=== PATIENT | male | born 1950 | race Caucasian/White ===

== ENCOUNTER 2024-09-16 00:27 | Day surgery (SDC) | payer MEDICARE, SELFPAY ==
[2024-09-06 13:23] VITALS: BMI 31.4
--- NOTE | 2024-09-06 13:52 | PC.NURSE ---
Spoke with _PATIENT_ regarding medication _PLAVIX_. Pt. verbalizes understanding that the last dose of PLAVIX is to be taken on _09/08/2024_ and the Endoscopist will instruct them when to restart after the procedure.
[2024-09-16 09:21] VITALS: BP 124/78; PULSE 55; RESP 18; TEMP 36.9; O2SAT 97
[2024-09-16] MEDS: LACTATED RINGERS 1,000 ML 150 ML IV CONT (09:40)
--- NOTE | 2024-09-16 10:01 | PM.IMHP ---
H&P: HPI History of Present Illness Date/Time: 09/16/24 10:01 Chief Complaint: Screening colonoscopy Narrative: This is the patient's second colonoscopy after 12 years.. There are no GI symptoms and there is no family history of colorectal cancer. Review of Systems Review of Systems: All systems reviewed & are unremarkable except as noted in HPI and below PMFSH Social History Social History Smoking status: Former smoker Alcohol intake: current Substance use: never Substance use type: does not use Living arrangements: with family Spiritual care concerns: No Meds Home Medications and Allergies Home Medications Medication Instructions Recorded Confirmed Type Adult Probiotic 1 cap PO BOLUS 09/06/24 09/16/24 History Calcium Plus D3 1,200 mg PO DAILY 09/06/24 09/16/24 History aspirin 81 mg tablet,delayed 81 mg PO DAILY 09/06/24 09/16/24 History release cetirizine 10 mg tablet (Zyrtec) 10 mg PO DAILY 09/06/24 09/16/24 History clopidogrel 75 mg tablet 75 mg PO DAILY 09/06/24 09/16/24 History coQ10 (ubiquinol) 200 mg capsule 400 mg PO DAILY 09/06/24 09/16/24 History ezetimibe 10 mg tablet 10 mg PO DAILY 09/06/24 09/16/24 History fluticasone propionate 50 2 spray intranasal DAILY 09/06/24 09/16/24 History mcg/actuation nasal spray,suspension isosorbide mononitrate 30 mg 30 mg PO DAILY 09/06/24 09/16/24 History tablet,extended release 24 hr magnesium oxide 400 mg PO DAILY 09/06/24 09/16/24 History melatonin 5 mg tablet 5 mg PO HS 09/06/24 09/16/24 History metoprolol succinate 50 mg 25 mg PO DAILY 09/06/24 09/16/24 History tablet,extended release 24 hr montelukast 10 mg tablet 10 mg PO DAILY 09/06/24 09/16/24 History multivitamin with minerals-folic 1 tablet PO DAILY 09/06/24 09/16/24 History acid 0.4 mg tablet ranolazine 1,000 mg 1,000 mg PO BID 09/06/24 09/16/24 History tablet,extended release,12 hr rosuvastatin 40 mg tablet 40 mg PO DAILY 09/06/24 09/16/24 History vitamin E (dl, acetate) 180 mg 180 mg PO DAILY 09/06/24 09/16/24 History (400 unit) capsule Allergies Allergy/AdvReac Type Severity Reaction Status Date / Time No Known Allergies Allergy Verified 09/16/24 09:20 Vital Signs Vital Signs - 24 hr 09/16/24 09:21 Temperature 98.4 F Pulse Rate 55 L Respiratory Rate 18 Blood Pressure 124/78 Pulse Oximetry 97 Oxygen Delivery Room Air Exam Const: General: cooperative and healthy appearing Resp: Effort & Inspection: normal respiratory effort and able to speak in complete sentences Auscultation: clear to auscultation bilaterally Cardio: Rate: regular rate Rhythm: regular rhythm GI: Inspection: normal to inspection GI Palp: No No hepatosplenomegaly present Auscultation: normal bowel sounds Rectal Exam: deferred Skin: General skin exam: normal color Psych: Appearance: grossly normal Mental Status: mental status grossly normal Assessment and Plan Assessment and plan (1) Screening for malignant neoplasm of colon: Code(s): Z12.11 - Encounter for screening for malignant neoplasm of colon Status: Acute Assessment and Plan: The patient is deemed a good candidate for the procedure. Consent signed. Will proceed.
--- NOTE | 2024-09-16 10:05 | WPDANESEPPF ---
Anes - Initial Pre Proc Eval Procedure: Operation Date: 09/16/24 11:00 Proposed Procedures p Screening Colonoscopy - Daniel Mcintyre MD Date/Time: 09/16/24 10:05 Surgeon: Daniel Mcintyre MD Pre Op Diagnosis: screening colon Patient Data Age: 73 Gender: M Height: 1.68 m Weight: 86 kg Last Vital Signs Temp 36.9 C 09/16/24 09:21 Pulse 55 L 09/16/24 09:21 Resp 18 09/16/24 09:21 BP 124/78 09/16/24 09:21 Pulse Ox 97 09/16/24 09:21 O2 Del Method Room Air 09/16/24 09:21 Allergies Allergy/AdvReac Type Severity Reaction Status Date / Time No Known Allergies Allergy Verified 09/16/24 09:20 Home Medications Medication Instructions Recorded Confirmed Type Adult Probiotic 1 cap PO BOLUS 09/06/24 09/16/24 History Calcium Plus D3 1,200 mg PO DAILY 09/06/24 09/16/24 History aspirin 81 mg tablet,delayed 81 mg PO DAILY 09/06/24 09/16/24 History release cetirizine 10 mg tablet (Zyrtec) 10 mg PO DAILY 09/06/24 09/16/24 History clopidogrel 75 mg tablet 75 mg PO DAILY 09/06/24 09/16/24 History coQ10 (ubiquinol) 200 mg capsule 400 mg PO DAILY 09/06/24 09/16/24 History ezetimibe 10 mg tablet 10 mg PO DAILY 09/06/24 09/16/24 History fluticasone propionate 50 2 spray intranasal DAILY 09/06/24 09/16/24 History mcg/actuation nasal spray,suspension isosorbide mononitrate 30 mg 30 mg PO DAILY 09/06/24 09/16/24 History tablet,extended release 24 hr magnesium oxide 400 mg PO DAILY 09/06/24 09/16/24 History melatonin 5 mg tablet 5 mg PO HS 09/06/24 09/16/24 History metoprolol succinate 50 mg 25 mg PO DAILY 09/06/24 09/16/24 History tablet,extended release 24 hr montelukast 10 mg tablet 10 mg PO DAILY 09/06/24 09/16/24 History multivitamin with minerals-folic 1 tablet PO DAILY 09/06/24 09/16/24 History acid 0.4 mg tablet ranolazine 1,000 mg 1,000 mg PO BID 09/06/24 09/16/24 History tablet,extended release,12 hr rosuvastatin 40 mg tablet 40 mg PO DAILY 09/06/24 09/16/24 History vitamin E (dl, acetate) 180 mg 180 mg PO DAILY 09/06/24 09/16/24 History (400 unit) capsule Patient hx anesthesia problems: none Family hx anesthesia problems: none Results Review: All pre-operative results and documents have been reviewed as part of the pre-operative evaluation. [facility] Past Medical History Medical History (Updated 09/16/24 @ 10:06 by Yared Rivas MD) CAD (coronary artery disease) HTN (hypertension) Obesity Surgical History Surgical History History of coronary artery stent placement Social History Social History Smoking status: Former smoker Alcohol intake: current Substance use: never Substance use type: does not use Living arrangements: with family Spiritual care concerns: No Anes - Eval Final PreProcedure Day of Procedure 09/16/24 10:05 Patient weight: obese Heart: regular rate and rhythm Lungs: clear to auscultation Airway: Mallampati scale class II Neurological: alert and oriented Last oral intake: >/= 8 hours ASA classification: III Emergent: no Anesthetic plan: proceed Anesthesia type and monitoring: general GIVS and standard monitoring Results Review: All pre-operative results and documents have been reviewed as part of the pre-operative evaluation. Informed Consent: The patient's anesthetic plan and its attendant risks and benefits were discussed with the patient/family/POA. Questions were solicited and answers provided to the satisfaction of the patient/family/POA.
--- NOTE | 2024-09-16 10:08 | P.PNAN_ITS ---
Anes - Initial Pre Proc Eval Procedure: Operation Date: 09/16/24 11:00 Proposed Procedures p Screening Colonoscopy - Daniel Mcintyre MD Date/Time: 09/16/24 10:08 Surgeon: Daniel Mcintyre MD Pre Op Diagnosis: screening colon Patient Data Age: 73 Gender: M Height: 1.68 m Weight: 86 kg Last Vital Signs Temp 36.9 C 09/16/24 09:21 Pulse 55 L 09/16/24 09:21 Resp 18 09/16/24 09:21 BP 124/78 09/16/24 09:21 Pulse Ox 97 09/16/24 09:21 O2 Del Method Room Air 09/16/24 09:21 Allergies Allergy/AdvReac Type Severity Reaction Status Date / Time No Known Allergies Allergy Verified 09/16/24 09:20 Home Medications Medication Instructions Recorded Confirmed Type Adult Probiotic 1 cap PO BOLUS 09/06/24 09/16/24 History Calcium Plus D3 1,200 mg PO DAILY 09/06/24 09/16/24 History aspirin 81 mg tablet,delayed 81 mg PO DAILY 09/06/24 09/16/24 History release cetirizine 10 mg tablet (Zyrtec) 10 mg PO DAILY 09/06/24 09/16/24 History clopidogrel 75 mg tablet 75 mg PO DAILY 09/06/24 09/16/24 History coQ10 (ubiquinol) 200 mg capsule 400 mg PO DAILY 09/06/24 09/16/24 History ezetimibe 10 mg tablet 10 mg PO DAILY 09/06/24 09/16/24 History fluticasone propionate 50 2 spray intranasal DAILY 09/06/24 09/16/24 History mcg/actuation nasal spray,suspension isosorbide mononitrate 30 mg 30 mg PO DAILY 09/06/24 09/16/24 History tablet,extended release 24 hr magnesium oxide 400 mg PO DAILY 09/06/24 09/16/24 History melatonin 5 mg tablet 5 mg PO HS 09/06/24 09/16/24 History metoprolol succinate 50 mg 25 mg PO DAILY 09/06/24 09/16/24 History tablet,extended release 24 hr montelukast 10 mg tablet 10 mg PO DAILY 09/06/24 09/16/24 History multivitamin with minerals-folic 1 tablet PO DAILY 09/06/24 09/16/24 History acid 0.4 mg tablet ranolazine 1,000 mg 1,000 mg PO BID 09/06/24 09/16/24 History tablet,extended release,12 hr rosuvastatin 40 mg tablet 40 mg PO DAILY 09/06/24 09/16/24 History vitamin E (dl, acetate) 180 mg 180 mg PO DAILY 09/06/24 09/16/24 History (400 unit) capsule Patient hx anesthesia problems: none Family hx anesthesia problems: none Results Review: All pre-operative results and documents have been reviewed as part of the pre- operative evaluation. [facility] Past Medical History Medical History CAD (coronary artery disease) HTN (hypertension) Obesity Surgical History Surgical History History of coronary artery stent placement Social History Social History Smoking status: Former smoker Alcohol intake: current Substance use: never Substance use type: does not use Living arrangements: with family Spiritual care concerns: No Anes - Eval Final PreProcedure Day of Procedure 09/16/24 10:08 Patient weight: obese Heart: regular rate and rhythm Lungs: clear to auscultation Airway: Mallampati scale class II Neurological: alert and oriented Last oral intake: >/= 8 hours ASA classification: III Emergent: no Anesthetic plan: proceed Anesthesia type and monitoring: general GIVS and standard monitoring Results Review: All pre-operative results and documents have been reviewed as part of the pre- operative evaluation. Informed Consent: The patient's anesthetic plan and its attendant risks and benefits were discussed with the patient/family/POA. Questions were solicited and answers provided to the satisfaction of the patient/family/POA.
[2024-09-16 11:33] VITALS: BP 109/64; PULSE 59; RESP 18; O2SAT 97
[2024-09-16 11:43] VITALS: BP 109/64; PULSE 59; RESP 18; O2SAT 97
[2024-09-16 11:58] VITALS: BP 109/64; PULSE 52; RESP 21; O2SAT 99
--- NOTE | 2024-09-16 12:42 | SUR.PHASEII ---
Pt called and instructed that per dr gomez he can resume his plavix today. spoke with his , voiced understanding.
== END 2024-09-16 11:59 | disposition home or self-care (01) ==
PROVIDERS: PCP Internal Medicine; Visit Provider Internal Medicine Gastroenterology
PROC: 0DJD8ZZ Inspection of Lower Intestinal Tract, Via Natural or Artificial Opening Endoscopic (ICD-10-PCS; CPT 45378; principal; 2024-09-16 11:00)
DX: Z12.11 Encounter for screening for malignant neoplasm of colon (principal); K64.0 First degree hemorrhoids; K57.30 Diverticulosis of large intestine without perforation or abscess without bleeding; I10 Essential (primary) hypertension; I25.10 Atherosclerotic heart disease of native coronary artery without angina pectoris; E66.9 Obesity, unspecified; Z68.30 Body mass index [BMI] 30.0-30.9, adult; Z79.82 Long term (current) use of aspirin; Z79.02 Long term (current) use of antithrombotics/antiplatelets; Z98.890 Other specified postprocedural states; Z95.5 Presence of coronary angioplasty implant and graft; Z87.891 Personal history of nicotine dependence
CPT/HCPCS: G0121; J2704; J7120

== ENCOUNTER 2025-01-22 11:05 | Emergency (ER) | payer MEDICARE, SELFPAY ==
--- NOTE | ~2025-01-22 | XR_ITS ---
EXAMINATION: XR chest 2V 01/22/2025 13:14 INDICATION: Cough and shortness of breath PROCEDURE: 2 view chest COMPARISON: No prior studies for comparison. FINDINGS: The lungs are clear. The cardiomediastinal silhouette is within normal limits. There are no pleural effusions. There is no pneumothorax suspected. IMPRESSION: 1: NO ACUTE CARDIOPULMONARY DISEASE. Reviewed, dictated and finalized at location A.
[2025-01-22 11:08] VITALS: BP 136/73; PULSE 61; RESP 20; TEMP 36.6; O2SAT 99
--- NOTE | 2025-01-22 12:38 | ED.GENADULT ---
HPI - General Adult General Chief complaint: Upper Respiratory Infection Stated complaint: Shortness of breath, wheezing, coughing Time Seen by Provider: 01/22/25 11:41 History of Present Illness HPI narrative: Pablo Cruz is a 74-year-old male with reports of having a inked increased productive cough that started 2 days ago. He explains that 3 days ago he had some type of laryngeal spasm went to an outside hospital was admitted he had CT scans, labs, x-rays and they could not really explain why he had the laryngeal spasm for wheezing and discharge him home on steroids and albuterol inhalers. He states that he was discharged 2 days ago and he started to have continuous coughing it and noticed he was still having wheezing and continued to have to use his albuterol inhaler. He states that today the cough has become more productive and he used his inhaler throughout the night. Denies chest pain denies shortness of breath at this time. He is concerned that he may be having developing pneumonia as they also thought this could be beginning pneumonia when he left but did not start him on any antibiotics. Related Data Home Medications ?Medication ?Instructions ?Recorded ?Confirmed ?Last Taken ?Type Adult Probiotic 1 cap PO BOLUS 09/06/24 09/16/24 09/15/24 History Calcium Plus D3 1,200 mg PO DAILY 09/06/24 09/16/24 09/15/24 History aspirin 81 mg tablet,delayed 81 mg PO DAILY 09/06/24 09/16/24 09/15/24 History release cetirizine 10 mg tablet (Zyrtec) 10 mg PO DAILY 09/06/24 09/16/24 09/15/24 History clopidogrel 75 mg tablet 75 mg PO DAILY 09/06/24 09/16/24 09/08/24 History coQ10 (ubiquinol) 200 mg capsule 400 mg PO DAILY 09/06/24 09/16/24 09/15/24 History ezetimibe 10 mg tablet 10 mg PO DAILY 09/06/24 09/16/24 09/15/24 History fluticasone propionate 50 2 spray intranasal DAILY 09/06/24 09/16/24 09/15/24 History mcg/actuation nasal spray,suspension isosorbide mononitrate 30 mg 30 mg PO DAILY 09/06/24 09/16/24 09/15/24 History tablet,extended release 24 hr magnesium oxide 400 mg PO DAILY 09/06/24 09/16/24 09/15/24 History melatonin 5 mg tablet 5 mg PO HS 09/06/24 09/16/24 09/15/24 History metoprolol succinate 50 mg 25 mg PO DAILY 09/06/24 09/16/24 09/15/24 History tablet,extended release 24 hr montelukast 10 mg tablet 10 mg PO DAILY 09/06/24 09/16/24 09/15/24 History multivitamin with minerals-folic 1 tablet PO DAILY 09/06/24 09/16/24 09/15/24 History acid 0.4 mg tablet ranolazine 1,000 mg 1,000 mg PO BID 09/06/24 09/16/24 09/15/24 History tablet,extended release,12 hr rosuvastatin 40 mg tablet 40 mg PO DAILY 09/06/24 09/16/24 09/15/24 History vitamin E (dl, acetate) 180 mg 180 mg PO DAILY 09/06/24 09/16/24 09/15/24 History (400 unit) capsule Allergies Allergy/AdvReac Type Severity Reaction Status Date / Time No Known Allergies Allergy Verified 01/22/25 11:06 Review of Systems Review of Systems: All systems reviewed & are unremarkable except as noted in HPI and below PMFSH Past Medical History Medical History HTN (hypertension) CAD (coronary artery disease) Obesity Surgical History Surgical History History of coronary artery stent placement Social History Social History Smoking status: Former smoker Alcohol intake: current Substance use: never Substance use type: does not use Living arrangements: with family Spiritual care concerns: No Exam Narrative: GENERAL: Well-appearing, well-nourished, and in no acute distress. HEAD: Normocephalic, atraumatic. EYES: PERRLA and EOMI. ENT: Nares clear, no rhinorrhea or epistaxis. Mucous membranes moist. Oropharynx without tonsillar hypertrophy exudate or other lesions. NECK: Supple. No adenopathy or masses. No carotid bruits or JVD CHEST: Clear to auscultation. Crackles/adventitious lung sounds in the bases bilaterally posteriorly noted HEART: Regular rate and rhythm. No murmur heard. Normal peripheral pulses. ABDOMEN: Soft, nontender, nondistended, normal active bowel sounds. EXTREMITIES: Normal range of motion. No edema. SKIN: Warm, dry, no rash. NEURO: No focal deficits. Alert and oriented x3. PSYCH: Normal mood and affect. Course Vital Signs Vital signs: Vital Signs Temperature 36.6 C 01/22/25 11:08 Pulse Rate 61 01/22/25 11:08 Respiratory Rate 20 01/22/25 11:08 Blood Pressure 136/73 01/22/25 11:08 Pulse Oximetry 99 01/22/25 11:08 Oxygen Delivery Room Air 01/22/25 11:08 Temperature 36.6 C 01/22/25 11:08 Pulse Rate 61 01/22/25 11:08 Respiratory Rate 20 01/22/25 11:08 Blood Pressure 136/73 01/22/25 11:08 Pulse Oximetry 99 01/22/25 11:08 Oxygen Delivery Room Air 01/22/25 11:08 Medical Decision Making [facility] Narrative Medical decision making narrative: This 74 year old patient presents with symptoms most suggestive of respiratory tract infection. Lungs are clear with bilateral crackles verses adventitious sounds in the bases bilaterally without any respiratory distress or accessory muscle use. I reviewed the labs and testing he had done at the outside hospital all which were stable Based on history and exam concern for pneumonia will repeat some lab work here including a chest x-ray will likely start patient on p.o. antibiotics with close PCP follow-up CBC-leukocytosis 12.6, hemodynamically stable CMP-BUN 25, glucose 124 BNP-511 which is considered nondiagnostic considering he is 74 Viral swab-negative Chest XR-NO ACUTE CARDIOPULMONARY DISEASE. Curb-65 score 2 - inpatient vs outpatient with close PCP follow up Patient is treated symptomatically with Doxycycline BID for 5 days discharged home in stable condition with expectant management. Return precautions were provided. Procedures: Pulse oximetry interpretation - not hypoxic. Review of medical records. DISPOSITION: Discharged home in stable condition. IMPRESSION: Acute upper respiratory tract infection, likely viral. Vital Signs Vital Signs: Vital Signs Temperature 36.6 C 01/22/25 11:08 Pulse Rate 61 01/22/25 11:08 Respiratory Rate 20 01/22/25 11:08 Blood Pressure 136/73 01/22/25 11:08 Pulse Oximetry 99 01/22/25 11:08 Oxygen Delivery Room Air 01/22/25 11:08 Temperature 36.6 C 01/22/25 11:08 Pulse Rate 61 01/22/25 11:08 Respiratory Rate 20 01/22/25 11:08 Blood Pressure 136/73 01/22/25 11:08 Pulse Oximetry 99 01/22/25 11:08 Oxygen Delivery Room Air 01/22/25 11:08 Vitals reviewed Lab Data Lab results reviewed: Yes I reviewed the patient's lab results. 01/22/25 12:48 01/22/25 12:48 Labs: Lab Results 01/22/25 Range/Units 12:48 WBC 12.6 H (4.5-10.0) K/mm3 RBC 4.01 L (4.6-6.20) M/mm3 Hgb 12.7 L (14.0-18.0) g/dL Hct 39.0 L (42.0-52.0) % MCV 97.3 (80-100) fl MCH 31.7 (26-34) pg MCHC 32.6 (32-36) g/dl RDW 13.2 (11.5-14.5) % Plt Count 220 (150-375) k/mm3 MPV 9.9 (7.4-10.4) fl Immature Gran % (Auto) 2.7 H (0-0.5) % Neut % (Auto) 82.7 H (45.5-73.1) % Lymph % (Auto) 7.0 L (18.3-44.2) % Perkins % (Auto) 7.0 (2.6-8.5) % Eos % (Auto) 0.0 (0-4.4) % Baso % (Auto) 0.6 (0.2-1.2) % Lymph # (Auto) 0.89 L (0.9-3.2) K/mm3 Perkins # (Auto) 0.9 H (0.1-0.6) K/mm3 Eos # (Auto) 0.0 (0-0.3) K/mm3 Baso # (Auto) 0.1 (0.0-0.1) K/mm3 Abs Immat Gran (auto) 0.34 H (0.00-0.031) K/mm3 Absolute Neuts (auto) 10.5 H (1.3-6.7) K/mm3 Absolute Nucleated RBC 0.000 (0.0-0.012) K/mm3 Nucleated RBC % 0.0 (0.0-0.2) % Sodium 140 (137-145) mmol/L Potassium 4.5 (3.4-5.0) mmol/L Chloride 104 (98-107) mmol/L Carbon Dioxide 26 (22-30) mmol/L Anion Gap 10 (4-12) mmol/L BUN 25 H (9-20) mg/dL Creatinine 1.01 (0.7-1.3) mg/dL Estim Creat Clear Calc 59 ml/min Estimated GFR > 60 (59 - ) Glucose 124 H (65-110) mg/dL Calcium 9.0 (8.4-10.2) mg/dL Total Bilirubin 0.5 (0.2-1.3) mg/dL AST 28 (17-59) U/L ALT 34 (6-50) U/L Alkaline Phosphatase 52 (38-126) U/L NT-Pro-B Natriuret Pep 511 H (19.9-100) pg/mL Total Protein 7.0 (6.3-8.2) g/dL Albumin 4.4 (3.5-5.1) g/dL Influenza A (RT-PCR) Negative (Negative) Influenza B (RT-PCR) Negative (Negative) SARS-CoV-2 RNA (RT-PCR) Negative (Negative) Discharge Plan Discharge Clinical Impression: Pneumonia Qualifiers: Pneumonia type: due to unspecified organism Laterality: unspecified laterality Lung location: unspecified part of lung Qualified Code(s): J18.9 - Pneumonia, unspecified organism Patient Disposition: Home, Self-Care Condition: Stable Instructions: Antibiotic Form Additional Instructions: Continue to take the doxycycline twice a day for 5 days continue to push hydration to ensure your his stay hydrated continue the medications here previously started on her previous admission follow-up with her primary care doctor next week as scheduled. If he develop any worsening symptoms such as shortness of breath, chest pain difficulty breathing then return to the ER. Patient Language: Mohawk Prescriptions: New doxycycline hyclate 100 mg capsule 100 mg PO DAILY Qty: 10 0RF No Action Adult Probiotic 1 cap PO BOLUS cetirizine [Zyrtec] 10 mg Tablet 10 mg PO DAILY metoprolol succinate 50 mg tablet extended release 24 hr 25 mg PO DAILY isosorbide mononitrate 30 mg tablet extended release 24 hr 30 mg PO DAILY clopidogrel 75 mg tablet 75 mg PO DAILY aspirin 81 mg Tablet,Delayed Release (Dr/Ec) 81 mg PO DAILY montelukast 10 mg tablet 10 mg PO DAILY fluticasone propionate 50 mcg/actuation spray,suspension 2 spray INTRANASAL DAILY ezetimibe 10 mg tablet 10 mg PO DAILY rosuvastatin 40 mg tablet 40 mg PO DAILY multivit with min-folic acid [Adult One Daily Multivitamin] 0.4 mg Tablet 1 tablet PO DAILY ranolazine 1,000 mg tablet extended release 12 hr 1,000 mg PO BID melatonin 5 mg Tablet 5 mg PO HS vitamin E (dl, acetate) 180 mg (400 unit) Capsule 180 mg PO DAILY coQ10 (ubiquinol) 200 mg Capsule 400 mg PO DAILY magnesium oxide 400 mg magnesium Capsule 400 mg PO DAILY Calcium Plus D3 1,200 mg PO DAILY Follow-up/Referrals: Frank,MD Siddhartha [Primary Care Provider] -
--- OUTSIDE RECORDS SUMMARY | 2025-01-22 12:45 | XMS_ITS | Patient Health Record ---
Author Organization 1 OF Yannick barragan D[facility] Address [address] [id number] Reason For Referral No Information Plan Of Treatment No Information
--- OUTSIDE RECORDS SUMMARY | 2025-01-22 12:45 | XMS_ITS | Data Portability ---
Author Organization [facility] Address [address] [place] [address] Care Team Providers Care Customer Support Executive Name Role Phone BRANDT MARIE Primary Care Provider [phone] DENISE SEAMAN Russian Language Instructor Assessment Encounter Date Assessment Date Assessment LastModified by Organization Details LastModified Time 03/12/2024 03/12/2024 Check uric acid and BMP given Medrol Dosepak empirically possibly for gout refill his Flonase keep his follow-up and he will let me know how he is doing over the next few days. [email or web address] Not available 04/06/2024 17:57:38 06/18/2024 06/18/2024 he can add some triamcinolone cream to the small area of inflammation in his back blood work ordered diagnosis and assessment and plan discussed see me in 4 months [email or web address] Not available 06/18/2024 23:38:41 07/30/2024 07/30/2024 checklist and screenings have been discussed healthy lifestyle care instructions as well immunizations and screenings ordered were patient agreeable and screenings and immunizations appropriate keep regular follow up Not available 08/11/2024 15:16:45 09/25/2024 09/25/2024 ibuprofen 400-600 mg t.i.d. with food for 7-10 days Keflex 500 t.i.d. for 7 days warm pack 10 minutes several times a day just make sure he does not bring himself keep his regular appointment he will call back sooner if not improved Not available 09/28/2024 13:37:42 11/05/2024 11/05/2024 Blood pressure is controlled. We will continue current therapy blood work has been ordered all questions answered clinically stable follow up in 4 months [email or web address] Not available 11/18/2024 17:23:00 Plan of Treatment Reminders Order Date Submit Date Provider Last Modified By Organization Details Last Modified Time Details Appointments ANY 15 2024 09:45A Ximena Marie MD Not available Not available Not available ANY 15 2024 10:15A Ximena Marie MD Not available Not available Not available Lab PSA, total, serum or plasma 2024 025 [facility], [address], [place], [address], 11/06/2024 08:26:52 lipid panel, serum 2024 025 [facility], [address], [place], [address], 11/06/2024 08:26:48 CMP, serum or plasma 2024 025 [facility], [address], [place], [address], 11/06/2024 08:26:49 CBC w/ auto diff 2024 025 [facility], [address], [place], [address], 11/06/2024 08:26:51 CBC w/ auto diff 2023 024 [facility], [address], [place], [address], 06/19/2024 13:12:48 T4, free, serum 2023 024 [facility], [address], [place], [address], 06/19/2024 13:12:49 T3, free, serum or plasma 2023 024 [facility], [address], [place], [address], 06/19/2024 13:12:49 TSH, ultra-sen sitive, serum 2023 024 [facility], [address], [place], [address], 06/19/2024 13:12:47 lipid panel, serum 2023 024 [facility], [address], [place], [address], 06/19/2024 13:12:46 CMP, serum or plasma 2023 024 [facility], [address], [place], [address], 06/19/2024 13:12:47 uric acid, serum or plasma 2023 024 [facility], [address], [place], [address], 03/13/2024 08:25:35 BMP, serum or plasma 2023 024 [facility], [address], [place], [address], 03/13/2024 08:25:34 Referral None recorded. Procedures None recorded. Surgeries None recorded. Imaging XR, foot, 3 or more view 2023 024 [facility] ([facility]), [address] [facility], [place], [address], 03/12/2024 15:02:20 Medication Orders cephalexi n 500 mg tablet 2023 025 [id number], [address], [place], [place], [phone], 11/05/2024 11:21:42 Medrol (Kee) 4 mg tablets in a dose pack 2023 024 [id number], [address], [place], [place], [id number], 07/30/2024 10:07:30 Flonase Allergy Relief 50 mcg/actua tion nasal spray,mahamed pension 2023 024 [email or web address] [facility], [address] [place] [address], [address], [phone], 03/12/2024 14:56:43 Patient TargetsNo targets recorded. Patient Instructions Encounter Date Encounter Id Patient Instructions Last Modified By Organization Details Last Modified Time 07/30/2024 [id number] A healthy lifestyle: care instructions Not available 07/30/2024 11:18:44 preventing falls : care instructions [email or web address] Not available 07/30/2024 11:18:44 Medicare Wellnes s Preventive Checklist Not available 07/30/2024 11:18:44 09/25/2024 [id number] A healthy lifestyle: care instructions [email or web address] Not available 09/25/2024 12:16:08 11/05/2024 [id number] A healthy lifestyle: care instructions [email or web address] Not available 11/05/2024 12:46:08 Reason for Referral None Reported. Results Created Date Observation Date Name Description Value Unit Range Abnormal Flag Note LastModifiedBy Organization Detail LastModifiedTime 03/12/2003/13/2024 BASIC METAB OLIC PANEL (8) glucose - mg/dL Test not perfo rmed. Serum was in conta ct with cells when recei emi which will make the resul t inacc urate . Not Available [facility] ([facility]) [address] [place], [address], 03/13/2024 08:25:34 03/12/20 24 03/13/2024 BASIC METAB OLIC PANEL (8) BUN 15 mg/dL 8 Not Available [facility] ([facility]) [address] [place], [address], 03/13/2024 08:25:34 03/12/20 24 03/13/2024 BASIC METAB OLIC PANEL (8) creatinine 1.21 mg/dL 0.76-1 .27 Not Available [facility] ([facility]) [address] [place], [address], 03/13/2024 08:25:34 03/12/20 24 03/13/2024 BASIC METAB OLIC PANEL (8) eGFR 63 mL/mi n/1.7 3 >59 Not Available [facility] ([facility]) [address] [place], [address], 03/13/2024 08:25:34 03/12/20 24 03/13/2024 BASIC METAB OLIC PANEL (8) BUN/creatini ne ratio 12 10-24 Not Available [facility] ([facility]) [address] [place], [address], 03/13/2024 08:25:34 03/12/20 24 03/13/2024 BASIC METAB OLIC PANEL (8) sodium 141 mmol/ L 134-14 4 Not Available [facility] ([facility]) [address] [place], [address], 03/13/2024 08:25:34 03/12/20 24 03/13/2024 BASIC METAB OLIC PANEL (8) potassium - mmol/ L Test not perfo rmed. Serum was in conta ct with cells when recei emi which will make the resul t inacc urate . Not Available [facility] ([facility]) [address] [place], [address], 03/13/2024 08:25:34 03/12/20 24 03/13/2024 BASIC METAB OLIC PANEL (8) chloride 104 mmol/ L 96-106 Not Available [facility] ([facility]) [address] [place], [address], 03/13/2024 08:25:34 03/12/20 24 03/13/2024 BASIC METAB OLIC PANEL (8) carbon dioxide, total 20 mmol/ L 20-29 Not Available [facility] ([facility]) [address] [place], [address], 03/13/2024 08:25:34 03/12/20 24 03/13/2024 BASIC METAB OLIC PANEL (8) calcium 9.8 mg/dL 8.6-10 .2 Not Available [facility] ([facility]) [address] [place], [address], 03/13/2024 08:25:34 03/12/20 24 03/13/2024 URIC ACID uric acid 4.9 mg/dL 3.8-8. 4 Thera fadi garcia t for gout patie nts: <6.0 Not Available [facility] ([facility]) [address] [place], [address], 03/13/2024 08:25:35 06/18/20 24 06/19/2024 LIPID PANEL cholesterol, total 176 mg/dL 100-19 9 Not Available [facility] ([facility]) [address] [place], [address], 06/19/2024 13:12:46 06/18/20 24 06/19/2024 LIPID PANEL triglyceride s 157 mg/dL 0-149 above high normal Not Available [facility] ([facility]) [address] [place], [address], 06/19/2024 13:12:46 06/18/20 24 06/19/2024 LIPID PANEL HDL cholesterol 54 mg/dL >39 Not Available [facility] ([facility]) [address] [place], [address], 06/19/2024 13:12:46 06/18/20 24 06/19/2024 LIPID PANEL VLDL cholesterol nando 27 mg/dL 5-40 Not Available [facility] ([facility]) [address] [place], [address], 06/19/2024 13:12:46 06/18/20 24 06/19/2024 LIPID PANEL LDL chol calc ([facility]) 95 mg/dL 0-99 Not Available [facility] ([facility]) [address] [place], [address], 06/19/2024 13:12:46 06/18/20 24 06/19/2024 COMP. METAB OLIC PANEL (14) glucose 96 mg/dL 70-99 Not Available [facility] ([facility]) [address] [place], [address], 06/19/2024 13:12:46 06/18/20 24 06/19/2024 COMP. METAB OLIC PANEL (14) BUN 17 mg/dL 8-27 Not Available [facility] ([facility]) [address] [place], [address], 06/19/2024 13:12:46 06/18/20 24 06/19/2024 COMP. METAB OLIC PANEL (14) creatinine 1.08 mg/dL 0.76-1 .27 Not Available [facility] ([facility]) [address] [place], [address], 06/19/2024 13:12:46 06/18/20 24 06/19/2024 COMP. METAB OLIC PANEL (14) eGFR 72 mL/mi n/1.7 3 >59 Not Available [facility] ([facility]) [address] [place], [address], 06/19/2024 13:12:46 06/18/20 24 06/19/2024 COMP. METAB OLIC PANEL (14) BUN/creatini ne ratio 16 10-24 Not Available [facility] ([facility]) [address] [place], [address], 06/19/2024 13:12:46 06/18/20 24 06/19/2024 COMP. METAB OLIC PANEL (14) sodium 138 mmol/ L 134-14 4 Not Available [facility] ([facility]) [address] [facility], [place], [address], 06/19/2024 13:12:46 06/18/20 24 06/19/2024 COMP. METAB OLIC PANEL (14) potassium 5.2 mmol/ L 3.5-5. 2 Not Available [facility] ([facility]) [address] [facility], [place], [address], 06/19/2024 13:12:46 06/18/20 24 06/19/2024 COMP. METAB OLIC PANEL (14) chloride 99 mmol/ L 96-106 Not Available [facility] ([facility]) [address] [facility], [place], [address], 06/19/2024 13:12:46 06/18/20 24 06/19/2024 COMP. METAB OLIC PANEL (14) carbon dioxide, total 25 mmol/ L 20-29 Not Available [facility] ([facility]) [address] [facility], [place], [address], 06/19/2024 13:12:46 06/18/20 24 06/19/2024 COMP. METAB OLIC PANEL (14) calcium 9.9 mg/dL 8.6-10 .2 Not Available [facility] ([facility]) [address] [place], [address], 06/19/2024 13:12:46 06/18/20 24 06/19/2024 COMP. METAB OLIC PANEL (14) protein, total 7.1 g/dL 6.0-8. 5 Not Available [facility] ([facility]) [address] [place], [address], 06/19/2024 13:12:46 06/18/20 24 06/19/2024 COMP. METAB OLIC PANEL (14) albumin 5.1 g/dL 3.8-4. 8 above high normal Not Available [facility] ([facility]) [address] [place], [address], 06/19/2024 13:12:46 06/18/20 24 06/19/2024 COMP. METAB OLIC PANEL (14) globulin, total 2.0 g/dL 1.5-4. 5 Not Available [facility] ([facility]) [address] [place], [address], 06/19/2024 13:12:46 06/18/20 24 06/19/2024 COMP. METAB OLIC PANEL (14) bilirubin, total 0.4 mg/dL 0.0-1. 2 Not Available [facility] ([facility]) [address] [place], [address], 06/19/2024 13:12:46 06/18/20 24 06/19/2024 COMP. METAB OLIC PANEL (14) alkaline phosphatase 57 IU/L 44-121 Not Available [facility] ([facility]) [address] [place], [address], 06/19/2024 13:12:46 06/18/20 24 06/19/2024 COMP. METAB OLIC PANEL (14) AST (SGOT) 24 IU/L 0-40 Not Available [facility] ([facility]) [address] [place], [address], 06/19/2024 13:12:46 06/18/20 24 06/19/2024 COMP. METAB OLIC PANEL (14) ALT (SGPT) 22 IU/L 0-44 Not Available [facility] ([facility]) [address] [place], [address], 06/19/2024 13:12:46 06/18/20 24 06/19/2024 TSH TSH 1.190 uIU/m L 0.450- 4.500 Not Available [facility] ([facility]) [address] [facility], [place], [address], 06/19/2024 13:12:47 06/18/20 24 06/19/2024 CBC WITH DIFFE RENTI AL/PL ATELE T WBC 18.6 x10e3 /uL 3.4-10 .8 above high normal Not Available [facility] ([facility]) [address] [facility], [place], [address], 06/19/2024 13:12:48 06/18/20 24 06/19/2024 CBC WITH DIFFE RENTI AL/PL ATELE T RBC 4.33 x10e6 /uL 4.14-5 .80 Not Available [facility] ([facility]) [address] [facility], [place], [address], 06/19/2024 13:12:48 06/18/20 24 06/19/2024 CBC WITH DIFFE RENTI AL/PL ATELE T hemoglobin 14.0 g/dL 13.0-1 7.7 Not Available [facility] ([facility]) [address] [place], [address], 06/19/2024 13:12:48 06/18/20 24 06/19/2024 CBC WITH DIFFE RENTI AL/PL ATELE T hematocrit 43.0 % 37.5-5 1.0 Not Available [facility] ([facility]) [address] [place], [address], 06/19/2024 13:12:48 06/18/20 24 06/19/2024 CBC WITH DIFFE RENTI AL/PL ATELE T MCV 99 fL 79-97 above high normal Not Available [facility] ([facility]) [address] [place], [address], 06/19/2024 13:12:48 06/18/20 24 06/19/2024 CBC WITH DIFFE RENTI AL/PL ATELE T MCH 32.3 pg 26.6-3 3.0 Not Available [facility] ([facility]) [address] [facility], [place], [address], 06/19/2024 13:12:48 06/18/20 24 06/19/2024 CBC WITH DIFFE RENTI AL/PL ATELE T MCHC 32.6 g/dL 31.5-3 5.7 Not Available [facility] ([facility]) [address] [facility], [place], [address], 06/19/2024 13:12:48 06/18/20 24 06/19/2024 CBC WITH DIFFE RENTI AL/PL ATELE T RDW 12.6 % 11.6-1 5.4 Not Available [facility] ([facility]) [address] [facility], [place], [address], 06/19/2024 13:12:48 06/18/20 24 06/19/2024 CBC WITH DIFFE RENTI AL/PL ATELE T platelets 252 x10e3 /uL 150-45 0 Not Available [facility] ([facility]) [address] [facility], [place], [address], 06/19/2024 13:12:48 06/18/20 24 06/19/2024 CBC WITH DIFFE RENTI AL/PL ATELE T neutrophils 88 % notest ab. Not Available [facility] ([facility]) [address] [facility], [place], [address], 06/19/2024 13:12:48 06/18/20 24 06/19/2024 CBC WITH DIFFE RENTI AL/PL ATELE T lymphs 4 % notest ab. Not Available [facility] ([facility]) [address] [facility], [place], [address], 06/19/2024 13:12:48 06/18/20 24 06/19/2024 CBC WITH DIFFE RENTI AL/PL ATELE T monocytes 7 % notest ab. Not Available [facility] ([facility]) [address] [facility], [place], [address], 06/19/2024 13:12:48 06/18/20 24 06/19/2024 CBC WITH DIFFE RENTI AL/PL ATELE T eos 0 % notest ab. Not Available [facility] ([facility]) [address] [facility], [place], [address], 06/19/2024 13:12:48 06/18/20 24 06/19/2024 CBC WITH DIFFE RENTI AL/PL ATELE T basos 0 % notest ab. Not Available [facility] ([facility]) [address] [facility], [place], [address], 06/19/2024 13:12:48 06/18/20 24 06/19/2024 CBC WITH DIFFE RENTI AL/PL ATELE T neutrophils (absolute) 16.2 x10e3 /uL 1.4-7. 0 above high normal Not Available [facility] ([facility]) [address] [facility], [place], [address], 06/19/2024 13:12:48 06/18/20 24 06/19/2024 CBC WITH DIFFE RENTI AL/PL ATELE T lymphs (absolute) 0.8 x10e3 /uL 0.7-3. 1 Not Available [facility] ([facility]) [address] [facility], [place], [address], 06/19/2024 13:12:48 06/18/20 24 06/19/2024 CBC WITH DIFFE RENTI AL/PL ATELE T monocytes(ab solute) 1.4 x10e3 /uL 0.1-0. 9 above high normal Not Available [facility] ([facility]) [address] [place], [address], 06/19/2024 13:12:48 06/18/20 24 06/19/2024 CBC WITH DIFFE RENTI AL/PL ATELE T eos (absolute) 0.0 x10e3 /uL 0.0-0. 4 Not Available [facility] ([facility]) [address] [facility], [place], [address], 06/19/2024 13:12:48 06/18/20 24 06/19/2024 CBC WITH DIFFE RENTI AL/PL ATELE T baso (absolute) 0.0 x10e3 /uL 0.0-0. 2 Not Available [facility] ([facility]) [address] [facility], [place], [address], 06/19/2024 13:12:48 06/18/20 24 06/19/2024 CBC WITH DIFFE RENTI AL/PL ATELE T immature granulocytes 1 % notest ab. Not Available [facility] ([facility]) [address] [facility], [place], [address], 06/19/2024 13:12:48 06/18/20 24 06/19/2024 CBC WITH DIFFE RENTI AL/PL ATELE T immature grans (abs) 0.2 x10e3 /uL 0.0-0. 1 above high normal (An eleva edelmira perce ntage of Immat ure Granu locyt es has not been found to be clini ghazal signi fican t as a sole clini nando predi ctor of disea se. Does NOT inclu de bands or blast cells . Pregn geneva assoc iated physi ologi nando leuko cytos is may also show incre ased immat ure granu locyt es witho ut clini nando signi fican ce.) Not Available [facility] ([facility]) [address] [facility], [place], [address], 06/19/2024 13:12:48 06/18/20 24 06/19/2024 TRIIO DOTHY SHANAE E (T3), FREE triiodothyro nine (T3), free 2.2 pg/mL 2.0-4. 4 Not Available [facility] ([facility]) [address] [facility], [place], [address], 06/19/2024 13:12:49 06/18/20 24 06/19/2024 T4,FR EE(DI RECT) T4,free(dire ct) 1.21 NG/dL 0.82-1 .77 Not Available [facility] ([facility]) [address] [place], [address], 06/19/2024 13:12:49 11/05/19 25 11/06/2024 LIPID PANEL cholesterol, total 163 mg/dL 100-19 9 Not Available [facility] ([facility]) [address] [place], [address], 11/06/2024 08:26:48 11/05/19 25 11/06/2024 LIPID PANEL triglyceride s 299 mg/dL 0-149 above high normal Not Available [facility] ([facility]) [address] [place], [address], 11/06/2024 08:26:48 11/05/19 25 11/06/2024 LIPID PANEL HDL cholesterol 50 mg/dL >39 Not Available [facility] ([facility]) [address] [place], [address], 11/06/2024 08:26:48 11/05/19 25 11/06/2024 LIPID PANEL VLDL cholesterol nando 47 mg/dL 5-40 above high normal Not Available [facility] ([facility]) [address] [place], [address], 11/06/2024 08:26:48 11/05/19 25 11/06/2024 LIPID PANEL LDL chol calc ([facility]) 66 mg/dL 0-99 Not Available [facility] ([facility]) [address] [place], [address], 11/06/2024 08:26:48 11/05/19 25 11/06/2024 COMP. METAB OLIC PANEL (14) glucose 98 mg/dL 70-99 Not Available [facility] ([facility]) [address] [place], [address], 11/06/2024 08:26:49 11/05/19 25 11/06/2024 COMP. METAB OLIC PANEL (14) BUN 13 mg/dL 8-27 Not Available [facility] ([facility]) [address] [place], [address], 11/06/2024 08:26:49 11/05/19 25 11/06/2024 COMP. METAB OLIC PANEL (14) creatinine 1.00 mg/dL 0.76-1 .27 Not Available [facility] ([facility]) [address] [place], [address], 11/06/2024 08:26:49 11/05/19 25 11/06/2024 COMP. METAB OLIC PANEL (14) eGFR 79 mL/mi n/1.7 3 >59 Not Available [facility] ([facility]) [address] [place], [address], 11/06/2024 08:26:49 11/05/19 25 11/06/2024 COMP. METAB OLIC PANEL (14) BUN/creatini ne ratio 13 10-24 Not Available [facility] ([facility]) [address] [facility] [place], [address], 11/06/2024 08:26:49 11/05/19 25 11/06/2024 COMP. METAB OLIC PANEL (14) sodium 140 mmol/ L 134-14 4 Not Available [facility] ([facility]) [address] [facility] [place] [facility] [place], [address], 11/06/2024 08:26:49 11/05/19 25 11/06/2024 COMP. METAB OLIC PANEL (14) potassium 4.9 mmol/ L 3.5-5. 2 Not Available [facility] ([facility]) [address] [facility] [place] [facility] [place], [address], 11/06/2024 08:26:49 11/05/19 25 11/06/2024 COMP. METAB OLIC PANEL (14) chloride 101 mmol/ L 96-106 Not Available [facility] ([facility]) [address] [facility] [place], [address], 11/06/2024 08:26:49 11/05/19 25 11/06/2024 COMP. METAB OLIC PANEL (14) carbon dioxide, total 26 mmol/ L 20-29 Not Available [facility] ([facility]) [address] [facility] [place], [address], 11/06/2024 08:26:49 11/05/19 25 11/06/2024 COMP. METAB OLIC PANEL (14) calcium 9.7 mg/dL 8.6-10 .2 Not Available [facility] ([facility]) [address] [facility] [place], [address], 11/06/2024 08:26:49 11/05/19 25 11/06/2024 COMP. METAB OLIC PANEL (14) protein, total 6.7 g/dL 6.0-8. 5 Not Available [facility] ([facility]) [address] [place], [address], 11/06/2024 08:26:49 11/05/19 25 11/06/2024 COMP. METAB OLIC PANEL (14) albumin 4.7 g/dL 3.8-4. 8 Not Available [facility] ([facility]) [address] [place], [address], 11/06/2024 08:26:49 11/05/19 25 11/06/2024 COMP. METAB OLIC PANEL (14) globulin, total 2.0 g/dL 1.5-4. 5 Not Available [facility] ([facility]) [address] [place], [address], 11/06/2024 08:26:49 11/05/19 25 11/06/2024 COMP. METAB OLIC PANEL (14) bilirubin, total 0.3 mg/dL 0.0-1. 2 Not Available [facility] ([facility]) [address] [facility], [place], [address], 11/06/2024 08:26:49 11/05/19 25 11/06/2024 COMP. METAB OLIC PANEL (14) alkaline phosphatase 54 IU/L 44-121 Not Available [facility] ([facility]) [address] [facility], [place], [address], 11/06/2024 08:26:49 11/05/19 25 11/06/2024 COMP. METAB OLIC PANEL (14) AST (SGOT) 32 IU/L 0-40 Not Available [facility] ([facility]) [address] [facility], [place], [address], 11/06/2024 08:26:49 11/05/19 25 11/06/2024 COMP. METAB OLIC PANEL (14) ALT (SGPT) 27 IU/L 0-44 Not Available [facility] ([facility]) [address] [facility] [place], [address], 11/06/2024 08:26:49 11/05/19 25 11/06/2024 CBC WITH DIFFE RENTI AL/PL ATELE T WBC 7.8 x10e3 /uL 3.4-10 .8 Not Available [facility] ([facility]) [address] [place], [address], 11/06/2024 08:26:51 11/05/19 25 11/06/2024 CBC WITH DIFFE RENTI AL/PL ATELE T RBC 4.32 x10e6 /uL 4.14-5 .80 Not Available [facility] ([facility]) [address] [facility] [place], [address], 11/06/2024 08:26:51 11/05/19 25 11/06/2024 CBC WITH DIFFE RENTI AL/PL ATELE T hemoglobin 13.8 g/dL 13.0-1 7.7 Not Available [facility] ([facility]) [address] [place], [address], 11/06/2024 08:26:51 11/05/19 25 11/06/2024 CBC WITH DIFFE RENTI AL/PL ATELE T hematocrit 40.8 % 37.5-5 1.0 Not Available [facility] ([facility]) [address] [facility], [place], [address], 11/06/2024 08:26:51 11/05/19 25 11/06/2024 CBC WITH DIFFE RENTI AL/PL ATELE T MCV 94 fL 79-97 Not Available [facility] ([facility]) [address] [facility], [place], [address], 11/06/2024 08:26:51 11/05/19 25 11/06/2024 CBC WITH DIFFE RENTI AL/PL ATELE T MCH 31.9 pg 26.6-3 3.0 Not Available [facility] ([facility]) [address] [facility], [place], [address], 11/06/2024 08:26:51 11/05/19 25 11/06/2024 CBC WITH DIFFE RENTI AL/PL ATELE T MCHC 33.8 g/dL 31.5-3 5.7 Not Available [facility] ([facility] [facility]) [address] [place], [address], 11/06/2024 08:26:51 11/05/19 25 11/06/2024 CBC WITH DIFFE RENTI AL/PL ATELE T RDW 12.7 % 11.6-1 5.4 Not Available [facility] ([facility]) [address] [place], [address], 11/06/2024 08:26:51 11/05/19 25 11/06/2024 CBC WITH DIFFE RENTI AL/PL ATELE T platelets 234 x10e3 /uL 150-45 0 Not Available [facility] ([facility]) [address] [facility], [place], [address], 11/06/2024 08:26:51 11/05/19 25 11/06/2024 CBC WITH DIFFE RENTI AL/PL ATELE T neutrophils 63 % notest ab. Not Available [facility] ([facility]) [address] [facility], [place], [address], 11/06/2024 08:26:51 11/05/19 25 11/06/2024 CBC WITH DIFFE RENTI AL/PL ATELE T lymphs 20 % notest ab. Not Available [facility] ([facility]) [address] [facility], [place], [address], 11/06/2024 08:26:51 11/05/19 25 11/06/2024 CBC WITH DIFFE RENTI AL/PL ATELE T monocytes 12 % notest ab. Not Available [facility] ([facility]) [address] [facility], [place], [address], 11/06/2024 08:26:51 11/05/19 25 11/06/2024 CBC WITH DIFFE RENTI AL/PL ATELE T eos 2 % notest ab. Not Available [facility] ([facility]) [address] [facility], [place], [address], 11/06/2024 08:26:51 11/05/19 25 11/06/2024 CBC WITH DIFFE RENTI AL/PL ATELE T basos 1 % notest ab. Not Available [facility] ([facility]) [address] [facility], [place], [address], 11/06/2024 08:26:51 11/05/19 25 11/06/2024 CBC WITH DIFFE RENTI AL/PL ATELE T neutrophils (absolute) 5.0 x10e3 /uL 1.4-7. 0 Not Available [facility] ([facility]) [address] [facility], [place], [address], 11/06/2024 08:26:51 11/05/19 25 11/06/2024 CBC WITH DIFFE RENTI AL/PL ATELE T lymphs (absolute) 1.6 x10e3 /uL 0.7-3. 1 Not Available [facility] ([facility]) [address] [facility], [place], [address], 11/06/2024 08:26:51 11/05/19 25 11/06/2024 CBC WITH DIFFE RENTI AL/PL ATELE T monocytes(ab solute) 0.9 x10e3 /uL 0.1-0. 9 Not Available [facility] ([facility]) [address] [facility], [place], [address], 11/06/2024 08:26:51 11/05/19 25 11/06/2024 CBC WITH DIFFE RENTI AL/PL ATELE T eos (absolute) 0.1 x10e3 /uL 0.0-0. 4 Not Available [facility] ([facility]) [address] [facility], [place], [address], 11/06/2024 08:26:51 11/05/19 25 11/06/2024 CBC WITH DIFFE RENTI AL/PL ATELE T baso (absolute) 0.0 x10e3 /uL 0.0-0. 2 Not Available [facility] ([facility]) [address] [facility], [place], [address], 11/06/2024 08:26:51 11/05/19 25 11/06/2024 CBC WITH DIFFE RENTI AL/PL ATELE T immature granulocytes 2 % notest ab. Not Available [facility] ([facility]) [address] [facility], [place], [address], 11/06/2024 08:26:51 11/05/19 25 11/06/2024 CBC WITH DIFFE RENTI AL/PL ATELE T immature grans (abs) 0.2 x10e3 /uL 0.0-0. 1 above high normal (An eleva edelmira perce ntage of Immat ure Granu locyt es has not been found to be clini ghazal signi fican t as a sole clini nando predi ctor of disea se. Does NOT inclu de bands or blast cells . Pregn geneva assoc iated physi ologi nando leuko cytos is may also show incre ased immat ure granu locyt es witho ut clini nando signi fican ce.) Not Available [facility] ([facility]) [address] [facility], [place], [address], 11/06/2024 08:26:51 11/05/19 25 11/06/2024 PROST ATE-S PECIF IC AG prostate specific Ag 0.3 NG/mL 0.0-4. 0 Joe ECLIA metho dolog y. Accor ding to the [employer]i can [employer] [facility] i[employer] n, Serum PSA shoul d decre ase and remai n at undet ectab le level s after radic al prost atect gena. The AUA defin es bioch emica l recur rence as an initi al PSA value 0.2 ng/mL or great er follo wed by a subse quent confi rmato ry PSA value 0.2 ng/mL or great er. Value s obtai yumiko with diffe rent assay metho ds or kits canno t be used inter king eay . Resul ts canno t be inter prete d as absol [place] evide nce of the prese nce or absen ce of jax perera disea se. Not Available [facility] ([facility]) [address] [facility], [place], [address], 11/06/2024 08:26:52 01/20/20 25 01/19/2025 Tropo robson I.car diac [Mass /volu me] in Serum or Plasm a by Detec tion limit <= 0.01 ng/mL troponin I.cardiac [mass/volume ] in serum or plasma by detection limit <= 0.01 NG/mL <0.012 low: 0NG/mL high: 0.034N G/mL normal Not Available Not Available 01/20/2025 14:43:46 01/20/20 25 01/19/2025 Tropo robson I.car diac [Mass /volu me] in Serum or Plasm a by Detec tion limit <= 0.01 ng/mL troponin I.cardiac [mass/volume ] in serum or plasma by detection limit <= 0.01 NG/mL <0.012 low: 0NG/mL high: 0.034N G/mL normal Not Available Not Available 01/20/2025 14:43:46 01/20/20 25 01/19/2025 Influ jonny virus A and B and SARS- CoV-2 (COVI D-19) and Respi rator y syncy tial virus RNA panel - Respi rator y syste m speci men by MADAI with probe detec tion sars-cov-2 (covid-19) RNA [presence] in specimen by MADAI with probe detection Negati ve normal Not Available Not Available 14:43:45 01/20/20 25 01/19/2025 Influ jonny virus A and B and SARS- CoV-2 (COVI D-19) and Respi rator y syncy tial virus RNA panel - Respi rator y syste m speci men by MADAI with probe detec tion influenza virus A RNA [presence] in respiratory system specimen by MADAI with probe detection Negati ve normal Not Available Not Available 14:43:45 01/20/20 25 01/19/2025 Influ jonny virus A and B and SARS- CoV-2 (COVI D-19) and Respi rator y syncy tial virus RNA panel - Respi rator y syste m speci men by MADAI with probe detec tion influenza virus B RNA [presence] in respiratory system specimen by MADAI with probe detection Negati ve normal Not Available Not Available 14:43:45 01/20/20 25 01/19/2025 Influ jonny virus A and B and SARS- CoV-2 (COVI D-19) and Respi rator y syncy tial virus RNA panel - Respi rator y syste m speci men by MADAI with probe detec tion respiratory syncytial virus RNA [presence] in nasopharynx by MADAI with probe detection Negati ve normal Not Available Not Available 14:43:45 01/20/20 25 01/19/2025 Tropo robson I.car diac [Mass /volu me] in Serum or Plasm a by Detec tion limit <= 0.01 ng/mL troponin I.cardiac [mass/volume ] in serum or plasma by detection limit <= 0.01 NG/mL <0.012 low: 0NG/mL high: 0.034N G/mL normal Not Available Not Available 01/20/2025 14:43:45 01/20/20 25 01/19/2025 Natri ureti c pepti de.B proho rmone N-Ter luis fernando [Mass /volu me] in Serum or Plasm a natriuretic peptide.B prohormone N-terminal [mass/volume ] in serum or plasma 90.2 pg/mL low: 0pg/mL high: 299pg/ mL normal Not Available Not Available 01/20/2025 14:43:45 01/20/20 25 01/19/2025 Lacta te [Mole s/vol ume] in Serum or Plasm a lactate [moles/volum e] in serum or plasma 1.3 mmol/ L low: 0.7mmo l/Lhig h: 1.9mmo l/L normal Not Available Not Available 01/20/2025 14:43:45 01/20/20 25 01/19/2025 Magne sium [Mass /volu me] in Serum or Plasm a magnesium [mass/volume ] in serum or plasma 2.2 mg/dL low: 1.6mg/ dLhigh : 2.3mg/ dL normal Not Available Not Available 01/20/2025 14:43:45 01/20/20 25 01/19/2025 Compr ehens vivian metab olic 1999 panel - Serum or Plasm a sodium [moles/volum e] in blood 137 mmol/ L low: 137mmo l/Lhig h: 145mmo l/L normal Not Available Not Available 01/20/2025 14:43:44 01/20/20 25 01/19/2025 Compr ehens vivian metab olic 1999 panel - Serum or Plasm a potassium [moles/volum e] in serum or plasma 4.2 mmol/ L low: 3.5mmo l/Lhig h: 5.1mmo l/L normal Not Available Not Available 01/20/2025 14:43:44 01/20/20 25 01/19/2025 Compr [employer] vivian metab olic 1999 panel - Serum or Plasm a chloride [moles/volum e] in serum or plasma 107 mmol/ L low: 98mmol /Lhigh : 107mmo l/L normal Not Available Not Available 01/20/2025 14:43:44 01/20/20 25 01/19/2025 Compr ehens vivian metab olic 1999 panel - Serum or Plasm a carbon dioxide, total [moles/volum e] in serum or plasma 25 mmol/ L low: 22mmol /Lhigh : 30mmol /L normal Not Available Not Available 01/20/2025 14:43:44 01/20/20 25 01/19/2025 Compr [employer] vivian metab olic 1999 panel - Serum or Plasm a anion gap in serum or plasma 9.2 mmol/ L low: 14mmol /Lhigh : 22mmol /L low Not Available Not Available 01/20/2025 14:43:44 01/20/20 25 01/19/2025 Compr [facility] [employer] vivian [employer] o[employer] 1999 panel - Serum or Plasm a glucose [mass/volume ] in serum or plasma 119 mg/dL low: 70mg/d Lhigh: 99mg/d L high Not Available Not Available 01/20/2025 14:43:44 01/20/20 25 01/19/2025 Compr [employer] vivian metab olic 1999 panel - Serum or Plasm a urea nitrogen [mass or moles/volume ] in serum or plasma 13 mg/dL low: 8mg/dL high: 19mg/d L normal Not Available Not Available 01/20/2025 14:43:44 01/20/20 25 01/19/2025 Compr Nicholas [employer] vivian [employer] 1999 panel - Serum or Plasm a creatinine [mass/volume ] in serum or plasma 1.1 mg/dL low: 0.66mg /dLhig h: 1.25mg /dL normal Not Available Not Available 01/20/2025 14:43:44 01/20/20 25 01/19/2025 Compr [facility] [employer] vivian metab olic 2000 panel - Serum or Plasm a glomerular filtration rate/1.73 sq M.predicted [volume rate/area] in serum, plasma or blood >60 normal Not Available Not Available 12/29 14:43:44 01/20/20 25 01/19/2025 [facility] 1999 panel - Serum or Plasm a alkaline phosphatase [enzymatic activity/vol ume] in serum or plasma 47 U/L low: 38U/Lh igh: 126U/L normal Not Available Not Available 01/20/2025 14:43:44 01/20/20 25 01/19/2025 [facility] panel - Serum or Plasm a alanine aminotransfe rase [enzymatic activity/vol ume] in serum or plasma 26 U/L low: 0U/Lhi gh: 50U/L normal Not Available Not Available 01/20/2025 14:43:44 01/20/20 25 01/19/2025 [facility] 1999 panel - Serum or Plasm a aspartate aminotransfe rase [enzymatic activity/vol ume] in serum or plasma 37 U/L low: 15U/Lh igh: 46U/L normal Not Available Not Available 01/20/2025 14:43:44 01/20/20 25 01/19/2025 [facility] [place] [address] panel - Serum or Plasm a bilirubin.to kip [mass/volume ] in serum or plasma 0.7 mg/dL low: 0.2mg/ dLhigh : 1.3mg/ dL normal Not Available Not Available 01/20/2025 14:43:44 01/20/20 25 01/19/2025 [facility] [place] [address] panel - Serum or Plasm a calcium [mass/volume ] in serum or plasma 9.1 mg/dL low: 8.4mg/ dLhigh : 10.2mg /dL normal Not Available Not Available 01/20/2025 14:43:44 01/20/20 25 01/19/2025 [facility] [place] [address] panel - Serum or Plasm a protein [mass/volume ] in serum or plasma 6.4 g/dL low: 6.3g/d Lhigh: 8.2g/d L normal Not Available Not Available 01/20/2025 14:43:44 01/20/20 25 01/19/2025 Compr ehens vivian metab olic 1999 panel - Serum or Plasm a albumin [mass/volume ] in serum or plasma 4.4 g/dL low: 3g/dLh igh: 4.4g/d L normal Not Available Not Available 01/20/2025 14:43:44 01/20/20 25 01/19/2025 Compr ehens vivian metab olic 1999 panel - Serum or Plasm a globulin [mass/volume ] in serum 2 g/dL low: 2.6g/d Lhigh: 4.2g/d L low Not Available Not Available 01/20/2025 14:43:44 01/20/20 25 01/19/2025 Compr ehens vivian metab olic 1999 panel - Serum or Plasm a albumin/glob ulin [mass ratio] in serum or plasma 2.2 ratio low: 1ratio high: 2ratio high Not Available Not Available 01/20/2025 14:43:44 01/20/20 25 01/19/2025 aPTT in Plate let poor plasm a by Coagu latio n assay APTT in platelet poor plasma by coagulation assay 25.5 secon ds low: 22.7se condsh igh: 30.2se conds normal Not Available Not Available 01/20/2025 14:43:45 01/20/20 25 01/19/2025 Proth rombi n time (PT) prothrombin time (PT) 11.2 secon ds low: 9.7sec ondshi gh: 12.2se conds normal Not Available Not Available 01/20/2025 14:43:45 01/20/20 25 01/19/2025 Proth rombi n time (PT) INR in platelet poor plasma by coagulation assay 1 1 normal Not Available Not Available 12/29 14:43:45 01/20/20 25 01/19/2025 Fibri n D-dim er FEU [Mass /volu me] in Plate let poor plasm a fibrin D-dimer feu [mass/volume ] in platelet poor plasma 0.22 mg/L_ feu low: 0mg/L feuhig h: 0.49mg /L feu normal Not Available Not Available 01/20/2025 14:43:44 01/20/20 25 01/19/2025 CBC W Auto Diffe renti al panel - Blood leukocytes [#/volume] in blood by automated count 7.4 x10'3 /uL low: 4.2x10 '3/uLh igh: 10.8x1 0'3/uL normal Not Available Not Available 01/20/2025 14:43:44 01/20/20 25 01/19/2025 CBC W Auto Diffe renti al panel - Blood erythrocytes [#/volume] in blood by automated count 3.89 x10'6 /uL low: 4.1x10 '6/uLh igh: 5.8x10 '6/uL low Not Available Not Available 01/20/2025 14:43:44 01/20/20 25 01/19/2025 CBC W Auto Diffe renti al panel - Blood hemoglobin [mass/volume ] in blood 12.8 g/dL low: 13.2g/ dLhigh : 17g/dL low Not Available Not Available 01/20/2025 14:43:44 01/20/20 25 01/19/2025 CBC W Auto Diffe renti al panel - Blood hematocrit [volume fraction] of blood by automated count 37.4 % low: 39.3%h igh: 50% low Not Available Not Available 01/20/2025 14:43:44 01/20/20 25 01/19/2025 CBC W Auto Diffe renti al panel - Blood MCV [entitic volume] by automated count 96.1 fL low: 80fLhi gh: 97fL normal Not Available Not Available 01/20/2025 14:43:44 01/20/20 25 01/19/2025 CBC W Auto Diffe renti al panel - Blood MCH [entitic mass] by automated count 32.9 pg low: 27pghi gh: 33pg normal Not Available Not Available 01/20/2025 14:43:44 01/20/20 25 01/19/2025 CBC W Auto Diffe renti al panel - Blood MCHC [mass/volume ] by automated count 34.2 g/dL low: 31g/dL high: 36g/dL normal Not Available Not Available 01/20/2025 14:43:44 01/20/20 25 01/19/2025 CBC W Auto Diffe renti al panel - Blood erythrocyte distribution width [ratio] 13.5 % low: 11.8%h igh: 15.5% normal Not Available Not Available 01/20/2025 14:43:44 01/20/20 25 01/19/2025 CBC W Auto Diffe renti al panel - Blood platelets [#/volume] in blood by automated count 182 x10'3 /uL low: 150x10 '3/uLh igh: 400x10 '3/uL normal Not Available Not Available 01/20/2025 14:43:44 01/20/20 25 01/19/2025 CBC W Auto Diffe renti al panel - Blood platelet mean volume [entitic volume] in blood by automated count 10.1 fL low: 9fLhig h: 12.4fL normal Not Available Not Available 01/20/2025 14:43:44 01/20/20 25 01/19/2025 CBC W Auto Diffe renti al panel - Blood neutrophils/ 100 leukocytes in blood 65.2 % low: 39%hig h: 72% normal Not Available Not Available 01/20/2025 14:43:44 01/20/20 25 01/19/2025 CBC W Auto Diffe renti al panel - Blood lymphocytes/ 100 leukocytes in blood 14.5 % low: 16%hig h: 47% low Not Available Not Available 01/20/2025 14:43:44 01/20/20 25 01/19/2025 CBC W Auto Diffe renti al panel - Blood monocytes/10 0 leukocytes in blood 14.6 % low: 5%high : 12% high Not Available Not Available 01/20/2025 14:43:44 01/20/20 25 01/19/2025 CBC W Auto Diffe renti al panel - Blood eosinophils [#/volume] in blood 3.9 % low: 1%high : 7% normal Not Available Not Available 01/20/2025 14:43:44 01/20/20 25 01/19/2025 CBC W Auto Diffe renti al panel - Blood basophils/10 0 leukocytes in blood 0.7 % low: 0%high : 2% normal Not Available Not Available 01/20/2025 14:43:44 01/20/20 25 01/19/2025 CBC W Auto Diffe renti al panel - Blood immature granulocytes /100 leukocytes in blood 1.1 % low: 0%high : 0.5% high Not Available Not Available 01/20/2025 14:43:44 01/20/20 25 01/19/2025 CBC W Auto Diffe renti al panel - Blood neutrophils [#/volume] in blood 4.83 x10'3 /uL low: 1.5x10 '3/uLh igh: 8x10'3 /uL normal Not Available Not Available 01/20/2025 14:43:44 01/20/20 25 01/19/2025 CBC W Auto Diffe renti al panel - Blood lymphocytes [#/volume] in blood 1.07 x10'3 /uL low: 1.07x1 0'3/uL high: 3.43x1 0'3/uL normal Not Available Not Available 01/20/2025 14:43:44 01/20/20 25 01/19/2025 CBC W Auto Diffe renti al panel - Blood monocytes [#/volume] in blood 1.08 x10'3 /uL low: 0.29x1 0'3/uL high: 0.99x1 0'3/uL high Not Available Not Available 01/20/2025 14:43:44 01/20/20 25 01/19/2025 CBC W Auto Diffe renti al panel - Blood eosinophils [#/volume] in blood 0.29 x10'3 /uL low: 0.02x1 0'3/uL high: 0.53x1 0'3/uL normal Not Available Not Available 01/20/2025 14:43:44 01/20/20 25 01/19/2025 CBC W Auto Diffe renti al panel - Blood basophils [#/volume] in blood 0.05 x10'3 /uL low: 0.01x1 0'3/uL high: 0.08x1 0'3/uL normal Not Available Not Available 01/20/2025 14:43:44 01/20/20 25 01/19/2025 CBC W Auto Diffe renti al panel - Blood immature granulocytes [#/volume] in blood 0.08 x10'3 /uL low: 0x10'3 /uLhig h: 0.05x1 0'3/uL high Not Available Not Available 01/20/2025 14:43:44 01/20/20 25 01/19/2025 CBC W Auto Diffe renti al panel - Blood nucleated erythrocytes /100 leukocytes [ratio] in blood 0 % high: 0% normal Not Available Not Available 01/20/2025 14:43:44 01/20/20 25 01/19/2025 CBC W Auto Diffe renti al panel - Blood nucleated erythrocytes [#/volume] in blood by automated count 0 x10'3 /uL normal Not Available Not Available 01/21/20 14:43:44 01/21/20 25 01/20/2025 CBC W Auto Diffe renti al panel - Blood leukocytes [#/volume] in blood by automated count 13 x10'3 /uL low: 4.2x10 '3/uLh igh: 10.8x1 0'3/uL high Not Available Not Available 01/20/2025 14:43:46 01/21/20 25 01/20/2025 CBC W Auto Diffe renti al panel - Blood erythrocytes [#/volume] in blood by automated count 4.01 x10'6 /uL low: 4.1x10 '6/uLh igh: 5.8x10 '6/uL low Not Available Not Available 01/20/2025 14:43:46 01/21/20 25 01/20/2025 CBC W Auto Diffe renti al panel - Blood hemoglobin [mass/volume ] in blood 13.1 g/dL low: 13.2g/ dLhigh : 17g/dL low Not Available Not Available 01/20/2025 14:43:46 01/21/20 25 01/20/2025 CBC W Auto Diffe renti al panel - Blood hematocrit [volume fraction] of blood by automated count 38.4 % low: 39.3%h igh: 50% low Not Available Not Available 01/20/2025 14:43:46 01/21/20 25 01/20/2025 CBC W Auto Diffe renti al panel - Blood MCV [entitic volume] by automated count 95.8 fL low: 80fLhi gh: 97fL normal Not Available Not Available 01/20/2025 14:43:46 01/21/20 25 01/20/2025 CBC W Auto Diffe renti al panel - Blood MCH [entitic mass] by automated count 32.7 pg low: 27pghi gh: 33pg normal Not Available Not Available 01/20/2025 14:43:46 01/21/20 25 01/20/2025 CBC W Auto Diffe renti al panel - Blood MCHC [mass/volume ] by automated count 34.1 g/dL low: 31g/dL high: 36g/dL normal Not Available Not Available 01/20/2025 14:43:46 01/21/20 25 01/20/2025 CBC W Auto Diffe renti al panel - Blood erythrocyte distribution width [ratio] 13.2 % low: 11.8%h igh: 15.5% normal Not Available Not Available 01/20/2025 14:43:46 01/21/20 25 01/20/2025 CBC W Auto Diffe renti al panel - Blood platelets [#/volume] in blood by automated count 210 x10'3 /uL low: 150x10 '3/uLh igh: 400x10 '3/uL normal Not Available Not Available 01/20/2025 14:43:46 01/21/20 25 01/20/2025 CBC W Auto Diffe renti al panel - Blood platelet mean volume [entitic volume] in blood by automated count 10.4 fL low: 9fLhig h: 12.4fL normal Not Available Not Available 01/20/2025 14:43:46 01/21/20 25 01/20/2025 CBC W Auto Diffe renti al panel - Blood neutrophils/ 100 leukocytes in blood 91 % low: 39%hig h: 72% high Not Available Not Available 01/20/2025 14:43:46 01/21/20 25 01/20/2025 CBC W Auto Diffe renti al panel - Blood band form neutrophils/ 100 leukocytes in blood 2 % low: 0%high : 3% normal Not Available Not Available 01/20/2025 14:43:46 01/21/20 25 01/20/2025 CBC W Auto Diffe renti al panel - Blood lymphocytes/ 100 leukocytes in blood 5 % low: 16%hig h: 47% low Not Available Not Available 01/20/2025 14:43:46 01/21/20 25 01/20/2025 CBC W Auto Diffe renti al panel - Blood monocytes/10 0 leukocytes in blood 2 % low: 5%high : 12% low Not Available Not Available 01/20/2025 14:43:46 01/21/20 25 01/20/2025 CBC W Auto Diffe renti al panel - Blood neutrophils [#/volume] in blood 11.91 x10'3 /uL low: 1.5x10 '3/uLh igh: 8x10'3 /uL high Not Available Not Available 01/20/2025 14:43:46 01/21/20 25 01/20/2025 CBC W Auto Diffe renti al panel - Blood lymphocytes [#/volume] in blood 0.55 x10'3 /uL low: 1.07x1 0'3/uL high: 3.43x1 0'3/uL low Not Available Not Available 01/20/2025 14:43:46 01/21/20 25 01/20/2025 CBC W Auto Diffe renti al panel - Blood monocytes [#/volume] in blood 0.37 x10'3 /uL low: 0.29x1 0'3/uL high: 0.99x1 0'3/uL normal Not Available Not Available 01/20/2025 14:43:46 01/21/20 25 01/20/2025 CBC W Auto Diffe renti al panel - Blood eosinophils [#/volume] in blood 0 x10'3 /uL low: 0.02x1 0'3/uL high: 0.53x1 0'3/uL low Not Available Not Available 01/20/2025 14:43:46 01/21/20 25 01/20/2025 CBC W Auto Diffe renti al panel - Blood basophils [#/volume] in blood 0.02 x10'3 /uL low: 0.01x1 0'3/uL high: 0.08x1 0'3/uL normal Not Available Not Available 01/20/2025 14:43:46 01/21/20 25 01/20/2025 CBC W Auto Diffe renti al panel - Blood immature granulocytes [#/volume] in blood 0.12 x10'3 /uL low: 0x10'3 /uLhig h: 0.05x1 0'3/uL high Not Available Not Available 01/20/2025 14:43:46 01/21/20 25 01/20/2025 CBC W Auto Diffe renti al panel - Blood nucleated erythrocytes /100 leukocytes [ratio] in blood 0 % high: 0% normal Not Available Not Available 01/20/2025 14:43:46 01/21/20 25 01/20/2025 CBC W Auto Diffe renti al panel - Blood nucleated erythrocytes [#/volume] in blood by automated count 0 x10'3 /uL normal Not Available Not Available 01/21/20 14:43:46 01/21/20 25 01/20/2025 CBC W Auto Diffe renti al panel - Blood anisocytosis [presence] in blood by light microscopy Labora tory data interp retati on normal Not Available Not Available 14:43:46 01/21/20 25 01/20/2025 CBC W Auto Diffe renti al panel - Blood poikilocytos is [presence] in blood by light microscopy Labora tory data interp retati on normal Not Available Not Available 14:43:46 01/21/20 25 01/20/2025 CBC W Auto Diffe renti al panel - Blood dacrocytes [presence] in blood by light microscopy Labora tory data interp retati on normal Not Available Not Available 14:43:46 01/21/20 25 01/20/2025 Basic metab olic 1999 panel - Serum or Plasm a sodium [moles/volum e] in blood 136 mmol/ L low: 137mmo l/Lhig h: 145mmo l/L low Not Available Not Available 01/20/2025 14:43:45 01/21/20 25 01/20/2025 Basic metab olic 1999 panel - Serum or Plasm a potassium [moles/volum e] in serum or plasma 4.3 mmol/ L low: 3.5mmo l/Lhig h: 5.1mmo l/L normal Not Available Not Available 01/20/2025 14:43:45 01/21/20 25 01/20/2025 Basic metab olic 1999 panel - Serum or Plasm a chloride [moles/volum e] in serum or plasma 108 mmol/ L low: 98mmol /Lhigh : 107mmo l/L high Not Available Not Available 01/20/2025 14:43:45 01/21/20 25 01/20/2025 [facility] 1999 panel - Serum or Plasm a carbon dioxide, total [moles/volum e] in serum or plasma 22 mmol/ L low: 22mmol /Lhigh : 30mmol /L normal Not Available Not Available 01/20/2025 14:43:45 01/21/20 25 01/20/2025 [facility] 1999 panel - Serum or Plasm a anion gap in serum or plasma 10.3 mmol/ L low: 14mmol /Lhigh : 22mmol /L low Not Available Not Available 01/20/2025 14:43:45 01/21/20 25 01/20/2025 [facility] 1999 panel - Serum or Plasm a glucose [mass/volume ] in serum or plasma 168 mg/dL low: 70mg/d Lhigh: 99mg/d L high Not Available Not Available 01/20/2025 14:43:45 01/21/20 25 01/20/2025 [facility] 1999 panel - Serum or Plasm a urea nitrogen [mass or moles/volume ] in serum or plasma 17 mg/dL low: 8mg/dL high: 19mg/d L normal Not Available Not Available 01/20/2025 14:43:45 01/21/20 25 01/20/2025 [facility] 1999 panel - Serum or Plasm a creatinine [mass/volume ] in serum or plasma 0.93 mg/dL low: 0.66mg /dLhig h: 1.25mg /dL normal Not Available Not Available 01/20/2025 14:43:45 01/21/20 25 01/20/2025 [facility] 1999 panel - Serum or Plasm a glomerular filtration rate/1.73 sq M.predicted [volume rate/area] in serum, plasma or blood >60 normal Not Available Not Available 12/29 14:43:45 01/21/20 25 01/20/2025 [facility] 1999 panel - Serum or Plasm a calcium [mass/volume ] in serum or plasma 9.3 mg/dL low: 8.4mg/ dLhigh : 10.2mg /dL normal Not Available Not Available 01/20/2025 14:43:45 03/12/20 24 03/12/2024 XR, foot, 3 or more view No observ ation record ed. [facility] [address] [place], [address], 03/18/2024 11:50:36 11/13/1904/18/2024 diabe tic foot exam* No observ ation record ed. [facility] Not Available 2024 12:41:46 01/20/20 25 01/19/2025 XR, chest No observ ation record ed. [facility] [address] [place], [address], 01/21/2025 12:53:24 01/20/20 25 01/19/2025 CT, angio gram, chest , w/o contr ast No observ ation record ed. [facility] [address] [place], [address], 01/21/2025 12:53:04 Result Notes None recorded. Problems Name Problem SNOMED Code Status Onset Date Resolution Date Notes Provider Name and Address Organization Details Recorded Time Pain in right foot 3071268296492 07 Active 2023 Bowen Au [place] null, [place] [facility] 4 11:33:09 Hyperlipide payal 87484215 Active 2023 Bowen Au [place], [place] [facility] 4 16:18:48 Hypothyroid ism 30740101 Active 2023 Bowen Au [place], [place] [facility] 4 16:18:50 Essential hypertensio n 10385825 Active 2023 Bowen Au [place] [facility] 4 16:19:05 Coronary atheroscler osis 606681210 Active 2023 Brandt Marie MD Attn: Omid ybarra,[address] [place], [address], [place] [facility] 4 23:39:02 Problem Notes None recorded. Procedures Surgical History Date Name Laterality Status Provider Name and Address Organization Details Recorded Time Angioplasty With Stent completed Aldo Nelson [place] [facility] 01/10/2024 10:23:53 Imaging Results Imaging Date Name Status LastModified by Organiz ation Details LastModified Time 03/12/2024 XR, foot, 3 or more view completed [facility] [address] [place], [address], 03/18/2024 11:50:36 04/18/2024 diabetic foot exam* completed [facility] Information not available 11/13/2024 12:41:46 01/19/2025 XR, chest completed [facility] [address] [place], [address], 01/21/2025 12:53:24 01/19/2025 CT, angiogram, chest, w/o contrast completed [facility] [address] [place], [address], 01/21/2025 12:53:04 Procedure Notes None recorded. Medical Equipment None Reported. Allergies No known drug allergies Medications Name Sig Start Date Stop Date Status Note LastModified by Organization Details LastModified Time cephalexin 250 mg capsule 07/30 completed Not Available Not Available Not Available isosorbide mononitrate ER 30 mg tablet,exte nded release 24 hr Take 1 tablet every day by oral route. active Not Available Not Available No t Available clopidogrel 75 mg tablet Take 1 tablet every day by oral route. active Not Available Not Available No t Available levothyroxi ne 75 mcg tablet TAKE 1 TABLET BY MOUTH DAILY 2024 active Not Available Not Available Not Avai lable cephalexin 500 mg capsule 11/05 completed Not Available Not Available Not Available losartan 25 mg tablet Take 1 tablet every day by oral route. active Not Available Not Available No t Available montelukast 10 mg tablet Take 1 tablet every day by oral route. active Not Available Not Available No t Available methylpredn isolone 4 mg tablets in a dose pack Take 1 dose pk by oral route as directed. 07/30 completed Not Available Not Available Not Available ketoconazol e 2 % topical cream APPLY TOPICALLY TO THE AFFECTED AREA DAILY active Not Available Not Available No t Available fluticasone propionate 50 mcg/actuati on nasal spray,suspe nsion USE 1 SPRAY NASALLY DAILY 2024 active Not Available Not Available Not Avai lable ezetimibe 10 mg tablet TAKE 1 TABLET BY MOUTH DAILY active Not Available Not Available No t Available rosuvastati n 40 mg tablet Take 1 tablet by mouth daily active Not Available Not Available No t Available ranolazine ER 1,000 mg tablet,exte nded release,12 hr Take 1 tablet twice a day by oral route. active Not Available Not Available No t Available metoprolol succinate ER 50 mg capsule sprinkle, ext. release 24 hr Take 1 capsule every day by oral route. active Not Available Not Available No t Available Paxlovid 300 mg (150 mg x 2)-100 mg tablets in a dose pack 01/09 completed Not Available Not Available Not Available Vitals Date Recorded Body height Body mass index (BMI) Body weight Oxygen saturation Oxygen saturation in Arterial blood by Pulse oximetry Heart rate Systolic blood pressure Diastolic blood pressure Provider Name and Address Organization Details Last Updated DateTime 4 167.64 cm 31.8 kg/m2 26394.9 8 g 95 % 95 % 55 /min 130 mm[Hg] 80 mm[Hg] Aldo Nelson MA [facility] 4 10:36:44 Date Recorded Body height Body mass index (BMI) Body weight Heart rate Oxygen saturation Oxygen saturation in Arterial blood by Pulse oximetry Systolic blood pressure Diastolic blood pressure Provider Name and Address Organization Details Last Updated DateTime 4 167.64 cm 30.5 kg/m2 79011.8 8 g 60 /min 98 % 98 % 132 mm[Hg] 66 mm[Hg] Cristel Fatima MA [facility] 4 15:00:39 Date Recorded Body height Body mass index (BMI) Body weight Heart rate Oxygen saturation Oxygen saturation in Arterial blood by Pulse oximetry Systolic blood pressure Diastolic blood pressure Provider Name and Address Organization Details Last Updated DateTime 4 167.64 cm 31.1 kg/m2 07321.5 3 g 64 /min 96 % 96 % 120 mm[Hg] 62 mm[Hg] Cristel Fatima MA [facility] 4 09:42:30 Date Recorded Pain severity - 0-10 verbal numeric rating [Score] - Reported Provider Name and Address Organization Details Last Updated DateTime 07/30/2024 0 Laney Mcdonald [facility] 07/30/2024 10:05:46 Date Recorded Body height Body mass index (BMI) Body weight Heart rate Oxygen saturation Oxygen saturation in Arterial blood by Pulse oximetry Systolic blood pressure Diastolic blood pressure Provider Name and Address Organization Details Last Updated DateTime 4 167.64 cm 31.2 kg/m2 80517.0 5 g 58 /min 97 % 97 % 128 mm[Hg] 64 mm[Hg] Cristel Fatima MA [facility] 4 10:11:54 Date Recorded Body height Body mass index (BMI) Body weight Heart rate Oxygen saturation Oxygen saturation in Arterial blood by Pulse oximetry Systolic blood pressure Diastolic blood pressure Provider Name and Address Organization Details Last Updated DateTime 5 167.64 cm 32.1 kg/m2 32332.8 g 62 /min 95 % 95 % 120 mm[Hg] 72 mm[Hg] Melvina Poe MA [facility] 5 11:21:05 Social History Question Answer Notes LastModified by Organizat ion Details LastModified Time Tobacco Smoking Status Never Smoker Aldo Nelson MA [facility] 01/10/2024 10:23:17 Do You Have An Advance Directive? No Information not available 01/10/2024 What Is Your Level Of Alcohol Consumption? Occasional Information not available 01/10/2024 Are You Blind Or Do You Have Difficulty Seeing? No Information not available 01/10/2024 What Is Your Level Of Caffeine Consumption? Occasional Tea & Soda Information not available 07/30/2024 In The 14 Days Before Symptom Onset, Have You Had Close Contact With A Laboratory-confir med COVID-19 While That Case Was Ill? No Information not available 09/25/2024 In The 14 Days Before Symptom Onset, Have You Had Close Contact With A Person Who Is Under Investigation For COVID-19 While That Person Was Ill? No Information not available 09/25/2024 Have You Been To An Area Known To Be High Risk For COVID-19? No Information not available 09/25/2024 Are You Currently Employed? No Information not available 07/30/2024 Are You Deaf Or Do You Have Serious Difficulty Hearing? No Information not available 01/10/2024 What Type Of Diet Are You Following? REGULAR Information not available 01/10/2024 Are There Any Guns Present In Your Home? No Information not available 01/10/2024 In The Past 7 Days, How Many Days Did You Exercise? 0 Information not available 07/30/2024 In The Past 7 Days, How Much Pain Have You Compton? Some Information not available 07/30/2024 In General, Would You Say You Health Is: Good Information not available 07/30/2024 How Would You Describe The Condition Of Your Mouth And Teeth- Including False Teeth Or Dentures? Good Information not available 07/30/2024 Each Night, How Many Hours Of Sleep Do You Get? 7 Information no t available 07/30/2024 Has Anyone Ever Told You That You Snore? Yes Information not available 07/30/2024 In The Past 7 Days, How Often Have You Compton Sleepy In The Daytime? Sometimes Information not available 07/30/2024 # Alcohol Drinks Per Week 0 Information not available 07/30/2024 What Was The Date Of Your Most Recent Tobacco Screening? 11/05/2024 Information not available 11/05/2024 What Is Your Relationship Status? Information not available 01/10/2024 Do You Use Your Seat Belt Or Car Seat Routinely? Yes Information not available 01/10/2024 Do You Have Smoke And Carbon Monoxide Detectors In Your Home? Yes Information not available 01/10/2024 Do You Feel Stressed (tense, Restless, Nervous, Or Anxious, Or Unable To Sleep At Night)? [id number] Information not available 01/10/2024 Do You Use Any Illicit Or Recreational Drugs? No Information not available 01/10/2024 Do You Use Sunscreen Routinely? Yes Information not available 07/30/2024 Has Tobacco Cessation Counseling Been Provided? Yes Information not available 11/05/2024 On What Date Was Tobacco Cessation Counseling Provided? 11/05/2024 Information not available 11/05/2024 Do You Or Have You Ever Used Any Other Forms Of Tobacco Or Nicotine? No Information not available 01/10/2024 Sex: Male Functional Status Question Answer Note LastModified by Organizat ion Details LastModified Time Are you able to care for yourself? Yes Information not available 01/10/2024 What is your exercise level? Occasional Information not available 07/30/2024 Mental Status None recorded. Family History Relationship Description Onset Age of this Age Resolved Age Notes LastModified by Organization Details LastModified Time Brother Heart disease bandersonma Not available 12/28 10:22:27 Brother Hypercholest erolemia bandersonma Not available 12/28 10:22:39 Brother Myocardial infarction bandersonma Not available 10:22:53 Father Heart disease bandersonma Not available 12/28 10:22:27 Father Hypercholest erolemia bandersonma Not available 12/28 10:22:39 Father Myocardial infarction bandersonma Not available 10:22:53 Medical History Condition Response Coronary Artery Disease Y Other N High Blood Pressure N Atrial Fibrillation N Kidney or Bladder Problems N Thyroid Problems Y GI Problems N Depression N COPD N Blood Clots N Have you had a mammogram in the last yea r? N Skin Problems Y Anemia N Heart Attack ([place]) Y Anxiety Disorder N Diabetes N Muscle, Joint, or Bone Problems N Seizures/Epilepsy N Have you had a colonoscopy in the last 1 0 years? Y Acid Reflux (GERD) N Cancer N Stroke N Asthma N Allergies N High Cholesterol Y Hepatitis N Liver Disease N Headaches N Heart Failure N Osteoporosis N Immunizations Vaccine Type Date Status Note Provider Nam e and Address Organization Details Recorded Time Influenza, high-dose, quadrivalent, PF 2 completed Laney Mcdonald [place], [place] [facility] 07/29/2024 14:22:49 Influenza, high-dose, quadrivalent, PF 2 [place]ones[place] [facility] 07/29/2024 14:22:50 Influenza, adjuvanted, quadrivalent, PF 3 [place] [facility] 07/29/2024 14:22:50 Influenza, adjuvanted, quadrivalent, PF 1 [place] [facility] 07/29/2024 14:22:50 COVID-19, mRNA, LNP-S, PF, 100 mcg/0.5mL dose or 50 mcg/0.25mL dose 1 [place] [facility] 07/29/2024 14:22:50 COVID-19, mRNA, LNP-S, PF, 100 mcg/0.5mL dose or 50 mcg/0.25mL dose 1 [place] [facility] 07/29/2024 14:22:50 COVID-19, mRNA, LNP-S, PF, 100 mcg/0.5mL dose or 50 mcg/0.25mL dose 2 completed [place] [facility] 07/29/2024 14:22:50 COVID-19, mRNA, LNP-S, PF, 100 mcg/0.5mL dose or 50 mcg/0.25mL dose 1 [place] [facility] 07/29/2024 14:22:50 COVID-19, mRNA, LNP-S, bivalent, PF, 50 mcg/0.5 mL or 25mcg/0.25 mL dose 2 completed [place] [facility] 07/29/2024 14:22:50 COVID-19, mRNA, LNP-S, bivalent, PF, 30 mcg/0.3 mL dose 3 [place] [facility] 07/29/2024 14:22:50 RSV, bivalent, protein subunit RSVpreF, diluent reconstituted, 0.5 mL, PF 3 completed [place] [facility] 07/29/2024 14:22:50 COVID-19, mRNA, LNP-S, PF, bony-sucrose, 30 mcg/0.3 mL 3 completed [place] [facility] 07/29/2024 14:22:50 pneumococcal polysaccharide PPV23 2 completed Laney Corraleshl null, [place] - [facility] 07/29/2024 14:22:50 Tdap 9 completed Laney Corral[place] [facility] 07/29/2024 14:22:50 Pneumococcal conjugate PCV 13 0 completed Laney Corral[place], [place] [facility] 07/29/2024 14:22:50 Influenza, high-dose, trivalent, PF 7 completed Laney Florence null, [place] [facility] 07/29/2024 14:22:50 Influenza, high-dose, trivalent, PF 5 completed Laney Corral[place]hl [place] [facility] 07/29/2024 14:22:50 Hep A, adult 4 completed Laney Mcdonald [place], [place] [facility] 07/29/2024 14:22:50 Past Encounters Encounter ID Performer Location Encounter Start Date Encounter Closed Date Diagnosis/Indication Diagnosis SNOMED-CT Code Diagnosis ICD10 Code Diagnosis Note [id number] Brandt Marie MD [facility] (Adult Med) [address] [place] [id number] 01/10/2024 09:46:47 01/10/2024 10:59:10 Hypothyroidism 54292178 E03.9 Essential hypertension 15539572 I10 Hyperlipidemia 90625399 E78.5 Coronary atherosclerosis 880658627 I25.10 Diverticul osis of colon 917238486 K57.30 Chronic rhinitis 8584992 6 J31.0 [id number] MD [facility] (Adult Med) [address] [place] [phone] 0 03/12/2024 10:20:20 03/12/2024 11:31:25 Pain in right foot 1401747653 82384 M79.671 Renewal of prescription 253167745 Z76.0 [id number] MD [facility] (Adult Med) [address] [place] [address] 0 06/18/2024 14:43:58 06/18/2024 16:20:43 Hyperlipidemia 25741619 E78.5 Hypothyroidism 55221834 E03.9 Essential hypertension 58318996 I10 Coronary atherosclerosis 310143566 I25.10 Acute dermatitis 3538452 6 L30.9 [id number] MD [facility] (Adult Med) [address] [place] [address]3699[address]606 0 07/30/2024 09:35:14 07/30/2024 10:34:45 Adult health examination 463393442 Z00.00 Health Risk Assessment collected and reviewed Obesity 510032283 E66.9 [id number] Brandt Marie MD [facility] (Adult Med) [address] [place] [phone] 0 09/25/2024 10:02:27 09/25/2024 11:18:15 Obesity 576387833 E66.9 Superficia l thrombophlebitis 5591912 I80.9 [id number] MD [facility] (Adult Med) [address] [place] [address] 08735-884 0 11/05/2024 11:02:33 11/05/2024 12:02:14 Body mass index 30+ - obesity 191074546 Z68.32 Obesity 702255118 E66.9 Coronary atherosclerosis 516859753 I25.10 Essential hypertension 28171744 I10 Hyperlipidemia 55086869 E78.5 Hypothyroidism 27288049 E03.9 Screening for malignant neoplasm of prostate 299996467 Z12.5 Health Concerns Section Related Observation LastModified by Organization Detai ls LastModified Time None Recorded Concern Status LastModified by Organization Details LastModified Time None Recorded Advance Directives Directive N: Payers Encounter Date Sequence Insurance Name Policy Number Policy Recinos Covered Member ID Recinos Member ID Guarantor Name 03/12/2024 1 [facility] (MEDICARE REPLACEMENT/A DVANTAGE - HMO) [id number] Pablo Cruz [id number] Pablo Cruz 06/18/2024 1 [facility] (MEDICARE REPLACEMENT/A DVANTAGE - HMO) [id number] Pablo Cruz [id number] Pablo Cruz 07/30/2024 1 [facility] (MEDICARE REPLACEMENT/A DVANTAGE - HMO) [id number] Pablo Cruz [id number] Pablo Nancy 09/25/2024 1 [facility] (MEDICARE REPLACEMENT/A DVANTAGE - HMO) [id number] Pablo Cruz [id number] Pablo Dalalowell 11/05/2024 1 [facility] (MEDICARE REPLACEMENT/A DVANTAGE - HMO) [id number] Pablo Bueno Nancy [id number] Pablo Dallaowell Notes Date Note Type Note Provider Name and Address Organization Details Recorded Time 03/12/2024 text/html Pain fourth toe right foot no trauma red swollen needs Brandt Marie MD Attn: Accounting,[address] [facility], [place], [address], [facility] 04/06/2024 17:57:53 06/18/2024 text/html Hypothyroid no h eat or cold intolerance. Hypertension no headache or dizziness. CAD no chest pain or shortness of breath. Hyperlipidemia tries to follow low-fat diet. Diverticular disease of colon tries to follow high-fiber diet. Rhinitis uses montelukast and nasal spray. insect bites ER methyl prednisolone maybe little bit better also using some Zyrtec Brandt Marie MD Attn: Accounting,[address] [facility], [place], [address], [facility] 06/18/2024 23:39:36 07/30/2024 text/html MAW 2Reported bypatient.Diet and Nutrition:healthy diet; discussed diet improvement Fracture Risk:no history of fractures; no sudden unexplained fractures Concentration and Memory:no decreased concentrating ability; no memory lapses or loss; does not forget words Speech/Motor difficulties:no speech difficulties; no difficulty expressing formulated concepts; no difficulty with fine manipulative tasks; no difficulty writing/copying; no slowed reaction time; does not knock things over when trying to pick them up Hearing:no loss of hearing Vision:worse near(glasses) Activities of Daily Living:able to bathe with limited or no assistance; able to contol urination and bowels; able to dress with limited or no assistance; able to feed self with limited or no assistance; able to get out of chair or bed with limited or no assistance; able to groom with limited or no assistance; able to toilet with limited or no assistance Instrumental Activities of Daily Living:able to do house work with limited or no assistance; able to grocery shop with limited or no assistance; able to manage medications with limited or no assistance; able to manage money with limited or no assistance; able to prepare meals with limited or no assistance; able to use the phone with limited or no assistance Falls Risk Assessment:no frequent falls while walking; no fall since last visit; fall(s) in the past year 1;dizziness/vertigo Home Safety:no unsafe buddy hazzards; no unsafe stairs; working smoke/CO detectors; practicing 'safer sex'; no fire arms; has hand bars in the bathroom/shower; good lighting in the home Brandt Marie MD Attn: [address]ing[address] [place], [address], [facility] 08/11/2024 15:17:05 09/25/2024 text/html colonoscopy last week had an IV put in his right arm now the area is a little bit sore no fever chills no swelling of the affected limb Brandt Marie MD Attn: Accounting[address] [place], [address], [facility] 09/28/2024 13:37:59 11/05/2024 text/html hypertension no headache or dizziness blood pressure well controlled. CAD no chest pain or shortness of breath. Hyperlipidemia he is taking his statin without any problems and trying to follow a low-fat diet. Hypothyroid no heat cold intolerance he has not had any constipation or any signs or symptoms of overactive thyroid either. Brandt Marie MD Attn: Accounting[address] [place], [address], [facility] 11/18/2024 17:23:23
--- OUTSIDE RECORDS SUMMARY | 2025-01-22 12:45 | XMS_ITS | CONTINUITY OF CARE DOCUMENT ---
Author Name david, david Address Unknown Organization [facility] Address [address] [place] [address] Phone [phone] Care Team Providers Care Senior [employer] [address] Sql Developer Name Role Phone Allan CASAS, Laya Unavailable BRANDT KIRAN MD Unavailable [phone] BRANDT KIRAN MD Unavailable PROBLEMS Condition Status Date Provider Notes TOBACCO USE QUIT active Elda Belcher CAD--09/11 PTCA-STENT RESOLU TE X 2 LCIRC,LAD-2OM IVUS TO LAD active Laya Seaman MD HYPERCHOLESTEROLEMIA-LABS PE R DR. SEAMAN completed - Laya Seaman MD HTN-07/10 STRESS NEG active ? Juan Jacobs RN SYNCOPE NORMAL STRESS, ECHO 08/2018, HOLTER 12/10 active Laya Seaman MD CP-09/11 PTCA-STENT RESOLUTE X 2 LCIRC,LAD-2OM IVUS TO LAD completed - Laya Seaman MD Hyperlipidemia active Laya Seaman MD Cardiology examination active Laya Seaman MD ENCOUNTERS Date Type Provider Location Encounter Diag nosis - In-person encounter Office Visit Laya Seaman MD [facility] Cardiology examination - In-person encounter Office Visit Laya Seaman MD [facility] CAD--09/11 PTCA-STENT RESOLUTE X 2 LCIRC,LAD-2OM IVUS TO LADCP-09/11 PTCA-STENT RESOLUTE X 2 LCIRC,LAD-2OM IVUS TO LAD - In-person encounter Office Visit Laya Seaman MD [facility] - In-person encounter Office Visit Laya Seaman MD [facility] Office SYNCOPE NORMAL STRES S, ECHO 08/2018, HOLTER 12/10 - In-person encounter Office Visit Laya Seaman MD [facility] - In-person encounter Office Visit Laya Seaman MD [facility] - In-person encounter Office Visit Laya Seaman MD [facility] - In-person encounter Office Visit Laya Seaman MD [facility] Hyperlipidemia - In-person encounter Office Visit Laya Seaman MD [facility] HYPERCHOLESTEROLEMIA-L ABS PER DR. SEAMAN - In-person encounter Office Visit Laya Seaman MD [facility] - In-person encounter Office Visit Laya Seaman MD [facility] - In-person encounter Office Visit Laya Seaman MD [facility] - In-person encounter Office Visit Laya Seaman MD [facility] - In-person encounter Office Visit Laya Seaman MD [facility] - In-person encounter Office Visit Laya Seaman MD [facility] - In-person encounter Office Visit Laya Seaman MD [facility] HTN-07/10 STRESS NEGSYNCOPE NORMAL STRESS, ECHO 08/2018, HOLTER 12/10 - In-person encounter Office Visit Laya Seaman MD [facility] - In-person encounter Office Visit Laya Seaman MD [facility] - In-person encounter Office Visit Laya Seaman MD [facility] - In-person encounter Office Visit Laya Seaman MD [facility] CAD--09/11 PTCA-STENT RESOLUTE X 2 LCIRC,LAD-2OM IVUS TO LAD - In-person encounter Office Visit Laya Seaman MD [facility] HTN-07/10 STRESS NEG VITAL SIGNS Date Observation Value Provider Body Mass Index (Ratio) 31.95 kg/m2 Zach Seaman MD blood pressure, diastolic 74 mm[Hg[facility], [facility] mm[Hg] [facility], [facility]xim[facility] 97 % [facility] pulse rate 64 /min [facility] respiratory rate E&M 12 /min [facility] weight E&M 198 [lb_av] [facility] height E&M 66 [in_i] [facility] blood pressure, cuff size regular [place] Body Mass Index (Ratio) 31.15 kg/m2 Zach Seaman MD blood pressure, diastolic 79 mm[Hg] Li nkLogic blood pressure, systolic 138 mm[Hg] Maral kLog respiratory rate E&M 16 /min Emilie Bueno iller blood pressure, cuff size regular Eduin [facility] blood pressure, diastolic 79 mm[Hg] [facility] blood pressure, systolic 138 mm[Hg] [facility], [facility] 95 % Emilie [place] pulse rate 66 /min Emilie [place] weight E&M 193 [lb_av] Emilie [place] height E&M 66 [in_i] Emilie [place] Body Mass Index (Ratio) 30.99 kg/m2 Zach Seaman MD blood pressure, diastolic 73 mm[Hg] Ri az Mery blood pressure, systolic 131 mm[Hg] Yeny monty Rupertamrikzai oxygen saturation, oximetry 97 % Fitz Mery pulse rate 63 /min Fitzmonty Paulzai weight E&M 192 [lb_av] Fitz amrikzai Body Mass Index (Ratio) 29.05 kg/m2 Zach Seaman MD blood pressure, diastolic 60 mm[Hg] Li nkLogic blood pressure, systolic 110 mm[Hg] Maral kLogic blood pressure, cuff size large Ke rri Gruenenfelder blood pressure, diastolic 60 mm[Hg] Ke rri Gruenenfelder blood pressure, systolic 110 mm[Hg] Addison ri Riccouenenfelder oxygen saturation, oximetry 98 % Edie Gruenenfelder respiratory rate E&M 16 /min Edie G ruenenfelder pulse rate 49 /min Edie Gruenenfe lder weight E&M 180 [lb_av] Edie Gruenenfe lder height E&M 66 [in_i] Edie Gruenenfe lder Body Mass Index (Ratio) 32.12 kg/m2 Zach Seaman MD respiratory rate E&M 16 /min Tonsha Bass pulse rate 62 /min Tonsha Bass oxygen saturation, oximetry 98 % Tonsha Bass blood pressure, diastolic 71 mm[Hg] To nsha Bass blood pressure, systolic 130 mm[Hg] Ton sha Bass weight E&M 199 [lb_av] Tonsha Bass height E&M 66 [in_i] Tonsha Bass Body Mass Index (Ratio) 32.76 kg/m2 Zach Seaman MD blood pressure, cuff size regular Cy rosanna Latham blood pressure, diastolic 68 mm[Hg] Cy rosanna Latham blood pressure, systolic 118 mm[Hg] Saira sheyla Latham oxygen saturation, oximetry 97 % Sandra Latham respiratory rate E&M 16 /min Sandrasheyla Latham pulse rate 73 /min Sandra martinez weight E&M 203 [lb_av] Sandra Sherwood l height E&M 66 [in_i] Sandra Sherwood l Body Mass Index (Ratio) 31.79 kg/m2 Zach Seaman MD blood pressure, cuff size regular Ke rri Gruenewing blood pressure, diastolic 80 mm[Hg] Ke rri Riccouenewing blood pressure, systolic 130 mm[Hg] Addison ri iNca oxygen saturation, oximetry 96 % Edie Nica respiratory rate E&M 18 /min Edie G josselinenewing pulse rate 67 /min Edie Mara lder weight E&M 197 [lb_av] Edie Mara lder height E&M 66 [in_i] Edie Mara lder Body Mass Index (Ratio) 32.28 kg/m2 Zach Seaman MD blood pressure, cuff size large Ke rri Gruenenfshakira blood pressure, diastolic 80 mm[Hg] Ke rri Gruenenfeldkelley blood pressure, systolic 120 mm[Hg] Addison ri Riccouenewing oxygen saturation, oximetry 98 % Edie Nica respiratory rate E&M 20 /min Edie G ruenenfelder pulse rate 57 /min Edie Mara lder weight E&M 200 [lb_av] Edie Terry lder height E&M 66 [in_i] Edie Terry lder Body Mass Index (Ratio) 32.83 kg/m2 Zach Seaman MD blood pressure, resting Yes Jess Ahumada blood pressure, diastolic 77 mm[Hg] Harjit Marlow Ahumada blood pressure, systolic 122 mm[Hg] Radha Lovelace Ahumada oxygen saturation, oximetry 92 % Linda Ahumada respiratory rate E&M 18 /min Mike Ahumada pulse rate 87 /min Linda Dee nson weight E&M 203.4 [lb_av] Linda pisanoon height E&M 66 [in_i] Linda Dee on Body Mass Index (Ratio) 30.99 kg/m2 Eda sanchez Wise blood pressure, diastolic 69 mm[Hg] Ma kennedi Wise blood pressure, systolic 106 mm[Hg] Anu moe Wise weight E&M 192 [lb_av] Nora Wise respiratory rate E&M 14 /min Nora Wise pulse rate 54 /min Nora Wise oxygen saturation, oximetry 97 % Nora Wise pulse rate #2 62 [place] Tebid blood pressure, quev[place] tolic, second observation 77 mm[Hg] Poppy Tebid blood pressure, syst olic, second observation 124 mm[Hg] [place] Tebid oxygen saturation, oximetry 98 % [facility] /min [place] Tebid blood pressure, diastolic 72 mm[Hg] Vi ctoria Tebid blood pressure, systolic 135 mm[Hg] Mulugeta audrey Ted pulse rate #2 56 [place] Tebid blood pressure, [place] tolic, second observation 63 mm[Hg] Poppy Tebid blood pressure, syst olic, second observation 96 mm[Hg] Poppy Tebid oxygen saturation, oximetry 98 % Poppy bid pulse rate 64 /min [place] bid blood pressure, diastolic 54 mm[Hg] Vi ctoria Tebid blood pressure, systolic 108 mm[Hg] Mulugeta audrey Tebid pulse rate #2 56 [place] bid blood pressure, [place] tolic, second observation 73 mm[Hg] Poppy Tebid blood pressure, syst olic, second observation 112 mm[Hg] Poppy Tebid oxygen saturation, oximetry 98 % Poppy bid pulse rate 62 /min [facility], [facility] 57 mm[Hg] Vi ctoria Tebid blood pressure, systolic 115 mm[Hg] Mulugeta audrey Tebid pulse rate #2 65 [place] bid blood pressure, [place] tolic, second observation 65 mm[Hg] Poppy Tebid blood pressure, syst olic, second observation 100 mm[Hg] Poppy Tebid oxygen saturation, oximetry 98 % [place] bid pulse rate 65 /min [place] Tebid blood pressure, diastolic 69 mm[Hg] Vi ctoria Tebid blood pressure, systolic 121 mm[Hg] Mulugeta audrey Tebid pulse rate #2 62 [place] Tebid blood pressure, [place] tolic, second observation 62 mm[Hg] Poppy Tebid blood pressure, syst olic, second observation 113 mm[Hg] Poppy Tebid oxygen saturation, oximetry 98 % Poppy bid pulse rate 67 /min [place] Tebid blood pressure, diastolic 68 mm[Hg] Vi ctoria Tebid blood pressure, systolic 121 mm[Hg] Mulugeta audrey Tebid pulse rate #2 56 [place] Tebid blood pressure, [place] tolic, second observation 71 mm[Hg] Poppy Tebid blood pressure, syst olic, second observation 111 mm[Hg] Poppy Tebid oxygen saturation, oximetry 98 % Poppy Tebid pulse rate 58 /min Poppy Tebid blood pressure, diastolic 73 mm[Hg] Vi ctoria Tebid blood pressure, systolic 122 mm[Hg] Mulugeta audrey Tebid pulse rate #2 65 [place] Tebid blood pressure, [place] tolic, second observation 77 mm[Hg] Poppy Tebid blood pressure, syst olic, second observation 113 mm[Hg] Poppy Tebid oxygen saturation, oximetry 98 % Poppy bid pulse rate 66 /min [place] Tebid blood pressure, diastolic 85 mm[Hg] Vi ctoria Tebid blood pressure, systolic 132 mm[Hg] Mulugeta audrey Tebid pulse rate #2 59 [place] Tebid blood pressure, quev[place] tolic, second observation 71 mm[Hg] Poppy Tebid blood pressure, syst olic, second observation 117 mm[Hg] Poppy Tebid oxygen saturation, oximetry 98 % Poppy Tebid pulse rate 58 /min [facility] Tebid blood pressure, diastolic 69 mm[Hg] Vi ctoria Tebid blood pressure, systolic 98 mm[Hg] Mulugeta audrey Tebid pulse rate #2 63 [place] Tebid blood pressure, quev[place] tolic, second observation 73 mm[Hg] Poppy Tebid blood pressure, syst olic, second observation 115 mm[Hg] Poppy Tebid oxygen saturation, oximetry 98 % Poppy Tebid pulse rate 63 /min [facility] Tebid blood pressure, diastolic 69 mm[Hg] Vi ctoria Tebid blood pressure, systolic 107 mm[Hg] Mulugeta audrey d Body Mass Index (Ratio) 31.39 kg/m2 Joanne randolph blood pressure, diastolic 74 mm[Hg] Brandyn young blood pressure, systolic 114 mm[Hg] Valentin alvarez pulse rate 65 /min Faviola oxygen saturation, oximetry 99 % [facility]avi[facility] respiratory rate E&M 18 /min Faviolaantonio julieneber weight E&M 193.8 [lb_av] Faviola pulse rate #2 66 [facility] blood pressure, quev[place] tolic, second observation 69 mm[Hg] [facility] blood pressure, syst olic, second observation 117 mm[Hg] [facility] oxygen saturation, oximetry 98 % [facility] pulse rate 60 /min [facility] blood pressure, diastolic 71 mm[Hg] Vi ctoria blood pressure, systolic 114 mm[Hg] Mulugeta audrey pulse rate #2 60 Poppy blood pressure, quev[place] tolic, second observation 66 mm[Hg] [facility] blood pressure, syst olic, second observation 109 mm[Hg] [facility] oxygen saturation, oximetry 98 % Poppy pulse rate 62 /min [facility] blood pressure, diastolic 65 mm[Hg] Vi ctoria blood pressure, systolic 112 mm[Hg] Mulugeta audrey pulse rate #2 61 [place] blood pressure, quev[place] tolic, second observation 72 mm[Hg] [facility] blood pressure, syst olic, second observation 126 mm[Hg] [facility] oxygen saturation, oximetry 98 % [facility] pulse rate 66 /min [facility], diastolic 66 mm[Hg] Vi ctoria Tebid blood pressure, systolic 103 mm[Hg] Mulugeta audrey Tebid pulse rate #2 58 [place] d blood pressure, quev[place] tolic, second observation 71 mm[Hg] Poppy d blood pressure, syst olic, second observation 117 mm[Hg] Poppy d oxygen saturation, oximetry 98 % Poppy d pulse rate 61 /min [place] d blood pressure, diastolic 72 mm[Hg] Vi ctoria Tebid blood pressure, systolic 116 mm[Hg] Mulugeta audrey Tebid pulse rate #2 55 [place] blood pressure, quev[place] tolic, second observation 70 mm[Hg] [facility], syst olic, second observation 123 mm[Hg] [facility], oximetry 98 % [facility] pulse rate 58 /min [facility] blood pressure, diastolic 66 mm[Hg] [facility] Tebid blood pressure, systolic 114 mm[Hg] Mulugeta audrey Ted pulse rate #2 57 [facility] blood pressure, quev[place] tolic, second observation 74 mm[Hg] [facility], syst olic, second observation 111 mm[Hg] Poppy Ted oxygen saturation, oximetry 98 % [facility] pulse [facility] 61 /min [facility] blood [facility], diastolic 76 mm[Hg] Vi ctoria Tebid blood pressure, systolic 124 mm[Hg] Mulugeta audrey Tebid pulse rate #2 60 [facility] blood pressure, [place] tolic, second observation 63 mm[Hg] [facility], syst olic, second observation 96 mm[Hg] [facility], oximetry 98 % Poppy Tebid pulse rate 63 /min Poppy Tebid blood pressure, diastolic 71 mm[Hg] Vi ctoria Tebid blood pressure, systolic 111 mm[Hg] Mulugeta audrey Tebid pulse rate #2 61 [place] Tebid blood pressure, quev[place] tolic, second observation 66 mm[Hg] Poppy Tebid blood pressure, syst olic, second observation 100 mm[Hg] Poppy Tebid oxygen saturation, oximetry 98 % Poppy Tebid pulse rate 61 /min [place] Tebid blood pressure, diastolic 75 mm[Hg] Vi ctoria Tebid blood pressure, systolic 122 mm[Hg] Mulugeta audrey Tebid pulse rate #2 61 [place] Tebid blood pressure, quev[place] tolic, second observation 71 mm[Hg] Poppy Tebid blood pressure, syst olic, second observation 117 mm[Hg] Poppy Tebid oxygen saturation, oximetry 98 % [place] Tebid pulse rate 69 /min [place] Tebid blood pressure, diastolic 60 mm[Hg] Vi ctoria Tebid blood pressure, systolic 97 mm[Hg] Mulugeta audrey Tebid pulse rate #2 61 [place] Tebid blood pressure, quev[place] tolic, second observation 65 mm[Hg] Poppy Tebid blood pressure, syst olic, second observation 105 mm[Hg] Poppy Tebid oxygen saturation, oximetry 98 % Poppy Tebid pulse rate 61 /min [place] Tebid blood pressure, diastolic 66 mm[Hg] Vi ctoria Tebid blood pressure, systolic 90 mm[Hg] Mulugeta audrey Tebid pulse rate #2 62 [place] Tebid blood pressure, quev[place] tolic, second observation 70 mm[Hg] Poppy Tebid blood pressure, syst olic, second observation 116 mm[Hg] Poppy bid oxygen saturation, oximetry 98 % Poppy d pulse rate 67 /min Poppy d blood pressure, diastolic 61 mm[Hg] Vi ctoria Tebid blood pressure, systolic 101 mm[Hg] Mulugeta audrey Tebid pulse rate #2 61 [place] d blood pressure, [place] tolic, second observation 64 mm[Hg] Poppy d blood pressure, syst olic, second observation 109 mm[Hg] [facility], oximetry 98 % Poppy pulse rate 64 /min [facility] blood pressure, diastolic 65 mm[Hg] Vi ctoria Tebid blood pressure, systolic 111 mm[Hg] Mulugeta audrey Tebid pulse rate #2 56 [place] d blood pressure, quev[place] tolic, second observation 73 mm[Hg] Poppy d blood pressure, syst olic, second observation 123 mm[Hg] Poppy d oxygen saturation, oximetry 98 % Poppy d pulse rate 60 /min Poppy d blood pressure, diastolic 65 mm[Hg] Vi ctoria Tebid blood pressure, systolic 113 mm[Hg] Mulugeta audrey Tebid pulse rate #2 58 [place] d blood pressure, quev[place] tolic, second observation 69 mm[Hg] Poppy d blood pressure, syst olic, second observation 101 mm[Hg] Poppy bid oxygen saturation, oximetry 98 % Poppy d pulse rate 60 /min [place] bid blood pressure, diastolic 67 mm[Hg] Vi ctoria Tebid blood pressure, systolic 98 mm[Hg] Mulugeta audrey Tebid pulse rate #2 57 [facility], [place] tolic, second observation 69 mm[Hg] Poppy Tebid blood pressure, syst olic, second observation 109 mm[Hg] Poppy Tebid oxygen saturation, oximetry 98 % Poppy Tebid pulse rate 61 /min [place] Tebid blood pressure, diastolic 71 mm[Hg] Vi ctoria Tebid blood pressure, systolic 114 mm[Hg] Mulugeta audrey Tebid pulse rate #2 58 [place] Tebid blood pressure, quev[place] tolic, second observation 72 mm[Hg] Poppy Tebid blood pressure, syst olic, second observation 112 mm[Hg] Poppy Tebid oxygen saturation, oximetry 98 % [facility] 60 /min [facility], diastolic 70 mm[Hg] Vi ctoria Tebid blood pressure, systolic 104 mm[Hg] Mulugeta audrey Tebid pulse rate #2 64 [place] Tebid blood pressure, quev[place] tolic, second observation 69 mm[Hg] Poppy Tebid blood pressure, syst olic, second observation 111 mm[Hg] Poppy Tebid oxygen saturation, oximetry 98 % Poppy Tebid pulse rate 58 /min [place] Tebid blood pressure, diastolic 68 mm[Hg] Vi ctoria Tebid blood pressure, systolic 113 mm[Hg] Mulugeta audrey Tebid pulse rate #2 54 [facility], [place] tolic, second observation 69 mm[Hg] [place] Tebid blood pressure, syst olic, second observation 108 mm[Hg] [place] Tebid oxygen saturation, oximetry 98 % [facility] pulse [facility] 58 /min [facility], diastolic 63 mm[Hg] Vi ctoria Tebid blood pressure, systolic 110 mm[Hg] Mulugeta audrey Tebid pulse rate #2 56 [place] Tebid blood pressure, quev[place] tolic, second observation 73 mm[Hg] Poppy Tebid blood pressure, syst olic, second observation 123 mm[Hg] Poppy Tebid oxygen saturation, oximetry 98 % [facility] pulse [facility] 60 /min [facility] Tebid blood pressure, diastolic 71 mm[Hg] Vi ctoria Tebid blood pressure, systolic 110 mm[Hg] Mulugeta audrey Tebid pulse rate #2 58 [place] Tebid blood pressure, quev[place] tolic, second observation 66 mm[Hg] [facility] Tebid blood pressure, syst olic, second observation 102 mm[Hg] [facility], oximetry 98 % [facility] pulse [facility] 61 /min [facility], diastolic 71 mm[Hg] Vi ctoria Tebid blood pressure, systolic 105 mm[Hg] [facility]2 [facility] [place] d blood pressure, quev[place] tolic, second observation 67 mm[Hg] [facility], syst olic, second observation 120 mm[Hg] [facility], oximetry 98 % [facility] pulse rate 66 /min [facility] Tebid blood pressure, diastolic 68 mm[Hg] Vi ctoria Tebid blood pressure, systolic 108 mm[Hg] Mulugeta audrey Tebid pulse rate #2 55 [facility] Tebid blood pressure, quev[place] tolic, second observation 66 mm[Hg] [facility] Tebid blood pressure, syst olic, second observation 100 mm[Hg] [facility], oximetry 98 % [facility] pulse [facility] 58 /min [facility], diastolic 61 mm[Hg] Vi ctoria Tebid blood pressure, systolic 100 mm[Hg] Mulugeta audrey Tebid pulse rate #2 58 [facility] blood pressure, [place] tolic, second observation 61 mm[Hg] [facility] Tebid blood pressure, syst olic, second observation 96 mm[Hg] [facility], oximetry 98 % [facility] pulse [facility] 63 /min [facility], diastolic 68 mm[Hg] Vi ctoria Tebid blood pressure, systolic 98 mm[Hg] Mulugeta audrey Tebid pulse rate #2 55 [facility] blood pressure, [place] tolic, second observation 67 mm[Hg] [facility] blood [facility], syst olic, second observation 95 mm[Hg] [facility] oxygen saturation, oximetry 98 % [facility] pulse rate 63 /min [facility] blood pressure, diastolic 64 mm[Hg] Vi ctoria Tebid blood pressure, systolic 92 mm[Hg] Mulugeta audrey Tebid pulse rate #2 58 [facility] blood pressure, [place] tolic, second observation 60 mm[Hg] [facility] blood [facility], syst olic, second observation 101 mm[Hg] [facility] oxygen saturation, oximetry 98 % [facility] pulse rate 58 /min [facility] Tebid blood pressure, diastolic 61 mm[Hg] Vi ctoria Tebid blood pressure, systolic 96 mm[Hg] Mulugeta audrey Tebid pulse rate #2 52 [facility] blood pressure, [place] tolic, second observation 66 mm[Hg] [facility] blood [facility], syst olic, second observation 99 mm[Hg] [facility] oxygen [facility], oximetry 98 % [facility] pulse rate 52 /min [facility], [facility] 63 mm[Hg] Danna gant Tebid blood pressure, systolic 91 mm[Hg] Mulugeta ventura [facility] Body Mass Index (Ratio) 29.97 kg/m2 Dustin choi Loera blood pressure, diastolic, left arm 66 mm [Hg] [facility] blood pressure, systolic, left arm 103 mm [Hg] [facility] blood pressure, diastolic, right arm 62 m m[Hg] [facility] blood pressure, systolic, right arm 96 mm [Hg] [facility], [facility] 66 mm[Hg] Maco charlieairamyung Loera blood pressure, systolic 103 mm[Hg] Ridge elton Loera pulse rate 58 /min [facility] oxygen saturation, oximetry 98 % [facility] respiratory rate E&M 16 /min [facility] weight E&M 185 [lb_av] Hipolito Loera blood pressure, diastolic 94 mm[Hg] Tommy Jacobs RN blood pressure, systolic 152 mm[Hg] Juan Jacobs RN pulse rate 65 /min Juan Jacobs RN oxygen saturation, oximetry 98 % Juan Jacobs RN respiratory rate E&M 16 /min Juan good RN Body Mass Index (Ratio) 31.59 kg/m2 Juan Jacobs RN weight E&M 195 [lb_av] Juan Jacobs RN height E&M 66 [in_i] Juan Jacobs RN blood pressure, diastolic 82 mm[Hg] Kevin Medina blood pressure, systolic 132 mm[Hg] Eduarda Medina pulse rate 14 /min Shannon Medina oxygen saturation, oximetry 97 % Shannon Medina respiratory rate E&M 14 /min Shannon oliver weight E&M 201 [lb_av] Shannon Adam blood pressure, diastolic 77 mm[Hg] He ather Blunt blood pressure, systolic 123 mm[Hg] Hea ther Blunt pulse rate 58 /min Jeanna Blunt oxygen saturation, oximetry 98 % Jeanna Blunt respiratory rate E&M 16 /min Jeanna Blunt weight E&M 198 [lb_av] Jeanna Blunt blood pressure, diastolic 75 mm[Hg] He ather Blunt blood pressure, systolic 125 mm[Hg] Hea ther Blunt pulse rate 53 /min Jeanna Blunt oxygen saturation, oximetry 98 % Jeanna Blunt respiratory rate E&M 16 /min Jeanna Blunt weight E&M 189 [lb_av] Jeanna Blunt blood pressure, diastolic 74 mm[Hg] Harjit espinozaha O'Damian blood pressure, systolic 109 mm[Hg] Radha cooper O'Damian pulse rate 57 /min Azeb O'Damian oxygen saturation, oximetry 90 % Azeb O'Damian respiratory rate E&M 16 /min Azeb O'Damian weight E&M 184 [lb_av] Azeb O'Damian blood pressure, diastolic 62 mm[Hg] Tommy Jacobs RN blood pressure, systolic 106 mm[Hg] Juan Jacobs RN pulse rate 57 /min Juan Jacobs RN oxygen saturation, oximetry 98 % Juan Jacobs RN respiratory rate E&M 16 /min Juan good RN weight E&M 192 [lb_av] Juan Jacobs RN blood pressure, diastolic, left arm 61 mm [Hg] Jorge Gibson blood pressure, systolic, left arm 97 mm[ Hg] Jorge Manbrielle blood pressure, diastolic 61 mm[Hg] Carri seph [place] blood pressure, systolic 97 mm[Hg] José Manuel hansa [place] pulse rate 57 /min Jorge [place] oxygen saturation, oximetry 99 % Jorge [place] respiratory rate E&M 16 /min Jorge [place] weight E&M 196 [lb_av] Jorge Danielacop blood pressure, diastolic, left arm 66 mm [Hg] Juan Jacobs RN blood pressure, systolic, left arm 118 mm [Hg] Juan Jacobs RN blood pressure, diastolic, right arm 70 m m[Hg] Juan Jacobs RN blood pressure, systolic, right arm 110 m m[Hg] Juan Jacobs RN blood pressure, diastolic 66 mm[Hg] Tommy Jacobs RN blood pressure, systolic 118 mm[Hg] Juan Jacobs RN pulse rate 66 /min Juan Jacobs RN oxygen saturation, oximetry 97 % Juan Jacobs RN respiratory rate E&M 16 /min Juan good RN weight E&M 198 [lb_av] Juan Jacobs RN blood pressure, diastolic 74 mm[Hg] Tommy Jacobs RN blood pressure, systolic 111 mm[Hg] Juan Jacobs RN pulse rate 55 /min Juan Jacobs RN oxygen saturation, oximetry 99 % Juan Jacobs RN respiratory rate E&M 18 /min Juan good RN weight E&M 199 [lb_av] Juan Jacobs RN ALLERGIES No Known Drug Allergies RESULTS Date Observation Value Provider Reference Range Interpretation Location nitrate usage 1 tablet when needed Poppy Gaytan blood glucose, fasting 99 mg/dL [facility] St[facility] urea nitrogen, blood 13 mg/dL [facility] St[facility] platelet count 201 10*3/mm3 [facility] Stover hematocrit, blood 35.2 % [facility] St[facility] triglyceride, serum, fasting 159 mg/dL [facility] Stover HDL cholesterol, serum 47 mg/dL [facility] lipoprotein, beta, serum, point, quantitative, calculated 111 mg/dL [facility] cholesterol, serum 190 mg/dL [facility] thyroid stimulating hormone, serum 6.200 u[IU]/mL [facility] alanine aminotransferase (SGPT), serum 33 1/L [facility] aspartate aminotransferase (SGOT), serum 29 1/L [facility] creatinine, serum 1.18 mg/dL [facility] potassium, serum 4.8 mmol/L [facility] sodium, serum 145 mmol/L [facility] platelet count 185 10*3/mm3 [facility] hematocrit, blood 39.0 % [facility] lipoprotein, beta, serum, point, quantitative, calculated 85 mg/dL [facility] cholesterol, serum 167 mg/dL [facility] alanine aminotransferase (SGPT), serum 37 1/L [facility] aspartate aminotransferase (SGOT), serum 28 1/L [facility] creatinine, serum 1.09 mg/dL [facility] potassium, serum 4.5 mmol/L [facility] sodium, serum 141 mmol/L [facility] triglyceride, serum, fasting 206 mg/dL [facility] HDL cholesterol, serum 43 mg/dL [facility] LDL cholesterol, serum 206 mg/dL [facility] cholesterol, serum 230 mg/dL [facility] anion gap, serum 7.3 globulins, serum, total 2.3 g/dL [facility] estimated glomerular filtration rate 59 mL/min [facility] albumin/globulin ratio, serum 1.9 [facility] protein, total, serum 6.6 g/dL [facility] albumin, serum 4.3 g/dL [facility] bilirubin, serum, total 0.27 mg/dL [facility] alkaline phosphatase, serum 59 1/L [facility] alanine aminotransferase (SGPT), serum 40 1/L [facility] aspartate aminotransferase (SGOT), serum 17 1/L [facility] calcium, serum 8.8 mg/dL [facility] blood glucose, fasting 104 mg/dL [facility] creatinine, serum 1.32 mg/dL [facility] urea nitrogen, blood 14.5 mg/dL [facility] carbon dioxide, serum, total 32 mmol/L [facility] chloride, serum 101 mmol/L [facility] potassium, serum 4.3 mmol/L [facility] sodium, serum 136 mmol/L [facility] platelet count 203 10*3/uL [facility] red blood cell distribution width 13.1 % [facility] mean corpuscular hemoglobin concentration, RBC 33.7 g/dL [facility] mean corpuscular hemoglobin, RBC 32.4 pg [facility] mean corpuscular volume, RBC 96.2 fL [facility] hematocrit, blood 40.1 % [facility] hemoglobin, blood 13.5 g/dL [facility] erythrocyte (RBC) count 4.17 10*6/mm3 [facility] leukocyte count, blood 6.1 10*3/mm3 [facility] albumin/globulin ratio, serum 1.3 [facility] protein, total, serum 6.7 g/dL [facility] albumin, serum 3.8 g/dL [facility] bilirubin, serum, total 0.51 mg/dL [facility] alkaline phosphatase, serum 52 1/L [facility] alanine aminotransferase (SGPT), serum 35 1/L [facility] aspartate aminotransferase (SGOT), serum 25 1/L [facility] calcium, serum 8.5 mg/dL [facility] blood glucose, fasting 94 mg/dL [facility] creatinine, serum 1.32 mg/dL [facility] urea nitrogen, blood 13.1 mg/dL [facility] carbon dioxide, serum, total 30 mmol/L [facility] chloride, serum 101 mmol/L [facility] potassium, serum 4.2 mmol/L [facility] sodium, serum 135 mmol/L [facility] platelet count 154 10*3/uL [facility] red blood cell distribution width 13.4 % [facility] mean corpuscular hemoglobin concentration, RBC 34.6 g/dL [facility] mean corpuscular hemoglobin, RBC 32.4 pg [facility] mean corpuscular volume, RBC 93.6 fL [facility] hematocrit, blood 39.3 % [facility] hemoglobin, blood 13.6 g/dL [facility] erythrocyte (RBC) count 4.20 10*6/mm3 [facility] monocytes as percent of blood leukocytes 17.7 % [facility] lymphocytes as percent of blood leukocytes 10.1 % [facility] leukocyte count, blood 7.0 10*3/mm3 [facility] triglyceride, serum, fasting 219 mg/dL [facility] HDL cholesterol, serum 46 mg/dL [facility] LDL cholesterol, serum 117 mg/dL [facility] cholesterol, serum 207 mg/dL [facility] prostate specific antigen 0.31 ng/mL [facility] anion gap, serum 14.7 [facility] globulins, serum, total 2.5 g/dL [facility] blood glucose, random >60 [facility] albumin/globulin ratio, serum 1.7 [facility] protein, total, serum 6.7 g/dL [facility] albumin, serum 4.2 g/dL [facility] bilirubin, serum, total 0.52 mg/dL [facility] alkaline phosphatase, serum 75 1/L [facility] alanine aminotransferase (SGPT), serum 34 1/L [facility] aspartate aminotransferase (SGOT), serum 18 1/L [facility] calcium, serum 8.9 mg/dL [facility] blood glucose, fasting 97 mg/dL [facility] creatinine, serum 1.21 mg/dL [facility] urea nitrogen, blood 13.0 mg/dL [facility] carbon dioxide, serum, total 26 mmol/L [facility] chloride, serum 102 mmol/L [facility] potassium, serum 4.7 mmol/L [facility] sodium, serum 138 mmol/L [facility] platelet count 199 10*3/uL [facility] red blood cell distribution width 13.3 % [facility] mean corpuscular hemoglobin concentration, RBC 34.1 g/dL [facility] mean corpuscular hemoglobin, RBC 32.6 pg [facility] mean corpuscular volume, RBC 95.6 fL [facility] hematocrit, blood 41.4 % [facility] hemoglobin, blood 14.1 g/dL [facility] erythrocyte (RBC) count 4.33 10*6/mm3 [facility] monocytes as percent of blood leukocytes 9.9 % [facility] lymphocytes as percent of blood leukocytes 22.3 % [facility] leukocyte count, blood 6.3 10*3/mm3 [facility] St[facility] HISTORY OF MEDICATION USE Medication Status Instructions Dates Provider Indications Com ments Vascepa 1 gram capsule active Take 2 capsule by mouth twice a day Laya Seaman MD isosorbide mononitrate 30 mg tablet extended release 24 hr active TAKE 1 TABLET BY MOUTH ONCE DAILY Mirna Montes clopidogrel 75 mg tablet active TAKE 1 TABLET BY MOUTH ONCE DAILY Li Harmon losartan 25 mg tablet active TAKE 1 TABLET BY MOUTH ONCE DAILY Laya Seaman MD ranolazine 1,000 mg tablet extended release 12 hr active TAKE 1 TABLET BY MOUTH TWICE DAILY Laya Seaman MD metoprolol succinate 50 mg tablet extended release 24 hr active TAKE 1 TABLET BY MOUTH ONCE DAILY [email or web address] rosuvastatin 40 mg tablet active TAKE 1 TABLET BY MOUTH ONCE DAILY [facility] metoprolol succinate 50 mg tablet extended release 24 hr completed Take 1 tablet by mouth once a day TAKE 1 TABLET EVERY DAY - [facility] ranolazine 1,000 mg tablet extended release 12 hr completed Take 1 tablet by mouth twice a day - [facility] ranolazine 1,000 mg tablet extended release 12 hr completed TAKE 1 TABLET BY MOUTH TWICE DAILY - Edie Yousif montelukast 10 mg tablet active TAKE 1 TABLET BY MOUTH ONCE DAILY [facility] metoprolol succinate 50 mg tablet extended release 24 hr completed TAKE 1 TABLET EVERY DAY - Shanice Anaya RN metoprolol succinate 50 mg tablet extended release 24 hr completed Take 1 tablet by mouth once a day TAKE 1 TABLET BY MOUTH DAILY - Fitz Ordonez Nitrostat 0.4 mg tablet, sublingual active tablet under tongue as needed Laya Seaman MD Synthroid 50 mcg tablet active 1 tablet once a day [facility] montelukast 10 mg tablet completed Take 1 tablet once a day - Altagracia Alvarez ALPRAZOLAM 0.25 MG ORAL TABLET completed 1 TAB EVERY 6HRS DAILY as needed - Nora Wise ALAVERT 10 MG ORAL TABLET completed 1 TAB DAILY - Linda Ahumada clopidogrel 75 mg tablet completed Take 1 tablet by mouth once a day - Dominic Hawkins LEVOTHYROXINE SODIUM 50 MCG ORAL TABLET completed 1 tab daily - Linda Ahumada losartan 25 mg tablet completed Take 1 tablet by mouth once a day - Dominic Crestor 40 mg tablet completed Take 1 tablet by mouth once a day - Dominic CRESTOR 20 MG ORAL TABLET completed ONE TAB. DAILY - Jess Draper RN ALTACE 2.5 MG ORAL CAPSULE completed one tab daily - Laya Seaman MD ZITHROMAX PACKET completed take as directed - Jeanna Gong SINGULAIR 10 MG ORAL TABLET completed one tab. daily - Jorge Gibson MULTIVITAMINS CAPS active 1 tablet once a day Juan Jacobs RN Ranexa 1,000 mg tablet extended release 12 hr completed Take 1 tablet by mouth twice a day - Fitz Ahmedzaskye ADVICOR 500-20 MG ORAL TABLET EXTENDED RELEASE 24 HOUR completed ONE TAB. AT BEDTIME - Juan Jacbos RN ASPIRIN 81 MG ORAL TABLET active 1 tablet once a day Fitz Ordonez CALCIUM CARBONATE TABLET completed one tab. daily - Jorge Gibson FISH OIL 1000 MG ORAL CAPSULE completed - Linda Ahumada isosorbide mononitrate 30 mg tablet extended release 24 hr completed Take 1 tablet by mouth once a day - Dominic Hawkins ALTACE 2.5 MG ORAL CAPSULE completed TAKE ONE CAPSULE BY MOUTH DAILY - Laya Seaman MD metoprolol succinate 50 mg tablet extended release 24 hr completed TAKE 1 TABLET BY MOUTH EVERY DAY - Fitz Ordonez SOCIAL HISTORY Date Observation Value Provider drug use none Fitz Ordonez alcohol use no Fitz Ordonez passive cigarette sm christiana exposure no Fitz Ordonez smoking status Former smoker Fitz Clark i social history reviewed E&M revi ewed - no changes required Laya Seaman MD physical exercise, f requency, days per week yes Edie Chackoelmer caffeine use, averag e drinks per day yes Edie Hassanshakira passive cigarette sm christiana exposure no Edie Hassanissakelley smoking status Former smoker Edie gambinoshakira social history E&M Marital Statu s: L leonel with family/friends E thnicity: Smoking History: Joi menjivar is a former smoker. Fitz Paulcarrie social history reviewed E&M revi ewed - no changes required Fitz Paulcarrie social history E&M Marital Statu s: L leonel with family/friends E thnicity: Smoking History: Joi menjivar is a former smoker. Gabriel Russo social history reviewed E&M revi ewed - no changes required Gabriel Russo physical exercise, f requency, days per week yes Nohemy Bass caffeine use, averag e drinks per day yes [facility] passive cigarette sm christiana exposure no [facility] smoking status Former smoker [facility] social history reviewed E&M revi ewed - no changes required Laya Seaman MD social history E&M Marital Statu s: L leonel with family/friends E thnicity: Smoking History: Joi menjivar is a former smoker. Laya Seaman MD physical exercise, f requency, days per week yes Sandra Latham alcohol use, average drinks per day none Sandra Latham alcohol use no Sandra martinez caffeine use, averag e drinks per day yes Sandra Latham drug use none Sandra martinez passive cigarette sm christiana exposure no Sandra Latham smoking status Former smoker Sandra Gabriel allison number of grandchildren Laya Seaman MD T leo Seaman MD social history E&M Marital Statu s: L leonel with family/friends E thnicity: Smoking History: Joi menjivar is a former smoker. Laya Seaman MD social history reviewed E&M revi ewed - no changes required Laya Seaman MD physical exercise, f requency, days per week yes Edie Yousif alcohol use, average drinks per day none Edie Yousif alcohol use no Edie cline caffeine use, averag e drinks per day yes Edie Nica drug use none Edie Mara chapmaner passive cigarette sm christiana exposure no Edie Yousif smoking status Former smoker Edie Chackojose manuel dimas physical exercise, f requency, days per week yes Edie Nica alcohol use, average drinks per day none Edie Nica alcohol use no Edie Mara chapmaner caffeine use, averag e drinks per day yes Edie Nica drug use none Edie Mara chapmaner passive cigarette sm christiana exposure no Edie Nica smoking status Former smoker Edie Grjose manuel dimas social history reviewed E&M revi ewed - no changes required Brian Perez social history reviewed E&M revi ewed - no changes required Laya Seaman MD physical exercise, f requency, days per week yes Linda Ahumada alcohol use, average drinks per day none Linda Ahumada alcohol use no Linda dominique caffeine use, averag e drinks per day yes Linda Ahumada drug use none Linda dominique passive cigarette sm christiana exposure no Linda Ahumada smoking status Former smoker Linda Mattson physical exercise, f requency, days per week yes Nora Wise alcohol use, average drinks per day none Nora Wise caffeine use, averag e drinks per day yes Nora Albertann drug use none Nora Wise passive cigarette sm christiana exposure no Nora Wise smoking status Former smoker Nora Francisco jose social history reviewed E&M reviewed Laya Seaman MD social history reviewed E&M reviewed Laya Seaman MD drug use none Laya Seaman MD social history reviewed E&M reviewed Laya Seaman MD drug use none Laya Seaman MD passive cigarette sm christiana exposure no Juan Jacobs RN smoking history, tot al pack/year 5 Juan Jacobs RN smoking, year quit 1975 Juan garrett RN smoking status former smoker Juan Charles social history reviewed E&M reviewed Juan Jacobs RN social history reviewed E&M reviewed Jeanna Gong social history reviewed E&M reviewed Laya Seaman MD social history reviewed E&M reviewed Juan Jacobs RN social history reviewed E&M reviewed Juan Jacobs RN social history reviewed E&M reviewed Laya Seaman MD drug use none Laya Seaman MD social history reviewed E&M reviewed Juan Jacobs RN social history E&M Marital Statu s: L leonel with family/friends E thnicity: Juan Jacobs RN social history reviewed E&M reviewed Juan Jacobs RN physical exercise, f requency, days per week yes [facility], averag e drinks per day yes [facility]Log alcohol use, average drinks per day none [employer]Log[employer] number of years as a smoker less than 10 years LinkLog smoking status Quit [employer]Log FUNCTIONAL STATUS Date Observation Value Provider HRA, CV Assess/Plan, Angina (inactive) Management Plan continue current therapy Fitz Paulzaskye HRA, CV Assess/Plan, Angina (inactive) Management Plan continue current therapy Fitz Ahmedzai HRA, CV Assess/Plan, Angina (inactive) Management Plan continue current therapy Fitz Emerymedzaskye HRA, CV Assess/Plan, Angina (inactive) Management Plan continue current therapy Gabriel Russo HRA, CV Assess/Plan, Angina (inactive) Management Plan continue current therapy Laya Seaman MD HRA, CV Assess/Plan, Angina (inactive) Management Plan continue current therapy Laya Seaman MD HRA, CV Assess/Plan, Angina (inactive) Management Plan continue current therapy Laya Seaamn MD MENTAL STATUS Date Observation Value Provider energy level yes Poppy Tebid energy level yes Poppy Tebid energy level yes Poppy Tebid energy level yes Poppy Tebid energy level yes Poppy Tebid energy level yes Poppy Tebid energy level yes Poppy Tebid energy level yes Poppy Tebid energy level yes Poppy Tebid assessment of judgme nt and insight E&M Alert and oriented to time, place and person. Mood and affect are normal. Laya Seaman MD energy level yes Poppy Tebinikita energy level yes Poppy Tebid energy level yes Poppy Tebid energy level yes Poppy Tebid energy level yes Poppy Tebid energy level yes Poppy Tebid energy level yes Poppy Tebid energy level yes Poppy Tebid energy level yes Poppy Tebid energy level yes Poppy Tebid energy level yes Poppy Tebid energy level yes Poppy Tebid energy level yes Poppy Tebid energy level yes Poppy Tebid energy level yes Poppy Tebid energy level yes Poppy Tebid energy level yes Poppy Tebid energy level yes Poppy Tebid energy level yes Poppy Tebid energy level yes Poppy Tebid energy level yes Poppy Tebid energy level yes Poppy Tebid energy level yes Poppy Tebid energy level no Poppy Tebid assessment of judgme nt and insight E&M Alert and oriented to time, place and person. Mood and affect are normal. Laya Seaman MD energy level yes Poppy Tebid energy level no Poppy Tebid assessment of judgme nt and insight E&M Alert and oriented to time, place and person. Mood and affect are normal. Laya Seaman MD assessment of judgme nt and insight E&M Alert and oriented to time, place and person. Mood and affect are normal. Juan Jacobs RN assessment of judgme nt and insight E&M Alert and oriented to time, place and person. Mood and affect are normal. Jeanna Gong assessment of judgme nt and insight E&M Alert and oriented to time, place and person. Mood and affect are normal. Laya Seaman MD assessment of judgme nt and insight E&M Alert and oriented to time, place and person. Mood and affect are normal. Juan Jacobs RN assessment of judgme nt and insight E&M Alert and oriented to time, place and person. Mood and affect are normal. Juan Jacobs RN assessment of judgme nt and insight E&M Alert and oriented to time, place and person. Mood and affect are normal. Laya Seaman MD assessment of judgme nt and insight E&M Alert and oriented to time, place and person. Mood and affect are normal. Juan Jacobs RN assessment of judgme nt and insight E&M Alert and oriented to time, place and person. Mood and affect are normal. Juan Jacobs RN FAMILY HISTORY Family Member Condition Full Brother Family History of Co ronary Artery Disease: Father Family History of Co ronary Artery Disease: INSURANCE PROVIDERS Payer name Policy type / Coverage type [place] [employer] party ID [employer] MEDICARE ADVANTAGE HMO-POS HMO [id number] ADVANCE DIRECTIVES Name Date DISCUSSED - NO DECISION MADE TREATMENT PLAN Date Name Performer [id number],S, Fitz Ahmedza i [id number],S, Fitz Ahmedza i [id number],B, Fitz Ahmedza i [id number],S, Fitz Ahmedza i [id number],S, Fitz Ahmedza i [id number],S, Fitz Ahmedza i [id number],S, Fitz Ahmedza i [id number],S, Fitz Ahmedza i [id number],S, Fitz Ahmedza i [id number],S, Fitz Ahmedza i [id number],S, Fitz Ahmedza i Cardiology: H is updated medication list for this problem includes: Rosuvastatin 40 Mg Tablet (Rosuvastatin) ..... Take 1 tablet by mouth once daily Laya Seaman MD Cardiology Laya Seaman MD Cardiology: H is updated medication list for this problem includes: Losartan 25 Mg Tablet (Losartan) ..... Take 1 tablet by mouth once daily Metoprolol Succinate 50 Mg Tablet Extended Release 24 Hr (Metoprolol succinate) ..... Take 1 tablet by mouth once daily Laya Seaman MD Cardiology: H is updated medication list for this problem includes: Clopidogrel 75 Mg Tablet (Clopidogrel) ..... Take 1 tablet by mouth once daily Isosorbide Mononitrate 30 Mg Tablet Extended Release 24 Hr (Isosorbide mononitrate) ..... Take 1 tablet by mouth once daily Ranolazine 1,000 Mg Tablet Extended Release 12 Hr (Ranolazine) ..... Take 1 tablet by mouth twice daily Metoprolol Succinate 50 Mg Tablet Extended Release 24 Hr (Metoprolol succinate) ..... Take 1 tablet by mouth once daily Nitrostat 0.4 Mg Tablet, Sublingual (Nitroglycerin) ..... Tablet under tongue as needed T his visit has been a part of the consistent, comprehensive, and ongoing management of the chronic medical condition(s) listed above for the patient. Laya Seaman MD Cardiology: H is updated medication list for this problem includes: Rosuvastatin 40 Mg Tablet (Rosuvastatin) ..... Take 1 tablet by mouth once daily Fitz Ordonez Cardiology Fitz Ordonez Cardiology: B P today: 138/79 P rior BP: 131/73 (10/11/2022) Labs Reviewed: C reat: 1.18 (07/08/2013) C hol: 190 (07/08/2013) HDL: 47 (07/08/2013) LDL: 111 (07/08/2013) T (07/08/2013) His updated medication list for this problem includes: Losartan 25 Mg Tablet (Losartan) ..... Take 1 tablet by mouth once daily Metoprolol Succinate 50 Mg Tablet Extended Release 24 Hr (Metoprolol succinate) ..... Take 1 tablet by mouth once daily [facility]:no recurrence [facility] - cpoe, billing, nereyda er Laya Seaman MD Cardiology - cpoe, billing, nereyda er Laya Seaman MD Cardiology - cpoe, billing, nereyda er Laya Seaman MD Cardiology follow up Laya shaw MD Cardiology follow up Laya shaw MD Cardiology follow up Laya shaw MD Cardiology follow up Laya shaw MD Cardiology Follow up Laya shaw MD Cardiology Follow up Laya shaw MD Cardiology Follow up Laya shaw MD Cardiology Follow up Laya shaw MD Cardiology Follow up Laya shaw MD Cardiology Follow up Laya shaw MD Cardiology Follow up Laya shaw MD Cardiology Follow up :Will order stress nuclear and echo. Laya Seaman MD Cardiology Laya Seaman MD Cardiology Laya Seaman MD Cardiology Laya Seaman MD Cardiology Laya Seaman MD FOLLOW UP: H is updated medication list for this problem includes: Metoprolol Succinate 100 Mg [id number] (Metoprolol succinate) ..... One tab daily Aspirin 81 Mg Tabs (Aspirin) ..... One tab. daily Losartan Potassium 25 Mg Tabs (Losartan potassium) ..... One tab daily BP today: 106/69 P rior BP: 135/72 (12/09/2013) Labs Reviewed: C reat: 1.18 (07/08/2013) Chol: 190 (07/08/2013) HDL: 47 (07/08/2013) LDL: 111 (07/08/2013) T (07/08/2013) Laya Seaman MD Follow Up: H is updated medication list for this problem includes: Ranexa 1000 Mg Tb12 (Ranolazine) ..... One tab. twice daily Metoprolol Succinate 100 Mg [id number]-[id number] (Metoprolol succinate) ..... One tab daily Aspirin 81 Mg Tabs (Aspirin) ..... One tab. daily Imdur 30 Mg [id number]-[id number] (Isosorbide mononitrate) ..... One tab daily Crestor 40 Mg Tabs (Rosuvastatin calcium) ..... 1 tab po daily Enalapril Maleate 5 Mg Tabs (Enalapril maleate) ..... 1 tab daily Plavix 75 Mg Tabs (Clopidogrel bisulfate) ..... 1 tab daily Laya Seaman MD Follow Up: H is updated medication list for this problem includes: Metoprolol Succinate 100 Mg [id number] (Metoprolol succinate) ..... One tab daily Aspirin 81 Mg Tabs (Aspirin) ..... One tab. daily Enalapril Maleate 5 Mg Tabs (Enalapril maleate) ..... 1 tab daily BP today: 114/74 P rior BP: 114/71 (11/26/2013) Labs Reviewed: C reat: 1.18 (07/08/2013) C hol: 190 (07/08/2013) HDL: 47 (07/08/2013) LDL: 111 (07/08/2013) T (07/08/2013) Laya Seaman MD Follow Up: H is updated medication list for this problem includes: Ranexa 1000 Mg Tb12 (Ranolazine) ..... One tab. twice daily Metoprolol Succinate 100 Mg Ir17c-wbj (Metoprolol succinate) ..... One tab daily Aspirin 81 Mg Tabs (Aspirin) ..... One tab. daily Imdur 30 Mg Qw14f-moo (Isosorbide mononitrate) ..... One tab daily Enalapril Maleate 5 Mg Tabs (Enalapril maleate) ..... 1 tab daily Plavix 75 Mg Tabs (Clopidogrel bisulfate) ..... 1 tab daily Laya Seaman MD Follow Up: H is updated medication list for this problem includes: Ranexa 1000 Mg Tb12 (Ranolazine) ..... One tab. twice daily Metoprolol Succinate 100 Mg [id number]-[id number] (Metoprolol succinate) ..... One tab daily Aspirin 81 Mg Tabs (Aspirin) ..... One tab. daily Imdur 30 Mg Qh74p-wec (Isosorbide mononitrate) ..... One tab daily Enalapril Maleate 5 Mg Tabs (Enalapril maleate) ..... 1 tab daily Plavix 75 Mg Tabs (Clopidogrel bisulfate) ..... 1 tab daily Laya Seaman MD FOLLOW UP: H is updated medication list for this problem includes: Crestor 40 Mg Tabs (Rosuvastatin calcium) ..... 1 tab po daily BP today: 103/66 Prior BP: 152/94 (06/11/2013) C HOL: 190 (07/08/2013) LDL: 111 (07/08/2013) HDL: 47 (07/08/2013) T (07/08/2013) Laya Seaman MD FOLLOW UP: T he following medications were removed from the medication list: Altace 2.5 Mg Caps (Ramipril) ..... One tab daily His updated medication list for this problem includes: Metoprolol Succinate 100 Mg Yp99n-awj (Metoprolol succinate) ..... One tab daily Aspirin 81 Mg Tabs (Aspirin) ..... One tab. daily Enalapril Maleate 5 Mg Tabs (Enalapril maleate) ..... 1 tab daily BP today: 103/66 P rior BP: 152/94 (06/11/2013) Labs Reviewed: C reat: 1.18 (07/08/2013) C hol: 190 (07/08/2013) HDL: 47 (07/08/2013) LDL: 111 (07/08/2013) T (07/08/2013) Laya Seaman MD FOLLOW UP: T he following medications were removed from the medication list: Altace 2.5 Mg Caps (Ramipril) ..... One tab daily His updated medication list for this problem includes: Ranexa 1000 Mg Tb12 (Ranolazine) ..... One tab. twice daily Metoprolol Succinate 100 Mg Ph00i-rgv (Metoprolol succinate) ..... One tab daily Aspirin 81 Mg Tabs (Aspirin) ..... One tab. daily Imdur 30 Mg Zn02j-llo (Isosorbide mononitrate) ..... One tab daily Enalapril Maleate 5 Mg Tabs (Enalapril maleate) ..... 1 tab daily Plavix 75 Mg Tabs (Clopidogrel bisulfate) ..... 1 tab daily Laya Seaman MD FOLLOW UP: T he following medications were removed from the medication list: Altace 2.5 Mg Caps (Ramipril) ..... One tab daily His updated medication list for this problem includes: Ranexa 1000 Mg Tb12 (Ranolazine) ..... One tab. twice daily Metoprolol Succinate 100 Mg Sa44l-mdt (Metoprolol succinate) ..... One tab daily Aspirin 81 Mg Tabs (Aspirin) ..... One tab. daily Imdur 30 Mg Eg69a-gpt (Isosorbide mononitrate) ..... One tab daily Enalapril Maleate 5 Mg Tabs (Enalapril maleate) ..... 1 tab daily Plavix 75 Mg Tabs (Clopidogrel bisulfate) ..... 1 tab daily Laya Seaman MD routine : H is updated medication list for this problem includes: Ranexa 1000 Mg Tb12 (Ranolazine) ..... One tab. twice daily Metoprolol Succinate 100 Mg Bq09q-ouv (Metoprolol succinate) ..... One tab daily Aspirin 81 Mg Tabs (Aspirin) ..... One tab. daily Imdur 30 Mg Su77y-ssy (Isosorbide mononitrate) ..... One tab daily Altace 2.5 Mg Caps (Ramipril) ..... One tab daily Crestor 20 Mg Tabs (Rosuvastatin calcium) ..... One tab. daily BP today: 152/94 Prior BP: 132/82 (03/13/2012) N uclear Stress Findings: No scintigraphic evidence of stress induced ischemia or wall motion abnormality. Left ventricular ejection fraction is 70% which is within normal limits. [facility] (12/09/2010) C ardiac Cath: No instent restenosis previously stented LAD. Mild to moderate disease involving the circumflex. 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 N ormal LV wall motion and systolic function. (06/27/2006) C arotid Doppler/Duplex: Negative bilateral carotid vertebral system. [facility] (11/03/2010) C HOL: 167 (03/21/2012) LDL: 85 (03/21/2012) HDL: 43 (09/06/2011) T (09/06/2011) H gb: 13.5 (09/06/2011) HCT: 39.0 (03/21/2012) Platelets: 185 (03/21/2012) R BC: 4.17 (09/06/2011) WBC: 6.1 (09/06/2011) B UN: 14.5 (09/06/2011) Creat: 1.09 (03/21/2012) Glucose: 104 (09/06/2011) N a+: 141 (03/21/2012) K+: 4.5 (03/21/2012) Cl: 101 (09/06/2011) Laya Seaman MD routine : H is updated medication list for this problem includes: Ranexa 1000 Mg Tb12 (Ranolazine) ..... One tab. twice daily Metoprolol Succinate 100 Mg Wt05h-aoh (Metoprolol succinate) ..... One tab daily Aspirin 81 Mg Tabs (Aspirin) ..... One tab. daily Imdur 30 Mg Wa81h-qgw (Isosorbide mononitrate) ..... One tab daily Altace 2.5 Mg Caps (Ramipril) ..... One tab daily Crestor 20 Mg Tabs (Rosuvastatin calcium) ..... One tab. daily BP today: 152/94 Prior BP: 132/82 (03/13/2012) N uclear Stress Findings: No scintigraphic evidence of stress induced ischemia or wall motion abnormality. Left ventricular ejection fraction is 70% which is within normal limits. [facility] (12/09/2010) C ardiac Cath: No instent restenosis previously stented LAD. Mild to moderate disease involving the circumflex. 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 N ormal LV wall motion and systolic function. (06/27/2006) C arotid Doppler/Duplex: Negative bilateral carotid vertebral system. [facility] (11/03/2010) C HOL: 167 (03/21/2012) LDL: 85 (03/21/2012) HDL: 43 (09/06/2011) T (09/06/2011) H gb: 13.5 (09/06/2011) HCT: 39.0 (03/21/2012) Platelets: 185 (03/21/2012) R BC: 4.17 (09/06/2011) WBC: 6.1 (09/06/2011) B UN: 14.5 (09/06/2011) Creat: 1.09 (03/21/2012) Glucose: 104 (09/06/2011) N a+: 141 (03/21/2012) K+: 4.5 (03/21/2012) Cl: 101 (09/06/2011) Laya Seaman MD routine : H is updated medication list for this problem includes: Crestor 20 Mg Tabs (Rosuvastatin calcium) ..... One tab. daily BP today: 152/94 Prior BP: 132/82 (03/13/2012) C HOL: 167 (03/21/2012) LDL: 85 (03/21/2012) HDL: 43 (09/06/2011) T (09/06/2011) Laya Seaman MD routine Laya Seaman MD routine : H is updated medication list for this problem includes: Ranexa 1000 Mg Tb12 (Ranolazine) ..... One tab. twice daily Metoprolol Succinate 100 Mg Wr43o-fzu (Metoprolol succinate) ..... One tab daily Aspirin 81 Mg Tabs (Aspirin) ..... One tab. daily Imdur 30 Mg Mx27s-phs (Isosorbide mononitrate) ..... One tab daily Altace 2.5 Mg Caps (Ramipril) ..... One tab daily BP today: 152/94 Prior BP: 132/82 (03/13/2012) H gb: 13.5 (09/06/2011) HCT: 39.0 (03/21/2012) Platelets: 185 (03/21/2012) R BC: 4.17 (09/06/2011) WBC: 6.1 (09/06/2011) B UN: 14.5 (09/06/2011) Creat: 1.09 (03/21/2012) Glucose: 104 (09/06/2011) N a+: 141 (03/21/2012) K+: 4.5 (03/21/2012) Cl: 101 (09/06/2011) Anion Gap: 7.3 (09/06/2011) Calcium: 8.8 (09/06/2011) Holter Monitor: The quality of scan was fair due to baseline artifact. Holter study demonstrated Sinus Rhythm. No Ventricular ectopy noted. Rare Supraventricular Ectopic beats noted in single beat form. No symptomatic diary was submitted. [employer] (2010) N uclear Stress Findings: No scintigraphic evidence of stress induced ischemia or wall motion abnormality. Left ventricular ejection fraction is 70% which is within normal limits. [facility] (12/09/2010) C ardiac Cath: No instent restenosis previously stented LAD. M ild to moderate disease involving the circumflex. 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 N ormal LV wall motion and systolic function. (06/27/2006) Laya Seaman MD Routine 6 mo fu: H is updated medication list for this problem includes: Metoprolol Succinate 100 Mg Da87h-ofb (Metoprolol succinate) ..... One tab daily Aspirin 81 Mg Tabs (Aspirin) ..... One tab. daily Altace 2.5 Mg Caps (Ramipril) ..... One tab daily BP today: 123/77 P rior BP: 125/75 (02/28/2011) Labs Reviewed: C reat: 1.32 (12/04/2010) C hol: 207 (08/16/2010) HDL: 46 (08/16/2010) LDL: 117 (08/16/2010) T (08/16/2010) Laya Seaman MD Routine 6 mo fu: H is updated medication list for this problem includes: Advicor 500-20 Mg Tb24 (Niacin-lovastatin) ..... One tab. at bedtime BP today: 123/77 Prior BP: 125/75 (02/28/2011) C HOL: 207 (08/16/2010) LDL: 117 (08/16/2010) HDL: 46 (08/16/2010) T (08/16/2010) Laya Seaman MD Routine 6 mo fu Laya Seaman MD Routine 6 mo fu: H is updated medication list for this problem includes: Ranexa 1000 Mg Tb12 (Ranolazine) ..... One tab. twice daily Metoprolol Succinate 100 Mg Nd87h-zjy (Metoprolol succinate) ..... One tab daily Aspirin 81 Mg Tabs (Aspirin) ..... One tab. daily Imdur 30 Mg Qa04d-peb (Isosorbide mononitrate) ..... One tab daily Altace 2.5 Mg Caps (Ramipril) ..... One tab daily BP today: 123/77 Prior BP: 125/75 (02/28/2011) H gb: 13.6 (12/04/2010) HCT: 39.3 (12/04/2010) RBC: 4.20 (12/04/2010) WBC: 7.0 (12/04/2010) B UN: 13.1 (12/04/2010) Creat: 1.32 (12/04/2010) Glucose: 94 (12/04/2010) N a+: 135 (12/04/2010) K+: 4.2 (12/04/2010) Cl: 101 (12/04/2010) Anion Gap: 14.7 (08/16/2010) Calcium: 8.5 (12/04/2010) Holter Monitor: The quality of scan was fair due to baseline artifact. Holter study demonstrated Sinus Rhythm. No Ventricular ectopy noted. Rare Supraventricular Ectopic beats noted in single beat form. No symptomatic diary was submitted. [facility] [employer] (2010) N uclear Stress Findings: No scintigraphic evidence of stress induced ischemia or wall motion abnormality. Left ventricular ejection fraction is 70% which is within normal limits. [facility] (12/09/2010) C ardiac Cath: No instent restenosis previously stented LAD. M ild to moderate disease involving the circumflex. 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 N ormal LV wall motion and systolic function. (06/27/2006) Laya Seaman MD Routine FU: H is updated medication list for this problem includes: Ranexa 1000 Mg Tb12 (Ranolazine) ..... One tab. twice daily Metoprolol Succinate Tb24 (Metoprolol succinate tb24) ..... 100mg take one tablet by mouth daily Aspirin 81 Mg Tabs (Aspirin) ..... One tab. daily Advicor 500-20 Mg Tb24 (Niacin-lovastatin) ..... One tab. at bedtime Imdur 30 Mg Pk26p-ofa (Isosorbide mononitrate) ..... One tab daily Altace 2.5 Mg Caps (Ramipril) ..... One tab daily BP today: 125/75 Prior BP: 109/74 (12/06/2010) N uclear Stress Findings: No scintigraphic evidence of stress induced ischemia or wall motion abnormality. Left ventricular ejection fraction is 70% which is within normal limits. [facility] (12/09/2010) C ardiac Cath: No instent restenosis previously stented LAD. M ild to moderate disease involving the circumflex. 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 N ormal LV wall motion and systolic function. (06/27/2006) C arotid Doppler/Duplex: Negative bilateral carotid vertebral system. [facility] (11/03/2010) C HOL: 207 (08/16/2010) LDL: 117 (08/16/2010) HDL: 46 (08/16/2010) T (08/16/2010) H gb: 13.6 (12/04/2010) HCT: 39.3 (12/04/2010) RBC: 4.20 (12/04/2010) WBC: 7.0 (12/04/2010) B UN: 13.1 (12/04/2010) Creat: 1.32 (12/04/2010) Glucose: 94 (12/04/2010) N a+: 135 (12/04/2010) K+: 4.2 (12/04/2010) Cl: 101 (12/04/2010) Laya Seaman MD Routine FU: H is updated medication list for this problem includes: Advicor 500-20 Mg Tb24 (Niacin-lovastatin) ..... One tab. at bedtime BP today: 125/75 Prior BP: 109/74 (12/06/2010) C HOL: 207 (08/16/2010) LDL: 117 (08/16/2010) HDL: 46 (08/16/2010) T (08/16/2010) Laya Seaman MD Routine FU: H is updated medication list for this problem includes: Metoprolol Succinate Tb24 (Metoprolol succinate tb24) ..... 100mg take one tablet by mouth daily Aspirin 81 Mg Tabs (Aspirin) ..... One tab. daily Altace 2.5 Mg Caps (Ramipril) ..... One tab daily BP today: 125/75 P rior BP: 109/74 (12/06/2010) Labs Reviewed: C reat: 1.32 (12/04/2010) C hol: 207 (08/16/2010) HDL: 46 (08/16/2010) LDL: 117 (08/16/2010) T (08/16/2010) Laya Seaman MD Routine FU: H is updated medication list for this problem includes: Ranexa 1000 Mg Tb12 (Ranolazine) ..... One tab. twice daily Metoprolol Succinate Tb24 (Metoprolol succinate tb24) ..... 100mg take one tablet by mouth daily Aspirin 81 Mg Tabs (Aspirin) ..... One tab. daily Imdur 30 Mg Iq30p-abs (Isosorbide mononitrate) ..... One tab daily Altace 2.5 Mg Caps (Ramipril) ..... One tab daily BP today: 125/75 Prior BP: 109/74 (12/06/2010) H gb: 13.6 (12/04/2010) HCT: 39.3 (12/04/2010) RBC: 4.20 (12/04/2010) WBC: 7.0 (12/04/2010) B UN: 13.1 (12/04/2010) Creat: 1.32 (12/04/2010) Glucose: 94 (12/04/2010) N a+: 135 (12/04/2010) K+: 4.2 (12/04/2010) Cl: 101 (12/04/2010) Anion Gap: 14.7 (08/16/2010) Calcium: 8.5 (12/04/2010) Holter Monitor: The quality of scan was fair due to baseline artifact. Holter study demonstrated Sinus Rhythm. No Ventricular ectopy noted. Rare Supraventricular Ectopic beats noted in single beat form. No symptomatic diary was submitted. [employer] (2010) N uclear Stress Findings: No scintigraphic evidence of stress induced ischemia or wall motion abnormality. Left ventricular ejection fraction is 70% which is within normal limits. [facility] (12/09/2010) C ardiac Cath: No instent restenosis previously stented LAD. M ild to moderate disease involving the circumflex. 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 N ormal LV wall motion and systolic function. (06/27/2006) Laya Seaman MD passed out on Sat : B P today: 109/74 Prior BP: 106/62 (08/03/2010) N uclear Stress Findings: Maximum of 1.2mm upsloping ST segment depression in the inferior and lateral leads considered to be borderline for ischemia. (03/09/2005) C ardiac Cath: No instent restenosis previously stented LAD. M ild to moderate disease involving the circumflex. C hronically occluded RCA. Complete colalteralization of the right coronary. N ormal LV wall motion and systolic function. (06/27/2006) C arotid Doppler/Duplex: Negative bilateral carotid vertebral system. [facility] (11/03/2010) C HOL: 207 (08/16/2010) LDL: 117 (08/16/2010) HDL: 46 (08/16/2010) T (08/16/2010) H gb: 14.1 (08/16/2010) HCT: 41.4 (08/16/2010) RBC: 4.33 (08/16/2010) WBC: 6.3 (08/16/2010) B UN: 13.0 (08/16/2010) Creat: 1.21 (08/16/2010) Glucose: 97 (08/16/2010) N a+: 138 (08/16/2010) K+: 4.7 (08/16/2010) Cl: 102 (08/16/2010) T he following medications were removed from the medication list: Altace 2.5 Mg Caps (Ramipril) ..... Take one capsule by mouth daily His updated medication list for this problem includes: Ranexa 1000 Mg Tb12 (Ranolazine) ..... One tab. twice daily Metoprolol Succinate Tb24 (Metoprolol succinate tb24) ..... 100mg take one tablet by mouth daily Aspirin 81 Mg Tabs (Aspirin) ..... One tab. daily Advicor 500-20 Mg Tb24 (Niacin-lovastatin) ..... One tab. at bedtime Isosorbide Mononitrate Tabs (Isosorbide mononitrate tabs) ..... 30mg take one tablet by mouth every day Laya Seaman MD passed out on Sat : T he following medications were removed from the medication list: Altace 2.5 Mg Caps (Ramipril) ..... Take one capsule by mouth daily His updated medication list for this problem includes: Ranexa 1000 Mg Tb12 (Ranolazine) ..... One tab. twice daily Metoprolol Succinate Tb24 (Metoprolol succinate tb24) ..... 100mg take one tablet by mouth daily Aspirin 81 Mg Tabs (Aspirin) ..... One tab. daily Advicor 500-20 Mg Tb24 (Niacin-lovastatin) ..... One tab. at bedtime Isosorbide Mononitrate Tabs (Isosorbide mononitrate tabs) ..... 30mg take one tablet by mouth every day BP today: 109/74 Prior BP: 106/62 (08/03/2010) N uclear Stress Findings: Maximum of 1.2mm upsloping ST segment depression in the inferior and lateral leads considered to be borderline for ischemia. (03/09/2005) C ardiac Cath: No instent restenosis previously stented LAD. M ild to moderate disease involving the circumflex. 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 N ormal LV wall motion and systolic function. (06/27/2006) C arotid Doppler/Duplex: Negative bilateral carotid vertebral system. [facility] (11/03/2010) C HOL: 207 (08/16/2010) LDL: 117 (08/16/2010) HDL: 46 (08/16/2010) T (08/16/2010) H gb: 14.1 (08/16/2010) HCT: 41.4 (08/16/2010) RBC: 4.33 (08/16/2010) WBC: 6.3 (08/16/2010) B UN: 13.0 (08/16/2010) Creat: 1.21 (08/16/2010) Glucose: 97 (08/16/2010) N a+: 138 (08/16/2010) K+: 4.7 (08/16/2010) Cl: 102 (08/16/2010) Laya Seaman MD passed out on Sat : H is updated medication list for this problem includes: Advicor 500-20 Mg Tb24 (Niacin-lovastatin) ..... One tab. at bedtime BP today: 109/74 Prior BP: 106/62 (08/03/2010) C HOL: 207 (08/16/2010) LDL: 117 (08/16/2010) HDL: 46 (08/16/2010) T (08/16/2010) Laya Seaman MD passed out on Sat : B P today: 109/74 P rior BP: 106/62 (08/03/2010) Labs Reviewed: C reat: 1.21 (08/16/2010) C hol: 207 (08/16/2010) HDL: 46 (08/16/2010) LDL: 117 (08/16/2010) T (08/16/2010) The following medications were removed from the medication list: Altace 2.5 Mg Caps (Ramipril) ..... Take one capsule by mouth daily His updated medication list for this problem includes: Metoprolol Succinate Tb24 (Metoprolol succinate tb24) ..... 100mg take one tablet by mouth daily Aspirin 81 Mg Tabs (Aspirin) ..... One tab. daily Laya Seaman MD 6 month follow-up: H is updated medication list for this problem includes: Ranexa 1000 Mg Tb12 (Ranolazine) ..... One tab. twice daily Metoprolol Succinate Tb24 (Metoprolol succinate tb24) ..... 100mg take one tablet by mouth daily Aspirin 81 Mg Tabs (Aspirin) ..... One tab. daily Advicor 500-20 Mg Tb24 (Niacin-lovastatin) ..... One tab. at bedtime Isosorbide Mononitrate Tabs (Isosorbide mononitrate tabs) ..... 30mg take one tablet by mouth every day Altace 2.5 Mg Caps (Ramipril) ..... Take one capsule by mouth daily BP today: 97/61 Prior BP: 118/66 (07/21/2009) N uclear Stress Findings: Maximum of 1.2mm upsloping ST segment depression in the inferior and lateral leads considered to be borderline for ischemia. (03/09/2005) C ardiac Cath: No instent restenosis previously stented LAD. M ild to moderate disease involving the circumflex. 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 N ormal LV wall motion and systolic function. (06/27/2006) Laya Seaman MD 6 month follow-up: H is updated medication list for this problem includes: Advicor 500-20 Mg Tb24 (Niacin-lovastatin) ..... One tab. at bedtime BP today: 97/61 Prior BP: 118/66 (07/21/2009) Laya Seaman MD 6 month follow-up: H is updated medication list for this problem includes: Ranexa 1000 Mg Tb12 (Ranolazine) ..... One tab. twice daily Metoprolol Succinate Tb24 (Metoprolol succinate tb24) ..... 100mg take one tablet by mouth daily Aspirin 81 Mg Tabs (Aspirin) ..... One tab. daily Advicor 500-20 Mg Tb24 (Niacin-lovastatin) ..... One tab. at bedtime Isosorbide Mononitrate Tabs (Isosorbide mononitrate tabs) ..... 30mg take one tablet by mouth every day Altace 2.5 Mg Caps (Ramipril) ..... Take one capsule by mouth daily BP today: 97/61 Prior BP: 118/66 (07/21/2009) N uclear Stress Findings: Maximum of 1.2mm upsloping ST segment depression in the inferior and lateral leads considered to be borderline for ischemia. (03/09/2005) C ardiac Cath: No instent restenosis previously stented LAD. M ild to moderate disease involving the circumflex. 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 N ormal LV wall motion and systolic function. (06/27/2006) Laya Seaman MD Date Name Complete Echo COMPREHENSIVE METABO LIC PANEL, W/EGFR TSH, free T4, total T3 LIPID PANEL HEMOGLOBIN A1c Stress Exercise Card iolite STR - Echo Complete Echo STR - Nuclear Stress Test - Nuclea r Complete Echo TSH, 3RD GENERATION LIPID PANEL CBC (INCLUDES DIFF/P LT) COMPREHENSIVE METABO LIC PANEL W/EGFR COMPREHENSIVE METABO LIC PANEL W/EGFR Lipoprotein Profile by NMR HISTORY OF PROCEDURES Procedure Date Procedure Name Provider Procedure Notes S tatus Complex e/m visit add on Laya Seaman MD completed EKG Laya Seaman MD completed EKG Laya Seaman MD completed EKG Laya Seaman MD completed Schedule Followup Laya Seaman MD in 6 mo co mpleted EKG Laya Seaman MD completed SNOMED-CT: [id number] Physical Exam, Performed: Pulse Exam of Foot Laya Seaman MD completed EKG Laya Seaman MD completed SNOMED-CT: [id number] Current Medications Documented Laya Seaman MD completed EKG Laya Seaman MD completed EKG Laya Seaman MD completed
[2025-01-22 12:58] LABS: Basophils Absolute Auto 0.1 K/mm3 (0.0-0.1); Basophils Percent Auto 0.6 % (0.2-1.2); Hemoglobin 12.7 g/dL (14.0-18.0); Immature Granulocyte Absolute 0.34 K/mm3 (0.00-0.031); Immature Granulocyte Percent A 2.7 % (0-0.5); Lymphocytes Absolute Auto 0.89 K/mm3 (0.9-3.2); Mean Corpuscular HGB Conc 32.6 g/dl (32-36); Mean Corpuscular Hemoglobin 31.7 pg (26-34); Mean Corpuscular Volume 97.3 fl (80-100); Mean Platelet Volume 9.9 fl (7.4-10.4); Monocytes Absolute Auto 0.9 K/mm3 (0.1-0.6); Neutrophils Absolute Auto 10.5 K/mm3 (1.3-6.7); Neutrophils Percent Auto 82.7 % (45.5-73.1); Platelet Count Result 220 k/mm3 (150-375); Red Blood Count 4.01 M/mm3 (4.6-6.20); Red Cell Distribution Width 13.2 % (11.5-14.5); White Blood Count 12.6 K/mm3 (4.5-10.0)
[2025-01-22 13:11] LABS: Alanine Aminotransferase 34 U/L (6-50); Albumin Level 4.4 g/dL (3.5-5.1); Alkaline Phosphatase 52 U/L (38-126); Anion Gap 10 mmol/L (4-12); Aspartate Amino Transferase 28 U/L (17-59); Bilirubin,Total 0.5 mg/dL (0.2-1.3); Blood Urea Nitrogen 25 mg/dL (9-20); Carbon Dioxide 26 mmol/L (22-30); Chloride 104 mmol/L (98-107); Estimated CRCL calculation 59 ml/min; Estimated Glomerular Filt Rate > 60; Glucose 124 mg/dL (65-110); Potassium 4.5 mmol/L (3.4-5.0); Sodium 140 mmol/L (137-145)
--- OUTSIDE RECORDS SUMMARY | 2025-01-22 13:17 | XMS_ITS | CONTINUITY OF CARE DOCUMENT ---
Author Name david, david Address Unknown Organization [facility] Address [address] [place] [address] Phone [phone] Care Team Providers Care Executive Chairman Name Role Phone Allan CASAS, Laya Unavailable [phone] BRANDT KIRAN MD Unavailable BRANDT KIRAN MD Unavailable PROBLEMS Condition Status [...] In-person encounter Office Visit Laya Seaman MD [facility] Cardiology examination - In-person encounter Office Visit Laya Seaman MD [facility] CAD--09/11 PTCA-STENT RESOLUTE X 2 LCIRC,LAD-2OM IVUS TO LADCP-09/11 PTCA-STENT RESOLUTE X 2 LCIRC,LAD-2OM IVUS TO LAD - In-person encounter Office Visit Laya Seaman MD [facility] - In-person encounter Office Visit Laya Seaman MD [facility] SYNCOPE NORMAL STRES S, ECHO 08/2018, HOLTER 12/10 - In-person encounter Office Visit Laya Seaman MD [facility] - In-person encounter Office Visit Laya Seaman MD [facility] - In-person encounter Office Visit Laya Seaman MD [facility] - In-person encounter Office Visit Laya Seaman MD [facility] Hyperlipidemia - In-person encounter Office Visit Laya Seaman MD [facility] HYPERCHOLESTEROLEMIA-L ABS PER DR. SEAMAN - In-person encounter Office Visit Laya Seaman MD [facility] - In-person encounter Office Visit Laya Seaman MD [facility] - In-person encounter Office Visit Laya Seaman MD [facility] - In-person encounter Office Visit Laya Seaman MD [facility] - In-person encounter Office Visit Laya Seaman MD [facility] - In-person encounter Office Visit Laya Seaman MD [facility] - In-person encounter Office Visit Laya Seaman MD [facility] HTN-07/10 STRESS NEGSYNCOPE NORMAL STRESS, ECHO 08/2018, HOLTER 12/10 - In-person encounter Office Visit Laya Seaman MD [facility] - In-person encounter Office Visit Laya Seaman MD [facility] - In-person encounter Office Visit Laya Seaman MD [facility] - In-person encounter Office Visit Laya Seaman MD [facility] CAD--09/11 PTCA-STENT RESOLUTE X 2 LCIRC,LAD-2OM IVUS TO LAD - In-person encounter Office Visit Laya Seaman MD [facility] HTN-07/10 STRESS NEG VITAL SIGNS Date Observation Value Provider Body Mass Index (Ratio) 31.95 kg/m2 Zach Seaman MD blood pressure, diastolic 74 mm[Hg] [facility] 129 mm[Hg[facility], [facility] 97 % [facility] pulse rate 64 /min [facility] respiratory rate E&M 12 /min [facility] weight E&M 198 [lb_av] [facility] height E&M 66 [in_i] [facility] blood pressure, cuff size regular [facility] Body Mass Index (Ratio) 31.15 kg/m2 Zach Seaman MD blood pressure, diastolic 79 mm[Hg] Li nkLogic blood pressure, systolic 138 mm[Hg] Maral kLog respiratory rate E&M 16 /min Emilie Bueno iller blood pressure, cuff size regular Eduin [facility] blood pressure, diastolic 79 mm[Hg] [facility] blood pressure, systolic 138 mm[Hg] [facility], oximetry 95 % Emilie [place] pulse rate 66 /min Emilie [place] weight E&M 193 [lb_av] Emilie [place] height E&M 66 [in_i] Emilie [place] Body Mass Index (Ratio) 30.99 kg/m2 Zach [...] blood pressure, systolic 130 mm[Hg] Addison ri Nica oxygen saturation, oximetry 96 % Edie Nica [...] sanchez Wise blood pressure, diastolic 69 mm[Hg] Al kennedi Wise blood pressure, systolic 106 mm[Hg] Anu moe Wise weight E&M 192 [lb_av] Nora Wise respiratory rate E&M 14 /min Nora Wise pulse rate 54 /min Nora Wise oxygen saturation, oximetry 97 % Nora Wise pulse rate #2 62 [place] Tebid blood pressure, [place] tolic, second observation 77 mm[Hg] Poppy Tebid blood pressure, syst olic, second observation 124 mm[Hg] [place] [facility] oxygen saturation, oximetry 98 % [facility] [place] [facility] blood pressure, diastolic 72 mm[Hg] Vi ctoria Tebid blood pressure, systolic 135 mm[Hg] Mulugeta audrey Ted pulse rate #2 56 [place] T[facility] blood pressure, [place] tolic, second observation 63 mm[Hg] Poppy Tebid blood pressure, syst olic, second observation 96 mm[Hg] Poppy Tebid oxygen saturation, oximetry 98 % Poppy bid pulse rate 64 /min [place] bid blood pressure, diastolic 54 mm[Hg] Vi ctoria Tebid blood pressure, systolic 108 mm[Hg] Mulugeta audrey Tebid pulse rate #2 56 [place] bid blood pressure, [place] tolic, second observation 73 mm[Hg] Poppy Tebid blood pressure, syst olic, second observation 112 mm[Hg] Poppy Tebid oxygen saturation, oximetry 98 % Po[place] bid pulse rate 62 /[facility], [facility][Hg] Vi ctoria Tebid blood pressure, systolic 115 mm[Hg] Mulugeta audrey Tebid pulse rate #2 65 [place] bid blood pressure, [place] tolic, second observation 65 mm[Hg] Poppy Tebid blood pressure, syst olic, second observation 100 mm[Hg] Po[place] Tebid oxygen saturation, oximetry 98 % [place] bid pulse rate 65 /min [place] T[facility]id blood pressure, diastolic 69 mm[Hg] Vi ctoria Tebid blood pressure, systolic 121 mm[Hg] Mulugeta audrey Tebid pulse rate #2 62 [place] Tebid blood pressure, [place] tolic, second observation 62 mm[Hg] [place] Tebid blood pressure, syst olic, second observation 113 mm[Hg] [place] Tebid oxygen saturation, oximetry 98 % Poppy bid pulse rate 67 /min [place] Tebid blood pressure, diastolic 68 mm[Hg] Vi ctoria Tebid blood pressure, systolic 121 mm[Hg] Mulugeta audrey Tebid pulse rate #2 56 [place] Tebid blood pressure, [place] tolic, second observation 71 mm[Hg] [place] Tebid blood pressure, syst olic, second observation 111 mm[Hg] [place] Tebid oxygen saturation, oximetry 98 % [place] T[facility] pulse rate 58 /min [place] T[facility] blood pressure, diastolic 73 mm[Hg] Vi ctoria Tebid blood pressure, systolic 122 mm[Hg] Mulugeta audrey Tebid pulse rate #2 65 [place] Tebid blood pressure, [place] tolic, second observation 77 mm[Hg] Po[place] Tebid blood pressure, syst olic, second observation 113 mm[Hg] [place] Tebid oxygen saturation, oximetry 98 % Po[place] bid pulse rate 66 /min [place] T[facility]id blood pressure, diastolic 85 mm[Hg] Vi ctoria Tebid blood pressure, systolic 132 mm[Hg] Mulugeta audrey Tebid pulse rate #2 59 [place] Tebid blood pressure, [place] tolic, second observation 71 mm[Hg] Po[place] Tebid blood pressure, syst olic, second observation 117 mm[Hg] [place] Tebid oxygen saturation, oximetry 98 % [place] T[facility] pulse rate 58 /min [place] T[facility] blood pressure, diastolic 69 mm[Hg] Vi ctoria Tebid blood pressure, systolic 98 mm[Hg] Mulugeta audrey Tebid pulse rate #2 63 [place] Tebid blood pressure, [place] tolic, second observation 73 mm[Hg] Po[place] Tebid blood pressure, syst olic, second observation 115 mm[Hg] [place] Tebid oxygen saturation, oximetry 98 % [place] T[facility]id pulse rate 63 /min [place] T[facility] blood pressure, diastolic 69 mm[Hg] Vi [...] 193.8 [lb_av] Faviola pulse rate #2 66 [place] blood pressure, [place] tolic, second observation 69 mm[Hg] [place] blood pressure, syst olic, second observation 117 mm[Hg] [facility] oxygen saturation, oximetry 98 % [place] pulse rate 60 /min [place] blood pressure, diastolic 71 mm[Hg] Vi ctoria blood pressure, systolic 114 mm[Hg] Mulugeta audrey pulse rate #2 60 [place] blood pressure, [place] tolic, second observation 66 mm[Hg] [facility] blood pressure, syst olic, second observation 109 mm[Hg] [facility] oxygen saturation, oximetry 98 % Po[place] pulse rate 62 /min [place] blood pressure, diastolic 65 mm[Hg] Vi ctoria blood pressure, systolic 112 mm[Hg] Mulugeta audrey pulse rate #2 61 [place] blood pressure, [place] tolic, second observation 72 mm[Hg] [place] blood pressure, syst olic, second observation 126 mm[Hg] [facility] oxygen saturation, oximetry 98 % [place] pulse rate 66 /min [facility], diastolic 66 mm[Hg] Vi ctoria Tebid blood pressure, systolic 103 mm[Hg] Mulugeta audrey Tebid pulse rate #2 58 [place] d blood pressure, [place] tolic, second observation 71 mm[Hg] Po[place] d blood pressure, syst olic, second observation 117 mm[Hg] Po[place] d oxygen saturation, oximetry 98 % Po[place] d pulse rate 61 /min [place] d blood pressure, diastolic 72 mm[Hg] Vi ctoria Tebid blood pressure, systolic 116 mm[Hg] Mulugeta audrey Tebid pulse rate #2 55 [place] blood pressure, [place] tolic, second observation 70 mm[Hg] [facility], syst olic, second observation 123 mm[Hg] [facility], oximetry 98 % [place] pulse rate 58 /min [place] blood pressure, diastolic 66 mm[Hg] Vi [facility] Tebid blood pressure, systolic 114 mm[Hg] Mulugeta audrey Ted pulse rate #2 57 [facility] blood pressure, [place] tolic, second observation 74 mm[Hg] [facility], syst olic, second observation 111 mm[Hg] Poppy Ted oxygen saturation, oximetry 98 % [facility] pulse [facility] 61 /min [facility], diastolic 76 mm[Hg] Vi ctoria Tebid blood pressure, systolic 124 mm[Hg] Mulugeta audrey Tebid pulse rate #2 60 [facility] blood [facility], [place] tolic, second observation 63 mm[Hg] [facility], syst olic, second observation 96 mm[Hg] [facility], oximetry 98 % [place] Tebid pulse rate 63 /min [place] Tebid blood pressure, diastolic 71 mm[Hg] Vi ctoria Tebid blood pressure, systolic 111 mm[Hg] Mulugeta audrey Tebid pulse rate #2 61 [place] Tebid blood pressure, [place] tolic, second observation 66 mm[Hg] [place] Tebid blood pressure, syst olic, second observation 100 mm[Hg] [place] Tebid oxygen saturation, oximetry 98 % [place] Tebid pulse rate 61 /min [place] Tebid blood pressure, diastolic 75 mm[Hg] Vi ctoria Tebid blood pressure, systolic 122 mm[Hg] Mulugeta audrey Tebid pulse rate #2 61 [place] Tebid blood pressure, quev[place] tolic, second observation 71 mm[Hg] [place] Tebid blood pressure, syst olic, second observation 117 mm[Hg] [place] Tebid oxygen saturation, oximetry 98 % [place] Tebid pulse rate 69 /min [place] Tebid blood pressure, diastolic 60 mm[Hg] Vi ctoria Tebid blood pressure, systolic 97 mm[Hg] Mulugeta audrey Tebid pulse rate #2 61 [place] Tebid blood pressure, [place] tolic, second observation 65 mm[Hg] [place] Tebid blood pressure, syst olic, second observation 105 mm[Hg] [place] Tebid oxygen saturation, oximetry 98 % [place] Tebid pulse rate 61 /min [place] Tebid blood pressure, diastolic 66 mm[Hg] Vi ctoria Tebid blood pressure, systolic 90 mm[Hg] Mulugeta audrey Tebid pulse rate #2 62 [place] Tebid blood pressure, [place] tolic, second observation 70 mm[Hg] [place] Tebid blood pressure, syst olic, second observation 116 mm[Hg] Po[place] bid oxygen saturation, oximetry 98 % Po[place] d pulse rate 67 /min [place] d blood pressure, diastolic 61 mm[Hg] Vi ctoria Tebid blood pressure, systolic 101 mm[Hg] Mulugeta audrey Tebid pulse rate #2 61 [place] d blood pressure, [place] tolic, second observation 64 mm[Hg] [place] d blood pressure, syst olic, second observation 109 mm[Hg] [facility], [facility]ximetry 98 % Po[place] pulse rate 64 /min [place] blood pressure, diastolic 65 mm[Hg] Vi ctoria Tebid blood pressure, systolic 111 mm[Hg] Mulugeta audrey Tebid pulse rate #2 56 [place] d blood pressure, [place] tolic, second observation 73 mm[Hg] Po[place] d blood pressure, syst olic, second observation 123 mm[Hg] Po[place] d oxygen saturation, oximetry 98 % Po[place] d pulse rate 60 /min Po[place] d blood pressure, diastolic 65 mm[Hg] Vi ctoria Tebid blood pressure, systolic 113 mm[Hg] Mulugeta audrey Tebid pulse rate #2 58 [place] d blood pressure, [place] tolic, second observation 69 mm[Hg] Po[place] d blood pressure, syst olic, second observation 101 mm[Hg] Poppy bid oxygen saturation, oximetry 98 % Po[place] d pulse rate 60 /min [place] bid blood pressure, diastolic 67 mm[Hg] Vi ctoria Tebid blood pressure, systolic 98 mm[Hg] Mulugeta audrey Tebid pulse rate #2 57 [facility], [place] tolic, second observation 69 mm[Hg] Po[place] Tebid blood pressure, syst olic, second observation 109 mm[Hg] [place] Tebid oxygen saturation, oximetry 98 % [place] Tebid pulse rate 61 /min [place] Tebid blood pressure, diastolic 71 mm[Hg] Vi ctoria Tebid blood pressure, systolic 114 mm[Hg] Mulugeta audrey Tebid pulse rate #2 58 [place] Tebid blood pressure, [place] tolic, second observation 72 mm[Hg] Po[place] Tebid blood pressure, syst olic, second observation 112 mm[Hg] Po[place] Tebid oxygen saturation, oximetry 98 % [facility] 60 /min [facility], diastolic 70 mm[Hg] Vi ctoria Tebid blood pressure, systolic 104 mm[Hg] Mulugeta audrey Tebid pulse rate #2 64 [place] Tebid blood pressure, [place] tolic, second observation 69 mm[Hg] [place] Tebid blood pressure, syst olic, second observation 111 mm[Hg] [place] Tebid oxygen saturation, oximetry 98 % [place] Tebid pulse rate 58 /min [place] Tebid blood pressure, diastolic 68 mm[Hg] Vi ctoria Tebid blood pressure, systolic 113 mm[Hg] Mulugeta audrey Tebid pulse rate #2 54 [facility], [place] tolic, second observation 69 mm[Hg] [place] Tebid blood pressure, syst olic, second observation 108 mm[Hg] [place] Tebid oxygen saturation, oximetry 98 % [facility] pulse [facility] 58 /min [facility], diastolic 63 mm[Hg] Vi ctoria Tebid blood pressure, systolic 110 mm[Hg] Mulugeta audrey Tebid pulse rate #2 56 [place] Tebid blood pressure, [place] tolic, second observation 73 mm[Hg] [place] Tebid blood pressure, syst olic, second observation 123 mm[Hg] [place] Tebid oxygen saturation, oximetry 98 % [facility] pulse [facility] 60 /min [place] Tebid blood pressure, diastolic 71 mm[Hg] Vi ctoria Tebid blood pressure, systolic 110 mm[Hg] Mulugeta audrey Tebid pulse rate #2 58 [place] Tebid blood pressure, [place] tolic, second observation 66 mm[Hg] [place] Tebid blood pressure, syst olic, second observation 102 mm[Hg] [facility], oximetry 98 % [facility] pulse rate 61 /min [facility], diastolic 71 mm[Hg] Vi ctoria Tebid blood pressure, systolic 105 mm[Hg] [facility] #2 60 [place] d blood pressure, [place] tolic, second observation 67 mm[Hg] [facility], syst olic, second observation 120 mm[Hg] [facility], oximetry 98 % [facility] pulse rate 66 /min [place] Tebid blood pressure, diastolic 68 mm[Hg] Vi ctoria Tebid blood pressure, systolic 108 mm[Hg] Mulugeta audrey Tebid pulse rate #2 55 [place] Tebid blood pressure, [place] tolic, second observation 66 mm[Hg] [place] Tebid blood pressure, syst olic, second observation 100 mm[Hg] [facility], oximetry 98 % [facility] pulse rate 58 /min [facility], diastolic 61 mm[Hg] Vi ctoria Tebid blood pressure, systolic 100 mm[Hg] Mulugeta audrey Tebid pulse rate #2 58 [facility] blood pressure, [place] tolic, second observation 61 mm[Hg] [place] Tebid blood pressure, syst olic, second observation 96 mm[Hg] [facility], oximetry 98 % [facility] pulse rate 63 /min [facility], diastolic 68 mm[Hg] Vi ctoria Tebid blood pressure, systolic 98 mm[Hg] Mulugeta audrey Tebid pulse rate #2 55 [facility] blood pressure, [place] tolic, second observation 67 mm[Hg] [facility], syst olic, second observation 95 mm[Hg] [facility], oximetry 98 % [facility] pulse rate 63 /min [facility], diastolic 64 mm[Hg] Vi ctoria Tebid blood pressure, systolic 92 mm[Hg] Mulugeta audrey Tebid pulse rate #2 58 [facility] blood pressure, [place] tolic, second observation 60 mm[Hg] [facility] blood [facility], syst olic, second observation 101 mm[Hg] [facility], oximetry 98 % [facility] pulse rate 58 /min [place] Tebid blood pressure, diastolic 61 mm[Hg] Vi ctoria Tebid blood pressure, systolic 96 mm[Hg] Mulugeta audrey Tebid pulse rate #2 52 [facility] blood pressure, [place] tolic, second observation 66 mm[Hg] [facility] blood [facility], syst olic, second observation 99 mm[Hg] [facility], oximetry 98 % [facility] pulse rate 52 /min [facility], diastolic 63 mm[Hg] Danna gant Tebid blood pressure, systolic 91 mm[Hg] Mulugeta ventura [facility] Body Mass Index (Ratio) 29.97 kg/m2 Dustin choi Lo[place] blood pressure, diastolic, left arm 66 mm [Hg] [facility] blood pressure, systolic, left arm 103 mm [Hg] [facility] blood pressure, diastolic, right arm 62 m m[Hg] [facility] blood pressure, systolic, right arm 96 mm [Hg] [facility], [facility] mm[Hg] Maco charlieairamyung [place] blood pressure, systolic 103 mm[Hg] Ridge elton [place] pulse rate 58 /min [facility] oxygen saturation, oximetry 98 % [facility] respiratory rate E&M 16 /min [facility] [place] weight E&M 185 [lb_av] Hipolito Loera [...] Haleigh Stover HDL cholesterol, serum 47 mg/dL [facility] lipoprotein, beta, serum, point, quantitative, calculated 111 mg/dL [facility] cholesterol, serum 190 mg/dL [facility] thyroid stimulating hormone, serum 6.200 u[IU]/mL [facility] alanine aminotransferase (SGPT), serum 33 1/L [facility] aspartate aminotransferase (SGOT), serum 29 1/L [facility] creatinine, serum 1.18 mg/dL [facility] potassium, serum 4.8 mmol/L [facility] sodium, serum 145 mmol/L [facility] platelet count 185 10*3/mm3 [facility] hematocrit, blood 39.0 % [facility] lipoprotein, beta, serum, point, quantitative, calculated 85 mg/dL [facility] cholesterol, serum 167 mg/dL [facility] alanine aminotransferase (SGPT), serum 37 1/L [facility] aspartate aminotransferase (SGOT), serum 28 1/L [facility] creatinine, serum 1.09 mg/dL [facility] potassium, serum 4.5 mmol/L [facility] sodium, serum 141 mmol/L [facility] triglyceride, serum, fasting 206 mg/dL [facility] HDL cholesterol, serum 43 mg/dL [facility] LDL cholesterol, serum 206 mg/dL [facility] cholesterol, serum 230 mg/dL [facility] anion gap, serum 7.3 globulins, serum, total 2.3 g/dL [facility] estimated glomerular filtration rate 59 mL/min [facility] albumin/globulin ratio, serum 1.9 [facility] protein, total, serum 6.6 g/dL [facility] albumin, serum 4.3 g/dL [facility] bilirubin, serum, total 0.27 mg/dL [facility] alkaline phosphatase, serum 59 1/L [facility] alanine aminotransferase (SGPT), serum 40 1/L [facility] aspartate aminotransferase (SGOT), serum 17 1/L [facility] calcium, serum 8.8 mg/dL [facility] blood glucose, fasting 104 mg/dL [facility] creatinine, serum 1.32 mg/dL [facility] urea nitrogen, blood 14.5 mg/dL [facility] carbon dioxide, serum, total 32 mmol/L [facility] chloride, serum 101 mmol/L [facility] potassium, serum 4.3 mmol/L [facility] sodium, serum 136 mmol/L [facility] platelet count 203 10*3/uL [facility] red blood cell distribution width 13.1 % [facility] mean corpuscular hemoglobin concentration, RBC 33.7 g/dL [facility] mean corpuscular hemoglobin, RBC 32.4 pg [facility] mean corpuscular volume, RBC 96.2 fL [facility] hematocrit, blood 40.1 % [facility] hemoglobin, blood 13.5 g/dL [facility] erythrocyte (RBC) count 4.17 10*6/mm3 [facility] leukocyte count, blood 6.1 10*3/mm3 [facility] albumin/globulin ratio, serum 1.3 [facility] protein, total, serum 6.7 g/dL [facility] albumin, serum 3.8 g/dL [facility] bilirubin, serum, total 0.51 mg/dL [facility] alkaline phosphatase, serum 52 1/L [facility] alanine aminotransferase (SGPT), serum 35 1/L [facility] aspartate aminotransferase (SGOT), serum 25 1/L [facility] calcium, serum 8.5 mg/dL [facility] blood glucose, fasting 94 mg/dL [facility] creatinine, serum 1.32 mg/dL [facility] urea nitrogen, blood 13.1 mg/dL [facility] carbon dioxide, serum, total 30 mmol/L [facility] chloride, serum 101 mmol/L [facility] potassium, serum 4.2 mmol/L [facility] sodium, serum 135 mmol/L [facility] platelet count 154 10*3/uL [facility] red blood cell distribution width 13.4 % [facility] mean corpuscular hemoglobin concentration, RBC 34.6 g/dL [facility] mean corpuscular hemoglobin, RBC 32.4 pg [facility] mean corpuscular volume, RBC 93.6 fL [facility] hematocrit, blood 39.3 % [facility] hemoglobin, blood 13.6 g/dL [facility] erythrocyte (RBC) count 4.20 10*6/mm3 [facility] monocytes as percent of blood leukocytes 17.7 % [facility] lymphocytes as percent of blood leukocytes 10.1 % [facility] leukocyte count, blood 7.0 10*3/mm3 [facility] triglyceride, serum, fasting 219 mg/dL [facility] HDL cholesterol, serum 46 mg/dL [facility] LDL cholesterol, serum 117 mg/dL [facility] cholesterol, serum 207 mg/dL [facility] prostate specific antigen 0.31 ng/mL [facility] anion gap, serum 14.7 [facility] globulins, serum, total 2.5 g/dL [facility] blood glucose, random >60 [facility] albumin/globulin ratio, serum 1.7 [facility] protein, total, serum 6.7 g/dL [facility] albumin, serum 4.2 g/dL [facility] bilirubin, serum, total 0.52 mg/dL [facility] alkaline phosphatase, serum 75 1/L [facility] alanine aminotransferase (SGPT), serum 34 1/L [facility] aspartate aminotransferase (SGOT), serum 18 1/L [facility] calcium, serum 8.9 mg/dL [facility] blood glucose, fasting 97 mg/dL [facility] creatinine, serum 1.21 mg/dL [facility] urea nitrogen, blood 13.0 mg/dL [facility] carbon dioxide, serum, total 26 mmol/L [facility] chloride, serum 102 mmol/L [facility] potassium, serum 4.7 mmol/L [facility] sodium, serum 138 mmol/L [facility] platelet count 199 10*3/uL [facility] red blood cell distribution width 13.3 % [facility] mean corpuscular hemoglobin concentration, RBC 34.1 g/dL [facility] mean corpuscular hemoglobin, RBC 32.6 pg [facility] mean corpuscular volume, RBC 95.6 fL [facility] hematocrit, blood 41.4 % [facility] hemoglobin, blood 14.1 g/dL [facility] erythrocyte (RBC) count 4.33 10*6/mm3 [facility] monocytes as percent of blood leukocytes 9.9 % [facility] lymphocytes as percent of blood leukocytes 22.3 % [facility] leukocyte count, blood 6.3 10*3/mm3 [facility] [...] 1 TABLET BY MOUTH ONCE DAILY [facility] rosuvastatin 40 mg tablet active TAKE 1 TABLET BY MOUTH ONCE DAILY [facility] metoprolol succinate 50 mg tablet extended release 24 hr completed Take 1 tablet by mouth once a day TAKE 1 TABLET EVERY DAY - [facility] ranolazine 1,000 mg tablet extended release 12 hr completed Take 1 tablet by mouth twice a day - [facility] ranolazine 1,000 mg tablet extended release 12 hr completed TAKE 1 TABLET BY MOUTH TWICE DAILY - Edie Yousif montelukast 10 mg tablet active TAKE 1 TABLET BY MOUTH ONCE DAILY [facility] metoprolol succinate 50 mg tablet extended release [...] tablet active 1 tablet once a day [facility] montelukast 10 mg tablet completed Take 1 [...] completed ONE TAB. AT BEDTIME - Juan Jacobs RN ASPIRIN 81 MG ORAL TABLET active [...] E&M revi ewed - no changes required Gabrile Russo physical exercise, f requency, days per week yes Nohemy Bass caffeine use, averag e drinks per day yes [facility] passive cigarette sm christiana exposure no [facility] smoking status Former smoker [facility] social history reviewed E&M revi ewed - [...] f requency, days per week yes Nora Wies alcohol use, average drinks per day none [...] exercise, f requency, days per week yes [facility] caffeine use, averag e drinks per day [...] Plan continue current therapy Laya Seaman MD MENTAL STATUS Date Observation Value Provider [...] Payer name Policy type / Coverage type [place] [employer] party ID [employer] MEDICARE ADVANTAGE HMO-POS HMO [id number] ADVANCE DIRECTIVES Name Date DISCUSSED - NO DECISION MADE TREATMENT PLAN Date Name Performer [id number],S, Fitz Ahmedza i [id number],S, Fitz Ahmedza i [id number],B, Fitz Ahmedza i [id number],S, Fitz Ahmedza i [id number],S, Fitz Ahmedza i [id number],S, Fitz Ahmedza i [id number],S, Fitz Ahmedza i [id number],S, Fitz Ahmedza i [id number],S, Fitz Ahmedza i [id number],S, Fitz Ahmedza i [id number],S, Fitz Ahmedza i Cardiology: H is updated [...] this problem includes: Metoprolol Succinate 100 Mg [id number]-abx (Metoprolol succinate) ..... One tab daily Aspirin [...] tab. twice daily Metoprolol Succinate 100 Mg Eg98j-frc (Metoprolol succinate) ..... One tab daily Aspirin 81 Mg Tabs (Aspirin) ..... One tab. daily Imdur 30 Mg Iq23z-khv (Isosorbide mononitrate) ..... One tab daily Crestor 40 Mg Tabs (Rosuvastatin calcium) ..... 1 tab po daily Enalapril Maleate 5 Mg Tabs (Enalapril maleate) ..... 1 tab daily Plavix 75 Mg Tabs (Clopidogrel bisulfate) ..... 1 tab daily Laya Seaman MD Follow Up: H is updated medication list for this problem includes: Metoprolol Succinate 100 Mg [id number]-cqd (Metoprolol succinate) ..... One tab daily Aspirin [...] tab. twice daily Metoprolol Succinate 100 Mg Zu93o-uss (Metoprolol succinate) ..... One tab daily Aspirin 81 Mg Tabs (Aspirin) ..... One tab. daily Imdur 30 Mg Eu12j-urf (Isosorbide mononitrate) ..... One tab daily Enalapril Maleate 5 Mg Tabs (Enalapril maleate) ..... 1 tab daily Plavix 75 Mg Tabs (Clopidogrel bisulfate) ..... 1 tab daily Laya Seaman MD Follow Up: H is updated medication list for this problem includes: Ranexa 1000 Mg Tb12 (Ranolazine) ..... One tab. twice daily Metoprolol Succinate 100 Mg Ve39y-wmm (Metoprolol succinate) ..... One tab daily Aspirin 81 Mg Tabs (Aspirin) ..... One tab. daily Imdur 30 Mg Ei33p-opd (Isosorbide mononitrate) ..... One tab daily Enalapril [...] this problem includes: Metoprolol Succinate 100 Mg Va22b-vxa (Metoprolol succinate) ..... One tab daily Aspirin [...] tab. twice daily Metoprolol Succinate 100 Mg Kr31r-nht (Metoprolol succinate) ..... One tab daily Aspirin 81 Mg Tabs (Aspirin) ..... One tab. daily Imdur 30 Mg Xo68t-pul (Isosorbide mononitrate) ..... One tab daily Enalapril [...] tab. twice daily Metoprolol Succinate 100 Mg Jr83b-cwl (Metoprolol succinate) ..... One tab daily Aspirin 81 Mg Tabs (Aspirin) ..... One tab. daily Imdur 30 Mg Gs15s-qnf (Isosorbide mononitrate) ..... One tab daily Enalapril Maleate 5 Mg Tabs (Enalapril maleate) ..... 1 tab daily Plavix 75 Mg Tabs (Clopidogrel bisulfate) ..... 1 tab daily Laya Seaman MD routine : H is updated medication list for this problem includes: Ranexa 1000 Mg Tb12 (Ranolazine) ..... One tab. twice daily Metoprolol Succinate 100 Mg Dm26s-ema (Metoprolol succinate) ..... One tab daily Aspirin 81 Mg Tabs (Aspirin) ..... One tab. daily Imdur 30 Mg Bp66z-jyj (Isosorbide mononitrate) ..... One tab daily Altace 2.5 Mg Caps (Ramipril) ..... One tab daily Crestor 20 Mg Tabs (Rosuvastatin calcium) ..... One tab. daily BP today: 152/94 Prior BP: 132/82 (03/13/2012) N uclear Stress Findings: No scintigraphic evidence of stress induced ischemia or wall motion abnormality. Left ventricular ejection fraction is 70% which is within normal limits. [facility] (12/09/2010) C ardiac Cath: No instent restenosis previously stented LAD. Mild to moderate disease involving the circumflex. 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 N ormal LV wall motion and systolic function. (06/27/2006) C arotid Doppler/Duplex: Negative bilateral carotid vertebral system. [facility] (11/03/2010) C HOL: 167 (03/21/2012) LDL: 85 [...] tab. twice daily Metoprolol Succinate 100 Mg Zh93l-bia (Metoprolol succinate) ..... One tab daily Aspirin 81 Mg Tabs (Aspirin) ..... One tab. daily Imdur 30 Mg Tb08r-lkt (Isosorbide mononitrate) ..... One tab daily Altace 2.5 Mg Caps (Ramipril) ..... One tab daily Crestor 20 Mg Tabs (Rosuvastatin calcium) ..... One tab. daily BP today: 152/94 Prior BP: 132/82 (03/13/2012) N uclear Stress Findings: No scintigraphic evidence of stress induced ischemia or wall motion abnormality. Left ventricular ejection fraction is 70% which is within normal limits. [facility] (12/09/2010) C ardiac Cath: No instent restenosis previously stented LAD. Mild to moderate disease involving the circumflex. 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 N ormal LV wall motion and systolic function. (06/27/2006) C arotid Doppler/Duplex: Negative bilateral carotid vertebral system. [facility] (11/03/2010) C HOL: 167 (03/21/2012) LDL: 85 [...] tab. twice daily Metoprolol Succinate 100 Mg Hi66j-noj (Metoprolol succinate) ..... One tab daily Aspirin 81 Mg Tabs (Aspirin) ..... One tab. daily Imdur 30 Mg Xm63t-rlf (Isosorbide mononitrate) ..... One tab daily Altace [...] beat form. No symptomatic diary was submitted. [email or web address] (2010) N uclear Stress Findings: No scintigraphic evidence of stress induced ischemia or wall motion abnormality. Left ventricular ejection fraction is 70% which is within normal limits. [facility] (12/09/2010) C ardiac Cath: No instent restenosis previously stented LAD. M ild to moderate disease involving the circumflex. 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 N ormal LV wall motion and systolic function. (06/27/2006) Laya Seaman MD Routine 6 mo fu: H is updated medication list for this problem includes: Metoprolol Succinate 100 Mg Tk16d-tbo (Metoprolol succinate) ..... One tab daily Aspirin [...] tab. twice daily Metoprolol Succinate 100 Mg Vl64c-sgq (Metoprolol succinate) ..... One tab daily Aspirin 81 Mg Tabs (Aspirin) ..... One tab. daily Imdur 30 Mg Nd16a-maq (Isosorbide mononitrate) ..... One tab daily Altace [...] form. No symptomatic diary was submitted. [employer] (2010) N uclear Stress Findings: No scintigraphic evidence of stress induced ischemia or wall motion abnormality. Left ventricular ejection fraction is 70% which is within normal limits. [facility] (12/09/2010) C ardiac Cath: No instent restenosis [...] One tab. at bedtime Imdur 30 Mg By32e-lpw (Isosorbide mononitrate) ..... One tab daily Altace 2.5 Mg Caps (Ramipril) ..... One tab daily BP today: 125/75 Prior BP: 109/74 (12/06/2010) N uclear Stress Findings: No scintigraphic evidence of stress induced ischemia or wall motion abnormality. Left ventricular ejection fraction is 70% which is within normal limits. [facility] (12/09/2010) C ardiac Cath: No instent restenosis previously stented LAD. M ild to moderate disease involving the circumflex. 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 N ormal LV wall motion and systolic function. (06/27/2006) C arotid Doppler/Duplex: Negative bilateral carotid vertebral system. [facility] (11/03/2010) C HOL: 207 (08/16/2010) LDL: 117 [...] ..... One tab. daily Imdur 30 Mg Jm08u-ydq (Isosorbide mononitrate) ..... One tab daily Altace [...] beat form. No symptomatic diary was submitted. [employer] (2010) N uclear Stress Findings: No scintigraphic evidence of stress induced ischemia or wall motion abnormality. Left ventricular ejection fraction is 70% which is within normal limits. [facility] (12/09/2010) C ardiac Cath: No instent restenosis [...] arotid Doppler/Duplex: Negative bilateral carotid vertebral system. [facility] (11/03/2010) C HOL: 207 (08/16/2010) LDL: 117 [...] arotid Doppler/Duplex: Negative bilateral carotid vertebral system. [facility] (11/03/2010) C HOL: 207 (08/16/2010) LDL: 117 [...] mpleted EKG Laya Seaman MD completed SNOMED-CT: [id number] Physical Exam, Performed: Pulse Exam of Foot Laya Seaman MD completed EKG Laya Seaman MD completed SNOMED-CT: [id number] Current Medications Documented Laya Seaman MD completed EKG Laya Seaman MD completed EKG Laya Seaman MD completed
[2025-01-22 13:18] LABS: NT Pro B Type Natriuretic Pept 511 pg/mL (19.9-100)
[2025-01-22 13:28] VITALS: O2SAT 98
[2025-01-22 13:35] LABS: Influenza A QL RT-PCR Negative (Negative); Influenza B QL RT-PCR Negative (Negative); SARS-CoV-2 RNA PCR Negative (Negative)
[2025-01-22] MEDS: DOXYCYCLINE HYCLATE 100 MG TABLET PO (15:38)
== END 2025-01-22 15:48 | disposition home or self-care (01) ==
PROVIDERS: Emergency Provider Nurse Practitioner Family; PCP Internal Medicine
DX: J18.9 Pneumonia, unspecified organism (principal); Z20.822 Contact with and (suspected) exposure to COVID-19; I10 Essential (primary) hypertension; I25.10 Atherosclerotic heart disease of native coronary artery without angina pectoris; E66.9 Obesity, unspecified; Z68.31 Body mass index [BMI] 31.0-31.9, adult; Z95.5 Presence of coronary angioplasty implant and graft; Z87.891 Personal history of nicotine dependence; Z79.82 Long term (current) use of aspirin; Z79.02 Long term (current) use of antithrombotics/antiplatelets; Z79.899 Other long term (current) drug therapy
CPT/HCPCS: 36415; 71046; 80053; 83880; 85025; 87636; 99283; A9270

== ENCOUNTER 2025-02-19 12:08 | Inpatient (IN) | payer MEDICARE, SELFPAY ==
[2025-02-19] VITALS (31 sets, daily range): BP systolic 119–152; BP diastolic 64–85; PULSE 47–66; RESP 14–27; TEMP 36.4–36.6; O2SAT 90–100; BMI 30.4
--- NOTE | ~2025-02-19 | XR_ITS ---
EXAMINATION: XR chest 2V DATE: 02/19/2025 13:14 INDICATION: Shortness of breath and cough TECHNIQUE: PA and lateral views of the chest were obtained. COMPARISON: Chest radiograph dated 01/22/2025 FINDINGS: The lungs remain clear with no focal airspace opacities, pulmonary edema, pleural effusion or pneumot horax. The cardiomediastinal silhouette is normal. Coronary artery stenting. There are bridging osteo phytes at multiple levels consistent with diffuse idiopathic skeletal hyperostosis (DISH). IMPRESSION: 1. No acute cardiopulmonary disease. Reviewed, dictated and finalized at location A.
--- NOTE | ~2025-02-19 | XR_ITS ---
MODIFIED ESOPHAGRAM HISTORY: Worsening dysphagia TECHNIQUE: Modified barium esophagram was performed on 02/22/2025. I administered fluoroscopy and perf ormed the exam with speech pathologist. Patient was seated for lateral fluoroscopic imaging for rome stion of thin liquids, pudding, solids and quantified amounts, followed by thin liquids in uncontroll ed amounts. This was recorded on tape. No spot images were recorded. The DAP for this procedure was 4 .888 Gycm2. The amount of fluoroscopy time used during this procedure was 6.6 minutes. FINDINGS: Oral stage: Adequate function. Pharyngeal stage: Reduced laryngeal elevation, tongue base retraction and pharyngeal squeeze. There i s vallecular and pharyngeal wall residue. There is laryngeal penetration with aspiration. There are b ridging osteophytes at multiple levels consistent with diffuse idiopathic skeletal hyperostosis (DISH ) must prominent at C6-C7 where it mass effect upon the posterior wall of the upper most esophagus. Cervical/esophageal stage: Adequate function. IMPRESSION: Pharyngeal dysphagia with laryngeal penetration and aspiration. Please correlate with sp eech pathologist findings and specific feeding recommendations. Reviewed, dictated and finalized at location A. IMPRESSION: Pharyngeal dysphagia with laryngeal penetration and aspiration. Pl ease correlate with speech pathologist findings and specific feeding recommenda tions.
--- NOTE | ~2025-02-19 | CT_ITS ---
CT soft tissue neck chest w Ordering provider: Cait Gutierrez PA-C History: 74 years Male with . sob, wheezing . Comparison: None. Technique: CT soft tissues neck was performed with contrast. . Automated exposure control and iterat vivian reconstruction technique were employed. The dose-length product was 936.84 mGy-cm. 100 mL Omnipaq ue 350 was given IV. Findings: LOWER HEAD: The visualized brain parenchyma, optic globes/orbits and mastoids are normal. Right max illary, frontal and bilateral ethmoid sinus disease. Otherwise, well aerated. SALIVARY GLANDS: Normal. THYROID: Normal. SUPRAHYOID DEEP SPACES: Normal. CAROTID ARTERIES: Mild atherosclerotic changes. JUGULAR VEINS: Normal. TONSILS: Normal. ORAL CAVITY: Partially obscured by dental amalgam but normal as visualized. PHARYNX, LARYNX AND TRACHEA: Patent and normal. No prevertebral soft tissue swelling. SUPERFICIAL SOFT TISSUES: Normal. No lymphadenopathy or neck mass. THORACIC INLET/VISUALIZED UPPER CHEST: Normal. SKELETAL: Age appropriate degenerative changes. IMPRESSION: Medullary ethmoid and frontal sinus disease. Otherwise, normal. CT soft tissue neck chest w Ordering provider: Cait Gutierrez PA-C History: 74 years Male with . sob, wheezing . Comparison: None. Technique: CT chest with IV contrast. Radiation reduction technique utilized. The dose-length product was 936.84 mGy-cm. 100 mL Omnipaque 350 was given IV. Findings: VISUALIZED THORACIC INLET: Normal. MEDIASTINUM: Aorta/coronary arteries: Mild atheromatous disease. Heart/other: The heart is slightly enlarged. Lymph nodes: No mediastinal or hilar adenopathy. Small lymph nodes are noted. LUNGS: No pulmonary nodules or masses. No infiltrates or effusions. No pneumothorax. Dependent atelec tatic changes. VISUALIZED UPPER ABDOMEN: the visualized upper abdomen is normal. MUSCULOSKELETAL: Soft tissues: The superficial soft tissues are normal. Bones: Age appropriate degenerative changes of the spine. IMPRESSION: No acute cardiopulmonary pathology. Reviewed, dictated and finalized at location A. IMPRESSION: Medullary ethmoid and frontal sinus disease. Otherwise, normal. CT soft tissue neck chest w Ordering provider: Cait Gutierrez PA-C History: 74 years Male with . sob, wheezing . Comparison: None. Technique: CT chest with IV contrast. Radiation reduction technique utilized. T he dose-length product was 936.84 mGy-cm. 100 mL Omnipaque 350 was given IV. Findings: VISUALIZED THORACIC INLET: Normal. MEDIASTINUM: Aorta/coronary arteries: Mild atheromatous disease. Heart/other: The heart is slightly enlarged. Lymph nodes: No mediastinal or hilar adenopathy. Small lymph nodes are noted. LUNGS: No pulmonary nodules or masses. No infiltrates or effusions. No pneumoth orax. Dependent atelectatic changes. VISUALIZED UPPER ABDOMEN: the visualized upper abdomen is normal. MUSCULOSKELETAL: Soft tissues: The superficial soft tissues are normal. Bones: Age appropriate degenerative changes of the spine.
--- NOTE | 2025-02-19 12:41 | ECG_ITS ---
Test Date: 2025-02-19 12:47:51 Measurements Intervals [place] Rate: 50 P: 33 MS: 182 QRS: -23 QRSD: 84 T: 30 QT: 456 QTc: 420 Interpretive Statements SINUS BRADYCARDIA DELAYED PRECORDIAL R/S TRANSITION BASELINE ARTIFACT- I, III, AVL, AVF, V4-V6 BORDERLINE ECG No previous ECG available for comparison Electronically Signed On 02-19-2025 12:52:58 CDT by Alan Jones D.O.
[2025-02-19 12:55] LABS: Basophils Percent Auto 0.7 % (0.2-1.2); Eosinophils Absolute Auto 0.1 K/mm3 (0-0.3); Eosinophils Percent Auto 2.2 % (0-4.4); Hematocrit 37.1 % (42.0-52.0); Hemoglobin 12.2 g/dL (14.0-18.0); Immature Granulocyte Absolute 0.32 K/mm3 (0.00-0.031); Immature Granulocyte Percent A 5.5 % (0-0.5); Lymphocytes Absolute Auto 1.47 K/mm3 (0.9-3.2); Lymphocytes Percent Auto 25.3 % (18.3-44.2); Mean Corpuscular HGB Conc 32.9 g/dl (32-36); Mean Corpuscular Volume 97.4 fl (80-100); Mean Platelet Volume 9.6 fl (7.4-10.4); Monocytes Absolute Auto 0.7 K/mm3 (0.1-0.6); Monocytes Percent Auto 12.7 % (2.6-8.5); Neutrophils Absolute Auto 3.1 K/mm3 (1.3-6.7); Neutrophils Percent Auto 53.6 % (45.5-73.1); Platelet Count Result 227 k/mm3 (150-375); Red Blood Count 3.81 M/mm3 (4.6-6.20); Red Cell Distribution Width 13.2 % (11.5-14.5); White Blood Count 5.8 K/mm3 (4.5-10.0)
[2025-02-19 13:06] LABS: Alanine Aminotransferase 27 U/L (6-50); Albumin Level 4.5 g/dL (3.5-5.1); Alkaline Phosphatase 54 U/L (38-126); Anion Gap 8 mmol/L (4-12); Aspartate Amino Transferase 36 U/L (17-59); Bilirubin,Total 0.6 mg/dL (0.2-1.3); Blood Urea Nitrogen 17 mg/dL (9-20); Calcium 8.7 mg/dL (8.4-10.2); Carbon Dioxide 27 mmol/L (22-30); Chloride 100 mmol/L (98-107); Estimated CRCL calculation 53 ml/min; Estimated Glomerular Filt Rate > 60; Glucose 81 mg/dL (65-110); Potassium 4.6 mmol/L (3.4-5.0); Sodium 135 mmol/L (137-145)
[2025-02-19 13:18] LABS: Large Platelets Present; Platelet Estimate Adequate (Adequate); Schistocytes None Seen
--- OUTSIDE RECORDS SUMMARY | 2025-02-19 13:49 | XMS_ITS | Data Portability ---
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 with food for 7-10 days Keflex 500 t.i.d. for 7 days warm pack 10 minutes several times a day just make sure he does not bring himself keep his regular appointment he will call back sooner if not improved [email or web address] Not available 09/28/2024 13:37:42 11/05/2024 11/05/2024 Blood pressure i s controlled. We will continue current therapy blood work has been ordered all questions answered clinically stable follow up in 4 months [email or web address] Not available 11/18/2024 17:23:00 01/28/2025 01/28/2025 he is doing bett er finishing up his antibiotics and his steroids he will keep his regular follow up with me [email or web address] Not available 01/28/2025 21:24:06 02/13/2025 02/13/2025 Hold beta-blocke r for 48 hours because of wheezing. If tightness gets worse hospital refill Tessalon Perles as he does have a little bit of coffee we will continue with the albuterol we will get the cardiac issues settled with a heart catheterization and he will see me in his regularly scheduled appointment time [email or web address] Not available 02/16/2025 11:28:30 Plan of Treatment Reminders Order Date Submit Date Provider Last Modified By Organization Details Last Modified Time Details Appointments ANY 15 2024 11:00A Ximena Marie MD Not available Not available Not available Lab lipid panel, serum 2024 025 [facility], [address], [place], [address], 01/29/2025 06:21:56 PSA, total, serum or plasma 2024 025 [facility], [address], [place], [address], 11/06/2024 08:26:52 lipid panel, serum 2024 025 [facility], [address], [place], [address], 11/06/2024 08:26:48 CMP, serum or plasma 2024 025 [facility], [address], [place], [address], 11/06/2024 08:26:49 CBC w/ auto diff 2024 025 [facility], [address], [place], [address], 11/06/2024 08:26:51 Referral None recorded. Procedures None recorded. Surgeries None recorded. Imaging None recorded. Medication Orders cephalexi n 500 mg tablet 2023 025 [id number], [address], [place], [place], [id number], 11/05/2024 11:21:42 Patient TargetsNo targets recorded. Patient Instructions Encounter Date Encounter Id Patient Instructions Last Modified By Organization Details Last Modified Time 09/25/2024 [id number] A healthy lifestyle: care instructions [email or web address] Not available 09/25/2024 12:16:08 11/05/2024 [id number] A healthy lifestyle: care instructions Not available 11/05/2024 12:46:08 01/28/2025 [id number] A healthy lifestyle: care instructions Not available 01/28/2025 12:53:14 02/13/2025 [id number] A healthy lifestyle: care instructions [email or web address] Not available 02/13/2025 14:16:27 Reason for Referral None Reported. Results Created Date Observation Date Name Description Value Unit Range Abnormal Flag Note LastModifiedBy Organization Detail LastModifiedTime 11/05/19 25 11/06/2024 LIPID PANEL cholesterol, total 163 mg/dL 100-19 9 Not Available [facility] ([facility]) [address] [place], [address], 11/06/2024 08:26:48 11/05/19 25 11/06/2024 LIPID PANEL triglyceride s 299 mg/dL 0-149 above high normal Not Available [facility] ([facility]) [address] [place], [address], 11/06/2024 08:26:48 11/05/19 25 11/06/2024 LIPID PANEL HDL cholesterol 50 mg/dL >39 Not Available [facility] ([facility]) [address] [place], [address], 11/06/2024 08:26:48 11/05/19 25 11/06/2024 LIPID PANEL VLDL cholesterol nando 47 mg/dL 5-40 above high normal Not Available [facility] ([facility]) [address] [place], [address], 11/06/2024 08:26:48 11/05/19 25 11/06/2024 LIPID PANEL LDL chol calc ([facility]) 66 mg/dL 0-99 Not Available [facility]) [address] [place], [address], 11/06/2024 08:26:48 11/05/19 25 11/06/2024 COMP. METAB OLIC PANEL (14) glucose 98 mg/dL 70-99 Not Available [facility] ([facility]) [address] [facility] [place], [address], 11/06/2024 08:26:49 11/05/19 25 11/06/2024 COMP. METAB OLIC PANEL (14) BUN 13 mg/dL 8-27 Not Available [facility] ([facility]) [address] [facility] [place], [address], 11/06/2024 08:26:49 11/05/19 25 11/06/2024 COMP. METAB OLIC PANEL (14) creatinine 1.00 mg/dL 0.76-1 .27 Not Available [facility] ([facility]) [address] [facility] [place], [address], 11/06/2024 08:26:49 11/05/19 25 11/06/2024 COMP. METAB OLIC PANEL (14) eGFR 79 mL/mi n/1.7 3 >59 Not Available [facility] ([facility]) [address] [facility] [place], [address], 11/06/2024 08:26:49 11/05/19 25 11/06/2024 COMP. METAB OLIC PANEL (14) BUN/creatini ne ratio 13 10-24 Not Available [facility] ([facility]) [address] [facility] [place], [address], 11/06/2024 08:26:49 11/05/19 25 11/06/2024 COMP. METAB OLIC PANEL (14) sodium 140 mmol/ L 134-14 4 Not Available [facility] ([facility]) [address] [facility] [place], [address], 11/06/2024 08:26:49 11/05/19 25 11/06/2024 COMP. METAB OLIC PANEL (14) potassium 4.9 mmol/ L 3.5-5. 2 Not Available [facility] ([facility]) [address] [facility] [place], [address], 11/06/2024 08:26:49 11/05/19 25 11/06/2024 COMP. METAB OLIC PANEL (14) chloride 101 mmol/ L 96-106 Not Available [facility] ([facility]) [address] [facility] [place], [address], 11/06/2024 08:26:49 11/05/19 25 11/06/2024 COMP. METAB OLIC PANEL (14) carbon dioxide, total 26 mmol/ L 20-29 Not Available [facility] ([facility]) [address] [facility] [place], [address], 11/06/2024 08:26:49 11/05/19 25 11/06/2024 COMP. METAB OLIC PANEL (14) calcium 9.7 mg/dL 8.6-10 .2 Not Available [facility] ([facility]) [address] [facility] [place], [address], 11/06/2024 08:26:49 11/05/19 25 11/06/2024 COMP. METAB OLIC PANEL (14) protein, total 6.7 g/dL 6.0-8. 5 Not Available [facility] ([facility]) [address] [facility] [place], [address], 11/06/2024 08:26:49 11/05/19 25 11/06/2024 COMP. METAB OLIC PANEL (14) albumin 4.7 g/dL 3.8-4. 8 Not Available [facility] ([facility]) [address] [facility] [place], [address], 11/06/2024 08:26:49 11/05/19 25 11/06/2024 COMP. METAB OLIC PANEL (14) globulin, total 2.0 g/dL 1.5-4. 5 Not Available [facility] ([facility]) [address] [facility] [place], [address], 11/06/2024 08:26:49 11/05/19 25 11/06/2024 COMP. METAB OLIC PANEL (14) bilirubin, total 0.3 mg/dL 0.0-1. 2 Not Available [facility] ([facility]) [address] [facility], [place], [address], 11/06/2024 08:26:49 11/05/19 25 11/06/2024 COMP. METAB OLIC PANEL (14) alkaline phosphatase 54 IU/L 44-121 Not Available [facility] ([facility]) [address] [facility], [place], [address], 11/06/2024 08:26:49 11/05/19 25 11/06/2024 COMP. METAB OLIC PANEL (14) AST (SGOT) 32 IU/L 0-40 Not Available [facility] ([facility]) [address] [facility], [place], [address], 11/06/2024 08:26:49 11/05/19 25 11/06/2024 COMP. METAB OLIC PANEL (14) ALT (SGPT) 27 IU/L 0-44 Not Available [facility] ([facility]) [address] [facility], [place], [address], 11/06/2024 08:26:49 11/05/19 25 11/06/2024 CBC WITH DIFFE RENTI AL/PL ATELE T WBC 7.8 x10e3 /uL 3.4-10 .8 Not Available [facility] ([facility]) [address] [facility], [place], [address], 11/06/2024 08:26:51 11/05/19 25 11/06/2024 CBC WITH DIFFE RENTI AL/PL ATELE T RBC 4.32 x10e6 /uL 4.14-5 .80 Not Available [facility] ([facility]) [address] [facility], [place], [address], 11/06/2024 08:26:51 11/05/19 25 11/06/2024 CBC WITH DIFFE RENTI AL/PL ATELE T hemoglobin 13.8 g/dL 13.0-1 7.7 Not Available [facility] ([facility]) [address] [place], [address], 11/06/2024 08:26:51 11/05/19 25 11/06/2024 CBC WITH DIFFE RENTI AL/PL ATELE T hematocrit 40.8 % 37.5-5 1.0 Not Available [facility] ([facility]) [address] [place], [address], 11/06/2024 08:26:51 11/05/1911/06/2024 CBC WITH DIFFE RENTI AL/PL ATELE T MCV 94 fL 79-97 Not Available [facility] ([facility]) [address] [place], [address], 11/06/2024 08:26:51 11/05/19 25 11/06/2024 CBC WITH DIFFE RENTI AL/PL ATELE T MCH 31.9 pg 26.6-3 3.0 Not Available [facility] ([facility]) [address] [place], [address], 11/06/2024 08:26:51 11/05/1911/06/2024 CBC WITH DIFFE RENTI AL/PL ATELE T MCHC 33.8 g/dL 31.5-3 5.7 Not Available [facility] ([facility]) [address] [place], [address], 11/06/2024 08:26:51 11/05/1911/06/2024 CBC WITH DIFFE RENTI AL/PL ATELE T RDW 12.7 % 11.6-1 5.4 Not Available [facility] ([facility]) [address] [place], [address], 11/06/2024 08:26:51 11/05/19 25 11/06/2024 CBC WITH DIFFE RENTI AL/PL ATELE T platelets 234 x10e3 /uL 150-45 0 Not Available [facility] ([facility]) [address] [facility], [place], [address], 11/06/2024 08:26:51 11/05/19 25 11/06/2024 CBC WITH DIFFE RENTI AL/PL ATELE T neutrophils 63 % notest ab. Not Available [facility] ([facility]) [address] [facility], [place], [address], 11/06/2024 08:26:51 11/05/19 25 11/06/2024 CBC WITH DIFFE RENTI AL/PL ATELE T lymphs 20 % notest ab. Not Available [facility] ([facility]) [address] [facility], [place], [address], 11/06/2024 08:26:51 11/05/19 25 11/06/2024 CBC WITH DIFFE RENTI AL/PL ATELE T monocytes 12 % notest ab. Not Available [facility] ([facility]) [address] [place], [address], 11/06/2024 08:26:51 11/05/19 25 11/06/2024 CBC WITH DIFFE RENTI AL/PL ATELE T eos 2 % notest ab. Not Available [facility] ([facility]) [address] [facility], [place], [address], 11/06/2024 08:26:51 11/05/19 25 11/06/2024 CBC WITH DIFFE RENTI AL/PL ATELE T basos 1 % notest ab. Not Available [facility] ([facility]) [address] [facility], [place], [address], 11/06/2024 08:26:51 11/05/19 25 11/06/2024 CBC WITH DIFFE RENTI AL/PL ATELE T neutrophils (absolute) 5.0 x10e3 /uL 1.4-7. 0 Not Available [facility] ([facility]) [address] [facility], [place], [address], 11/06/2024 08:26:51 11/05/19 25 11/06/2024 CBC WITH DIFFE RENTI AL/PL ATELE T lymphs (absolute) 1.6 x10e3 /uL 0.7-3. 1 Not Available [facility] ([facility]) [address] [facility], [place], [address], 11/06/2024 08:26:51 11/05/19 25 11/06/2024 CBC WITH DIFFE RENTI AL/PL ATELE T monocytes(ab solute) 0.9 x10e3 /uL 0.1-0. 9 Not Available [facility] ([facility]) [address] [facility], [place], [address], 11/06/2024 08:26:51 11/05/19 25 11/06/2024 CBC WITH DIFFE RENTI AL/PL ATELE T eos (absolute) 0.1 x10e3 /uL 0.0-0. 4 Not Available [facility] ([facility]) [address] [facility], [place], [address], 11/06/2024 08:26:51 11/05/19 25 11/06/2024 CBC WITH DIFFE RENTI AL/PL ATELE T baso (absolute) 0.0 x10e3 /uL 0.0-0. 2 Not Available [facility] ([facility]) [address] [place], [address], 11/06/2024 08:26:51 11/05/1911/06/2024 CBC WITH DIFFE RENTI AL/PL ATELE T immature granulocytes 2 % notest ab. Not Available [facility] ([facility]) [address] [facility], [place], [address], 11/06/2024 08:26:51 11/05/19 25 11/06/2024 CBC WITH [...] nando signi fican ce.) Not Available [facility] ([facility]) [address] [facility], [place], [address], 11/06/2024 08:26:51 11/05/1911/06/2024 PROST ATE-S PECIF IC AG prostate specific [...] kits canno t be used inter king odalis . Resul ts canno t be inter prete d as absol tribal evide nce of the prese nce or absen ce of jax perera disea se. Not Available [facility] ([facility]) [address] [facility], [place], [address], 11/06/2024 08:26:52 01/20/20 25 01/19/2025 Tropo robson [...] 25 01/19/2025 Compr ehens vivian metab olic 2000 panel - Serum or Plasm a potassium [moles/volum e] in serum or plasma 4.2 mmol/ L low: 3.5mmo l/Lhig h: 5.1mmo l/L normal Not Available Not Available 01/20/2025 14:43:44 01/20/20 25 [facility]25 [facility] - Serum or Plasm a chloride [moles/volum e] in serum or plasma 107 mmol/ L low: 98mmol /Lhigh : 107mmo l/L normal Not Available Not Available 01/20/2025 14:43:44 01/20/20 25 01/19/2025 Compr ens vivian metab olic 1999 panel - Serum or Plasm a carbon dioxide, total [moles/volum e] in serum or plasma 25 mmol/ L low: 22mmol /Lhigh : 30mmol /L normal Not Available Not Available 01/20/2025 14:43:44 01/20/20 25 01/19/2025 [facility] 1999 panel - Serum or Plasm a anion gap in serum or plasma 9.2 mmol/ L low: 14mmol /Lhigh : 22mmol /L low Not Available Not Available 01/20/2025 14:43:44 01/20/20 25 01/19/2025 [facility] 1999 panel - Serum or Plasm a glucose [mass/volume ] in serum or plasma 119 mg/dL low: 70mg/d Lhigh: 99mg/d L high Not Available Not Available 01/20/2025 14:43:44 01/20/20 25 01/19/2025 [facility] [employer] [facility] 1999 panel - Serum or Plasm a urea nitrogen [mass or moles/volume ] in serum or plasma 13 mg/dL low: 8mg/dL high: 19mg/d L normal Not Available Not Available 01/20/2025 14:43:44 01/20/20 25 01/19/2025 [facility] [employer] olic 1999 panel - Serum or Plasm a creatinine [mass/volume ] in serum or plasma 1.1 mg/dL low: 0.66mg /dLhig h: 1.25mg /dL normal Not Available Not Available 01/20/2025 14:43:44 01/20/20 25 01/19/2025 [facility] [email or web address] vivian [employer] 1999 panel - Serum or Plasm a glomerular filtration rate/1.73 sq M.predicted [volume rate/area] in serum, plasma or blood >60 normal Not Available Not Available 12/29 14:43:44 01/20/20 25 01/19/2025 [facility] [email or web address] vivian [employer] 1999 panel - Serum or Plasm a alkaline phosphatase [enzymatic activity/vol ume] in serum or plasma 47 U/L low: 38U/Lh igh: 126U/L normal Not Available Not Available 01/20/2025 14:43:44 01/20/20 25 01/19/2025 [facility] [email or web address] olic 1999 panel - Serum or Plasm a alanine aminotransfe rase [enzymatic activity/vol ume] in serum or plasma 26 U/L low: 0U/Lhi gh: 50U/L normal Not Available Not Available 01/20/2025 14:43:44 01/20/20 25 01/19/2025 [facility] [email or web address] olic 2000 panel - Serum or Plasm a aspartate aminotransfe rase [enzymatic activity/vol ume] in serum or plasma 37 U/L low: 15U/Lh igh: 46U/L normal Not Available Not Available 01/20/2025 14:43:44 01/20/20 25 01/19/2025 [facility] [email or web address] 2000 panel - Serum or Plasm a bilirubin.to kip [mass/volume ] in serum or plasma 0.7 mg/dL low: 0.2mg/ dLhigh : 1.3mg/ dL normal Not Available Not Available 01/20/2025 14:43:44 01/20/20 25 01/19/2025 [employer] [email or web address] olic 2000 panel - Serum or Plasm a calcium [mass/volume ] in serum or plasma 9.1 mg/dL low: 8.4mg/ dLhigh : 10.2mg /dL normal Not Available Not Available 01/20/2025 14:43:44 01/20/20 25 01/19/2025 [facility] [email or web address] 2000 panel - Serum or Plasm a protein [...] 14:43:45 01/21/20 25 01/20/2025 Basic metab olic 2000 panel - Serum or Plasm a chloride [moles/volum e] in serum or plasma 108 mmol/ L low: 98mmol /Lhigh : 107mmo l/L high Not Available Not Available 01/20/2025 14:43:45 01/21/20 25 01/20/2025 [facility] 1999 panel - Serum or Plasm a carbon dioxide, total [moles/volum e] in serum or plasma 22 mmol/ L low: 22mmol /Lhigh : 30mmol /L normal Not Available Not Available 01/20/2025 14:43:45 01/21/20 25 01/20/2025 [facility] 1999 panel - Serum or Plasm a anion gap in serum or plasma 10.3 mmol/ L low: 14mmol /Lhigh : 22mmol /L low Not Available Not Available 01/20/2025 14:43:45 01/21/20 25 01/20/2025 [facility] 1999 panel - Serum or Plasm a glucose [mass/volume ] in serum or plasma 168 mg/dL low: 70mg/d Lhigh: 99mg/d L high Not Available Not Available 01/20/2025 14:43:45 01/21/20 25 01/20/2025 [facility] 1999 panel - Serum or Plasm a urea nitrogen [mass or moles/volume ] in serum or plasma 17 mg/dL low: 8mg/dL high: 19mg/d L normal Not Available Not Available 01/20/2025 14:43:45 01/21/20 25 01/20/2025 [facility] 1999 panel - Serum or Plasm a creatinine [mass/volume ] in serum or plasma 0.93 mg/dL low: 0.66mg /dLhig h: 1.25mg /dL normal Not Available Not Available 01/20/2025 14:43:45 01/21/20 25 01/20/2025 [facility] 1999 panel - Serum or Plasm a glomerular filtration rate/1.73 sq M.predicted [volume rate/area] in serum, plasma or blood >60 normal Not Available Not Available 12/29 14:43:45 01/21/20 25 01/20/2025 [facility] 1999 panel - Serum or Plasm a calcium [mass/volume ] in serum or plasma 9.3 mg/dL low: 8.4mg/ dLhigh : 10.2mg /dL normal Not Available Not Available 01/20/2025 14:43:45 01/29/20 25 01/29/2025 LIPID PANEL cholesterol, total 129 mg/dL 100-19 9 Not Available [facility] ([facility]) [address] [place], [address], 01/29/2025 06:21:56 01/29/20 25 01/29/2025 LIPID PANEL triglyceride s 142 mg/dL 0-149 Not Available [facility] ([facility]) [address] [place], [address], 01/29/2025 06:21:56 01/29/20 25 01/29/2025 LIPID PANEL HDL cholesterol 44 mg/dL >39 Not Available [facility] ([facility]) [address] [place], [address], 01/29/2025 06:21:56 01/29/20 25 01/29/2025 LIPID PANEL VLDL cholesterol nando 25 mg/dL 5-40 Not Available [facility] ([facility]) [address] [place], [address], 01/29/2025 06:21:56 01/29/2001/29/2025 LIPID PANEL LDL chol calc ([facility]) 60 mg/dL 0-99 Not Available [facility] ([facility]) [address] [place], [address], 01/29/2025 06:21:56 11/13/19 25 04/18/2024 diabe tic foot exam* No observ ation record ed. BARCODE Not Available 2024 12:41:46 01/20/20 25 01/19/2025 XR, chest No observ ation record ed. [facility] [address] [place], [address], 01/21/2025 12:53:24 01/20/20 25 01/19/2025 CT, angio gram, chest , w/o contr ast No observ ation record ed. [facility] [address], [place], [address], 01/21/2025 12:53:04 01/23/20 25 01/22/2025 XR, chest No observ ation record ed. [facility] [address], [place], [address], 01/23/2025 09:06:40 02/04/20 25 02/03/2025 NM, myoca rdial perfu becca scan No observ ation record ed. [email or web address] [facility] [address], [place], [address], 02/04/2025 09:44:07 02/20/2002/19/2025 imagi ng/di agnos tic resul t No observ ation record ed. [facility] [address], [place], [address], 02/19/2025 14:29:58 Result Notes None recorded. Problems Name Problem SNOMED Code Status Onset Date Resolution Date Notes Provider Name and Address Organization Details Recorded Time Pain in right foot 8319080162492 07 Active 2023 Bowen Au MA null, [place] [facility] 4 11:33:09 Hyperlipide payal 71223917 Active 2023 Bowen Au [place], [place] [facility] 4 16:18:48 Hypothyroid ism 97244517 Active 2023 Bowen Au [place], [place] [facility] 4 16:18:50 Essential hypertensio n 86445894 Active 2023 Bowen Au [place] null, [place] [facility] 4 16:19:05 Coronary atheroscler osis 764560961 Active 2023 Brandt Marie MD Attn: Omid ybarra,[address], [place], [address] , [place] - [facility] 4 23:39:02 Problem Notes None recorded. Procedures Surgical History Date Name Laterality Status Provider Name and Address Organization Details Recorded Time Angioplasty With Stent completed Aldo Nelson MA [place] - [facility] 01/10/2024 10:23:53 Imaging Results Imaging Date Name Status [facility] Details LastModified Time 04/18/2024 diabetic foot exam* completed BARCODE Information not available 11/13/2024 12:41:46 01/19/2025 XR, chest completed [facility] [address] [place], [address], 01/21/2025 12:53:24 01/19/2025 CT, angiogram, chest, w/o contrast completed [facility] [address] [place], [address], 01/21/2025 12:53:04 01/22/2025 XR, chest completed [address] [place] [address], [address], 01/23/2025 09:06:40 02/03/2025 NM, myocardial perfusion scan completed [address] [facility] [address], [place], [address], 02/04/2025 09:44:07 02/19/2025 imaging/diagnos tic result active [address] [place] [address], [address], 02/19/2025 14:29:58 Procedure Notes None recorded. Medical Equipment None Reported. Allergies No known drug allergies Medications Name Sig Start Date Stop Date Status Note LastModified by Organization Details LastModified Time doxycycline hyclate 100 mg capsule TAKE 1 CAPSULE BY MOUTH DAILY 02/19 completed Not Available Not Available Not Available benzonatate 200 mg capsule TAKE 1 CAPSULE BY MOUTH THREE TIMES A DAY NEEDED active Not Available Not Available No t Available cephalexin 250 mg capsule 07/30 completed Not Available Not Available Not Available prednisone 20 mg tablet TAKE 2 TABLETS BY MOUTH DAILY 01/28 completed Not Available Not Available Not Available isosorbide mononitrate ER 30 mg tablet,exte nded release 24 hr Take 1 tablet every day by oral route. 2024 active Not Available Not Available Not Avai lable clopidogrel 75 mg tablet Take 1 tablet [...] 1 tablet every day by oral route. 2024 active Not Available Not Available Not Avai lable methylpredn isolone 4 mg tablets in a dose pack Take 1 dose pk by oral route as directed. 07/30 completed Not Available Not Available Not Available albuterol sulfate HFA 90 mcg/actuati on aerosol inhaler INHALE 2 PUFFS BY MOUTH EVERY 4 HOURS NEEDED FOR SHORTNESS OF BREATH OR WHEEZING active Not Available Not Available No t Available ketoconazol e 2 % topical cream APPLY TOPICALLY TO THE AFFECTED AREA DAILY 02/19 completed Not Available Not Available Not Available fluticasone propionate 50 mcg/actuati on nasal spray,suspe nsion USE 1 SPRAY NASALLY DAILY 2024 active Not Available Not Available Not Avai lable ezetimibe 10 mg tablet TAKE 1 TABLET BY MOUTH DAILY 2024 active Not Available Not Available Not Avai lable rosuvastati n 40 mg tablet Take 1 [...] Updated DateTime 4 167.64 cm 31.2 kg/m2 54177.0 5 g 58 /min 97 % 97 % 128 mm[Hg] 64 mm[Hg] Cristel Fatima MA [facility] 4 10:11:54 Date Recorded Body height Body mass index (BMI) Body weight Heart rate Oxygen saturation Oxygen saturation in Arterial blood by Pulse oximetry Systolic blood pressure Diastolic blood pressure Provider Name and Address Organization Details Last Updated DateTime 5 167.64 cm 32.1 kg/m2 15051.8 g 62 /min 95 % 95 % 120 mm[Hg] 72 mm[Hg] Melvina Poe MA [facility] 5 11:21:05 Date Recorded Body height Body mass index (BMI) Body weight Heart rate Oxygen saturation Oxygen saturation in Arterial blood by Pulse oximetry Systolic blood pressure Diastolic blood pressure Provider Name and Address Organization Details Last Updated DateTime 5 167.64 cm 31.4 kg/m2 75408.7 2 g 56 /min 98 % 98 % 120 mm[Hg] 66 mm[Hg] Cristel Fatima MA [facility] 5 10:52:26 Date Recorded Body height Body mass index (BMI) Body weight Heart rate Oxygen saturation Oxygen saturation in Arterial blood by Pulse oximetry Systolic blood pressure Diastolic blood pressure Provider Name and Address Organization Details Last Updated DateTime 5 167.64 cm 31.6 kg/m2 89704.6 7 g 53 /min 98 % 98 % 118 mm[Hg] 64 mm[Hg] Cristel Fatima MA [facility] 5 11:45:39 Date Recorded Body height Body mass index (BMI) Body weight Heart rate Oxygen saturation Oxygen saturation in Arterial blood by Pulse oximetry Systolic blood pressure Diastolic blood pressure Provider Name and Address Organization Details Last Updated DateTime 5 167.64 cm 31.5 kg/m2 99694.5 1 g 71 /min 100 % 100 % 104 mm[Hg] 60 mm[Hg] Melvina Poe MA [facility] 5 11:53:47 Social History Question Answer Notes LastModified by Organizat ion Details LastModified Time Tobacco Smoking Status Never Smoker YESY Hicks, [facility] 01/10/2024 10:23:17 Do You Have An Advance [...] 7 Days, How Much Pain Have You [place]? Some Information not available 07/30/2024 In General, [...] Past 7 Days, How Often Have You [place] Sleepy In The Daytime? Sometimes Information not available 07/30/2024 # Alcohol Drinks Per Week 0 Information not available 07/30/2024 What Was The Date Of Your Most Recent Tobacco Screening? 02/19/2025 Information not available 02/19/2025 What Is Your Relationship Status? Information not available 01/10/2024 Do You Use Your Seat Belt Or Car Seat Routinely? Yes Information not available 01/10/2024 Do You Have Smoke And Carbon Monoxide Detectors In Your Home? Yes Information not available 01/10/2024 Do You Feel Stressed (tense, Restless, Nervous, Or Anxious, Or Unable To Sleep At Night)? [id number] Information not available 01/10/2024 Do You Use Any Illicit Or Recreational Drugs? No Information not available 01/10/2024 Do You Use Sunscreen Routinely? Yes Information not available 07/30/2024 Has Tobacco Cessation Counseling Been Provided? No Information not available 01/28/2025 On What Date Was Tobacco Cessation Counseling Provided? 02/19/2025 Information not available 02/19/2025 Do You Or Have You Ever Used [...] Response Coronary Artery Disease Y Other N Atrial Fibrillation N High Blood Pressure N Thyroid Problems Y Kidney or Bladder Problems N Depression N COPD N Blood Clots N GI Problems N Have you had a mammogram in the last yea r? N Skin Problems Y Anemia N Heart Attack ([place]) Y Diabetes N Anxiety Disorder N Muscle, Joint, or Bone Problems N Seizures/Epilepsy N Have you had a colonoscopy in the last 1 0 years? Y Acid Reflux (GERD) N Cancer N Stroke N Allergies N Asthma N High Cholesterol Y Hepatitis N Liver Disease N Headaches N Osteoporosis N Heart Failure N Immunizations Vaccine Type Date Status Note Provider Nam e and Address Organization Details Recorded Time Influenza, high-dose, quadrivalent, PF 2 completed Laney [place] null, [place] [facility] 07/29/2024 14:22:49 Influenza, high-dose, quadrivalent, PF 2 completed [place] [facility] 07/29/2024 14:22:50 Influenza, adjuvanted, quadrivalent, PF 3 completed Laney Corral[place]hl [place] [facility] 07/29/2024 14:22:50 Influenza, adjuvanted, quadrivalent, PF 1 completed [place]ral[place] [facility] 07/29/2024 14:22:50 COVID-19, mRNA, LNP-S, PF, 100 mcg/0.5mL dose or 50 mcg/0.25mL dose 1 completed Laney [place]cd[place] [facility] 07/29/2024 14:22:50 COVID-19, mRNA, LNP-S, PF, 100 mcg/0.5mL dose or 50 mcg/0.25mL dose 1 completed [place]y [place]cd[place] [facility] 07/29/2024 14:22:50 COVID-19, mRNA, LNP-S, PF, 100 mcg/0.5mL dose or 50 mcg/0.25mL dose 2 completed Laney Corral[place] [facility] 07/29/2024 14:22:50 COVID-19, mRNA, LNP-S, PF, 100 mcg/0.5mL dose or 50 mcg/0.25mL dose 1 completed [place]cd[place] [facility] 07/29/2024 14:22:50 COVID-19, mRNA, LNP-S, bivalent, PF, 50 mcg/0.5 mL or 25mcg/0.25 mL dose 2 completed [place] [facility] 07/29/2024 14:22:50 COVID-19, mRNA, LNP-S, bivalent, PF, 30 mcg/0.3 mL dose 3 completed [place] [facility] 07/29/2024 14:22:50 RSV, bivalent, protein subunit RSVpreF, diluent reconstituted, 0.5 mL, PF 3 completed [place] [facility] 07/29/2024 14:22:50 COVID-19, mRNA, LNP-S, PF, bony-sucrose, 30 mcg/0.3 mL 3 completed [place] [facility] 07/29/2024 14:22:50 pneumococcal polysaccharide PPV23 2 completed [place] [facility] 07/29/2024 14:22:50 Tdap 9 completed [place] [facility] 07/29/2024 14:22:50 Pneumococcal conjugate PCV 13 0 completed [place] [facility] 07/29/2024 14:22:50 Influenza, high-dose, trivalent, PF 7 completed [place] [facility] 07/29/2024 14:22:50 Influenza, high-dose, trivalent, PF 5 completed [place] [facility] 07/29/2024 14:22:50 Hep A, adult 4 completed Lane[place] [facility] 07/29/2024 14:22:50 Past Encounters Encounter ID Performer Location Encounter Start Date Encounter Closed Date Diagnosis/Indication Diagnosis SNOMED-CT Code Diagnosis ICD10 Code Diagnosis Note [id number] Brandt Marie MD [facility] (Adult Med) [address] [place] [id number] 0 01/10/2024 09:46:47 01/10/2024 10:59:10 Hypothyroidism 40510256 E03.9 Essential hypertension 05266525 I10 Hyperlipidemia 11251816 E78.5 Coronary atherosclerosis 562707578 I25.10 Diverticul osis of colon 396108548 K57.30 Chronic rhinitis 0241017 6 J31.0 [id number] Brandt Marie MD [facility] (Adult Med) [address] [place] [address] [id number] 0 03/12/2024 10:20:20 03/12/2024 11:31:25 Pain in right foot 0911885152 91724 M79.671 Renewal of prescription 636011636 Z76.0 [id number] Brandt Marie MD [facility] (Adult Med) [address] [place] [address] [id number] 0 06/18/2024 14:43:58 06/18/2024 16:20:43 Hyperlipidemia 34137165 E78.5 Hypothyroidism 27436012 E03.9 Essential hypertension 31757341 I10 Coronary atherosclerosis 954681261 I25.10 Acute dermatitis 3122064 6 L30.9 [id number] Brandt Marie MD [facility] (Adult Med) [address] [place] [address] 74851-784 0 07/30/2024 09:35:14 07/30/2024 10:34:45 Adult health examination 521585552 Z00.00 Health Risk Assessment collected and reviewed Obesity 720710046 E66.9 [id number] Brandt Marie MD [facility] (Adult Med) [address] [place] [address] [phone] 0 09/25/2024 10:02:27 09/25/2024 11:18:15 Obesity 831169520 E66.9 Superficia l thrombophlebitis 3435405 I80.9 [id number] MD [facility] (Adult Med) [address] [place] [address] [phone] 0 11/05/2024 11:02:33 11/05/2024 12:02:14 Body mass index 30+ - obesity 689613218 Z68.32 Obesity 439993337 E66.9 Coronary atherosclerosis 200426228 I25.10 Essential hypertension 64155042 I10 Hyperlipidemia 37102458 E78.5 Hypothyroidism 07305417 E03.9 Screening for malignant neoplasm of prostate 947672779 Z12.5 [id number] Brandt Marie MD [facility] (Adult Med) [address] [place] [address]26-522 0 01/28/2025 10:42:38 01/28/2025 11:18:33 Body mass index 30+ - obesity 255603467 Z68.31 Obesity 819336866 E66.9 Hyperlipidemia 84214133 E78.5 Bronchitis 14815187 J40 [id number] Brandt Marie MD [facility] [employer] [facility] [place] [address] [place] [address] 02/13/2025 11:31:38 02/13/2025 12:45:37 Obesity caused by energy imbalance 890888346 E66.811 E66.09 Z68.31 Obesity 460065939 E66.9 Dyspnea on exertion 6084 5006 R06.09 [id number] YESY Leonardo (Adult Med) [address] [place] [address] [id number] 0 02/19/2025 11:29:11 02/19/2025 13:04:52 Body mass index 30+ - obesity 090232666 Z68.31 Overweight 344071907 E66 .3 Health Concerns Section Related Observation LastModified by Organization Detai ls LastModified Time None Recorded Concern Status LastModified by Organization Details LastModified Time None Recorded Advance Directives Directive N: Payers Encounter Date Sequence Insurance Name Policy Number Policy Recinos Covered Member ID Recinos Member ID Guarantor Name 09/25/2024 1 [facility] (MEDICARE REPLACEMENT/A DVANTAGE - HMO) [id number] Pablo Cruz [id number] Pablo Cruz 11/05/2024 1 [facility] (MEDICARE REPLACEMENT/A DVANTAGE - HMO) [id number] Pablo Cruz [id number] Pablo Cruz 01/28/2025 1 [facility] (MEDICARE REPLACEMENT/A DVANTAGE - HMO) [id number] Pablo Cruz [id number] Pablo Cruz 02/13/2025 1 [employer] (MEDICARE REPLACEMENT PPO) [id number] Pablo Bueno Nancy [id number] Pablo Cruz Notes Date Note Type Note Provider Name and Address Organization Details Recorded Time 09/25/2024 text/html colonoscopy last week had an IV put in his right arm now the area is a little bit sore no fever chills no swelling of the affected limb Brandt Marie MD Attn: Accounting, 1 [facility], [place], [address], [place] [facility] 09/28/2024 13:37:59 11/05/2024 text/html hypertension no headache or dizziness blood pressure well controlled. CAD no chest pain or shortness of breath. Hyperlipidemia he is taking his statin without any problems and trying to follow a low-fat diet. Hypothyroid no heat cold intolerance he has not had any constipation or any signs or symptoms of overactive thyroid either. Brandt Marie MD Attn: Accounting, [address] [place], [address], [facility] - [facility] 11/18/2024 17:23:23 01/28/2025 text/html cough wheezing congestion ER visit workup negative steroids antibiotics slowly getting better also needs repeat of his lipid panel Brandt Marie MD Attn: Accounting, 1 [facility], [place], [address], [place] [facility] 01/28/2025 21:24:32 02/13/2025 text/html Residual cough tightness in chest small reversibility on his stress testing and he was getting out catheterization done with Cardiology Brandt Marie MD Attn: Accounting, [address] [place], [address], [place] [facility] 02/16/2025 11:28:46
--- OUTSIDE RECORDS SUMMARY | 2025-02-19 13:49 | XMS_ITS | Patient Health Record ---
Author Organization 1 OF Yannick barragan DPM [facility] Address [address] [address] Reason For Referral No Information Plan Of Treatment No Information
[2025-02-19 14:29] LABS: Influenza A QL RT-PCR Negative (Negative); Influenza B QL RT-PCR Negative (Negative); RSV RNA, RT-PCR Negative (Negative); SARS-CoV-2 RNA PCR Negative (Negative)
[2025-02-19] MEDS: predniSONE 20 MG TABLET 40 MG PO (14:52)
--- NOTE | 2025-02-19 14:59 | ED_ITS ---
HPI - SOB/Dyspnea General Chief Complaint: Shortness of Breath/Dyspnea Stated Complaint: sob, wheezing Time Seen by Provider: 02/19/25 13:26 Source: patient Mode of arrival: ambulatory Limitations: no limitations History of Present Illness HPI Narrative: This is a 74 year old male that presents to the ER for shortness of breath. Ongoing over the last month. Reports wheezing, dry cough. He has been evaluated at the ER several times for this. Unsure of certain cause. He does have history of CAD. Reports he had an abnormal stress test in the last couple of weeks and is scheduled for a cardiac cath. Reports his wheezing and shortness of breath is worse at night. Denies chest pain. Related Data Home Medications ?Medication ?Instructions ?Recorded ?Confirmed ?Last Taken ?Type Adult Probiotic 1 cap PO BOLUS 09/06/24 09/16/24 09/15/24 History Calcium Plus D3 1,200 mg PO DAILY 09/06/24 09/16/24 09/15/24 History aspirin 81 mg tablet,delayed 81 mg PO DAILY 09/06/24 09/16/24 09/15/24 History release cetirizine 10 mg tablet (Zyrtec) 10 mg PO DAILY 09/06/24 09/16/24 09/15/24 History clopidogrel 75 mg tablet 75 mg PO DAILY 09/06/24 09/16/24 09/08/24 History coQ10 (ubiquinol) 200 mg capsule 400 mg PO DAILY 09/06/24 09/16/24 09/15/24 History ezetimibe 10 mg tablet 10 mg PO DAILY 09/06/24 09/16/24 09/15/24 History fluticasone propionate 50 2 spray intranasal DAILY 09/06/24 09/16/24 09/15/24 History mcg/actuation nasal spray,suspension isosorbide mononitrate 30 mg 30 mg PO DAILY 09/06/24 09/16/24 09/15/24 History tablet,extended release 24 hr magnesium oxide 400 mg PO DAILY 09/06/24 09/16/24 09/15/24 History melatonin 5 mg tablet 5 mg PO HS 09/06/24 09/16/24 09/15/24 History metoprolol succinate 50 mg 25 mg PO DAILY 09/06/24 09/16/24 09/15/24 History tablet,extended release 24 hr montelukast 10 mg tablet 10 mg PO DAILY 09/06/24 09/16/24 09/15/24 History multivitamin with minerals-folic 1 tablet PO DAILY 09/06/24 09/16/24 09/15/24 History acid 0.4 mg tablet ranolazine 1,000 mg 1,000 mg PO BID 09/06/24 09/16/24 09/15/24 History tablet,extended release,12 hr rosuvastatin 40 mg tablet 40 mg PO DAILY 09/06/24 09/16/24 09/15/24 History vitamin E (dl, acetate) 180 mg 180 mg PO DAILY 09/06/24 09/16/24 09/15/24 History (400 unit) capsule Allergies Allergy/AdvReac Type Severity Reaction Status Date / Time No Known Allergies Allergy Verified 01/22/25 11:06 Review of Systems 2 Review of Systems: CONSTITUTIONAL: Denies fever, CARDIOVASCULAR: Denies chest pain or edema. RESPIRATORY: Reports cough and dyspnea. All systems reviewed & are unremarkable except as noted in HPI and below PMFSH Past Medical History Medical History HTN (hypertension) CAD (coronary artery disease) Obesity Surgical History Surgical History History of coronary artery stent placement Social History Social History Smoking status: Former smoker Alcohol intake: current Substance use: never Substance use type: does not use Living arrangements: with family Spiritual care concerns: No Exam 2 Narrative: GENERAL: Elderly, well-nourished, and in no acute distress. HEAD: Normocephalic, atraumatic. EYES: EOMI. ENT: Nares clear, no rhinorrhea or epistaxis. Mucous membranes moist. Oropharynx without tonsillar hypertrophy exudate or other lesions. Bilateral TMs pearly real non-bulging NECK: Supple. No adenopathy or masses. CHEST: No respiratory distress. Very mild expiratory wheezing. No rales or rhonchi HEART: Regular rate and rhythm. No murmur heard. Normal peripheral pulses. EXTREMITIES: Normal range of motion. No edema. SKIN: Warm, dry, no rash. NEURO: No focal deficits. Alert and oriented x3. PSYCH: Normal mood and affect Course Course Emergency Course: patient and family updated on his workup Consultations Consultation #1: Spoke with hospitalist about patient and workup who accepts admission. Will put a consult in for pulmonology Date: 02/19/25 Vital Signs Vital signs: Vital Signs Temperature 97.9 F 02/19/25 12:25 Pulse Rate 54 L 02/19/25 12:25 Respiratory Rate 18 02/19/25 12:25 Blood Pressure 132/71 02/19/25 12:25 Pulse Oximetry 100 02/19/25 12:25 Temperature 97.9 F 02/19/25 12:25 Pulse Rate 57 L 02/19/25 19:20 Respiratory Rate 20 02/19/25 19:20 Blood Pressure 140/71 02/19/25 19:17 Pulse Oximetry 95 02/19/25 19:17 MDM - SOB/Dyspnea MDM Narrative Medical decision making narrative: Patient presents to the emergency department for wheezing. Reports this has been an ongoing problem for him over the last month. He has been evaluated a couple of different ERs. Reports he recently had a stress test which was abnormal, he is scheduled for a cardiac catheterization beginning of February. He does not have any history of COPD, asthma, he is not a smoker. His oxygen saturation is normal, he is wheezing upon arrival. Cbc without leukocytosis. Metabolic panel without concerning findings. EKG without concerning changes and baseline troponin is negative. BNP is not elevated. Patient endorses having a CTA at an outside facility that was without evidence of PE. CT scan of the neck and chest obtained for further evaluation. This was without acute findings. Influenza, RSV and COVID screens are negative. Patient given nebulizer treatment, steroid, mag in the ER. Continues to be diffusely wheezy. Spoke with hospitalist about patient and workup who accepts admission. Will put a consult in for pulmonology Differential Diagnosis Differential diagnosis: Likely acute exacerbation of chronic obstructive airways disease, congestive heart failure, community acquired pneumonia, asthma with exacerbation and other (bronchitis) Lab Data Attestation: I reviewed the patient's lab results. 02/19/25 12:48 02/19/25 12:48 Labs: Lab Results 02/19/25 02/19/25 02/19/25 Range/Units 12:48 12:48 13:46 WBC 5.8 (4.5-10.0) K/mm3 RBC 3.81 L (4.6-6.20) M/mm3 Hgb 12.2 L (14.0-18.0) g/dL Hct 37.1 L (42.0-52.0) % MCV 97.4 (80-100) fl MCH 32.0 (26-34) pg MCHC 32.9 (32-36) g/dl RDW 13.2 (11.5-14.5) % Plt Count 227 (150-375) k/mm3 MPV 9.6 (7.4-10.4) fl Immature Gran % (Auto) 5.5 H (0-0.5) % Neut % (Auto) 53.6 (45.5-73.1) % Lymph % (Auto) 25.3 (18.3-44.2) % [place] % (Auto) 12.7 H (2.6-8.5) % Eos % (Auto) 2.2 (0-4.4) % Baso % (Auto) 0.7 (0.2-1.2) % Lymph # (Auto) 1.47 (0.9-3.2) K/mm3 [place] # (Auto) 0.7 H (0.1-0.6) K/mm3 Eos # (Auto) 0.1 (0-0.3) K/mm3 Baso # (Auto) 0.0 (0.0-0.1) K/mm3 Abs Immat Gran (auto) 0.32 H (0.00-0.031) K/mm3 Absolute Neuts (auto) 3.1 (1.3-6.7) K/mm3 Absolute Nucleated RBC 0.000 (0.0-0.012) K/mm3 Band Neutrophils % Not Reportable Nucleated RBC % 0.0 (0.0-0.2) % Platelet Estimate Adequate (Adequate) Large Platelets Present Schistocytes None seen Sodium 135 L (137-145) mmol/L Potassium 4.6 (3.4-5.0) mmol/L Chloride 100 (98-107) mmol/L Carbon Dioxide 27 (22-30) mmol/L Anion Gap 8 (4-12) mmol/L BUN 17 (9-20) mg/dL Creatinine 1.11 (0.7-1.3) mg/dL Estim Creat Clear Calc 53 ml/min Estimated GFR > 60 (59 - ) Glucose 81 (65-110) mg/dL Calcium 8.7 (8.4-10.2) mg/dL Total Bilirubin 0.6 (0.2-1.3) mg/dL AST 36 (17-59) U/L ALT 27 (6-50) U/L Alkaline Phosphatase 54 (38-126) U/L Troponin I < 0.012 (0.000-0.034) ng/mL NT-Pro-B Natriuret Pep 50 Cancelled (19.9-100) pg/mL Total Protein 7.0 (6.3-8.2) g/dL Albumin 4.5 (3.5-5.1) g/dL Influenza A (RT-PCR) Negative (Negative) Influenza B (RT-PCR) Negative (Negative) RSV (RT-PCR) Negative (Negative) SARS-CoV-2 RNA (RT-PCR) Negative (Negative) Imaging Data Radiologist's impression: ITS Impressions Chest X-Ray 02/19/25 13:25 IMPRESSION: 1. No acute cardiopulmonary disease. Neck/Chest CT 02/19/25 17:03 IMPRESSION: Medullary ethmoid and frontal sinus disease. Otherwise, normal. CT soft tissue neck chest w Ordering provider: Cait Gutierrez PA-C History: 74 years Male with . sob, wheezing . Comparison: None. Technique: CT chest with IV contrast. Radiation reduction technique utilized. The dose-length product was 936.84 mGy-cm. 100 mL Omnipaque 350 was given IV. Findings: VISUALIZED THORACIC INLET: Normal. MEDIASTINUM: Aorta/coronary arteries: Mild atheromatous disease. Heart/other: The heart is slightly enlarged. Lymph nodes: No mediastinal or hilar adenopathy. Small lymph nodes are noted. LUNGS: No pulmonary nodules or masses. No infiltrates or effusions. No pneumothorax. Dependent atelectatic changes. VISUALIZED UPPER ABDOMEN: the visualized upper abdomen is normal. MUSCULOSKELETAL: Soft tissues: The superficial soft tissues are normal. Bones: Age appropriate degenerative changes of the spine. IMPRESSION: No acute cardiopulmonary pathology. ECG Data EKG #1: ECG completion date: 02/19/25 EKG Interpretation: bradycardia, sinus rhythm, no ST changes and normal QT Critical Care Time Critical Care Time Critical Care Time: No Discharge Plan Discharge Clinical Impression: Wheezing Patient Disposition: Still a Patient Condition: Stable Patient Language: Turkish Prescriptions: No Action doxycycline hyclate 100 mg capsule 100 mg PO DAILY Qty: 10 0RF Adult Probiotic 1 cap PO BOLUS cetirizine [Zyrtec] 10 mg Tablet 10 mg PO DAILY metoprolol succinate 50 mg tablet extended release 24 hr 25 mg PO DAILY isosorbide mononitrate 30 mg tablet extended release 24 hr 30 mg PO DAILY clopidogrel 75 mg tablet 75 mg PO DAILY aspirin 81 mg Tablet,Delayed Release (Dr/Ec) 81 mg PO DAILY montelukast 10 mg tablet 10 mg PO DAILY fluticasone propionate 50 mcg/actuation spray,suspension 2 spray INTRANASAL DAILY ezetimibe 10 mg tablet 10 mg PO DAILY rosuvastatin 40 mg tablet 40 mg PO DAILY multivit with min-folic acid [Adult One Daily Multivitamin] 0.4 mg Tablet 1 tablet PO DAILY ranolazine 1,000 mg tablet extended release 12 hr 1,000 mg PO BID melatonin 5 mg Tablet 5 mg PO HS vitamin E (dl, acetate) 180 mg (400 unit) Capsule 180 mg PO DAILY coQ10 (ubiquinol) 200 mg Capsule 400 mg PO DAILY magnesium oxide 400 mg magnesium Capsule 400 mg PO DAILY Calcium Plus D3 1,200 mg PO DAILY Follow-up/Referrals: Frank,MD Siddhartha [Primary Care Provider] -
[2025-02-19] MEDS: IPRATROPIUM 0.5 MG/ALBUTEROL SULFATE 2.5 MG AMPUL.NEB 3 ML INHALATION ×2 (15:02→19:08)
[2025-02-19 15:21] LABS: NT Pro B Type Natriuretic Pept 50 pg/mL (19.9-100); Troponin I < 0.012 ng/mL (0.000-0.034)
--- OUTSIDE RECORDS SUMMARY | 2025-02-19 15:26 | XMS_ITS | CONTINUITY OF CARE DOCUMENT ---
Author Name david, david Address Unknown Organization [facility] Address [address] [place] [address] Phone [phone] Care Team Providers Care Processing Tech Name Role Phone Allan CASAS, Laya Unavailable BRANDT KIRAN MD Unavailable [phone] BRANDT KIRAN MD Unavailable PROBLEMS Condition Status Date Provider Notes TOBACCO USE QUIT active Elda Belcher CAD--09/11 PTCA-STENT RESOLU TE X 2 LCIRC,LAD-2OM IVUS TO LAD active Laya Lemus MD HYPERCHOLESTEROLEMIA-LABS PE R DR. LEMUS completed - Laya Lemus MD HTN-07/10 STRESS NEG active ? Juan Jacobs RN SYNCOPE NORMAL STRESS, ECHO 08/2018, HOLTER 12/10 active Laya Lemus MD CP-09/11 PTCA-STENT RESOLUTE X 2 LCIRC,LAD-2OM IVUS TO LAD completed - Laya Lemus MD Hyperlipidemia active Laya Lemus MD Cardiology examination active Laya Lemus MD ENCOUNTERS Date Type Provider Location Encounter Diag nosis - In-person encounter Office Visit Laya Lemus MD [facility] - In-person encounter Office Visit Laya Lemus MD [facility] Cardiology examination - In-person encounter Office Visit Laya Lemus MD [facility] CAD--09/11 PTCA-STENT RESOLUTE X 2 LCIRC,LAD-2OM IVUS TO LADCP-09/11 PTCA-STENT RESOLUTE X 2 LCIRC,LAD-2OM IVUS TO LAD - In-person encounter Office Visit Laya Lemus MD [facility] - In-person encounter Office Visit Laya Lemus MD [facility] Office SYNCOPE NORMAL STRES S, ECHO 08/2018, HOLTER 12/10 - In-person encounter Office Visit Laya Lemus MD [facility] - In-person encounter Office Visit Laya Lemus MD [facility] - In-person encounter Office Visit Laya Lemus MD [facility] - In-person encounter Office Visit Laya Lemus MD [facility] Hyperlipidemia - In-person encounter Office Visit Laya Lemus MD [facility] HYPERCHOLESTEROLEMIA-L ABS PER DR. LEMUS - In-person encounter Office Visit Laya Lemus MD [facility] - In-person encounter Office Visit Laya Lemus MD [facility] - In-person encounter Office Visit Laya Lemus MD [facility] - In-person encounter Office Visit Laya Lemus MD [facility] - In-person encounter Office Visit Laya Lemus MD [facility] - In-person encounter Office Visit Laya Lemus MD [facility] - In-person encounter Office Visit Laya Lemus MD [facility] HTN-07/10 STRESS NEGSYNCOPE NORMAL STRESS, ECHO 08/2018, HOLTER 12/10 - In-person encounter Office Visit Laya Lemus MD [facility] - In-person encounter Office Visit Laya Lemus MD [facility] - In-person encounter Office Visit Laya Lemus MD [facility] - In-person encounter Office Visit Laya Lemus MD [facility] CAD--09/11 PTCA-STENT RESOLUTE X 2 LCIRC,LAD-2OM IVUS TO LAD - In-person encounter Office Visit Laya Lemus MD [facility] HTN-07/10 STRESS NEG VITAL SIGNS Date Observation Value Provider Body Mass Index (Ratio) 32.12 kg/m2 Zach Lemus MD blood pressure, diastolic 72 mm[Hg] [facility], [facility][Hg] [facility], oximetry 97 % [facility] pulse rate 59 /min [facility] respiratory rate E&M 12 /min [facility] weight E&M 199 [lb_av] [facility] height E&M 66 [in_i] [facility] blood pressure, cuff size regular [facility] Body Mass Index (Ratio) 31.95 kg/m2 Zach Lemus MD blood pressure, diastolic 74 mm[Hg] [facility] blood pressure, systolic 129 mm[Hg] [facility] oxygen saturation, oximetry 97 % [facility] pulse rate 64 /min [facility] respiratory rate E&M 12 /min [facility] weight E&M 198 [lb_av] [facility] height E&M 66 [in_i] [facility] blood pressure, cuff size regular [facility] Body Mass Index (Ratio) 31.15 kg/m2 Zach Lemus MD blood pressure, diastolic 79 mm[Hg] Li nkLogic blood pressure, systolic 138 mm[Hg] Maral kLogic respiratory rate E&M 16 /min Emilie Bueno iller blood pressure, cuff size regular Fa [facility] blood pressure, diastolic 79 mm[Hg] Fa [facility] blood pressure, systolic 138 mm[Hg] [facility] oxygen saturation, oximetry 95 % [facility] pulse rate 66 /min [facility] weight E&M 193 [lb_av] [facility] height E&M 66 [in_i] [facility] Body Mass Index (Ratio) 30.99 kg/m2 Zach Lemus MD blood pressure, diastolic 73 mm[Hg] Ri az medza blood pressure, systolic 131 mm[Hg] Yeny [facility], oximetry 97 % [facility] pulse rate 63 /min Fitz medza weight E&M 192 [lb_av] [facility] Body Mass Index (Ratio) 29.05 kg/m2 Zach Lemus MD blood pressure, diastolic 60 mm[Hg] Li nkLogloree blood pressure, systolic 110 mm[Hg] Maral kLogic blood pressure, cuff size large Ke rri Gruenenfelder blood pressure, diastolic 60 mm[Hg] Ke rri Gruenenfeldkelley blood pressure, systolic 110 mm[Hg] Ker ri Gruenenfelder oxygen saturation, oximetry 98 % Edie Grponenfshakira respiratory rate E&M 16 /min Edie G ruenenfeldkelley pulse rate 49 /min Edie Gruenenfe lder weight E&M 180 [lb_av] Edie Liznemakie er height E&M 66 [in_i] Edie Sonyae [facility] Body Mass Index (Ratio) 32.12 kg/m2 Zach Lemus MD respiratory rate E&M 16 /min [facility] pulse rate 62 /min [facility] oxygen saturation, oximetry 98 % [facility] blood pressure, diastolic 71 mm[Hg] To [facility] blood pressure, systolic 130 mm[Hg] [facility] weight E&M 199 [lb_av] [facility] height E&M 66 [in_i] [facility] Body Mass Index (Ratio) 32.76 kg/m2 Zach Lemus MD blood pressure, cuff size regular Cy ntsergo [place]atham blood pressure, diastolic 68 mm[Hg] Cy ntscotta [place] blood pressure, systolic 118 mm[Hg] Saira sheyla [place] oxygen saturation, oximetry 97 % Sandra [facility] respiratory rate E&M 16 /min Sandra [place] pulse rate 73 /min Sandra Gabrielbel l weight E&M 203 [lb_av] Sandra Campbel l height E&M 66 [in_i] Sandra Campbel l Body Mass Index (Ratio) 31.79 kg/m2 Zach Lemus MD blood pressure, cuff size regular Ke rri Riccouenewing blood pressure, diastolic 80 mm[Hg] Ke rri Gruenenfshakira blood pressure, systolic 130 mm[Hg] Addison ri Nica oxygen saturation, oximetry 96 % Edie Nica respiratory rate E&M 18 /min Edie schwabenewing pulse rate 67 /min Edie Mara [facility] weight E&M 197 [lb_av] Edie Terry [facility] height E&M 66 [in_i] Edie Terry [facility] Body Mass Index (Ratio) 32.28 kg/m2 Zach Lemus MD blood pressure, cuff size large Ke rri Sonyashakira blood pressure, diastolic 80 mm[Hg] Ke rri Sonyashakira blood pressure, systolic 120 mm[Hg] Addison moreno Nica oxygen saturation, oximetry 98 % Edie Chackoelmer respiratory rate E&M 20 /min Edie Ellsworth ren pulse rate 57 /min Edie Mara [facility] weight E&M 200 [lb_av] Edie Chackopogopirussell [facility] height E&M 66 [in_i] Edie Lizshawn [facility] Body Mass Index (Ratio) 32.83 kg/m2 Zach Lemus MD blood pressure, resting Yes Jess Ahumada blood pressure, diastolic 77 mm[Hg] Harjit Ahumada blood pressure, systolic 122 mm[Hg] Radha Ahumada oxygen saturation, oximetry 92 % Linda Ahumada respiratory rate E&M 18 /min Mike Ahumada pulse rate 87 /min Linda dominique weight E&M 203.4 [lb_av] Linda carrillo height E&M 66 [in_i] Linda Luiz catina Body Mass Index (Ratio) 30.99 kg/m2 Eda ssa Wise blood pressure, diastolic 69 mm[Hg] Me kennedi Wise blood pressure, systolic 106 mm[Hg] Anu abhi [facility] weight E&M 192 [lb_av] Nora Wise respiratory rate E&M 14 /min Nora Wise pulse rate 54 /min [facility] oxygen saturation, oximetry 97 % [facility] pulse rate #2 62 [facility] blood pressure, quevedo tolic, second observation 77 mm[Hg] [facility] blood pressure, syst olic, second observation 124 mm[Hg] [facility] oxygen saturation, oximetry 98 % [facility] pulse rate 62 /min [facility] blood pressure, diastolic 72 mm[Hg] Vi [facility], systolic 135 mm[Hg] M[facility]a [facility] pulse [facility] #2 56 [facility] blood pressure, quevedo tolic, second observation 63 mm[Hg] [facility] blood pressure, syst olic, second observation 96 mm[Hg] [facility], oximetry 98 % [facility] pulse rate 64 /min [facility] blood pressure, diastolic 54 mm[Hg] [facility] Ted blood pressure, systolic 108 mm[Hg] Mulugeta audrey Tebid pulse rate #2 56 [facility] blood pressure, quev[place] tolic, second observation 73 mm[Hg] [facility], syst olic, second observation 112 mm[Hg] [facility], oximetry 98 % [facility] pulse rate 62 /min [facility] blood pressure, diastolic 57 mm[Hg] Vi ctoria Tebid blood pressure, systolic 115 mm[Hg] Mulugeta audrey Tebid pulse rate #2 65 [facility] blood pressure, quev[place] tolic, second observation 65 mm[Hg] [facility], syst olic, second observation 100 mm[Hg] [facility], oximetry 98 % Poppy Tebid pulse rate 65 /min Poppy Tebid blood pressure, diastolic 69 mm[Hg] Vi ctoria Tebid blood pressure, systolic 121 mm[Hg] Mulugeta audrey Tebid pulse rate #2 62 [facility] Tebid blood pressure, quev[place] tolic, second observation 62 mm[Hg] Poppy Tebid blood pressure, syst olic, second observation 113 mm[Hg] Po[facility] Tebid oxygen saturation, oximetry 98 % Po[facility] Tebid pulse rate 67 /min [facility] Tebid blood pressure, diastolic 68 mm[Hg] Vi ctoria Tebid blood pressure, systolic 121 mm[Hg] Mulugeta audrey Tebid pulse rate #2 56 [place] Tebid blood pressure, quevedo tolic, second observation 71 mm[Hg] Poppy Tebid blood pressure, syst olic, second observation 111 mm[Hg] [facility] Tebid oxygen saturation, oximetry 98 % [facility] Tebid pulse rate 58 /min [place] Tebid blood pressure, diastolic 73 mm[Hg] Vi ctoria Tebid blood pressure, systolic 122 mm[Hg] Mulugeta audrey Tebid pulse rate #2 65 [place] Tebid blood pressure, quev[place] tolic, second observation 77 mm[Hg] Po[facility] Tebid blood pressure, syst olic, second observation 113 mm[Hg] [facility] Tebid oxygen saturation, oximetry 98 % [place] Tebid pulse rate 66 /min [place] Tebid blood pressure, diastolic 85 mm[Hg] Vi ctoria Tebid blood pressure, systolic 132 mm[Hg] Mulugeta audrey Tebid pulse rate #2 59 [place] Tebid blood pressure, quev[place] tolic, second observation 71 mm[Hg] Poppy Te blood pressure, syst olic, second observation 117 mm[Hg] Po[facility] oxygen saturation, oximetry 98 % Poppy pulse rate 58 /min [facility] blood pressure, diastolic 69 mm[Hg] Vi ctoria blood pressure, systolic 98 mm[Hg] Mulugeta audrey pulse rate #2 63 [facility] blood pressure, quev[place] tolic, second observation 73 mm[Hg] [facility] blood pressure, syst olic, second observation 115 mm[Hg] [facility] oxygen saturation, oximetry 98 % Po[facility] pulse rate 63 /min Po[facility] blood pressure, diastolic 69 mm[Hg] [facility] blood pressure, systolic 107 mm[Hg] Mulugeta ventura Body Mass Index (Ratio) 31.39 kg/m2 Joanne a blood pressure, diastolic 74 mm[Hg] Brandyn young blood pressure, systolic 114 mm[Hg] [facility] pulse rate 65 /min Faviola oxygen saturation, oximetry 99 % [facility] respiratory rate E&M 18 /min Faviola S breana weight E&M 193.8 [lb_av] [facility] pulse rate #2 66 Poppy blood pressure, quevedo tolic, second observation 69 mm[Hg] Po[facility] blood pressure, syst olic, second observation 117 mm[Hg] [facility] oxygen saturation, oximetry 98 % Po[facility] pulse rate 60 /min [facility] blood pressure, diastolic 71 mm[Hg] Vi azpaul blood pressure, systolic 114 mm[Hg] Mulugeta ventura pulse rate #2 60 [facility] blood pressure, [place] tolic, second observation 66 mm[Hg] Poppy d blood pressure, syst olic, second observation 109 mm[Hg] Poppy d oxygen saturation, oximetry 98 % Poppy d pulse rate 62 /min Poppy d blood pressure, diastolic 65 mm[Hg] Vi ctoria Tebid blood pressure, systolic 112 mm[Hg] Mulugeta audrey Tebid pulse rate #2 61 [place] d blood pressure, quevedo tolic, second observation 72 mm[Hg] Po[facility] d blood pressure, syst olic, second observation 126 mm[Hg] Po[facility] d oxygen saturation, oximetry 98 % Po[facility] d pulse rate 66 /min [place] d blood pressure, diastolic 66 mm[Hg] Vi ctoria Tebid blood pressure, systolic 103 mm[Hg] Mulugeta audrey Tebid pulse rate #2 58 [place] d blood pressure, quevedo tolic, second observation 71 mm[Hg] Poppy d blood pressure, syst olic, second observation 117 mm[Hg] Po[facility] d oxygen saturation, oximetry 98 % Po[facility] d pulse rate 61 /min [facility], diastolic 72 mm[Hg] Vi ctoria Tebid blood pressure, systolic 116 mm[Hg] Mulugeta audrey Tebid pulse rate #2 55 [place] d blood pressure, quevedo tolic, second observation 70 mm[Hg] Poppy d blood pressure, syst olic, second observation 123 mm[Hg] [facility] d oxygen saturation, oximetry 98 % [facility] pulse rate 58 /min [facility] blood pressure, diastolic 66 mm[Hg] Vi ctoria Tebid blood pressure, systolic 114 mm[Hg] Mulugeta audrey Tebid pulse rate #2 57 [facility] Tebid blood pressure, quev[place] tolic, second observation 74 mm[Hg] [facility] Tebid blood pressure, syst olic, second observation 111 mm[Hg] [facility] Tebid oxygen saturation, oximetry 98 % [facility] pulse rate 61 /min [facility] blood pressure, diastolic 76 mm[Hg] Vi ctoria Tebid blood pressure, systolic 124 mm[Hg] Mulugeta audrey Tebid pulse rate #2 60 [place] Tebid blood pressure, quevedo tolic, second observation 63 mm[Hg] Po[facility] Tebid blood pressure, syst olic, second observation 96 mm[Hg] [facility], oximetry 98 % [facility] pulse rate 63 /min [facility] blood pressure, diastolic 71 mm[Hg] Vi ctoria Tebid blood pressure, systolic 111 mm[Hg] [facility] #2 61 [place] d blood pressure, quev[place] tolic, second observation 66 mm[Hg] Po[facility] Tebid blood pressure, syst olic, second observation 100 mm[Hg] [facility] oxygen saturation, oximetry 98 % [facility] pulse rate 61 /min [facility] Tebid blood pressure, diastolic 75 mm[Hg] Vi ctoria Tebid blood pressure, systolic 122 mm[Hg] Mulugeta audrey Tebid pulse rate #2 61 [place] Tebid blood pressure, quevedo tolic, second observation 71 mm[Hg] Po[facility] Tebid blood pressure, syst olic, second observation 117 mm[Hg] [facility], oximetry 98 % [facility] pulse rate 69 /min [facility] blood pressure, diastolic 60 mm[Hg] Vi ctoria Tebid blood pressure, systolic 97 mm[Hg] Mulugeta audrey Tebid pulse rate #2 61 [facility] blood pressure, [place] tolic, second observation 65 mm[Hg] [facility] blood pressure, syst olic, second observation 105 mm[Hg] [facility] oxygen saturation, oximetry 98 % [facility] pulse rate 61 /min [place] d blood pressure, diastolic 66 mm[Hg] Vi ctoria Tebid blood pressure, systolic 90 mm[Hg] Mulugeta audrey Tebid pulse rate #2 62 [facility] blood pressure, qu[place] tolic, second observation 70 mm[Hg] [facility] blood pressure, syst olic, second observation 116 mm[Hg] [facility] oxygen saturation, oximetry 98 % [facility] pulse rate 67 /min [facility] blood pressure, diastolic 61 mm[Hg] [facility] Tebid blood pressure, systolic 101 mm[Hg] Mulugeta audrey bid pulse rate #2 61 [facility] blood pressure, quev[place] tolic, second observation 64 mm[Hg] [facility] blood pressure, syst olic, second observation 109 mm[Hg] [facility] oxygen saturation, oximetry 98 % [facility] pulse rate 64 /min [facility] blood pressure, diastolic 65 mm[Hg] [facility] T[facility] blood [facility], systolic 111 mm[Hg] Mulugeta audrey Tebid pulse rate #2 56 [facility] blood pressure, [place] tolic, second observation 73 mm[Hg] [facility] blood pressure, syst olic, second observation 123 mm[Hg] [facility] oxygen saturation, oximetry 98 % [facility] pulse rate 60 /min Poppy Tebid blood pressure, diastolic 65 mm[Hg] Vi ctoria Tebid blood pressure, systolic 113 mm[Hg] Mulugeta audrey Tebid pulse rate #2 58 [place] Tebid blood pressure, quevedo tolic, second observation 69 mm[Hg] Po[facility] Tebid blood pressure, syst olic, second observation 101 mm[Hg] [facility] Tebid oxygen saturation, oximetry 98 % [facility] Tebid pulse rate 60 /min [place] Tebid blood pressure, diastolic 67 mm[Hg] Vi ctoria Tebid blood pressure, systolic 98 mm[Hg] Mulugeta audrey Tebid pulse rate #2 57 [place] Tebid blood pressure, quevedo tolic, second observation 69 mm[Hg] [facility] Tebid blood pressure, syst olic, second observation 109 mm[Hg] [facility] Tebid oxygen saturation, oximetry 98 % [facility] Tebid pulse rate 61 /min [place] Tebid blood pressure, diastolic 71 mm[Hg] Vi ctoria Tebid blood pressure, systolic 114 mm[Hg] Mulugeta audrey Tebid pulse rate #2 58 [place] Tebid blood pressure, quevedo tolic, second observation 72 mm[Hg] [facility] Tebid blood pressure, syst olic, second observation 112 mm[Hg] [facility] Tebid oxygen saturation, oximetry 98 % [place] Tebid pulse rate 60 /min [place] Tebid blood pressure, diastolic 70 mm[Hg] Vi ctoria Tebid blood pressure, systolic 104 mm[Hg] Mulugeta audrey Tebid pulse rate #2 64 [place] Tebid blood pressure, quevedo tolic, second observation 69 mm[Hg] [facility] Tebid blood pressure, syst olic, second observation 111 mm[Hg] [facility] Tebid oxygen saturation, oximetry 98 % [facility] Tebid pulse rate 58 /min [place] Tebid blood pressure, diastolic 68 mm[Hg] Vi ctoria Tebid blood pressure, systolic 113 mm[Hg] Mulugeta audrey Tebid pulse rate #2 54 [place] Tebid blood pressure, quevedo tolic, second observation 69 mm[Hg] [place] Tebid blood pressure, syst olic, second observation 108 mm[Hg] [place] Tebid oxygen saturation, oximetry 98 % [facility] pulse rate 58 /min [facility] blood pressure, diastolic 63 mm[Hg] Vi ctoria Tebid blood pressure, systolic 110 mm[Hg] Mulugeta audrey Tebid pulse rate #2 56 [place] Tebid blood pressure, quevedo tolic, second observation 73 mm[Hg] [place] Tebid blood pressure, syst olic, second observation 123 mm[Hg] [facility], oximetry 98 % [facility] pulse rate 60 /min [place] Tebid blood pressure, diastolic 71 mm[Hg] Vi ctoria Tebid blood pressure, systolic 110 mm[Hg] Mulugeta monroyia Tebid pulse rate #2 58 [place] Tebid blood pressure, quev[place] tolic, second observation 66 mm[Hg] [place] Tebid blood pressure, syst olic, second observation 102 mm[Hg] [facility], oximetry 98 % [facility] pulse rate 61 /min [place] Tebid blood pressure, diastolic 71 mm[Hg] Vi ctoria Tebid blood pressure, systolic 105 mm[Hg] Mulugeta monroyia Tebid pulse rate #2 60 [facility] blood pressure, [place] tolic, second observation 67 mm[Hg] [facility] blood pressure, syst olic, second observation 120 mm[Hg] [facility] oxygen saturation, oximetry 98 % [facility] pulse rate 66 /min [place] d blood pressure, diastolic 68 mm[Hg] Vi ctoria Tebid blood pressure, systolic 108 mm[Hg] Mulugeta audrey Tebid pulse rate #2 55 [place] d blood pressure, quev[place] tolic, second observation 66 mm[Hg] [facility] blood pressure, syst olic, second observation 100 mm[Hg] [facility] oxygen saturation, oximetry 98 % [place] pulse rate 58 /min [facility] blood pressure, diastolic 61 mm[Hg] Vi ctoria Tebid blood pressure, systolic 100 mm[Hg] Mulugeta audrey Tebid pulse rate #2 58 [facility] blood pressure, [place] tolic, second observation 61 mm[Hg] [facility] blood pressure, syst olic, second observation 96 mm[Hg] [facility] oxygen saturation, oximetry 98 % [facility] pulse rate 63 /min [facility] blood pressure, diastolic 68 mm[Hg] Vi ctoria Tebid blood pressure, systolic 98 mm[Hg] Mulugeta audrey Tebid pulse rate #2 55 [facility] blood pressure, [place] tolic, second observation 67 mm[Hg] [facility] blood pressure, syst olic, second observation 95 mm[Hg] [facility] oxygen saturation, oximetry 98 % [facility] pulse rate 63 /min [facility] blood pressure, diastolic 64 mm[Hg] Vi ctoria Tebid blood pressure, systolic 92 mm[Hg] Mulugeta audrey Tebid pulse rate #2 58 [facility] blood pressure, quev[place] tolic, second observation 60 mm[Hg] [facility] blood pressure, syst olic, second observation 101 mm[Hg] [facility] oxygen saturation, oximetry 98 % [facility] pulse rate 58 /min [facility] blood pressure, diastolic 61 mm[Hg] [facility] blood pressure, systolic 96 mm[Hg] [facility] pulse rate #2 52 [facility] blood pressure, quevedo tolic, second observation 66 mm[Hg] [facility] blood pressure, syst olic, second observation 99 mm[Hg] [facility] oxygen saturation, oximetry 98 % [facility] pulse rate 52 /min [facility] blood pressure, diastolic 63 mm[Hg] [facility], systolic 91 mm[Hg] [facility] Body Mass Index (Ratio) 29.97 kg/m2 Dustin choi [place] blood pressure, diastolic, left arm 66 mm [Hg] [facility] blood pressure, systolic, left arm 103 mm [Hg] [facility] blood pressure, diastolic, right arm 62 m m[Hg] [facility] [place] blood pressure, systolic, right arm 96 mm [Hg] [facility] blood pressure, diastolic 66 mm[Hg] Hall [place] blood pressure, systolic 103 mm[Hg] Ridge elton [place] pulse rate 58 /min [facility] oxygen saturation, oximetry 98 % [facility] respiratory rate E&M 16 /min [facility] weight E&M 185 [lb_av] [facility] [place] blood pressure, diastolic 94 mm[Hg] Tommy Jacobs RN blood pressure, systolic 152 mm[Hg] Juan Jacobs SHANTA pulse rate 65 /min Juan Jacobs SHANTA oxygen saturation, oximetry 98 % Juan Jacobs SHANTA respiratory rate E&M 16 /min Juan de la cruzgerry W[place] Body Mass Index (Ratio) 31.59 kg/m2 Juan Jacobs SHANTA weight E&M 195 [lb_av] Juan Jacobs SHANTA height E&M 66 [in_i] Juan Rosagerry WMOACK blood pressure, diastolic 82 mm[Hg] Kevin Medina [...] Blunt blood pressure, diastolic 74 mm[Hg] Harjit bradford O'[facility] blood pressure, systolic 109 mm[Hg] Radha cooper [facility] pulse rate 57 /min Azeb [facility] oxygen saturation, oximetry 90 % Azeb [facility] respiratory rate E&M 16 /min Azeb [facility] weight E&M 184 [lb_av] Azeb Bey'Damian blood pressure, diastolic 62 mm[Hg] Tommy Jacobs RN blood pressure, systolic 106 mm[Hg] Juan Jacobs RN pulse rate 57 /min Juan Jacobs RN oxygen saturation, oximetry 98 % Juan Jacobs RN respiratory rate E&M 16 /min Juan good RN weight E&M 192 [lb_av] Juan Jacobs RN blood pressure, diastolic, left arm 61 mm [Hg] Jorge Manacop blood pressure, systolic, left arm 97 mm[ Hg] Jorge Manacop blood pressure, diastolic 61 mm[Hg] Carri jenkins [place] blood pressure, systolic 97 mm[Hg] José Manuel santo Manac[place] pulse rate 57 /min Jorge Manacop oxygen saturation, oximetry 99 % Jorge Manacop respiratory rate E&M 16 /min Jorge Manacop weight E&M 196 [lb_av] Jorge Manacop blood pressure, diastolic, left arm 66 mm [...] RN blood pressure, systolic 111 mm[Hg] Juan Rosagerry WOMACK pulse rate 55 /min Juan Rosagerry [place] oxygen saturation, oximetry 99 % Juan Rosagerry [place] respiratory rate E&M 18 /min Juan de la cruzgerry [place] weight E&M 199 [lb_av] Juan Jacobs RN ALLERGIES No Known Drug Allergies RESULTS Date Observation Value Provider Reference Range Interpretation Location prothrombin time (patient) 11.3 s [facility] 9.1-12.0 international normalized ratio (INR) 1.0 [facility] 0.9-1.2 lipoprotein, beta, serum, point, quantitative, calculated 60 mg/dL [facility] 0-99 HDL cholesterol, serum 44 mg/dL [facility] >39 triglyceride, serum, random 187 mg/dL [facility] 0-149 High cholesterol, serum 135 mg/dL [facility] [phone]/04/ 17 calcium, serum 8.8 mg/dL [facility] 8.6-10.2 carbon dioxide, venous blood 23 mmol/L [facility] 20-29 chloride, serum 102 mmol/L [facility] 96-106 potassium, serum 4.6 mmol/L [facility] 3.5-5.2 sodium, serum 138 mmol/L [facility] [phone]/04/ 17 urea nitrogen/creatinine ratio, serum 9 [facility] 10-24 Low creatinine, serum 1.16 mg/dL [facility] 0.76-1.27 urea nitrogen, blood 11 mg/dL [facility] 8-27 blood glucose, random 128 mg/dL [facility] 70-99 High basophil count, absolute 0.0 x10E3/uL [facility] 0.0-0.2 Eosinophil Absolute Count 0.1 X10E3/UL [facility] 0.0-0.4 monocyte count, blood, automated 0.7 X10E3/UL [facility] 0.1-0.9 lymphocyte count, blood, automated 0.8 X10E3/UL [facility] 0.7-3.1 Absolute Neutrophils 3.5 X10E3/UL [facility] 1.4-7.0 basophils as percent of blood leukocytes 1 % [facility] Not Estab. eosinophils as percent of blood leukocytes 2 % [facility] Not Estab. monocytes as percent of blood leukocytes 13 % [facility] Not Estab. lymphocytes as percent of blood leukocytes 15 % [facility] Not Estab. neutrophils as percent of blood leukocytes 67 % [facility] Not Estab. platelet count 192 X10E3/UL [facility] [phone]/04/ 17 red blood cell distribution width 12.4 % [facility] 11.6-15.4 mean corpuscular hemoglobin concentration, RBC 32.8 G/DL [facility] 31.5-35.7 mean corpuscular hemoglobin, RBC 31.9 pg [facility] 26.6-33.0 mean corpuscular volume, RBC 97 fL [facility] 79-97 hematocrit, blood 39.0 % [facility] 37.5-51.0 hemoglobin, blood 12.8 g/dL [facility] 13.0-17.7 Low erythrocyte (RBC) count 4.01 X10E6/UL [facility] 4.14-5.80 Low leukocyte count, blood 5.2 X10E3/UL [facility] 3.4-10.8 nitrate usage 1 tablet when needed Poppy Gaytan blood glucose, fasting 99 mg/dL Haleigh Stover urea nitrogen, blood 13 mg/dL Haleigh Stover platelet count 201 10*3/mm3 [facility] Stover hematocrit, blood 35.2 % Haleigh Stover triglyceride, serum, fasting 159 [facility] cholesterol, serum 47 mg/dL [facility] lipoprotein, beta, serum, point, quantitative, calculated 111 mg/dL [facility] cholesterol, serum 190 mg/dL [facility] thyroid stimulating hormone, serum 6.200 u[IU]/mL [facility] alanine aminotransferase (SGPT), serum 33 1/L [facility] aspartate aminotransferase (SGOT), serum 29 1/L [facility] creatinine, serum 1.18 mg/dL [facility] potassium, serum 4.8 mmol/L [facility] sodium, serum 145 mmol/L [facility] platelet count 185 10*3/mm3 [facility] hematocrit, blood 39.0 % [facility] lipoprotein, beta, serum, point, quantitative, calculated 85 mg/dL [facility] cholesterol, serum 167 mg/dL [facility] alanine aminotransferase (SGPT), serum 37 1/L [facility] aspartate aminotransferase (SGOT), serum 28 1/L [facility] creatinine, serum 1.09 mg/dL [facility] potassium, serum 4.5 mmol/L [facility] sodium, serum 141 mmol/L [facility] triglyceride, serum, fasting 206 mg/dL [facility] HDL cholesterol, serum 43 mg/dL [facility] LDL cholesterol, serum 206 mg/dL [facility] cholesterol, serum 230 mg/dL [facility] anion gap, serum 7.3 [facility] globulins, serum, total 2.3 g/dL [facility] estimated glomerular filtration rate 59 mL/min [facility] albumin/globulin ratio, serum 1.9 [facility] protein, total, serum 6.6 g/dL [facility] albumin, serum 4.3 g/dL [facility] bilirubin, serum, total 0.27 mg/dL [facility] alkaline phosphatase, serum 59 1/L [facility] alanine aminotransferase (SGPT), serum 40 1/L [facility] aspartate aminotransferase (SGOT), serum 17 1/L [facility] calcium, serum 8.8 mg/dL [facility] blood glucose, fasting 104 mg/dL [facility] creatinine, serum 1.32 mg/dL [facility] urea nitrogen, blood 14.5 mg/dL [facility] carbon dioxide, serum, total 32 mmol/L [facility] chloride, serum 101 mmol/L [facility] potassium, serum 4.3 mmol/L [facility] sodium, serum 136 mmol/L [facility] platelet count 203 10*3/uL [facility] red blood cell distribution width 13.1 % [facility] mean corpuscular hemoglobin concentration, RBC 33.7 g/dL [facility] mean corpuscular hemoglobin, RBC 32.4 pg [facility] mean corpuscular volume, RBC 96.2 fL [facility] hematocrit, blood 40.1 % [facility] hemoglobin, blood 13.5 g/dL [facility] erythrocyte (RBC) count 4.17 10*6/mm3 [facility] leukocyte count, blood 6.1 10*3/mm3 [facility] albumin/globulin ratio, serum 1.3 [facility] protein, total, serum 6.7 g/dL [facility] albumin, serum 3.8 g/dL [facility] bilirubin, serum, total 0.51 mg/dL [facility] alkaline phosphatase, serum 52 1/L [facility] alanine aminotransferase (SGPT), serum 35 1/L [facility] aspartate aminotransferase (SGOT), serum 25 1/L [facility] calcium, serum 8.5 mg/dL [facility] blood glucose, fasting 94 mg/dL [facility] creatinine, serum 1.32 mg/dL [facility] urea nitrogen, blood 13.1 mg/dL [facility] carbon dioxide, serum, total 30 mmol/L [facility] chloride, serum 101 mmol/L [facility] potassium, serum 4.2 mmol/L [facility] sodium, serum 135 mmol/L [facility] platelet count 154 10*3/uL [facility] red blood cell distribution width 13.4 % [facility] mean corpuscular hemoglobin concentration, RBC 34.6 g/dL [facility] mean corpuscular hemoglobin, RBC 32.4 pg [facility] mean corpuscular volume, RBC 93.6 fL [facility] hematocrit, blood 39.3 % [facility] hemoglobin, blood 13.6 g/dL [facility] erythrocyte (RBC) count 4.20 10*6/mm3 [facility] monocytes as percent of blood leukocytes 17.7 % [facility] lymphocytes as percent of blood leukocytes 10.1 % [facility] leukocyte count, blood 7.0 10*3/mm3 [facility] triglyceride, serum, fasting 219 mg/dL [facility] HDL cholesterol, serum 46 mg/dL [facility] LDL cholesterol, serum 117 mg/dL [facility] cholesterol, serum 207 mg/dL [facility] prostate specific antigen 0.31 ng/mL [facility] anion gap, serum 14.7 [facility] globulins, serum, total 2.5 g/dL [facility] blood glucose, random >60 [facility] albumin/globulin ratio, serum 1.7 [facility] protein, total, serum 6.7 g/dL [facility] albumin, serum 4.2 g/dL [facility] bilirubin, serum, total 0.52 mg/dL [facility] alkaline phosphatase, serum 75 1/L [facility] alanine aminotransferase (SGPT), serum 34 1/L [facility] aspartate aminotransferase (SGOT), serum 18 1/L [facility] calcium, serum 8.9 mg/dL [facility] blood glucose, fasting 97 mg/dL [facility] creatinine, serum 1.21 mg/dL [facility] urea nitrogen, blood 13.0 mg/dL [facility] carbon dioxide, serum, total 26 mmol/L [facility] chloride, serum 102 mmol/L [facility] potassium, serum 4.7 mmol/L [facility] sodium, serum 138 mmol/L [facility] platelet count 199 10*3/uL [facility] red blood cell distribution width 13.3 % [facility] mean corpuscular hemoglobin concentration, RBC 34.1 g/dL [facility] mean corpuscular hemoglobin, RBC 32.[address] [facility] mean corpuscular volume, RBC 95.[address] [facility] hematocrit, blood 41.4 % [facility] hemoglobin, blood 14.1 g/dL [facility] erythrocyte (RBC) count 4.33 10*6/mm3 [facility] monocytes as percent of blood leukocytes 9.9 % [facility] lymphocytes as percent of blood leukocytes 22.3 % Haleigh Stover leukocyte count, blood 6.3 10*3/mm3 Haleigh Stover HISTORY OF MEDICATION USE Medication Status Instructions Dates Provider Indications [facility] ments ezetimibe 10 mg tablet active TAKE 1 TABLET BY MOUTH EVERY DAY Isabelkaitlyn Plascenciamijulieta PORTILLO Vascepa 1 gram capsule completed Take 2 capsule by mouth twice a day - Isabel PORTILLO isosorbide mononitrate 30 mg tablet extended release 24 hr active TAKE 1 TABLET BY MOUTH ONCE DAILY Mirna Montes clopidogrel 75 mg tablet active TAKE 1 TABLET BY MOUTH ONCE DAILY Li Harmon losartan 25 mg tablet active TAKE 1 TABLET BY MOUTH ONCE DAILY Laya Lemus MD ranolazine 1,000 mg tablet extended release 12 hr active TAKE 1 TABLET BY MOUTH TWICE DAILY Laya Lemus MD metoprolol succinate 50 mg tablet extended release 24 hr active TAKE 1 TABLET BY MOUTH ONCE DAILY Renée Paulson rosuvastatin 40 mg tablet active TAKE 1 TABLET BY MOUTH ONCE DAILY Renée [facility] metoprolol succinate 50 mg tablet extended release 24 hr completed Take 1 tablet by mouth once a day TAKE 1 TABLET EVERY DAY - [facility],000 mg tablet extended release 12 hr completed Take 1 tablet by mouth twice a day - [facility] ranolazine 1,000 mg tablet extended release 12 hr completed TAKE 1 TABLET BY MOUTH TWICE DAILY - Edie Yousif montelukast 10 mg tablet active TAKE 1 TABLET BY MOUTH ONCE DAILY [facility] 50 mg tablet extended release 24 hr completed TAKE 1 TABLET EVERY DAY - Shanice Anaya RN metoprolol succinate 50 mg tablet extended release 24 hr completed Take 1 tablet by mouth once a day TAKE 1 TABLET BY MOUTH DAILY - Fitz Ordonez Nitrostat 0.4 mg tablet, sublingual active tablet under tongue as needed Laya Lemus MD Synthroid 50 mcg tablet active 1 tablet once a day Patricia Alex montelukast 10 mg tablet completed Take 1 tablet once a day - Altagraciaskye Alvarez ALPRAZOLAM 0.25 MG ORAL TABLET completed 1 TAB EVERY 6HRS DAILY as needed - Nora Wise ALAVERT 10 MG ORAL TABLET completed 1 TAB DAILY - Linda Ahumada clopidogrel 75 mg tablet completed Take 1 tablet by mouth once a day [facility]EV[facility] SODIUM 50 MCG ORAL TABLET completed 1 tab daily - Linda Ahumada losartan 25 mg tablet completed Take 1 tablet by mouth once a day - [facility] Crestor 40 mg tablet completed Take 1 tablet by mouth once a day - [facility] CRESTOR 20 MG ORAL TABLET completed ONE TAB. DAILY - Jess Draper RN ALTACE 2.5 MG ORAL CAPSULE completed one tab daily - Laya Lemus MD ZITHROMAX PACKET completed take as directed - Jeanna Gong SINGULAIR 10 MG ORAL TABLET completed one tab. daily - Jorge Gibson MULTIVITAMINS CAPS active 1 tablet once a day Juan Jacobs RN Ranexa 1,000 mg tablet extended release 12 hr completed Take 1 tablet by mouth twice a day - Fitz Ordonez ADVICOR 500-20 MG ORAL TABLET EXTENDED RELEASE [...] ONE CAPSULE BY MOUTH DAILY - Laya Lemus MD metoprolol succinate 50 mg tablet extended release 24 hr completed TAKE 1 TABLET BY MOUTH EVERY DAY - Fitz Ordonez SOCIAL HISTORY Date Observation Value Provider drug use no Isabel Ventimig tere [facility] personal history of marijuana use no Isabel Ventimiglia [facility] alcohol use no Isabelkaitlyn Plascenciamig tere [facility] passive cigarette sm christiana exposure no Isabel Plascenciamiglia [facility] smoking status Former smoker Isabel maldonadolia [facility] drug use none Fitz Mery alcohol use no Fitz Ordonez passive cigarette sm christiana exposure no Fitz Paulcarrie smoking status Former smoker Fitz Clark skye social history reviewed E&M revi ewed - no changes required Laya Lemus MD physical exercise, frequency, days per week yes Edie Yousif caffeine use, averag e drinks per day yes Edie Yousif passive cigarette sm christiana exposure no Edie Yousif smoking status Former smoker Edie Chris dimas social history E&M Marital Statu s: L leonel with family/friends E thnicity: Smoking History: Joi menjivar is a former smoker. Fitz Ordonez social history reviewed E&M revi ewed - no changes required Fitz Ordonez social history E&M Marital Statu s: L leonel with family/friends E thnicity: Smoking History: Joi menjivar is a former smoker. Gabriel Russo social history reviewed E&M revi ewed - no changes required Gabriel Russo physical exercise, frequency, days per week yes Nohemy Bass caffeine use, averag e drinks per day [facility] sm christiana exposure no Nohemy Bass smoking status Former smoker Nohemy Bass social history reviewed E&M revi ewed - no changes required Laya Lemus MD social history E&M Marital Statu s: L leonel with family/friends E thnicity: Smoking History: Joi menjivar is a former smoker. Laya Lemus MD physical exercise, frequency, days per week yes Sandra Latham alcohol use, average drinks per day none Sandra Latham alcohol use no Sandra Presley martinez caffeine use, averag e drinks per day yes Sandra Latham drug use none Sandra Presley martinez passive cigarette sm christiana exposure no Sandra Latham smoking status Former smoker Sandra Gabriel cooper number of grandchildren Laya Lemus MD T leo Lemus MD social history E&M Marital Statu s: L leonel with family/friends E thnicity: Smoking History: Joi menjivar is a former smoker. Laya Lemus MD social history reviewed E&M i ewed - no changes required Laya Lemus MD physical exercise, frequency, days per week yes Edie Yousif alcohol use, average drinks per day none Edie Yousif alcohol use no Edie cline caffeine use, averag e drinks per day yes Edie Yousif drug use none Edie cline passive cigarette sm christiana exposure no Edie Yousif smoking status Former smoker Edie dimas physical exercise, frequency, days per week yes Edie Yousif alcohol use, average drinks per day none Edie Yousif alcohol use no Edie Terry lder caffeine use, averag e drinks per day yes Edie Hassanissakelley drug use none Edie Terry lder passive cigarette sm christiana exposure no Edie Yousif smoking status Former smoker Edie gambinoeldkelley social history reviewed E&M i ewed - no changes required Brian Perez social history reviewed E&M jessica ewed - no changes required Laya Lemus MD physical exercise, frequency, days per week yes Linda Ahumada alcohol use, average drinks per day none LindaAi Ahumada alcohol use no Linda Dee catina caffeine use, averag e drinks per day yes LindaAi Ahumada drug use none Linda Dee catina passive cigarette sm christiana exposure no Lindayung Ahumada smoking status Former smoker Linda Mattson physical exercise, frequency, days per week yes Nora Wise alcohol use, average drinks per day none Nora Frandy caffeine use, averag e drinks per day yes Nora Wise drug use none Nora Wise passive cigarette sm christiana exposure no Nora Frandy smoking status Former smoker Nora Alberttomasa garcia social history reviewed E&M reviewed Laya Lemus MD social history reviewed E&M reviewed Laya Lemus MD drug use none Laya Lemus MD social history reviewed E&M reviewed Laya Lemus MD drug use none Laya Lemus MD passive cigarette sm christiana exposure no Juan Jacobs RN smoking history, tot al pack/year 5 Juan Jacobs RN smoking, year quit 1975 Juan garrett RN smoking status former smoker Juan Charles social history reviewed E&M reviewed Juan Jacobs RN social history reviewed E&M reviewed Jeanna Beltran social history reviewed E&M reviewed Laya Lemus MD social history reviewed E&M reviewed Juan Jacobs RN social history reviewed E&M reviewed Juan Jacobs RN social history reviewed E&M reviewed Laya Lemus MD drug use none Laya Lemus MD social history reviewed E&M reviewed Juan Jacobs RN social history E&M Marital Statu s: L leonel with family/friends E thnicity: Juan Jacobs RN social history reviewed E&M reviewed Juan Jacobs RN physical exercise, frequency, days per week yes [facility] caffeine use, averag e drinks per day yes [facility] alcohol use, average drinks per day none [facility] number of years as a smoker less than 10 years [facility] smoking status Quit [facility] FUNCTIONAL STATUS Date Observation Value Provider HRA, CV Assess/Plan, Angina (inactive) Management Plan continue current therapy Isabel Ventimiglia [employer] HRA, CV Assess/Plan, Angina (inactive) Management Plan continue current therapy Fitz Ahmedzai HRA, CV Assess/Plan, Angina (inactive) Management Plan continue current therapy Fitz Ahmedzai HRA, CV Assess/Plan, Angina (inactive) Management Plan continue current therapy Fitz Ahmedzai HRA, CV Assess/Plan, Angina (inactive) Management Plan continue current therapy Gabriel Russo HRA, CV Assess/Plan, Angina (inactive) Management Plan continue current therapy Laya Lemus MD HRA, CV Assess/Plan, Angina (inactive) Management Plan continue current therapy Laya Lemus MD HRA, CV Assess/Plan, Angina (inactive) Management Plan continue current therapy Laya Lemus MD MENTAL STATUS Date Observation Value Provider energy level yes Poppy Gaytan energy level yes Poppy Tebid energy level yes Poppy Tebid energy level yes Poppy Tebid energy level yes Poppy Tebid energy level yes [place] Tebid energy level yes [place] Tebid energy level yes [place] Tebid energy level yes [place] Tebid assessment of judgme nt and insight E&M Alert and oriented to time, place and person. Mood and affect are normal. Laya Lemus MD energy level yes Poppy Tebid energy level yes [place] Tebid energy level yes [place] Tebid energy level yes [place] Tebid energy level yes [place] Tebid energy level yes [place] Tebid energy level yes [place] Tebid energy level yes [place] Tebid energy level yes [place] Tebid energy level yes [place] Tebid energy level yes [place] Tebid energy level yes [place] Tebid energy level yes [place] Tebid energy level yes [place] Tebid energy level yes [place] Tebid energy level yes [place] Tebid energy level yes [place] Tebid energy level yes [place] Tebid energy level yes [place] Tebid energy level yes [place] Tebid energy level yes [place] Tebid energy level yes [place] Tebid energy level yes [place] Tebid energy level no [place] Tebid assessment of judgme nt and insight E&M Alert and oriented to time, place and person. Mood and affect are normal. Laya Lemus MD energy level yes Poppy Tebid energy level no Poppy Tebid assessment of judgme nt and insight E&M Alert and oriented to time, place and person. Mood and affect are normal. Laya Lemus MD assessment of judgme nt and insight [...] person. Mood and affect are normal. Laya Lemus MD assessment of judgme nt and insight [...] person. Mood and affect are normal. Laya Lemus MD assessment of judgme nt and insight [...] Payer name Policy type / Coverage type [place] [employer] democr[employer] ID [employer] MEDICARE GOLD ADVANTAGE HMO Medicare [id number] ADVANCE DIRECTIVES Name Date DISCUSSED - NO DECISION MADE TREATMENT PLAN Date Name Performer [id number],SFitzmedza i [id number],S, Fitz Emerymedza i [id number],BFitzza i [id number],S, Fitz Emerymedza i [id number],SFitzmedza i [id number],SFitzza i [id number],SFitz i [id number],SFitz i [id number],SFitz i [id number],SFitz i [id number],Fitz Garrett i Cardiology:He has kn own CAD with recent hospitalization for SOB H e continues to experience SOB and fatigue H e had abnormal nuclear stress test W ill plan for [facility] and echo c ontinue medical therapy at this time H is updated medication list for this problem includes: Metoprolol Succinate 50 Mg Tablet Extended Release 24 Hr (Metoprolol succinate) ..... Take 1 tablet by mouth once daily Clopidogrel 75 Mg Tablet (Clopidogrel) ..... Take 1 tablet by mouth once daily Isosorbide Mononitrate 30 Mg Tablet Extended Release 24 Hr (Isosorbide mononitrate) ..... Take 1 tablet by mouth once daily Ranolazine 1,000 Mg Tablet Extended Release 12 Hr (Ranolazine) ..... Take 1 tablet by mouth twice daily Nitrostat 0.4 Mg Tablet, Sublingual (Nitroglycerin) ..... Tablet under tongue as needed T his visit has been a part of the consistent, comprehensive, and ongoing management of the chronic medical condition(s) listed above for the patient. Laya Lemus MD Cardiology:LDL 66 T riglycerides remain elevated at 299 c ould not afford Vascepa l ifestlye modification encouraged T he following medications were removed from the medication list: Vascepa 1 Gram Capsule (Icosapent ethyl) ..... Take 2 capsule by mouth twice a day His updated medication list for this problem includes: Ezetimibe 10 Mg Tablet (Ezetimibe) ..... Take 1 tablet by mouth every day Rosuvastatin 40 Mg Tablet (Rosuvastatin) ..... Take 1 tablet by mouth once daily Isabel PORTILLO Cardiology:BP above goal in office, but better controlled at home W ill continue present meds and monitoring H is updated medication list for this problem includes: Metoprolol Succinate 50 Mg Tablet Extended Release 24 Hr (Metoprolol succinate) ..... Take 1 tablet by mouth once daily Losartan 25 Mg Tablet (Losartan) ..... Take 1 tablet by mouth once daily Isabelkaitlyn Gee [facility] Cardiology:He has kn own CAD with recent hospitalization for SOB H e continues to experience SOB and fatigue H e had abnormal nuclear stress test W ill plan for [facility] and echo c ontinue medical therapy at this time H is updated medication list for this problem includes: Metoprolol Succinate 50 Mg Tablet Extended Release 24 Hr (Metoprolol succinate) ..... Take 1 tablet by mouth once daily Clopidogrel 75 Mg Tablet (Clopidogrel) ..... Take 1 tablet by mouth once daily Isosorbide Mononitrate 30 Mg Tablet Extended Release 24 Hr (Isosorbide mononitrate) ..... Take 1 tablet by mouth once daily Ranolazine 1,000 Mg Tablet Extended Release 12 Hr (Ranolazine) ..... Take 1 tablet by mouth twice daily Nitrostat 0.4 Mg Tablet, Sublingual (Nitroglycerin) ..... Tablet under tongue as needed [facility] Cardiology: H is updated medication list for this problem includes: Rosuvastatin 40 Mg Tablet (Rosuvastatin) ..... Take 1 tablet by mouth once daily Laya Lemus MD Cardiology Laya Lemus MD Cardiology: H is updated medication list for this problem includes: Losartan 25 Mg Tablet (Losartan) ..... Take 1 tablet by mouth once daily Metoprolol Succinate 50 Mg Tablet Extended Release 24 Hr (Metoprolol succinate) ..... Take 1 tablet by mouth once daily Laya Lemus MD Cardiology: H is updated medication list [...] condition(s) listed above for the patient. Laya Lemus MD Cardiology: H is updated medication list for this problem includes: Rosuvastatin 40 Mg Tablet (Rosuvastatin) ..... Take 1 tablet [facility] mouth once [facility]: B P today: 138/79 P rior [...] Take 1 tablet by mouth once daily [facility] Ah medzai Cardiology [facility] Cardiology [facility] Cardiology [facility] Cardiology [facility] Cardiology [facility] Cardiology [facility] Cardiology [facility] Cardiology - cpoe, billnereyda nova MD Cardiology - cpoe, nereyda mahmoodiya Lemus MD Cardiology - cpoe, nereyda mahmood er Laya Lemus MD Cardiology follow up Laya shaw MD Cardiology follow up Laya shaw MD Cardiology follow up Laya shaw MD Cardiology follow up Laya shaw MD Cardiology Follow up Laya shaw MD Cardiology Follow up Laya shaw MD Cardiology Follow up Steveiantonio shaw MD Cardiology Follow up Steveiantonio shaw MD Cardiology Follow up Laya shaw MD Cardiology Follow up Laya shaw MD Cardiology Follow up Laya shaw MD Cardiology Follow up :Will order stress nuclear and echo. Laya Lemus MD Cardiology Laya Lemus MD Cardiology Laya Lemus MD Cardiology Laya Lemus MD Cardiology Laya Lemus MD FOLLOW UP: H is updated medication list for this problem includes: Metoprolol Succinate 100 Mg [id number] (Metoprolol succinate) ..... One tab daily Aspirin 81 Mg Tabs (Aspirin) ..... One tab. daily Losartan Potassium 25 Mg Tabs (Losartan potassium) ..... One tab daily BP today: 106/69 P rior BP: 135/72 (12/09/2013) Labs Reviewed: C reat: 1.18 (07/08/2013) Chol: 190 (07/08/2013) HDL: 47 (07/08/2013) LDL: 111 (07/08/2013) T (07/08/2013) Laya Lemus MD Follow Up: H is updated medication list for this problem includes: Ranexa 1000 Mg Tb12 (Ranolazine) ..... One tab. twice daily Metoprolol Succinate 100 Mg [id number] (Metoprolol succinate) ..... One tab daily Aspirin 81 Mg Tabs (Aspirin) ..... One tab. daily Imdur 30 Mg [id number] (Isosorbide mononitrate) ..... One tab daily Crestor 40 Mg Tabs (Rosuvastatin calcium) ..... 1 tab po daily Enalapril Maleate 5 Mg Tabs (Enalapril maleate) ..... 1 tab daily Plavix 75 Mg Tabs (Clopidogrel bisulfate) ..... 1 tab daily Laya Lemus MD Follow Up: H is updated medication list for this problem includes: Metoprolol Succinate 100 Mg [id number]-[id number] (Metoprolol succinate) ..... One tab daily Aspirin 81 Mg Tabs (Aspirin) ..... One tab. daily Enalapril Maleate 5 Mg Tabs (Enalapril maleate) ..... 1 tab daily BP today: 114/74 P rior BP: 114/71 (11/26/2013) Labs Reviewed: C reat: 1.18 (07/08/2013) C hol: 190 (07/08/2013) HDL: 47 (07/08/2013) LDL: 111 (07/08/2013) T (07/08/2013) Laya Lemus MD Follow Up: H is updated medication list for this problem includes: Ranexa 1000 Mg Tb12 (Ranolazine) ..... One tab. twice daily Metoprolol Succinate 100 Mg [id number] (Metoprolol succinate) ..... One tab daily Aspirin 81 Mg Tabs (Aspirin) ..... One tab. daily Imdur 30 Mg [id number] (Isosorbide mononitrate) ..... One tab daily Enalapril Maleate 5 Mg Tabs (Enalapril maleate) ..... 1 tab daily Plavix 75 Mg Tabs (Clopidogrel bisulfate) ..... 1 tab daily Laya Lemus MD Follow Up: H is updated medication list for this problem includes: Ranexa 1000 Mg Tb12 (Ranolazine) ..... One tab. twice daily Metoprolol Succinate 100 Mg [id number] (Metoprolol succinate) ..... One tab daily Aspirin 81 Mg Tabs (Aspirin) ..... One tab. daily Imdur 30 Mg [id number] (Isosorbide mononitrate) ..... One tab daily Enalapril Maleate 5 Mg Tabs (Enalapril maleate) ..... 1 tab daily Plavix 75 Mg Tabs (Clopidogrel bisulfate) ..... 1 tab daily Laya Lemus MD FOLLOW UP: H is updated medication list for this problem includes: Crestor 40 Mg Tabs (Rosuvastatin calcium) ..... 1 tab po daily BP today: 103/66 Prior BP: 152/94 (06/11/2013) C HOL: 190 (07/08/2013) LDL: 111 (07/08/2013) HDL: 47 (07/08/2013) T (07/08/2013) Laya Lemus MD FOLLOW UP: T he following medications were removed from the medication list: Altace 2.5 Mg Caps (Ramipril) ..... One tab daily His updated medication list for this problem includes: Metoprolol Succinate 100 Mg Kl40n-fck (Metoprolol succinate) ..... One tab daily Aspirin 81 Mg Tabs (Aspirin) ..... One tab. daily Enalapril Maleate 5 Mg Tabs (Enalapril maleate) ..... 1 tab daily BP today: 103/66 P rior BP: 152/94 (06/11/2013) Labs Reviewed: C reat: 1.18 (07/08/2013) C hol: 190 (07/08/2013) HDL: 47 (07/08/2013) LDL: 111 (07/08/2013) T (07/08/2013) Laya Lemus MD FOLLOW UP: T he following medications were removed from the medication list: Altace 2.5 Mg Caps (Ramipril) ..... One tab daily His updated medication list for this problem includes: Ranexa 1000 Mg Tb12 (Ranolazine) ..... One tab. twice daily Metoprolol Succinate 100 Mg Cq69j-gwn (Metoprolol succinate) ..... One tab daily Aspirin 81 Mg Tabs (Aspirin) ..... One tab. daily Imdur 30 Mg Kp92x-lni (Isosorbide mononitrate) ..... One tab daily Enalapril Maleate 5 Mg Tabs (Enalapril maleate) ..... 1 tab daily Plavix 75 Mg Tabs (Clopidogrel bisulfate) ..... 1 tab daily Laya Lemus MD FOLLOW UP: T he following medications were removed from the medication list: Altace 2.5 Mg Caps (Ramipril) ..... One tab daily His updated medication list for this problem includes: Ranexa 1000 Mg Tb12 (Ranolazine) ..... One tab. twice daily Metoprolol Succinate 100 Mg Cg95p-ixd (Metoprolol succinate) ..... One tab daily Aspirin 81 Mg Tabs (Aspirin) ..... One tab. daily Imdur 30 Mg Uq58a-wtj (Isosorbide mononitrate) ..... One tab daily Enalapril Maleate 5 Mg Tabs (Enalapril maleate) ..... 1 tab daily Plavix 75 Mg Tabs (Clopidogrel bisulfate) ..... 1 tab daily Laya Lemus MD routine : H is updated medication list for this problem includes: Ranexa 1000 Mg Tb12 (Ranolazine) ..... One tab. twice daily Metoprolol Succinate 100 Mg Rh14b-dhp (Metoprolol succinate) ..... One tab daily Aspirin 81 Mg Tabs (Aspirin) ..... One tab. daily Imdur 30 Mg [id number]-rzw (Isosorbide mononitrate) ..... One tab daily Altace 2.5 Mg Caps (Ramipril) ..... One tab daily Crestor 20 Mg Tabs (Rosuvastatin calcium) ..... One tab. daily BP today: 152/94 Prior BP: 132/82 (03/13/2012) N uclear Stress Findings: No scintigraphic evidence of stress induced ischemia or wall motion abnormality. Left ventricular ejection fraction is 70% which is within normal limits. [facility] (12/09/2010) C ardiac Cath: No instent restenosis previously stented LAD. Mild to moderate disease involving the circumflex. 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 N ormal LV wall motion and systolic function. (06/27/2006) C arotid Doppler/Duplex: Negative bilateral carotid vertebral system. [facility] (11/03/2010) C HOL: 167 (03/21/2012) LDL: 85 (03/21/2012) HDL: 43 (09/06/2011) T (09/06/2011) H gb: 13.5 (09/06/2011) HCT: 39.0 (03/21/2012) Platelets: 185 (03/21/2012) R BC: 4.17 (09/06/2011) WBC: 6.1 (09/06/2011) B UN: 14.5 (09/06/2011) Creat: 1.09 (03/21/2012) Glucose: 104 (09/06/2011) N a+: 141 (03/21/2012) K+: 4.5 (03/21/2012) Cl: 101 (09/06/2011) Laya Lemus MD routine : H is updated medication list for this problem includes: Ranexa 1000 Mg Tb12 (Ranolazine) ..... One tab. twice daily Metoprolol Succinate 100 Mg Vp46s-pdt (Metoprolol succinate) ..... One tab daily Aspirin 81 Mg Tabs (Aspirin) ..... One tab. daily Imdur 30 Mg [id number]-bzv (Isosorbide mononitrate) ..... One tab daily Altace 2.5 Mg Caps (Ramipril) ..... One tab daily Crestor 20 Mg Tabs (Rosuvastatin calcium) ..... One tab. daily BP today: 152/94 Prior BP: 132/82 (03/13/2012) N uclear Stress Findings: No scintigraphic evidence of stress induced ischemia or wall motion abnormality. Left ventricular ejection fraction is 70% which is within normal limits. [facility] (12/09/2010) C ardiac Cath: No instent restenosis previously stented LAD. Mild to moderate disease involving the circumflex. 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 N ormal LV wall motion and systolic function. (06/27/2006) C arotid Doppler/Duplex: Negative bilateral carotid vertebral system. [facility] (11/03/2010) C HOL: 167 (03/21/2012) LDL: 85 (03/21/2012) HDL: 43 (09/06/2011) T (09/06/2011) H gb: 13.5 (09/06/2011) HCT: 39.0 (03/21/2012) Platelets: 185 (03/21/2012) R BC: 4.17 (09/06/2011) WBC: 6.1 (09/06/2011) B UN: 14.5 (09/06/2011) Creat: 1.09 (03/21/2012) Glucose: 104 (09/06/2011) N a+: 141 (03/21/2012) K+: 4.5 (03/21/2012) Cl: 101 (09/06/2011) Laya Lemus MD routine : H is updated medication list for this problem includes: Crestor 20 Mg Tabs (Rosuvastatin calcium) ..... One tab. daily BP today: 152/94 Prior BP: 132/82 (03/13/2012) C HOL: 167 (03/21/2012) LDL: 85 (03/21/2012) HDL: 43 (09/06/2011) T (09/06/2011) Laya Lemus MD routine Laya Lemus MD routine : H is updated medication list for this problem includes: Ranexa 1000 Mg Tb12 (Ranolazine) ..... One tab. twice daily Metoprolol Succinate 100 Mg Gv53e-evw (Metoprolol succinate) ..... One tab daily Aspirin 81 Mg Tabs (Aspirin) ..... One tab. daily Imdur 30 Mg Kh46h-lkr (Isosorbide mononitrate) ..... One tab daily Altace [...] beat form. No symptomatic diary was submitted. [employer] (2010) N uclear Stress Findings: No scintigraphic evidence of stress induced ischemia or wall motion abnormality. Left ventricular ejection fraction is 70% which is within normal limits. [facility] (12/09/2010) C ardiac Cath: No instent restenosis previously stented LAD. M ild to moderate disease involving the circumflex. 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 N ormal LV wall motion and systolic function. (06/27/2006) Laya Lemus MD Routine 6 mo fu: H is updated medication list for this problem includes: Metoprolol Succinate 100 Mg Vm41c-lfn (Metoprolol succinate) ..... One tab daily Aspirin 81 Mg Tabs (Aspirin) ..... One tab. daily Altace 2.5 Mg Caps (Ramipril) ..... One tab daily BP today: 123/77 P rior BP: 125/75 (02/28/2011) Labs Reviewed: C reat: 1.32 (12/04/2010) C hol: 207 (08/16/2010) HDL: 46 (08/16/2010) LDL: 117 (08/16/2010) T (08/16/2010) Laya Lemus MD Routine 6 mo fu: H is updated medication list for this problem includes: Advicor 500-20 Mg Tb24 (Niacin-lovastatin) ..... One tab. at bedtime BP today: 123/77 Prior BP: 125/75 (02/28/2011) C HOL: 207 (08/16/2010) LDL: 117 (08/16/2010) HDL: 46 (08/16/2010) T (08/16/2010) Laya Lemus MD Routine 6 mo fu Laya Lemus MD Routine 6 mo fu: H is updated medication list for this problem includes: Ranexa 1000 Mg Tb12 (Ranolazine) ..... One tab. twice daily Metoprolol Succinate 100 Mg Vu33a-qpu (Metoprolol succinate) ..... One tab daily Aspirin 81 Mg Tabs (Aspirin) ..... One tab. daily Imdur 30 Mg Dn68e-btx (Isosorbide mononitrate) ..... One tab daily Altace [...] form. No symptomatic diary was submitted. [facility] [employer] (2010) N uclear Stress Findings: No scintigraphic evidence of stress induced ischemia or wall motion abnormality. Left ventricular ejection fraction is 70% which is within normal limits. [facility] (12/09/2010) C ardiac Cath: No instent restenosis previously stented LAD. M ild to moderate disease involving the circumflex. 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 N ormal LV wall motion and systolic function. (06/27/2006) Laya Lemus MD Routine FU: H is updated medication list for this problem includes: Ranexa 1000 Mg Tb12 (Ranolazine) ..... One tab. twice daily Metoprolol Succinate Tb24 (Metoprolol succinate tb24) ..... 100mg take one tablet by mouth daily Aspirin 81 Mg Tabs (Aspirin) ..... One tab. daily Advicor 500-20 Mg Tb24 (Niacin-lovastatin) ..... One tab. at bedtime Imdur 30 Mg Oz14c-ppx (Isosorbide mononitrate) ..... One tab daily Altace 2.5 Mg Caps (Ramipril) ..... One tab daily BP today: 125/75 Prior BP: 109/74 (12/06/2010) N uclear Stress Findings: No scintigraphic evidence of stress induced ischemia or wall motion abnormality. Left ventricular ejection fraction is 70% which is within normal limits. [facility] (12/09/2010) C ardiac Cath: No instent restenosis previously stented LAD. M ild to moderate disease involving the circumflex. 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 N ormal LV wall motion and systolic function. (06/27/2006) C arotid Doppler/Duplex: Negative bilateral carotid vertebral system. [facility] (11/03/2010) C HOL: 207 (08/16/2010) LDL: 117 (08/16/2010) HDL: 46 (08/16/2010) T (08/16/2010) H gb: 13.6 (12/04/2010) HCT: 39.3 (12/04/2010) RBC: 4.20 (12/04/2010) WBC: 7.0 (12/04/2010) B UN: 13.1 (12/04/2010) Creat: 1.32 (12/04/2010) Glucose: 94 (12/04/2010) N a+: 135 (12/04/2010) K+: 4.2 (12/04/2010) Cl: 101 (12/04/2010) Laya Lemus MD Routine FU: H is updated medication list for this problem includes: Advicor 500-20 Mg Tb24 (Niacin-lovastatin) ..... One tab. at bedtime BP today: 125/75 Prior BP: 109/74 (12/06/2010) C HOL: 207 (08/16/2010) LDL: 117 (08/16/2010) HDL: 46 (08/16/2010) T (08/16/2010) Laya Lemus MD Routine FU: H is updated medication [...] (08/16/2010) LDL: 117 (08/16/2010) T (08/16/2010) Laya Lemus MD Routine FU: H is updated medication list for this problem includes: Ranexa 1000 Mg Tb12 (Ranolazine) ..... One tab. twice daily Metoprolol Succinate Tb24 (Metoprolol succinate tb24) ..... 100mg take one tablet by mouth daily Aspirin 81 Mg Tabs (Aspirin) ..... One tab. daily Imdur 30 Mg Gl79h-bdg (Isosorbide mononitrate) ..... One tab daily Altace [...] beat form. No symptomatic diary was submitted. [employer] (2010) N uclear Stress Findings: No scintigraphic evidence of stress induced ischemia or wall motion abnormality. Left ventricular ejection fraction is 70% which is within normal limits. [facility] (12/09/2010) C ardiac Cath: No instent restenosis previously stented LAD. M ild to moderate disease involving the circumflex. 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 N ormal LV wall motion and systolic function. (06/27/2006) Laya Lemus MD passed out on Sat : B [...] arotid Doppler/Duplex: Negative bilateral carotid vertebral system. [facility] (11/03/2010) C HOL: 207 (08/16/2010) LDL: 117 [...] one tablet by mouth every day Laya Lemus MD passed out on Sat : T [...] arotid Doppler/Duplex: Negative bilateral carotid vertebral system. [facility] (11/03/2010) C HOL: 207 (08/16/2010) LDL: 117 (08/16/2010) HDL: 46 (08/16/2010) T (08/16/2010) H gb: 14.1 (08/16/2010) HCT: 41.4 (08/16/2010) RBC: 4.33 (08/16/2010) WBC: 6.3 (08/16/2010) B UN: 13.0 (08/16/2010) Creat: 1.21 (08/16/2010) Glucose: 97 (08/16/2010) N a+: 138 (08/16/2010) K+: 4.7 (08/16/2010) Cl: 102 (08/16/2010) Laya Lemus MD passed out on Sat : H is updated medication list for this problem includes: Advicor 500-20 Mg Tb24 (Niacin-lovastatin) ..... One tab. at bedtime BP today: 109/74 Prior BP: 106/62 (08/03/2010) C HOL: 207 (08/16/2010) LDL: 117 (08/16/2010) HDL: 46 (08/16/2010) T (08/16/2010) Laya Lemus MD passed out on Sat : B [...] Tabs (Aspirin) ..... One tab. daily Laya Lemus MD 6 month follow-up: H is updated [...] wall motion and systolic function. (06/27/2006) Laya Lemus MD 6 month follow-up: H is updated medication list for this problem includes: Advicor 500-20 Mg Tb24 (Niacin-lovastatin) ..... One tab. at bedtime BP today: 97/61 Prior BP: 118/66 (07/21/2009) Laya Lemus MD 6 month follow-up: H is updated [...] wall motion and systolic function. (06/27/2006) Laya Lemus MD Date Name PROTHROMBIN TIME WIT H INR LIPID PANEL CBC (INCLUDES DIFF/P LT) BASIC METABOLIC PANE L W/EGFR Complete Echo Stress Regadenoson Complete Echo COMPREHENSIVE METABO LIC PANEL, W/EGFR [...] tatus Complex e/m visit add on Laya Lemus MD completed Complex e/m visit add on Laya Lemus MD completed EKG Laya Lemus MD completed EKG Laya Lemus MD completed EKG Laya Lemus MD completed Schedule Followup Laya Lemus MD in 6 mo co mpleted EKG Laya Lemus MD completed SNOMED-CT: [id number] Physical Exam, Performed: Pulse Exam of Foot Laya Lemus MD completed EKG Laya Lemus MD completed SNOMED-CT: [id number] Current Medications Documented Laya Lemus MD completed EKG Laya Lemus MD completed EKG Laya Lemus MD completed
--- OUTSIDE RECORDS SUMMARY | 2025-02-19 15:26 | XMS_ITS | Data Portability ---
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 Speech Correction Assistant variances may occur. Despite proofreading, typographical errors may occur. Occasional wrong-word or 'ucyim-b-idfi' substitutions may have occurred due to the inherent limitations of voice recording. Read the chart carefully and recognize, using context, where substitutions have occurred. Not available 03/21/2024 10:43:30 04/18/2024 04/18/2024 This note is dictated and transcribed by [employer]. Speech Correction Assistant variances may occur. Despite proofreading, typographical errors may occur. Occasional wrong-word or 'thigq-t-ydmh' substitutions may have occurred due to the inherent limitations of voice recording. Read the chart carefully and recognize, using context, where substitutions have occurred. Not available 04/18/2024 12:12:59 05/06/2024 05/06/2024 This note is dictated and transcribed by [employer]. Speech Correction Assistant variances may occur. Despite proofreading, typographical errors may occur. Occasional wrong-word or 'iszkv-v-ripg' substitutions may have occurred due to the inherent limitations of voice recording. Read the chart carefully and recognize, using context, where substitutions have occurred. Not available 05/06/2024 09:21:40 02/17/2025 02/17/2025 This note is dictated and transcribed by [employer]. Speech Correction Assistant variances may occur. Despite proofreading, typographical errors may occur. Occasional wrong-word or 'qrkzw-h-mjzr' substitutions may have occurred due to the inherent limitations of voice recording. Read the chart carefully and recognize, using context, where substitutions have occurred. [email or web address] Not available 02/19/2025 14:42:07 Plan of Treatment Reminders Order Date Submit Date Provider Last Modified By Organization Details Last Modified Time Details Appointments Establish ed Patient 15 2024 09:30A Ximena Anna DPM Not available Not available Not available Lab None recorded. Referral None recorded. Procedures None recorded. Surgeries None recorded. Imaging XR, chest, 2 view 2022 023 [facility], [address] [place] [address], [address], 09/27/2023 15:44:30 Medication Orders None recorded. Patient TargetsNo targets recorded. Patient InstructionsNo instructions recorded. Reason for Referral None Reported. Results Created Date Observation Date Name Description Value Unit Range Abnormal Flag Note LastModifiedBy Organization Detail LastModifiedTime 09/27/20 23 09/27/2023 XR, chest , [address] [facility] [address] [place] [address] Patien t Name: PABLO DAVENPORT [facility] ion #: [id number] Sex: M : 1950 4 Dictat ed By: Farhana Alonso Attend ing Physic norma: JESSIKA MARIE Orderi Physic norma: JESSIKA MARIE Exam Date: Exam Name: XR CHEST 2V Admitt ing Diagno sis(es ): CHEST RADIOG RAPH Indica tion:C OUGH Techni que: Fronta l and latera l view of the chest was obtain ed Compar sharif: none FINDIN GS: Lines and Tubes: None Lungs: Clear Pleura : No effusi on. No pneumo thorax . Cardio medias tinal contou rs: Unrema rkable Bones: Unrema rkable IMPRES IRIS: 1. No eviden ce of acute diseas e. Electr onical ly Signed by: Farhana Alonso at 2022 14:43: 11 PM Page 1 [email or web address] [facility] (Imaging) [address] [place], [address], 09/28/2023 10:15:26 12/18/19 24 12/18/2023 US, echoc ardio gram No observ ation record ed. [email or web address] [place] [address] [facility] [address], [place], [address], 12/19/2023 12:54:44 03/12/20 24 03/12/2024 XR, foot [facility] [address] [place] [address] [phone] [id number] Patien t Name: PABLO DAVENPORT Access ion #: [id number] Sex: M : 1950 4 Dictat ed By: Farhana Alonso Attend ing Physic norma: JESSIKA MARIE Orderi Physic norma: JESSIKA MARIE Exam Date: 2023 11:18 AM Exam Name: XR FOOT RT 3V+ Admitt ing Diagno sis(es ): CLINIC AL INDICA TION: pain right foot TECHNI QUE: 4 radiog raphic views of the right foot were obtain ed. Compar sharif: None FINDIN GS/IMP RESSIO N: There is no eviden ce of acute fractu re or disloc ation. Small planta r and furnace puncher ior calcan eal enthes ophyte s. The visual ized joint space is well mainta ined. The alignm ent is anatom ical. There is no radiop aque foreig n body. Electr onical ly Signed by: Farhana Alonso at 2023 13:58: 22 PM Page 1 [email or web address] [facility] (Imaging) [address] [place], [address], 05/14/2024 10:02:25 Result Notes None recorded. Problems Name Problem SNOMED Code Status Onset Date Resolution Date Notes Provider Name and Address Organization Details Recorded Time Onychomyco sis of toenails 452757284 Active 2022 Not Available [facility] 4 08:13:56 Bunion 324548829 Active 2022 Not Available [facility] 4 08:13:56 Ganglion cyst of right foot 3741194263266 108 Active 2023 Leonel Anna DPM [address], [address], [place], [address] , [employer] 4 10:43:13 Calcaneal spur 05746942 Active 2023 Leonel Anna DPM [address], [address], [place], [address] , [employer] 4 10:43:32 Dystrophia unguium 77984542 Active 2024 Leonel Anna DPM [address], [address], [place], [address] , [employer] 5 14:42:09 Herpes zoster without complicati on 705743704 Active Not Available [facility] 4 08:13:56 Hearing loss 98382040 Active Not Available [facility] 4 08:13:56 Ankle pain 850265558 Active 2021 Not Available [facility] 4 08:13:56 Sinusitis 40410982 Active Not Available [facility] 4 08:13:56 Hypertensi ve disorder 25029089 Active Not Available [facility] 4 08:13:56 Diverticul ar disease 594667346 Active Not Available [facility] 4 08:13:56 Dysphagia 71655041 Active Not Available [facility] 4 08:13:56 Hypothyroi dism 40728499 Active Not Available [facility] 4 08:13:56 Screening for malignant neoplasm of prostate Active 2021 Not Available [facility] 4 08:13:56 Cough 57335030 Active 2021 Not Available [facility] 4 08:13:56 Coronary arterioscl erosis 68698633 Active 2016 Not Available [facility] 4 08:13:56 Upper respirator y infection 94262228 Active 2021 Not Available [facility] 4 08:13:56 Acute upper respirator y infection 45702201 Active 2021 Not Available [facility] 4 08:13:56 Hyperlipid emia 28027494 Active 2018 Not Available [facility] 4 08:13:56 Essential hypertensi on 18004727 Active 2016 Not Available [facility] 4 08:13:56 Diarrhea 50605291 Active Not Available [facility] 4 08:13:56 Problem Notes None recorded. Procedures Surgical History Date Name Laterality Status Provider Name and Address Organization Details Recorded Time 02/18/20 25 Nail Debridement completed Leonel Anna DPM [address], [address], [place], [address], [employer] 02/19/2025 14:42:40 03/21/20 24 Cortisone Injection completed Leonel Anna DPM [address], [address], [place], [address], [employer] 03/21/2024 10:51:11 09/23/20 13 Cardiac Stent Placement completed Not Available [facility] 12/28/2022 04:42:13 Cardiac Stent Placement completed Not Available [facility] 12/28/2022 04:42:13 Imaging Results Imaging Date Name Status LastModified by Organization Details LastModified Time 09/27/2023 XR, chest, 2 view completed [email or web address] [facility] (Imaging) [address], [place], [address], 09/28/2023 10:15:26 12/18/2023 US, echocardiogram completed [email or web address] [facility] [address], [place], [address], 12/19/2023 12:54:44 03/12/2024 XR, foot completed [email or web address] [facility] (Imaging) [address] [place], [address], 05/14/2024 10:02:25 Procedure Notes None recorded. Medical Equipment None Reported. Allergies No known drug allergies Medications Name Sig Start Date Stop Date Status Note LastModified by Organization Details LastModified Time amoxicill in 500 mg capsule Take 1 capsule every 8 hours by oral route for 7 days. active Not Available Not Available No t Available desonide 0.05 % topical cream APPLY SPARINGL Y AND RUB GENTLY INTO THE AFFECTED AREA(S) BY TOPICAL ROUTE 2 TIMES PER DAY 08/19 completed Not Available Not Available Not Available prednison e 10 mg tablet Take by oral route.3 x2 days 2x 2days [id number] active Not Available Not Available No t Available doxycycli ne hyclate 100 mg capsule TAKE 1 CAPSULE BY MOUTH DAILY active Not Available Not Available No t Available cefuroxim e axetil 250 mg tablet TK 1 T PO BID 08/19 completed Not Available Not Available Not Available ketoconaz ole 2 % shampoo 08/19 completed Not Available Not Available Not Available enalapril maleate 5 mg tablet active Not Available Not Available No t Available azithromy yesy 250 mg tablet TAKE 2 TABLETS BY MOUTH FOR 1 DAY THEN TAKE 1 TABLET BY MOUTH DAILY FOR 4 DAYS 03/21 completed Not Available Not Available Not Available ofloxacin 0.3 % eye drops 01/15 completed Not Available Not Available Not Available tizanidin e 4 mg tablet TK 1 T PO QD HS active Not Available Not Available No t Available benzonata te 200 mg capsule TAKE 1 CAPSULE BY MOUTH THREE TIMES A DAY NEEDED active Not Available Not Available No t Available metoprolo l succinate ER 50 mg tablet,ex tended release 24 hr active Not Available Not Available Not Available valacyclo vir 1 gram tablet Take 1 tablet every 8 hours by oral route for 7 days. active Not Available Not Available No t Available prednison e 20 mg tablet TAKE 2 TABLETS BY MOUTH DAILY active Not Available Not Available No t Available isosorbid e mononitra te ER 30 mg tablet,ex tended release 24 hr TAKE 1 TABLET BY MOUTH DAILY active Not Available Not Available No t Available metoprolo l succinate ER 100 mg tablet,ex tended release 24 hr TAKE 1 TABLET BY MOUTH EVERY DAY 09/09 completed Not Available Not Available Not Available metronida zole 250 mg tablet TK 1 T PO TID active Not Available Not Available No t Available metronida zole 500 mg tablet TK 1 T PO Q 12 H TAT active Not Available Not Available No t Available acetamino phen 300 mg-codein e 30 mg tablet Take 1 tablet every 6 hours by oral route. active Not Available Not Available No t Available clopidogr el 75 mg tablet Take 1 tablet every day by oral route. active Not Available Not Available No t Available ciproflox acin 500 mg tablet TAKE 1 TABLET BY MOUTH THREE TIMES A DAY 08/30 completed Not Available Not Available Not Available levothyro xine 75 mcg tablet TAKE 1 TABLET BY MOUTH DAILY active Not Available Not Available No t Available alprazola m 0.5 mg tablet Take 1 tablet twice a day by oral route as needed. active Not Available Not Available No t Available alprazola m 0.25 mg tablet active Not Available Not Available Not Available prednisol one acetate 1 % eye drops,mahamed pension 01/15 completed Not Available Not Available Not Available Kenalog 10 mg/mL suspensio n for injection In office injectio n administ ered by the provider 11/18 completed ND: [id number] 4-20 Not Available Not Available Not Available benzonata te 100 mg capsule TAKE 1 CAPSULE BY MOUTH THREE TIMES DAILY FOR 10 DAYS 05/06 completed Not Available Not Available Not Available levothyro xine 50 mcg tablet TAKE 1 TABLET BY MOUTH DAILY 11/17 completed changed to 75mg daily Not Available Not Available Not Available cephalexi n 500 mg capsule TAKE 1 TABLET BY MOUTH THREE TIMES DAILY FOR 7 DAYS active Not Available Not Available No t Available ramipril 2.5 mg capsule TK ONE C PO DAILY active Not Available Not Available No t Available losartan 25 mg tablet TAKE 1 TABLET BY MOUTH ONCE DAILY active Not Available Not Available No t Available nitroglyc kelli 0.4 mg sublingua l tablet 09/19 completed Not Available Not Available Not Available monteluka st 10 mg tablet TK 1 T PO D active Not Available Not Available No t Available cefuroxim e axetil 500 mg tablet Take 1 tablet every 12 hours by oral route for 14 days. active Not Available Not Available No t Available oxycodone -acetamin ophen 7.5 mg-325 mg tablet TK 1 T PO Q 6 H PRN P active Not Available Not Available No t Available methylpre dnisolone 4 mg tablets in a dose pack FOLLOW PACKAGE DIRECTIO NS active Not Available Not Available No t Available albuterol sulfate HFA 90 mcg/actua tion aerosol inhaler INHALE 2 PUFFS BY MOUTH EVERY 4 HOURS NEEDED FOR SHORTNES S OF BREATH OR WHEEZING active Not Available Not Available No t Available ketoconaz ole 2 % topical cream APPLY TOPICALL Y TO THE AFFECTED AREA DAILY active Not Available Not Available No t Available cefdinir 300 mg capsule TK 1 C PO BID FOR 7 DAYS active Not Available Not Available No t Available ipratropi um bromide 21 mcg (0.03 %) nasal spray 08/30 completed Not Available Not Available Not Available cyclobenz aprine 5 mg tablet Take 1 tablet 3 times a day by oral route as needed. active Not Available Not Available No t Available rosuvasta tin 40 mg tablet TAKE 1 TABLET BY MOUTH DAILYn eeds appt active Not Available Not Available No t Available Crestor 20 mg tablet active Not Available Not Available Not Available Boostrix Tdap 2.5 Lf unit-8 mcg-5 Lf/0.5 mL intramusc ular syringe active Not Available Not Available Not Available lidocaine (PF) 10 mg/mL (1 %) injection solution In office injectio n administ ered by the provider 11/18 completed [facility]: 0409-427 04-15 Not Available Not Available Not Available ranolazin e ER 1,000 mg tablet,ex tended release,1 2 hr TAKE 1 TABLET BY MOUTH TWICE A DAY active Not Available Not Available No t Available Flonase Allergy Relief 50 mcg/actua tion nasal spray,mahamed pension active Not Available Not Available Not Available Emverm 100 mg chewable tablet FILLING LAYER UP ONE T PO FOR ONCE DOSE active Not Available Not Available No t Available Fluzone High-Dose (PF) 180 mcg/0.5 mL intramusc ular syringe TO BE ADMINIST ERED BY PHARMACI ST FOR IMMUNIZA TION active Not Available Not Available No t Available ID NOW COVID-19 Test Kit DIRECTED active Not Available Not Available No t Available COVID-19 test specimen collectio n TEST DIRECTED active Not Available Not Available No t Available Fluzone High-Dose Quad 2020-21 (PF) 240 mcg/0.7 mL IM syringe TO BE ADMINIST ERED BY [facility] AdsI ST FOR IMMUNIZA TION active Not Available Not Available No t Available Paxlovid 300 mg (150 mg x 2)-100 mg tablets in a dose pack TK 2 NIRMATRE LVIR TS AND 1 RITONAVI R T TOGETHER PO BID FOR 5 DAYS 03/21 completed Not Available Not Available Not Available Vitals Date Recorded Body height Body mass index (BMI) Body weight Body temperature Heart rate Systolic blood pressure Diastolic blood pressure Provider Name and Address Organization Details Last Updated DateTime 3 165.1 cm 31.6 kg/m2 88537.5 5 g 97.9 [degF] 61 /min 128 mm[Hg] 78 mm[Hg] Kathy martinez RN [facility] [employer] [facility] 3 10:49:44 Date Recorded Body height Body mass index (BMI) Body weight Heart rate Respiratory rate Oxygen saturation Oxygen saturation in Arterial blood by Pulse oximetry Systolic blood pressure Diastolic blood pressure Provider Name and Address Organization Details Last Updated DateTime 4 165.1 cm 31.6 kg/m2 85454.5 5 g 55 /min 14 /min 99 % 99 % 118 mm[Hg] 55 mm[Hg] Christy Charles NM [employer] [facility] 4 10:21:24 Date Recorded Body height Body mass index (BMI) Body weight Heart rate Respiratory rate Oxygen saturation Oxygen saturation in Arterial blood by Pulse oximetry Systolic blood pressure Diastolic blood pressure Provider Name and Address Organization Details Last Updated DateTime 4 165.1 cm 31.6 kg/m2 21058.5 5 g 64 /min 14 /min 99 % 99 % 88 mm[Hg] 47 mm[Hg] Christy Charles NM [employer] [facility] [employer] [facility] 4 11:51:22 Date Recorded Body height Heart rate Systolic blood pressure Diastolic blood pressure Provider Name and Address Organization Details Last Updated DateTime 05/06/2024 165.1 cm 71 /min 104 mm[Hg] 62 mm[Hg] Amara Dyson [email or web address] [facility] [employer] [facility] 05/06/2024 09:01:27 Date Recorded Body height Body mass index (BMI) Body weight Heart rate Respiratory rate Oxygen saturation Oxygen saturation in Arterial blood by Pulse oximetry Systolic blood pressure Diastolic blood pressure Provider Name and Address Organization Details Last Updated DateTime 5 165.1 cm 31.6 kg/m2 56217.5 5 g 70 /min 14 /min 99 % 99 % 103 mm[Hg] 60 mm[Hg] Christy Charles [place] [employer] [facility] [employer] [facility] 5 15:37:40 Social History Question Answer Notes LastModified by Organization Details LastModified Time Tobacco Smoking Status Former Smoker quit 1974 ZAC [place], [facility] [employer] [facility] 09/27/2023 10:34:08 Do You Have An Advance Directive? No [id number] Information not available 12/28/2022 What Is Your Level Of Alcohol Consumption? None [id number] Information not available 12/28/2022 Do You Wear A Helmet When Biking? No Doesn't Bike [email or web address] Information not available 09/27/2023 Are You Blind Or Do You Have Difficulty Seeing? No [email or web address] Information not available 09/27/2023 What Is Your Level Of Caffeine Consumption? Moderate [id number] [id number] Information not available 12/28/2022 How Much Tobacco Do You Chew? None [id number] [id number] Information not available 12/28/2022 In The 14 Days Before Symptom Onset, Have You Had Close Contact With A Laboratory-confi rmed COVID-19 While That Case Was Ill? No [email or web address] Information not available 09/27/2023 In The 14 Days Before Symptom Onset, Have You Had Close Contact With A Person Who Is Under Investigation For COVID-19 While That Person Was Ill? No [email or web address] Information not available 09/27/2023 Are You Currently Employed? No [email or web address] Information not available 09/27/2023 Are You Deaf Or Do You Have Serious Difficulty Hearing? No [email or web address] Information not available 09/27/2023 What Type Of Diet Are You Following? CARBOHYDRATE MIGRATION.0301 [id number] Information not available 12/28/2022 Which Illicit Or Recreational Drugs Have You Used? None [email or web address] Information not available 09/27/2023 Do You Or Have You Ever Used E-cigarettes Or Vape? Never Used Electronic Cigarettes [email or web address] Information not available 09/27/2023 What Is The Highest Grade Or Level Of School You Have Completed Or The Highest Degree You Have Received? TI50483-5 [email or web address] Information not available 09/27/2023 What Is Your Occupation? Retired Information not available 09/27/2023 Have There Been Any Changes To Your Family Or Social Situation? No [email or web address] Information not available 09/27/2023 When Did You Quit Smoking? 16+yearssincelastci sherif [email or web address] Information not available 09/27/2023 Are There Any Guns Present In Your Home? No [email or web address] Information not available 09/27/2023 Do You Use Insect Repellent Routinely? No [email or web address] Information not available 09/27/2023 Where Do You Live? SingleLevelHouse Information not available 09/27/2023 Do You Have A Medical Power Of Geochemical Laboratory Technician? No [email or web address] Information not available 09/27/2023 What Was The Date Of Your Most Recent Tobacco Screening? 03/21/2024 Information not available 03/21/2024 Do You Have Any Pets? No [email or web address] Information not available 09/27/2023 What Is Your Relationship Status? [id number] [id number] Information not available 12/28/2022 Do You Use Your Seat Belt Or Car Seat Routinely? Yes Information not available 09/27/2023 Do You Have Smoke And Carbon Monoxide Detectors In Your Home? Yes [email or web address] Information not available 09/27/2023 Are You Passively Exposed To Smoke? No [email or web address] Information not available 09/27/2023 Do You Or Have You Ever Used Smokeless Tobacco? Never Used Smokeless Tobacco MIGRATION.030 [id number] Information not available 12/28/2022 Are There Any Smokers In Your House? No [email or web address] Information not available 09/27/2023 Do You Feel Stressed (tense, Restless, Nervous, Or Anxious, Or Unable To Sleep At Night)? EA8135-6 [id number] Information not available 09/27/2023 Do You Use Any Illicit Or Recreational Drugs? No Information not available 03/21/2024 Do You Use Sunscreen Routinely? No [email or web address] Information not available 09/27/2023 Has Tobacco Cessation Counseling Been Provided? No Information not available 03/21/2024 Have You Recently Traveled Abroad? No [email or web address] Information not available 09/27/2023 Do You Have Any Dietary Restrictions? No [email or web address] Information not available 09/27/2023 Do You Or Have You Ever Used Any Other Forms Of Tobacco Or Nicotine? No [email or web address] Information not available 09/27/2023 Sex: Male Functional Status Question Answer Note LastModified by Organizat ion Details LastModified Time Do you have difficulty walking or climbing stairs? No [email or web address] Information not available 09/27/2023 Do you have transportation difficulties? No [email or web address] Information not available 09/27/2023 Are you able to walk? YESWOREST Information not available 09/27/2023 Do you have difficulty doing errands alone? No [email or web address] Information not available 09/27/2023 Are you able to care for yourself? Yes [email or web address] Information n ot available 09/27/2023 Do you have difficulty dressing or bathing? No [email or web address] Information not available 09/27/2023 What is your exercise level? Occasional [id number] Information not available 12/28/2022 Mental Status Question Answer Note LastModified by Organization D etails LastModified Time Do you have difficulty concentrating, remembering or making decisions? No Information no t available 09/27/2023 Family History Relationship Description Onset Age of this Age Resolved Age Notes LastModified by Organization Details LastModified Time Brother Heart disease [id number] Not available 12/28/2022 04:42:18 Father Heart disease 92 [id number] Not available 12/28/2022 04:42:19 Mother Vascular disorder 91 [email or web address] Not available 2023 08:56:43 Medical History Condition Response NERVE DISEASE N BLINDNESS N RHEUMATIC FEVER N KIDNEY STONES N BLADDER PROBLEMS N MRSA N OTHER # 1 N POLIO N LUNG DISEASE/DISORDER N HISTORY OF DRUG ABUSE N RADIATION / CHEMOTHERAPY N COPD N Other # 2 N BLOOD DISEASES N EAR OR HEARING PROBLEMS Y MUMPS N SHINGLES Y DEPRESSION (INCLUDING POST ) N BOWEL PROBLEMS N STROKE/TIA N ULCERS N BENIGN PROSTATIC HYPERPLASIA N MEASLES N HYPOTENSION N MYOCARDIAL INFARCTION N OBESITY Y GERD/NAUSEA N ANEURYSM N URINARY/BLADDER/KIDNEY PROBLEMS N CORONARY ARTERY DISEASE (CAD) Y ADDICTION CONCERNS N Impotence N ENDOMETRIOSIS N USE OF BLOOD THINNERS Y SKIN PROBLEMS N GASTROINTESTINAL DISORDER N PERIPHERAL VASCULAR DISEASE N MUSCLE,JOINT OR BONE PROBLEMS N GASTROINTESTINAL BLEEDING N BLOOD CLOTS N ASTHMA N CATARACTS N ERECTILE DYSFUNCTION N VARICOSITIES N GI PROBLEMS N Low Testosterone N INFERTILITY N AIDS/HIV N CHEMOTHERAPY / RADIATION N LIVER DISEASE N MALE HYPOGONADISM N HYPERTENSION Y Deficiency N TOURETTE'S N ANXIETY DISORDER N BLOOD TRANSFUSION N ANEMIA/BLOOD DISORDER N CHRONIC EAR INFECTIONS N BRONCHITIS N TUBERCULOSIS N GLAUCOMA N FOOT PROBLEM N DIVERTICULITIS Y SLEEP APNEA N CHICKENPOX N INFECTIOUS DISEASE N PROSTATE N HEART ARRHYTHMIA N INSOMNIA N HIGH CHOLESTEROL / HYPERLIPIDEMIA Y HYPERTHYROIDISM N EYE PROBLEMS N EDEMA N CHRONIC PAIN SYNDROME N HYPOTHYROIDISM Y CONSTIPATION N CAROTID BLOCKAGE N BACK / NECK PROBLEMS N HAVE YOU BEEN HOSPITALIZED OR SEEN IN [facility] IN THE PAST YEAR ? N ATHEROSCLEROSIS N BREAST PROBLEMS N DIALYSIS N ECZEMA N OSTEOPOROSIS N ARTHRITIS N APPENDICITIS N DIABETES, TYPE N BAD TEETH N ENT N HEARTBURN / REFLUX N AUTISM SPECTRUM DISORDER (ASD) N HEPATITIS / LIVER DISEASE N GOUT N SLEEP DISORDER N ALZHEIMER'S DISEASE N Brain Problems N HERPES N DEMENTIA N SEIZURES/EPILEPSY N HEADACHES/MIGRAINES N VASCULAR DISEASE N PACEMAKER N Blood Disorder N DIZZINESS N KIDNEY DISEASE N HEART DISEASE/HEART PROBLEMS Y MULTIPLE SCLEROSIS N CARDIAC ARRHYTHMIA N CANCER: SPECIFY N Gall Stones N ATRIAL FIBRILLATION N PULMONARY EMBOLISM N AUTOIMMUNE DISEASE N Immunizations Vaccine Type Date Status Note Provider Nam e and Address Organization Details Recorded Time Influenza, high-dose, quadrivalent, PF 2 completed Not Available [facility] 12/14/2023 12:57:09 Influenza, high-dose, trivalent, PF 7 completed Not Available [facility] 12/14/2023 12:57:09 Influenza, high-dose, trivalent, PF 5 completed Not Available [facility] 12/14/2023 12:57:09 pneumococcal polysaccharide PPV23 2 completed Not Available [facility] 12/14/2023 12:57:09 Pneumococcal conjugate PCV 13 0 completed Not Available [facility] 12/14/2023 12:57:09 Hep A, adult 4 completed Not Available [facility] 12/14/2023 12:57:09 Past Encounters Encounter ID Performer Location Encounter Start Date Encounter Closed Date Diagnosis/Indication Diagnosis SNOMED-CT Code Diagnosis ICD10 Code Diagnosis Note [id number] [facility] [place] [address] [place] [address] [place]., [address] [address] 02/24/2021 00:00:00 03/21/2021 14:37:22 [id number] [facility] [address] [place] [address] [place] [address] [address] 12/31/2021 00:00:00 01/23/2022 21:37:06 [id number] [facility] [address] [place] [address] [place] [address] [address] 05/06/2022 00:00:00 05/06/2022 17:54:16 [id number] [facility] [address] [place] [address] [place] [address] [address] 09/09/2022 00:00:00 09/10/2022 17:11:04 [id number] rBandt Marie MD [facility] [address] [place] [address] [place] [address] 06/14/2023 09:56:02 06/14/2023 10:49:45 Renewal of prescription 058904949 Z76.0 Essential hypertension 29469525 I10 Hyperlipidemia 66562310 E78.5 Screening for malignant neoplasm of prostate 198631170 Z12.5 Coronary arteriosclerosis 93776578 I25.10 [id number] Brandt Marie MD [facility] [place] [address] [place] [address] [place] [address] 09/27/2023 10:33:15 09/27/2023 11:46:27 Cough 81925068 R05.9 Coronary arteriosclerosis 25458899 I25.10 Essential hypertension 42204623 I10 Hyperlipidemia 69220762 E78.5 [id number] Leonel Anna DPM [facility] Podiatry [place] [address] [place] [address] 03/21/2024 10:14:01 03/21/2024 11:06:12 Ganglion cyst of right foot [id number] 833150 M67.471 Aspiration ganglion cyst right 5th raycontinu e mild compressio nfollow-up in 3 weeks if continues to be problemati c and recurs will need surgical excision Onychomyco sis of toenails 079703000 B35.1 Patient was educated on treatment options of onychomyco sis. Patient's nails 1 through 10 were debrided without incident. Patient defers pharmacolo gical management due to possible side effects and will continue with conservati ve options. Return to clinic as needed every 3 months for this problem. Calcaneal spur 19359839 M77.31 x-rays reviewed with the patientstr etching exercises reviewed and dispensedr ecommend supportive shoe gearmonito r for wounds to the area at present seek medical attention immediatel yFollow-up as needed [id number] Leonel Anna DPM [facility] Podiatry [place] [address] [facility], [address] [place] [address] 04/18/2024 11:47:43 04/19/2024 10:12:54 Ganglion cyst of right foot [id number] 610820 M67.471 small ganglion cyst right 5th raycontinu e mild compressio ndiscuss further treatment options. Patient states at this time he would like to continue with conservati ve therapy if it gets bigger he will return for surgical excision.f ollow-up as needed [id number] Leonel Anna DPM [facility] Podiatry [place] [address] [place] [address] 05/06/2024 08:54:59 05/06/2024 16:13:38 Ganglion cyst of right foot [id number] 984652 M67.471 small ganglion cyst right 5th rayLoose shoe gear recommende dno direct pressure to the areamonito r for signs of infection at present seek medical attention immediatel yFollow-up for the aspiration or surgical excision if becomes bigger [id number] Leonel Anna DPM [facility] [place] [address] [place] [address] 02/17/2025 15:25:37 02/19/2025 14:44:11 Ganglion cyst of right foot [id number] 049360 M67.471 small ganglion cyst right 5th rayLoose shoe gear recommende dno direct pressure to the areamonito r for signs of infection at present seek medical attention immediatel yFollow-up for the aspiration or surgical excision if becomes bigger Dystrophia unguium 32754 009 L60.3 nails debrided without incident Health Concerns Section Related Observation LastModified by Organization Detai ls LastModified Time None Recorded Concern Status LastModified by Organization Details LastModified Time None Recorded Advance Directives Directive N: Payers Encounter Date Sequence Insurance Name Policy Number Policy Recinos Covered Member ID Recinos Member ID Guarantor Name 09/27/2023 1 [facility] (MEDICARE REPLACEMENT/A DVANTAGE - HMO) [id number] Pablo Cruz [id number] Pablo Cruz 03/21/2024 1 [facility] (MEDICARE REPLACEMENT/A DVANTAGE - HMO) [id number] Pablo Cruz [id number] Pablo Cruz 04/18/2024 1 [facility] (MEDICARE REPLACEMENT/A DVANTAGE - HMO) [id number] Pablo Cruz [id number] Pablo Cruz 05/06/2024 1 [facility] (MEDICARE REPLACEMENT/A DVANTAGE - HMO) [id number] Pablo Cruz [id number] Pablo Cruz 02/17/2025 1 [employer] (MEDICARE REPLACEMENT PPO) [id number] Pablo Cruz [id number] Pablo Cruz Notes Date Note Type Note Provider Name and Address Organization Details Recorded Time 09/27/2023 text/html CAD no chest francesco n hypertension no dizziness dyslipidemia Try to follow low-fat diet rhinitis doing stable on current meds dry cough for 2 weeks Brandt Marie MD [address] [address], [place], [address], [facility] [employer] 09/27/2023 23:04:20 03/21/2024 text/html . Patient is a 73-year-old male who presents the office with several complaints. Patient states his main complaint is a painful soft tissue mass to the top of his foot. Patient states he developed this several weeks ago and it has gotten slowly bigger and more painful. Patient denies any skin changes. Patient states he also has thickened and discolored toenails which he has had for several years. Patient denies any treatment for this condition. Patient also had x-rays which were negative for any bony erosive changes or periosteal reactions secondary to the soft tissue mass. Patient was found at that time to have a calcaneal heel spur. Patient states he does not have any pain to this to the Achilles insertion or plantar heel. Patient denies any open wounds to the area. Patient denies any other complaints. Leonel Anna DPM [address] [facility] [address], [place], [address], [employer] 03/21/2024 11:26:14 04/18/2024 text/html . Patient is a 73-year-old male who returns the office for follow-up on right foot ganglion cyst. Patient states that the cyst may be coming back he feels a little area of bulging at the area of the cyst but overall he has not having any pain. Patient states that he will continue to watch the area and if it continues to return and he will come back for surgical excision. Patient underwent a aspiration of the area and is doing well. Patient denies any signs of infection. Patient denies any other complaints. Leonel Anna DPM [address], [facility] [address], [place], [address], [employer] 04/18/2024 12:14:21 05/06/2024 text/html . Patient is 73-year-old male who presents the office for follow-up on right foot ganglion. Patient states he was having some discomfort to the area. Patient had an aspiration of the area and it has returned it is not very big but he was having discomfort. Patient states that he has leaving on a trip today I did discuss his options with the patient and due to him going to a water park I told him that conservative offloading is his best option to prevent any kind of infection. Patient agreed and I discussed options for him to return if this continues to be problematic I recommend surgical excision of the ganglion. Patient denies any other complaints. Leonel Anna DPM [address], [place], [address], [employer] 05/06/2024 09:22:29 02/17/2025 text/html . Patient is a 74-year-old male who returns the office for follow-up on routine foot care. Patient states the ganglion cyst to the right dorsal foot has returned. Patient states that he is not having any pain to the area and it is small in nature. Patient states he would like to continue with conservative therapy at this time if it continues to get bigger or becomes painful he will return for surgical removal. Patient denies any other complaints. Leonel Anna DPM [address], [place], [address], [employer] 02/19/2025 14:44:10
--- NOTE | 2025-02-19 19:16 | PC.NURSE ---
Assumed care of patient after receiving bedside report from SHANTA Hurtado. @ [phone]
[2025-02-19] MEDS: MAGNESIUM SULF 2 GM/WATER 50ML 2 GM/50 ML BAG IVPB (19:32)
[2025-02-19] MEDS: methylPREDNISolone SOD SUCC 125 MG VIAL IV PUSH (19:32)
--- NOTE | 2025-02-19 20:12 | ECG_ITS ---
Test Date: 2025-02-19 20:19:30 Measurements Intervals Fleming Rate: 57 P: 41 MA: 193 QRS: -25 QRSD: 82 T: 28 QT: 451 QTc: 441 Interpretive Statements SINUS BRADYCARDIA DELAYED PRECORDIAL R/S TRANSITION BORDERLINE ECG Compared to ECG 02/19/2025 12:47:51 No significant changes Electronically Signed On 02-19-2025 20:23:26 CDT by Alan Jones D.O.
[2025-02-19 20:54] LABS: Troponin I < 0.012 ng/mL (0.000-0.034)
--- NOTE | 2025-02-19 21:00 | PC.NURSE ---
Attempted to call report at 2100 and was told RN was with a patient and needed to call back for report.
--- NOTE | 2025-02-19 21:42 | ADMGEN ---
This patient, Pablo Cruz, was admitted to 2 Medical Room 260-01. Patient/family oriented to hospital policies and general routines including ID bracelet, bed and alarms, visiting hours, pain management, procedures, bathroom and other care routines, personal items, smoking policy, room service/diet, and visiting hours. Information on how to activate the Rapid Response Team has been discussed. Patient/Family are encouraged to report perceived risks to care and to ask questions if they do not understand what they are told or what they should do.
--- NOTE | 2025-02-19 21:52 | PM.IMHP ---
H&P: HPI History of Present Illness Date/Time: 02/19/25 21:52 Chief Complaint: Shortness of breath Narrative: This is a 74-year-old male with a history of CAD status post stents, hypertension, obesity with a BMI 30 who presents with ongoing shortness of breath for 1 month. 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 He denies any weight gain, lower extremity swelling, chest pain. He did see his forging engineer had a stress test and there is a reversible defect therefore he was scheduled for a cardiac catheterization on March 02. Due to this ongoing shortness of breath he was directed to the ER by his PCP. He has not traveled recently. Never smoker, denies alcohol or illicit drug use. Lives with his does not smoke. He has had a small dog for 4 years now. No asthma as a child, mother had asthma. No mold in the house, no construction. 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 ER evaluation demonstrated SpO2 88% on room air. Currently on 1 L. WBC 5.8, hemoglobin 12.2, eosinophils 2.2%, platelets 2-7, BMP unremarkable, BNP negative, troponin negative x2, quad viral screen negative. Neck and chest CT with contrast with medullary teeth moist in frontal sinus disease, no pulmonary nodules or masses, infiltrates or effusions. Dependent atelectatic changes. He was given prednisone, Solu-Medrol, DuoNebs and reports slightly improved symptomatology. Review of Systems Review of Systems: All systems reviewed & are unremarkable except as noted in HPI and below (HPI) [facility] Past Medical History Medical History HTN (hypertension) CAD (coronary artery disease) Obesity Surgical History Surgical History History of coronary artery stent placement Social History Social History Smoking status: Never smoker Alcohol intake: never Substance use: never Substance use type: does not use Do You Feel Safe in your Home?: Yes Lack of Transportation: No Lack of Food: Never True Current Housing: I Have Housing Concerned About Future Housing: No Difficulty Paying Gas/Electric Bills: No Difficulty Paying for Meds: No Currently Unemployed: No Education: Bachelor's Degree Difficulty w/ Childcare or Family Care: No Living arrangements: with family Spiritual care concerns: No Meds Home Medications and Allergies Home Medications ?Medication ?Instructions ?Recorded ?Confirmed ?Type Adult Probiotic 1 cap PO BOLUS 09/06/24 02/19/25 History Calcium Plus D3 1,200 mg PO DAILY 09/06/24 02/19/25 History aspirin 81 mg tablet,delayed 81 mg PO DAILY 09/06/24 02/19/25 History release cetirizine 10 mg tablet (Zyrtec) 10 mg PO DAILY 09/06/24 02/19/25 History clopidogrel 75 mg tablet 75 mg PO DAILY 09/06/24 02/19/25 History coQ10 (ubiquinol) 200 mg capsule 400 mg PO DAILY 09/06/24 02/19/25 History ezetimibe 10 mg tablet 10 mg PO DAILY 09/06/24 02/19/25 History fluticasone propionate 50 2 spray intranasal DAILY 09/06/24 02/19/25 History mcg/actuation nasal spray,suspension isosorbide mononitrate 30 mg 30 mg PO DAILY 09/06/24 02/19/25 History tablet,extended release 24 hr magnesium oxide 400 mg PO DAILY 09/06/24 02/19/25 History melatonin 5 mg tablet 5 mg PO HS 09/06/24 02/19/25 History metoprolol succinate 50 mg 50 mg PO DAILY 09/06/24 02/19/25 History tablet,extended release 24 hr montelukast 10 mg tablet 10 mg PO DAILY 09/06/24 02/19/25 History multivitamin with minerals-folic 1 tablet PO DAILY 09/06/24 02/19/25 History acid 0.4 mg tablet ranolazine 1,000 mg 1,000 mg PO BID 09/06/24 02/19/25 History tablet,extended release,12 hr rosuvastatin 40 mg tablet 40 mg PO DAILY 09/06/24 02/19/25 History vitamin E (dl, acetate) 180 mg 180 mg PO DAILY 09/06/24 02/19/25 History (400 unit) capsule Allergies Allergy/AdvReac Type Severity Reaction Status Date / Time No Known Allergies Allergy Verified 01/22/25 11:06 Vital Signs Vital Signs - 24 hr 02/19/25 12:25 02/19/25 12:40 02/19/25 12:41 Temperature 97.9 F Pulse Rate 54 L 58 L 58 L Respiratory Rate 18 16 27 H Blood Pressure 132/71 152/65 H Pulse Oximetry 100 97 95 Oxygen Delivery Oxygen Flow Rate 02/19/25 12:42 02/19/25 12:45 02/19/25 13:00 Temperature Pulse Rate 56 L 52 L 50 L Respiratory Rate 26 H 14 20 Blood Pressure 152/65 H Pulse Oximetry 97 94 95 Oxygen Delivery Oxygen Flow Rate 02/19/25 13:16 02/19/25 13:30 02/19/25 13:45 Temperature Pulse Rate 53 L 50 L 48 L Respiratory Rate 14 22 H 15 Blood Pressure Pulse Oximetry 97 95 99 Oxygen Delivery Oxygen Flow Rate 02/19/25 14:00 02/19/25 14:15 02/19/25 14:30 Temperature Pulse Rate 50 L 49 L 47 L Respiratory Rate 21 H 17 15 Blood Pressure Pulse Oximetry 99 96 Oxygen Delivery Oxygen Flow Rate 02/19/25 14:45 02/19/25 14:52 02/19/25 14:53 Temperature Pulse Rate 52 L 49 L 52 L Respiratory Rate 17 16 25 H Blood Pressure 134/85 Pulse Oximetry 90 96 99 Oxygen Delivery Oxygen Flow Rate 02/19/25 15:00 02/19/25 15:01 02/19/25 15:02 Temperature Pulse Rate 51 L 50 L 50 L Respiratory Rate 17 21 H 16 Blood Pressure 152/72 H Pulse Oximetry 94 96 Oxygen Delivery Oxygen Flow Rate 02/19/25 15:10 02/19/25 15:15 02/19/25 15:30 Temperature Pulse Rate 48 L 48 L 61 Respiratory Rate 16 14 14 Blood Pressure Pulse Oximetry 96 97 Oxygen Delivery Oxygen Flow Rate 02/19/25 15:45 02/19/25 15:46 02/19/25 16:00 Temperature Pulse Rate 56 L 59 L 55 L Respiratory Rate 20 21 H 14 Blood Pressure 119/64 Pulse Oximetry 95 93 93 Oxygen Delivery Oxygen Flow Rate 02/19/25 19:10 02/19/25 19:17 02/19/25 19:20 Temperature Pulse Rate 59 L 60 57 L Respiratory Rate 20 17 20 Blood Pressure 140/71 Pulse Oximetry 95 Oxygen Delivery Oxygen Flow Rate 02/19/25 20:45 02/19/25 20:49 02/19/25 21:48 Temperature 97.5 F L Pulse Rate 66 62 Respiratory Rate 21 H 16 Blood Pressure 128/80 129/77 Pulse Oximetry 99 98 96 Oxygen Delivery Nasal Cannula Oxygen Flow Rate 1 Exam Const: General: comfortable and no acute distress Other: A&O x3 HENMT: Mouth: Yes moist mucous membranes Eyes: Pupils: Equal, round and reactive pupils present Neck: Neck: supple Resp: Effort & Inspection: normal respiratory effort Other: Fine crackles diffusely, greater at the dependent portions of the lungs Cardio: Rate: regular rate Rhythm: regular rhythm GI: GI Palp: Yes Soft to palpation : General: Yes bladder normal to palpation Neuro: Motor exam (neuro): 5/5 motor strength present throughout Sensory Exam: normal sensation Extrem: General: no edema H&P: Results Labs Labs: Short CBC 02/19/25 Range/Units 12:48 WBC 5.8 (4.5-10.0) K/mm3 Hgb 12.2 L (14.0-18.0) g/dL Hct 37.1 L (42.0-52.0) % Plt Count 227 (150-375) k/mm3 BMP 02/19/25 12:48 Sodium 135 L Potassium 4.6 Chloride 100 Carbon Dioxide 27 BUN 17 Creatinine 1.11 Glucose 81 Calcium 8.7 Cardiac Enzymes 02/19/25 02/19/25 Range/Units 12:48 20:15 Troponin I < 0.012 < 0.012 (0.000-0.034) ng/mL Liver Function 02/19/25 Range/Units 12:48 Total Bilirubin 0.6 (0.2-1.3) mg/dL AST 36 (17-59) U/L ALT 27 (6-50) U/L Alkaline Phosphatase 54 (38-126) U/L Albumin 4.5 (3.5-5.1) g/dL Assessment and Plan Assessment and plan (1) Wheezing: Code(s): R06.2 - Wheezing Status: Acute (2) Shortness of breath: Code(s): R06.02 - Shortness of breath Status: Acute Plan This is a 74-year-old male with a history of CAD status post stents, hypertension, obesity with a BMI 30 who presents with ongoing shortness of breath for 1 month. 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 He denies any weight gain, lower extremity swelling, chest pain. He did see his forging engineer had a stress test and there is a reversible defect therefore he was scheduled for a cardiac catheterization on March 02. Due to this ongoing shortness of breath he was directed to the ER by his PCP. He has not traveled recently. Never smoker, denies alcohol or illicit drug use. Lives with his does not smoke. He has had a small dog for 4 years now. No asthma as a child, mother had asthma. No mold in the house, no construction. 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 Reports he had a CT PE study done at a outside hospital which was negative. ER evaluation demonstrated SpO2 88% on room air. Currently on 1 L. WBC 5.8, hemoglobin 12.2, eosinophils 2.2%, platelets 2-7, BMP unremarkable, BNP negative, troponin negative x2, quad viral screen negative. Neck and chest CT with contrast with medullary teeth moist in frontal sinus disease, no pulmonary nodules or masses, infiltrates or effusions. Dependent atelectatic changes. He was given prednisone, Solu-Medrol, DuoNebs and reports slightly improved symptomatology. ----- Continue Solu-Medrol as well as DuoNebs. He is currently on 1 L nasal cannula with improved symptomatology and stable. He is very fine crackles diffusely greater at the bases. Unclear the etiology at this moment, he reports he had a CT PE done recently at outside hospital which was negative. A CT chest and neck with contrast was performed, rediscuss this imaging with radiologist again briefly and there is no obvious PE. However, there is old granulomatous disease as well as a reticular nodular pattern and morphologically suspicious right hilar lymph nodes. Will obtain echocardiogram and consult pulmonology. Check a full viral respiratory pathogen panel. ----- Full code. SCDs. Regular diet. Saline lock IV. Hospitalist MIPS Advance Care Plan I have confirmed that the patient's Advanced Care Plan is present, code status is documented, or surrogate decision maker is listed in patient medical record.: Yes Medication Reconciliation I have utilized all available resources to obtain, update and review the patients current medications (includes all prescriptions, OTC, herbals, cannabis, and nutritional supplements).: Yes
[2025-02-20] VITALS (18 sets, daily range): BP systolic 118–147; BP diastolic 51–66; PULSE 60–91; RESP 16–20; TEMP 36.4–36.7; O2SAT 93–98
--- NOTE | 2025-02-20 | ECHO_ITS ---
Patient Info Name: Pablo Cruz Age: 74 years : 1950 Gender: Male Ht: 66 in Wt: 188 lbs BSA: 2.02 m2 HR: 81 bpm BP: 147 / 66 mmHg Heart Rhythm: Sinus Rhythm Technical Quality: Fair Exam Date: 02/20/2025 10:34 AM Exam Location: Echo Lab Patient Status: Inpatient Admit Date: 02/20/2025 Staff Ordering Physician: Therese Crystal MD Web Weaver: Viki Hernandez RDCS Attending Provider: Therese Crystal MD Exam Type: CA echo doppler color flow Study Info Indications - SOB Complete two-dimensional, color flow and Doppler transthoracic echocardiogram is performed. Summary 1. Complete two-dimensional, color flow and Doppler transthoracic echocardiogram is performed. 2. There is normal biventricular size and systolic function. 3. There are no significant valvular abnormalities. Left Ventricle The left ventricle is normal in size and systolic function. The left ventricular ejection fraction is visually estimated to be 60-60%. Right Ventricle The right ventricle is normal size and systolic function. Left Atria The left atrium is normal size. Right Atria The right atrium is normal size. Atrial Septum The atrial septum is not well visualized. Aortic Valve The aortic valve is trileaflet and opens well. There is no aortic regurgitation. Pulmonic Valve The pulmonic valve is not well visualized. There is no color Doppler evidence of pulmonic valve regurgitation. Mitral Valve The mitral valve opens well. There is no mitral regurgitation in this study. Tricuspid Valve The tricuspid valve is not well visualized. There is trace tricuspid regurgitation. Pericardium/Pleural Pericardium is normal in appearance with no evidence for significant pericardial effusion. Inferior Vena Cava Normal inferior vena cava with >50% collapse upon inspiration consistent with normal right atrial pressure, 3 mmHg. Aorta The aortic root at the level of the sinus of Valsalva measures 3.8 cm in diameter. Left Ventricular Outflow Tract Name Value Normal LVOT 2D LVOT Diameter 2.0 cm LVOT Doppler LVOT Peak Gradient 5 mmHg LVOT Mean Gradient 3 mmHg LVOT VTI 27 cm LVOT VTI/AV VTI Ratio 0.8 LVOT Stroke Volume 87 ml LVOT CO 6.2 l/min LVOT CI 3.1 l/min/m2 Pulmonic Valve Name Value Normal RVOT Doppler RVOT Peak Gradient 2 mmHg PV Doppler PV Peak Gradient 3 mmHg Mitral Valve Name Value Normal MV Doppler MV Decel [place] 353 cm/s2 MV PHT 68 ms MV Area (PHT) 3.2 cm2 4.0-5.0 MV Diastolic Function MV E Peak Velocity 82 cm/s MV A Peak Velocity 117 cm/s MV E/A 0.7 MV Decel Time 233 ms MV Annular TDI MV E/e' (Septal) 11.0 <=8.0 MV E/e' (Lateral) 10.7 <=8.0 MV E/e' (Average) 10.8 Tricuspid Valve Name Value Normal TV Regurgitation Doppler TR Peak Velocity 227 cm/s TR Peak Gradient 21 mmHg Estimated PAP/RSVP RA Pressure 3 mmHg <=5 PA Systolic Pressure 24 mmHg <36 RV Systolic Pressure 24 mmHg <36 Aortic Valve Name Value Normal AV Doppler AV Peak Velocity 177 cm/s AV Peak Gradient 13 mmHg AV Mean Gradient 6 mmHg AV VTI 34 cm AV Area (Cont Eq VTI) 2.6 cm2 >=3.0 AV Area (Cont Eq Thony) 2.1 cm2 AV Regurgitation 2D LVOT Area 3.2 cm2 Ventricles Name Value Normal LV Dimensions 2D/MM IVS Diastolic Thickness (2D) 1.0 cm 0.6-1.0 LVID Diastole (2D) 4.5 cm 4.2-5.8 LVIW Diastolic Thickness (2D) 1.0 cm 0.6-1.0 LVID Systole (2D) 2.7 cm 2.5-4.0 LVOT Diameter 2.0 cm LV Mass (2D Cubed) 150.16 g 88.00-224.00 LV Mass Index (2D Cubed) 74 g/m2 49-115 Relative Wall Thickness (2D) 0.45 LV Fractional Shortening/Ejection Fraction 2D/MM LV Fractional Shortening (2D) 39 % 25-43 LV EF (2D Teicholz) 69 % 52-72 LV Diastolic Volume (4C MOD) 88 ml LV EF (4C MOD) 62 % LV Diastolic Volume (2C MOD) 97 ml LV EF (2C MOD) 70 % LV Diastolic Volume (BP MOD) 93 ml 62-150 LV Diastolic Volume Index (BP MOD) 46 ml/m2 34-74 LV Systolic Volume (BP MOD) 33 ml 21-61 LV Systolic Volume Index (BP MOD) 17 ml/m2 11-31 LV EF (BP MOD) 64 % 52-72 LV Diastolic Length (4C) 8.1 cm LV Systolic Length (4C) 6.6 cm LV Stroke Volume (4C MOD) 55 ml Atria Name Value Normal LA Dimensions LA Volume (4C A-L) 62 ml LA Volume (BP A-L) 58 ml RA Dimensions RA Area (4C) 19.8 cm2 <=18.0 Report Signatures
[2025-02-20 00:25] LABS: Troponin I < 0.012 ng/mL (0.000-0.034)
[2025-02-20] MEDS: IPRATROPIUM 0.5 MG/ALBUTEROL SULFATE 2.5 MG AMPUL.NEB 3 ML INHALATION ×4 (03:52→21:01)
[2025-02-20] MEDS: methylPREDNISolone SOD SUCC 125 MG VIAL 60 MG IV PUSH ×3 (04:21→14:47)
[2025-02-20] MEDS: ISOSORBIDE MONONITRATE 30 MG TAB.ER.24H PO (08:08)
[2025-02-20] MEDS: MAGNESIUM OXIDE 400 MG TABLET PO (08:08)
[2025-02-20] MEDS: ROSUVASTATIN 20 MG TABLET 40 MG PO (08:08)
[2025-02-20] MEDS: CLOPIDOGREL BISULFATE 75 MG TABLET PO (08:08)
[2025-02-20] MEDS: MONTELUKAST SODIUM 10 MG TABLET PO (08:09)
[2025-02-20] MEDS: LORATADINE 10 MG TABLET PO (08:09)
[2025-02-20] MEDS: RANOLAZINE 500 MG TAB.ER.12H 1000 MG PO ×2 (08:09→20:28)
[2025-02-20] MEDS: VITAMIN E 400 UNIT CAPSULE PO (08:09)
[2025-02-20] MEDS: EZETIMIBE 10 MG TABLET PO (08:09)
[2025-02-20] MEDS: ASPIRIN 81 MG ENTERIC TABLET PO (08:09)
[2025-02-20] MEDS: FLUTICASONE PROPIONATE 0.05% NA SPR 16 GM BTL (*BKC) 2 SPRAY NASAL (08:10)
[2025-02-20] MEDS: THERAPEUTIC MULTIVITAMINS/MINERALS TAB (*BKC) 1 TABLET PO (08:10)
--- NOTE | 2025-02-20 09:14 | P.PNIM_ITS ---
Progress Note: A&P Assessment and Plan (1) Wheezing: Code(s): R06.2 - Wheezing Status: Acute (2) Shortness of breath: Code(s): R06.02 - Shortness of breath Status: Acute Plan This is a 74-year-old male with a history of CAD status post stents, hypertension, obesity with a BMI 30 who presents with ongoing shortness of breath for 1 month. 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 Possible asthma exacerbation and acute hypoxemic respiratory failure ER evaluation demonstrated SpO2 88% on room air. eosinophils 2.2%, platelets 2-7, BNP negative, troponin negative x2, quad viral screen negative. Neck and chest CT with contrast with medullary teeth moist in frontal sinus disease, no pulmonary nodules or masses, infiltrates or effusions. Dependent atelectatic changes. Reports he had a CT PE study done at a outside hospital which was negative. Continue methylprednisolone, [place] scheduled albuterol nebulizer p.r.n. Continue O2 therapy p.r.n. to keep pulse ox above 90 echocardiogram pending consult pulmonology per credit card interviewer CAD status post stent current no chest pain Continue aspirin 81 mg daily p.o., Plavix 75 mg daily p.o., Imdur 30 mg daily p.o., Crestor 40 mg daily p.o. Follow-up with devulcanizer charger had a stress test and there is a reversible defect therefore he was scheduled for a cardiac catheterization on March 02. Due to this ongoing shortness of breath he was directed to the ER by his PCP. Subjective Date/time seen: 02/20/25 09:14 Interval history: I saw examined the patient today, patient feels better, patient still has a dry cough, patient denies chest pain, palpitation, orthopnea, acid reflux. Dyspnea is improving Exam Narrative: GENERAL: Pleasant, in no acute distress. Well-nourished. - EYES: EOMI. Anicteric. - HENT: Moist mucous membranes. - LUNGS: Clear to auscultation bilateral ly, no wheezing, rhonchi, or rales. - CARDIOVASCULAR: Regular rate and rhyth m. No murmur. No JVD. - ABDOMEN: Soft, non-tender and non-dist ended. No palpable masses. - EXTREMITIES: No edema. Peripheral puls es 2+. Non-tender. - NEUROLOGIC: No focal neurological defi cits. CN II-XII grossly intact. - PSYCHIATRIC: Awake, Alert and oriented x 3. Appropriate mood and affect. - SKIN: No rashes or lesions. Warm. - LYMPH: No cervical lymphadenopathy. Objective Data Vital Signs Vital Signs: Vital Signs - 24 hr 02/19/25 12:25 02/19/25 12:40 02/19/25 12:41 Temperature 97.9 F Pulse Rate 54 L 58 L 58 L Respiratory Rate 18 16 27 H Blood Pressure 132/71 152/65 H Pulse Oximetry 100 97 95 Oxygen Delivery Oxygen Flow Rate 02/19/25 12:42 02/19/25 12:45 02/19/25 13:00 Temperature Pulse Rate 56 L 52 L 50 L Respiratory Rate 26 H 14 20 Blood Pressure 152/65 H Pulse Oximetry 97 94 95 Oxygen Delivery Oxygen Flow Rate 02/19/25 13:16 02/19/25 13:30 02/19/25 13:45 Temperature Pulse Rate 53 L 50 L 48 L Respiratory Rate 14 22 H 15 Blood Pressure Pulse Oximetry 97 95 99 Oxygen Delivery Oxygen Flow Rate 02/19/25 14:00 02/19/25 14:15 02/19/25 14:30 Temperature Pulse Rate 50 L 49 L 47 L Respiratory Rate 21 H 17 15 Blood Pressure Pulse Oximetry 99 96 Oxygen Delivery Oxygen Flow Rate 02/19/25 14:45 02/19/25 14:52 02/19/25 14:53 Temperature Pulse Rate 52 L 49 L 52 L Respiratory Rate 17 16 25 H Blood Pressure 134/85 Pulse Oximetry 90 96 99 Oxygen Delivery Oxygen Flow Rate 02/19/25 15:00 02/19/25 15:01 02/19/25 15:02 Temperature Pulse Rate 51 L 50 L 50 L Respiratory Rate 17 21 H 16 Blood Pressure 152/72 H Pulse Oximetry 94 96 Oxygen Delivery Oxygen Flow Rate 02/19/25 15:10 02/19/25 15:15 02/19/25 15:30 Temperature Pulse Rate 48 L 48 L 61 Respiratory Rate 16 14 14 Blood Pressure Pulse Oximetry 96 97 Oxygen Delivery Oxygen Flow Rate 02/19/25 15:45 02/19/25 15:46 02/19/25 16:00 Temperature Pulse Rate 56 L 59 L 55 L Respiratory Rate 20 21 H 14 Blood Pressure 119/64 Pulse Oximetry 95 93 93 Oxygen Delivery Oxygen Flow Rate 02/19/25 19:10 02/19/25 19:17 02/19/25 19:20 Temperature Pulse Rate 59 L 60 57 L Respiratory Rate 20 17 20 Blood Pressure 140/71 Pulse Oximetry 95 Oxygen Delivery Oxygen Flow Rate 02/19/25 20:45 02/19/25 20:49 02/19/25 21:48 Temperature 97.5 F L Pulse Rate 66 62 Respiratory Rate 21 H 16 Blood Pressure 128/80 129/77 Pulse Oximetry 99 98 96 Oxygen Delivery Nasal Cannula Oxygen Flow Rate 1 02/19/25 22:17 02/20/25 00:00 02/20/25 00:33 Temperature 97.8 F Pulse Rate 69 70 Respiratory Rate 16 Blood Pressure 132/59 L Pulse Oximetry 96 96 Oxygen Delivery Nasal Cannula Oxygen Flow Rate 1 02/20/25 03:59 02/20/25 04:00 02/20/25 04:06 Temperature Pulse Rate 70 74 60 Respiratory Rate 20 20 Blood Pressure Pulse Oximetry Oxygen Delivery Oxygen Flow Rate 02/20/25 05:27 02/20/25 07:39 02/20/25 07:43 Temperature 97.6 F Pulse Rate 81 80 77 Respiratory Rate 16 18 18 Blood Pressure 147/66 H Pulse Oximetry 98 Oxygen Delivery Oxygen Flow Rate 02/20/25 07:44 02/20/25 08:00 Temperature 97.5 F L Pulse Rate 88 Respiratory Rate 20 Blood Pressure 133/56 L Pulse Oximetry 98 97 Oxygen Delivery Room Air Oxygen Flow Rate Intake/Output Intake/Output: Intake & Output 02/17/25 02/18/25 02/19/25 02/20/25 23:59 23:59 23:59 23:59 Intake Total 50 200 Balance 50 200 Meds/Results Medications: Active Medications Generic Name Dose Route Start Last Admin Trade Name Freq PRN Reason Stop Dose Admin Albuterol/Ipratropium 3 ml 02/20/25 02:00 02/20/25 07:38 Ipratropium 0.5 Mg/Albuterol Sulfate 2.5 Mg Ampul.Neb 3 Ml INHALATION 3 ml Q6HRT KRISH Administration Aspirin 81 mg 02/20/25 09:00 02/20/25 08:09 Aspirin 81 Mg Enteric Tablet PO 81 mg DAILY KRISH Administration Clopidogrel Bisulfate 75 mg 02/20/25 09:00 02/20/25 08:08 Clopidogrel Bisulfate 75 Mg Tablet PO 75 mg DAILY KRISH Administration Ezetimibe 10 mg 02/20/25 09:00 02/20/25 08:09 Ezetimibe 10 Mg Tablet PO 10 mg DAILY KRISH Administration Fluticasone Propionate 2 spray 02/20/25 09:00 02/20/25 08:10 Fluticasone Propionate 0.05% Na Spr 16 Gm Btl (*Bkc) NASAL 2 spray DAILY KRISH Administration Isosorbide Mononitrate 30 mg 02/20/25 09:00 02/20/25 08:08 Isosorbide Mononitrate 30 Mg Tab.Er.24h PO 30 mg DAILY KRISH Administration Loratadine 10 mg 02/20/25 09:00 02/20/25 08:09 Loratadine 10 Mg Tablet PO 10 mg QAM KRISH Administration Magnesium Oxide 400 mg 02/20/25 09:00 02/20/25 08:08 Magnesium Oxide 400 Mg Tablet PO 400 mg DAILY KRISH Administration Melatonin 5 mg 02/19/25 23:30 02/20/25 04:18 Melatonin 5 Mg Tablet PO Not Given HS KRISH Methylprednisolone Sodium Succinate 60 mg 02/20/25 02:00 02/20/25 08:05 Methylprednisolone Sod Succ 125 Mg Vial IV PUSH 60 mg Q6H KRISH Administration Montelukast Sodium 10 mg 02/20/25 09:00 02/20/25 08:09 Montelukast Sodium 10 Mg Tablet PO 10 mg DAILY KRISH Administration Multivitamins/Calcium 1 tablet 02/20/25 09:00 02/20/25 08:10 Therapeutic Multivitamins/Minerals Tab (*Bkc) PO 1 tablet DAILY KRISH Administration Perflutren Lipid Microsphere 0 ml 02/19/25 21:59 Perflutren Lipid Microspheres 1.5 Ml Vial Diluted To 10 Ml Total Volume IV PUSH 02/22/25 21:59 ONCE PRN adequate visualization Protocol Ranolazine 1,000 mg 02/20/25 09:00 02/20/25 08:09 Ranolazine 500 Mg Tab.Er.12h PO 1,000 mg Q12HR KRISH Administration Rosuvastatin Calcium 40 mg 02/20/25 09:00 02/20/25 08:08 Rosuvastatin 20 Mg Tablet PO 40 mg DAILY KRISH Administration Vitamin E 400 unit 02/20/25 09:00 02/20/25 08:09 Vitamin E 400 Unit Capsule PO 400 unit DAILY KRISH Administration Radiology Results: ITS Impressions Chest X-Ray 02/19/25 13:25 IMPRESSION: 1. No acute cardiopulmonary disease. Neck/Chest CT 02/19/25 17:03 IMPRESSION: Medullary ethmoid and frontal sinus disease. Otherwise, normal. CT soft tissue neck chest w Ordering provider: Cait Gutierrez PA-C History: 74 years Male with . sob, wheezing . Comparison: None. Technique: CT chest with IV contrast. Radiation reduction technique utilized. The dose-length product was 936.84 mGy-cm. 100 mL Omnipaque 350 was given IV. Findings: VISUALIZED THORACIC INLET: Normal. MEDIASTINUM: Aorta/coronary arteries: Mild atheromatous disease. Heart/other: The heart is slightly enlarged. Lymph nodes: No mediastinal or hilar adenopathy. Small lymph nodes are noted. LUNGS: No pulmonary nodules or masses. No infiltrates or effusions. No pneumothorax. Dependent atelectatic changes. VISUALIZED UPPER ABDOMEN: the visualized upper abdomen is normal. MUSCULOSKELETAL: Soft tissues: The superficial soft tissues are normal. Bones: Age appropriate degenerative changes of the spine. IMPRESSION: No acute cardiopulmonary pathology. Labs Labs: Laboratory Results - last 24 hr 02/19/25 02/19/25 02/19/25 12:48 12:48 13:46 WBC 5.8 RBC 3.81 L Hgb 12.2 L Hct 37.1 L MCV 97.4 MCH 32.0 MCHC 32.9 RDW 13.2 Plt Count 227 MPV 9.6 Immature Gran % (Auto) 5.5 H Neut % (Auto) 53.6 Lymph % (Auto) 25.3 [place] % (Auto) 12.7 H Eos % (Auto) 2.2 Baso % (Auto) 0.7 Lymph # (Auto) 1.47 [place] # (Auto) 0.7 H Eos # (Auto) 0.1 Baso # (Auto) 0.0 Abs Immat Gran (auto) 0.32 H Absolute Neuts (auto) 3.1 Absolute Nucleated RBC 0.000 Band Neutrophils % Not Reportable Nucleated RBC % 0.0 Platelet Estimate Adequate Large Platelets Present Schistocytes None seen Sodium 135 L Potassium 4.6 Chloride 100 Carbon Dioxide 27 Anion Gap 8 BUN 17 Creatinine 1.11 Estim Creat Clear Calc 53 Estimated GFR > 60 Glucose 81 Calcium 8.7 Total Bilirubin 0.6 AST 36 ALT 27 Alkaline Phosphatase 54 Troponin I < 0.012 NT-Pro-B Natriuret Pep 50 Cancelled Total Protein 7.0 Albumin 4.5 Influenza A (RT-PCR) Negative Influenza B (RT-PCR) Negative RSV (RT-PCR) Negative SARS-CoV-2 RNA (RT-PCR) Negative 02/19/25 02/19/25 20:15 22:59 WBC RBC Hgb Hct MCV MCH MCHC RDW Plt Count MPV Immature Gran % (Auto) Neut % (Auto) Lymph % (Auto) [place] % (Auto) Eos % (Auto) Baso % (Auto) Lymph # (Auto) [place] # (Auto) Eos # (Auto) Baso # (Auto) Abs Immat Gran (auto) Absolute Neuts (auto) Absolute Nucleated RBC Band Neutrophils % Nucleated RBC % Platelet Estimate Large Platelets Schistocytes Sodium Potassium Chloride Carbon Dioxide Anion Gap BUN Creatinine Estim Creat Clear Calc Estimated GFR Glucose Calcium Total Bilirubin AST ALT Alkaline Phosphatase Troponin I < 0.012 < 0.012 NT-Pro-B Natriuret Pep Total Protein Albumin Influenza A (RT-PCR) Influenza B (RT-PCR) RSV (RT-PCR) SARS-CoV-2 RNA (RT-PCR)
--- NOTE | 2025-02-20 16:36 | P.CONPL_ITS ---
Assessment and Plan Assessment and plan (1) Stridor: Code(s): R06.1 - Stridor Status: Acute Assessment and Plan: He has had cough and wheezing with severe stridor on several occasions. He has worsened to te point that he presented at the ER 3 times total. I watched a video clip from his 360pi security camera, intense inspiratory stridor with difficulty breathing. He was at home, was in the shower, had not eaten for over 12 hours, no food in airway; may have been triggered with post nasal drainage. He has abnormal swallowing of pills and some foods, uses lots of water with swallowing to clear airway with pills and foods. (2) Sinusitis: Code(s): J32.9 - Chronic sinusitis, unspecified Status: Acute Assessment and Plan: Chronic right maxillary, right frontal and bilateral ethmoid sinus disease. he uses nasal lavage/Navage, nasal steroids, oral antihistamine, oral leukotriene inhibitor. After ENT evaluation, Allergy referral is indicated. He is on multiple medications, has bilateral chronic sinus disease, says that he lives like this. He may need allergy testing, and may be a candidate for alternative therapy or add-on treatment. He does not have elevated eosinophils, however has been on treatment for the last 6- 8 weeks with steroids and other medications. This may be causing his eosinophil counts to be normal. (3) Chronic bronchitis: Code(s): J42 - Unspecified chronic bronchitis Status: Acute Assessment and Plan: His CT scan shows inflammation of the bronchial [place], and he has a borderline enlarged right perihilar lymph node 10.25 mm. This indicates chronic inflammation. He coughs frequently, and with excessive coughing while trying to clear sputum, he has intense inspiratory stridor. He needs bronchodilator and a nebulizer to use to assist with distributing bronchodilator medication throughout the bronchial tree. He does not have a nebulizer at home. I will order a nebulizer and albuterol for him to use Q 6 hours and p.r.n. cough and wheezing. He needs to be caution not to breathe to deeply. This triggers his cough. Coughing that worsens with deep breathing is a sign of hyperreactive airways. When he stabilizes, PFTs in the outpatient setting will be requested. I do not want to do this to soon as hyperventilation can irritate the airways and worsened broncho constriction. (4) Difficulty swallowing pills: Code(s): R13.10 - Dysphagia, unspecified Status: Acute Assessment and Plan: Pills, some foods; has had this for years. Needs MBS and ENT to look in airway. Plan plan: 1) Extended respiratory pathogen panel. He may have had a viral trigger for prolonged intense cough and episodic stridor. 2) Decrease solumedrol 60 mg Q 6 to 40 mg Q 8, transition to prednisone tomorrow am. He can go home on a steroid taper. 3) Cornet valve for use here only if he feels he has enough sputum to expectorate. He needs to avoid excessive coughing and hyperventilation. 4. Swallow study; he has known swallowing dysfunction. For years, he has taken his pills 3-4 at a time, uses lots of water, and keeps peanuts in the bathroom to help dislodge any pills if some get stuck. It is possible that his dysfunction is worsening, causing him to choke, develop stridor. 5. Nebulizer for use at home, albuterol 0.083% q.i.d p.r.n. cough, shortness of breath. Diagnosis for this is chronic bronchitis J42. 6. He has an appointment with Dr Zen Gonsalez, ENT, MonFebruary 26 at 8:00 a.m. at [facility]. [place] [facility] [place]. I think that the patient may need laryngoscopy to look for anything that could cause upper airway turbulence such as a mass, inflammation, and screen for vocal cord dysfunction. IF he has VCD, training with a Speech Therapist skilled in this area is the goal. 7. 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 I will plan to order PFTs if his ENT exam is negative, if nothing is found in the airway and Dr Gonsalez does not think that he has vocal cord dysfunction. 8) ApneaLink tonight of room air, assess for home O2 needs with sleep. He has minimal snoring, he wheezes at night which could signal post nasal drip or orthopnea. Echo 02/20/25 was unremarkable. He is receiving Lasix, has a cath planned with Dr terence Lemus March 02 to assure that his coronaries are patent. I explained the plan to him, and he is agrees with all this. History of Present Illness History of Present Illness Consult date: 02/21/25 Requesting physician: Carmela Breen MD Chief complaint: Wheezing Narrative: Pt was seen February 21, 2025 at 13:10, Room 260; his was present for the visit. 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 He has had 3 episodes so severe that he required a trip to the ER. 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 He has no history asthma, recurrent respiratory infections, need for chronic inhaler use. He has no occupational exposure. He has not had a known respiratory infection in the last several months. During the several weeks before this admission, he was treated with oral antibiotics, oral steroids, he continued his nasal rinsing protocol, montelukast, fluticasone and cetirizine. He use a rescue inhaler albuterol which did not seem to provide much help. He presented here February 18 with saturation 88% on room air. He had normal eosinophils 2.2%, normal viral serology, other fatima normal labs. He was on lisinopril, ACEi, developed a cough, was taken off several years ago, now on losartan, angiotensin-blocking receptor. He has year round rhinitis and frequent sinusitis, uses Navage to rinse nasal passages, montelukast, fluticasone and cetirizine year-round. His showed me a video from her cellphone recorded by their 360pi security camera. He says this video clip occurred around 930 in the morning recently, had not had anything to eat or drink since the night before. He was not choking on anything. He had an intense coughing episode, no vomiting. He developed intense inspiratory stridor. I watched the video, could hear him struggling to take a breath. . PMH: 1) CAD status post stents, last stent was 2013; at that time, he had one new one and one replacement for an occluded stent; history of 2 stents in 1994, 2) angina managed with Ranexa; 3) hypertension, 4) obesity with a BMI 30. 5) Chronic sinus infections and rhinitis. Seasonal allergies. 6) Abnormal swallow; for 30+ years, he has needed to take pills carefully,m breaking his swallowing into 3-4 pills at a time, drinking with with lots of water, keeping peanuts in the bathroom to chew and swallow if pills get stuck in his throat. DATA * 02/20/2025, neck and chest CT ;Right maxillary, frontal and bilateral ethmoid sinus disease. Otherwise, well aerated. Negative for acute disease. Chest CT did not show pathological changes. He had bronchial wall thickening and a right hilar lymph node around 1 cm. * * 02/20/2025; echo; . Complete two-dimensional, color flow and Doppler transthoracic echocardiogram is performed. 2. There is normal biventricular size and systolic function. 3. There are no significant valvular abnormalities. * 02/18/2025; serology negative for influenza, RSV, COVID * 02/19/2025 CBC; wbc 5.8k with 2.2% eosinophils, H/H 12.2/37.1%, plt 227k. Na 135, K+ 4.6, chloride 100, HCO3 = 27; BUN 17, creat 1.11; glucose 81. BNP last months was 511, minimally increased. Troponins are flat, 0.012 x 3. * 02/19/25, EKG = SINUS BRADYCARDIA; DELAYED PRECORDIAL R/S TRANSITION; BORDERLINE ECG Review of Systems 2 Review of Systems: All systems reviewed & are unremarkable except as noted in HPI and below PMFSH Past Medical History Medical History HTN (hypertension) CAD (coronary artery disease) Obesity Surgical History Surgical History History of coronary artery stent placement Social History Social History Smoking status: Never smoker Alcohol intake: never Substance use: never Substance use type: does not use Do You Feel Safe in your Home?: Yes Lack of Transportation: No Lack of Food: Never True Current Housing: I Have Housing Concerned About Future Housing: No Difficulty Paying Gas/Electric Bills: No Difficulty Paying for Meds: No Currently Unemployed: No Education: Bachelor's Degree Difficulty w/ Childcare or Family Care: No Living arrangements: with family Spiritual care concerns: No Meds Home Medications and Allergies Home Medications ?Medication ?Instructions ?Recorded ?Confirmed ?Type Adult Probiotic 1 cap PO BOLUS 09/06/24 02/19/25 History Calcium Plus D3 1,200 mg PO DAILY 09/06/24 02/19/25 History aspirin 81 mg tablet,delayed 81 mg PO DAILY 09/06/24 02/19/25 History release cetirizine 10 mg tablet (Zyrtec) 10 mg PO DAILY 09/06/24 02/19/25 History clopidogrel 75 mg tablet 75 mg PO DAILY 09/06/24 02/19/25 History coQ10 (ubiquinol) 200 mg capsule 400 mg PO DAILY 09/06/24 02/19/25 History ezetimibe 10 mg tablet 10 mg PO DAILY 09/06/24 02/19/25 History fluticasone propionate 50 2 spray intranasal DAILY 09/06/24 02/19/25 History mcg/actuation nasal spray,suspension isosorbide mononitrate 30 mg 30 mg PO DAILY 09/06/24 02/19/25 History tablet,extended release 24 hr magnesium oxide 400 mg PO DAILY 09/06/24 02/19/25 History melatonin 5 mg tablet 5 mg PO HS 09/06/24 02/19/25 History metoprolol succinate 50 mg 50 mg PO DAILY 09/06/24 02/19/25 History tablet,extended release 24 hr montelukast 10 mg tablet 10 mg PO DAILY 09/06/24 02/19/25 History multivitamin with minerals-folic 1 tablet PO DAILY 09/06/24 02/19/25 History acid 0.4 mg tablet ranolazine 1,000 mg 1,000 mg PO BID 09/06/24 02/19/25 History tablet,extended release,12 hr rosuvastatin 40 mg tablet 40 mg PO DAILY 09/06/24 02/19/25 History vitamin E (dl, acetate) 180 mg 180 mg PO DAILY 09/06/24 02/19/25 History (400 unit) capsule Allergies Allergy/AdvReac Type Severity Reaction Status Date / Time No Known Allergies Allergy Verified 01/22/25 11:06 Vital Signs Vital Signs - 24 hr 02/19/25 19:10 02/19/25 19:17 02/19/25 19:20 Temperature Pulse Rate 59 L 60 57 L Respiratory Rate 20 17 20 Blood Pressure 140/71 Pulse Oximetry 95 Oxygen Delivery Oxygen Flow Rate 02/19/25 20:45 02/19/25 20:49 02/19/25 21:48 Temperature 36.4 C L Pulse Rate 66 62 Respiratory Rate 21 H 16 Blood Pressure 128/80 129/77 Pulse Oximetry 99 98 96 Oxygen Delivery Nasal Cannula Oxygen Flow Rate 1 02/19/25 22:17 02/20/25 00:00 02/20/25 00:33 Temperature 36.6 C Pulse Rate 69 70 Respiratory Rate 16 Blood Pressure 132/59 L Pulse Oximetry 96 96 Oxygen Delivery Nasal Cannula Oxygen Flow Rate 1 02/20/25 03:59 02/20/25 04:00 02/20/25 04:06 Temperature Pulse Rate 70 74 60 Respiratory Rate 20 20 Blood Pressure Pulse Oximetry Oxygen Delivery Oxygen Flow Rate 02/20/25 05:27 02/20/25 07:39 02/20/25 07:43 Temperature 36.4 C Pulse Rate 81 80 77 Respiratory Rate 16 18 18 Blood Pressure 147/66 H Pulse Oximetry 98 Oxygen Delivery Oxygen Flow Rate 02/20/25 07:44 02/20/25 08:00 02/20/25 08:05 Temperature 36.4 C L Pulse Rate 88 Respiratory Rate 20 Blood Pressure 133/56 L Pulse Oximetry 98 97 97 Oxygen Delivery Room Air Room Air Oxygen Flow Rate 02/20/25 08:05 02/20/25 12:00 02/20/25 12:00 Temperature 36.6 C Pulse Rate 91 82 80 Respiratory Rate 20 Blood Pressure 147/57 H Pulse Oximetry 93 Oxygen Delivery Oxygen Flow Rate 02/20/25 15:14 02/20/25 16:00 Temperature Pulse Rate 86 84 Respiratory Rate 18 Blood Pressure Pulse Oximetry Oxygen Delivery Oxygen Flow Rate Exam 2 Narrative: GEN: Alert, oriented, not in distress. He is on room air, saturation is 96% temp 36.0?, pulse 68, respirations 16, blood pressure 124/46 HEENT: pupils are equal, EOMI, symmetrical face; oral membranes moist, Mallampati III airway, natural dentition, no tenderness to palpation over the frontal or maxillary sinuses. He has abundant white drainage both nares. NECK: Trachea is midline CHEST: Equal air entry, symmetric excursion, clear breath sounds. No wheeze. With deep breaths, he developed intense coughing without sputum. I told him to avoid excessively large breaths. CV: Regular S1S2 no m/g/r ABD : (+) bowel sounds Extremities : no clubbing or cyanosis; he has at least 1+ lower leg edema, puffy legs, now getting Lasix. PSYCH: normal thought and speech, gait is not tested. Results Laboratory Findings 02/19/25 12:48 02/19/25 12:48 Abnormal lab findings: Abnormal Labs 02/19/25 12:48 RBC 3.81 L Hgb 12.2 L Hct 37.1 L Immature Gran % (Auto) 5.5 H [place] % (Auto) 12.7 H [place] # (Auto) 0.7 H Abs Immat Gran (auto) 0.32 H Sodium 135 L
[2025-02-20] MEDS: MELATONIN 5 MG TABLET PO (20:28)
[2025-02-21] VITALS (15 sets, daily range): BP systolic 115–138; BP diastolic 46–71; PULSE 62–87; RESP 12–20; TEMP 36–36.6; O2SAT 96–97
[2025-02-21] MEDS: IPRATROPIUM 0.5 MG/ALBUTEROL SULFATE 2.5 MG AMPUL.NEB 3 ML INHALATION ×4 (02:35→20:16)
[2025-02-21] MEDS: methylPREDNISolone SOD SUCC 125 MG VIAL 60 MG IV PUSH ×2 (04:22→11:56)
[2025-02-21] MEDS: CLOPIDOGREL BISULFATE 75 MG TABLET PO (09:40)
[2025-02-21] MEDS: ASPIRIN 81 MG ENTERIC TABLET PO (09:40)
[2025-02-21] MEDS: EZETIMIBE 10 MG TABLET PO (09:40)
[2025-02-21] MEDS: FLUTICASONE PROPIONATE 0.05% NA SPR 16 GM BTL (*BKC) 2 SPRAY NASAL (09:40)
[2025-02-21] MEDS: MAGNESIUM OXIDE 400 MG TABLET PO (09:41)
[2025-02-21] MEDS: THERAPEUTIC MULTIVITAMINS/MINERALS TAB (*BKC) 1 TABLET PO (09:41)
[2025-02-21] MEDS: MONTELUKAST SODIUM 10 MG TABLET PO (09:41)
[2025-02-21] MEDS: ROSUVASTATIN 20 MG TABLET 40 MG PO (09:41)
[2025-02-21] MEDS: RANOLAZINE 500 MG TAB.ER.12H 1000 MG PO ×2 (09:41→20:50)
[2025-02-21] MEDS: VITAMIN E 400 UNIT CAPSULE PO (09:41)
[2025-02-21] MEDS: ISOSORBIDE MONONITRATE 30 MG TAB.ER.24H PO (09:41)
[2025-02-21] MEDS: LORATADINE 10 MG TABLET PO (09:41)
--- NOTE | 2025-02-21 12:21 | PM.IMPN ---
Progress Note: A&P Assessment and Plan (1) Wheezing: Code(s): R06.2 - Wheezing Status: Acute Assessment and Plan: Patient wheezing has decreased. Continue with steroid and nebulizer treatment. (2) Shortness of breath: Code(s): R06.02 - Shortness of breath Status: Acute Assessment and Plan: Will be getting better. Will continue current treatment. Pulmonary consult Plan This is a 74-year-old male with a history of CAD status post stents, hypertension, obesity with a BMI 30 who presents with ongoing shortness of breath for 1 month. 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 Possible asthma exacerbation and acute hypoxemic respiratory failure ER evaluation demonstrated SpO2 88% on room air. eosinophils 2.2%, platelets 2-7, BNP negative, troponin negative x2, quad viral screen negative. Neck and chest CT with contrast with medullary teeth moist in frontal sinus disease, no pulmonary nodules or masses, infiltrates or effusions. Dependent atelectatic changes. Reports he had a CT PE study done at a outside hospital which was negative. Continue methylprednisolone, DuoNeb scheduled albuterol nebulizer p.r.n. Continue O2 therapy p.r.n. 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 Due to this ongoing shortness of breath he was directed to the ER by his PCP. Subjective Date/time seen: 02/21/25 12:21 Interval history: Patient was seen during the morning rounds today. Patient has mild shortness of breath. No chest pain. No abdominal pain, no nausea, no vomiting. Review of Systems Review of Systems: All systems reviewed & are unremarkable except as noted in HPI and below (HPI) Exam Narrative: GENERAL: Pleasant, in no acute distress. Well-nourished. - EYES: EOMI. Anicteric. - HENT: Moist mucous membranes. - LUNGS: Clear to auscultation bilaterally, no wheezing, rhonchi, or rales. - CARDIOVASCULAR: Regular rate and rhythm. No murmur. No JVD. - ABDOMEN: Soft, non-tender and non-distended. No palpable masses. - EXTREMITIES: No edema. Peripheral pulses 2+. Non-tender. - NEUROLOGIC: No focal neurological deficits. CN II-XII grossly intact. - PSYCHIATRIC: Awake, Alert and oriented x 3. Appropriate mood and affect. - SKIN: No rashes or lesions. Warm. - LYMPH: No cervical lymphadenopathy. Const: General: comfortable and no acute distress Other: A&O x3 HENMT: Mouth: Yes moist mucous membranes Eyes: Pupils: Equal, round and reactive pupils present Neck: Neck: supple Resp: Effort & Inspection: normal respiratory effort Other: Fine crackles diffusely, greater at the dependent portions of the lungs Cardio: Rate: regular rate Rhythm: regular rhythm : General: Yes bladder normal to palpation Neuro: Cranial nerves: Yes Equal, round and reactive pupils present Motor exam (neuro): 5/5 motor strength present throughout Sensory Exam: normal sensation Extrem: General: no edema Objective Data Vital Signs Vital Signs: Vital Signs - 24 hr 02/20/25 15:14 02/20/25 16:00 02/20/25 16:00 Temperature 36.7 C Pulse Rate 86 84 85 Respiratory Rate 18 20 Blood Pressure 121/51 L Pulse Oximetry 96 Oxygen Delivery 02/20/25 20:00 02/20/25 20:00 02/20/25 21:01 Temperature Pulse Rate 85 80 Respiratory Rate 16 Blood Pressure Pulse Oximetry Oxygen Delivery Room Air 02/20/25 21:08 02/20/25 22:06 02/21/25 00:00 Temperature 36.7 C Pulse Rate 89 86 73 Respiratory Rate 16 16 Blood Pressure 118/51 L Pulse Oximetry 95 Oxygen Delivery 02/21/25 00:00 02/21/25 04:00 02/21/25 04:24 Temperature 36.4 C 36.6 C Pulse Rate 70 62 69 Respiratory Rate 16 16 Blood Pressure 115/52 L 123/59 L Pulse Oximetry 96 96 Oxygen Delivery 02/21/25 08:00 02/21/25 08:00 02/21/25 08:00 Temperature 36.0 C L Pulse Rate 75 63 Respiratory Rate 12 Blood Pressure 124/46 L Pulse Oximetry 97 Oxygen Delivery Room Air 02/21/25 08:07 02/21/25 08:07 02/21/25 08:18 Temperature Pulse Rate 63 68 Respiratory Rate 16 16 Blood Pressure Pulse Oximetry 96 Oxygen Delivery Room Air Intake/Output Intake/Output: Intake & Output 02/18/25 02/19/25 02/20/25 02/21/25 23:59 23:59 23:59 23:59 Intake Total 50 1490 830 Balance 50 1490 830 Meds/Results Medications: Active Medications Generic Name Dose Route Start Last Admin Trade Name Freq PRN Reason Stop Dose Admin Albuterol/Ipratropium 3 ml 02/20/25 02:00 02/21/25 08:06 Ipratropium 0.5 Mg/Albuterol Sulfate 2.5 Mg Ampul.Neb 3 Ml INHALATION 3 ml Q6HRT KRISH Administration Aspirin 81 mg 02/20/25 09:00 02/21/25 09:40 Aspirin 81 Mg Enteric Tablet PO 81 mg DAILY KRISH Administration Clopidogrel Bisulfate 75 mg 02/20/25 09:00 02/21/25 09:40 Clopidogrel Bisulfate 75 Mg Tablet PO 75 mg DAILY KRISH Administration Ezetimibe 10 mg 02/20/25 09:00 02/21/25 09:40 Ezetimibe 10 Mg Tablet PO 10 mg DAILY KRISH Administration Fluticasone Propionate 2 spray 02/20/25 09:00 02/21/25 09:40 Fluticasone Propionate 0.05% Na Spr 16 Gm Btl (*Bkc) NASAL 2 spray DAILY KRISH Administration Furosemide 40 mg 02/21/25 12:20 Furosemide Inj 40 Mg/4 Ml Vial IV PUSH 02/21/25 12:21 ONCE ONE Isosorbide Mononitrate 30 mg 02/20/25 09:00 02/21/25 09:41 Isosorbide Mononitrate 30 Mg Tab.Er.24h PO 30 mg DAILY KRISH Administration Levofloxacin 250 mg 02/22/25 09:00 Levofloxacin 250 Mg Tablet PO DAILY KRISH Loratadine 10 mg 02/20/25 09:00 02/21/25 09:41 Loratadine 10 Mg Tablet PO 10 mg QAM KRISH Administration Magnesium Oxide 400 mg 02/20/25 09:00 02/21/25 09:41 Magnesium Oxide 400 Mg Tablet PO 400 mg DAILY KRISH Administration Melatonin 5 mg 02/19/25 23:30 02/20/25 20:28 Melatonin 5 Mg Tablet PO 5 mg HS KRISH Administration Methylprednisolone Sodium Succinate 60 mg 02/21/25 04:10 02/21/25 11:56 Methylprednisolone Sod Succ 125 Mg Vial IV PUSH 60 mg Q6HR KRISH Administration Montelukast Sodium 10 mg 02/20/25 09:00 02/21/25 09:41 Montelukast Sodium 10 Mg Tablet PO 10 mg DAILY KRISH Administration Multivitamins/Calcium 1 tablet 02/20/25 09:00 02/21/25 09:41 Therapeutic Multivitamins/Minerals Tab (*Bkc) PO 1 tablet DAILY KRISH Administration Perflutren Lipid Microsphere 0 ml 02/19/25 21:59 Perflutren Lipid Microspheres 1.5 Ml Vial Diluted To 10 Ml Total Volume IV PUSH 02/22/25 21:59 ONCE PRN adequate visualization Protocol Potassium Chloride 20 meq 02/21/25 12:20 Potassium Chloride 20 Meq Er Tablet PO 02/21/25 12:21 ONCE ONE Ranolazine 1,000 mg 02/20/25 09:00 02/21/25 09:41 Ranolazine 500 Mg Tab.Er.12h PO 1,000 mg Q12HR KRISH Administration Rosuvastatin Calcium 40 mg 02/20/25 09:00 02/21/25 09:41 Rosuvastatin 20 Mg Tablet PO 40 mg DAILY KRISH Administration Vitamin E 400 unit 02/20/25 09:00 02/21/25 09:41 Vitamin E 400 Unit Capsule PO 400 unit DAILY KRISH Administration Radiology Results: ITS Impressions Chest X-Ray 02/19/25 13:25 IMPRESSION: 1. No acute cardiopulmonary disease. Neck/Chest CT 02/19/25 17:03 IMPRESSION: Medullary ethmoid and frontal sinus disease. Otherwise, normal. CT soft tissue neck chest w Ordering provider: Cait Gutierrez PA-C History: 74 years Male with . sob, wheezing . Comparison: None. Technique: CT chest with IV contrast. Radiation reduction technique utilized. The dose-length product was 936.84 mGy-cm. 100 mL Omnipaque 350 was given IV. Findings: VISUALIZED THORACIC INLET: Normal. MEDIASTINUM: Aorta/coronary arteries: Mild atheromatous disease. Heart/other: The heart is slightly enlarged. Lymph nodes: No mediastinal or hilar adenopathy. Small lymph nodes are noted. LUNGS: No pulmonary nodules or masses. No infiltrates or effusions. No pneumothorax. Dependent atelectatic changes. VISUALIZED UPPER ABDOMEN: the visualized upper abdomen is normal. MUSCULOSKELETAL: Soft tissues: The superficial soft tissues are normal. Bones: Age appropriate degenerative changes of the spine. IMPRESSION: No acute cardiopulmonary pathology.
[2025-02-21] MEDS: POTASSIUM CHLORIDE 20 MEQ ER TABLET PO (13:33)
[2025-02-21] MEDS: FUROSEMIDE INJ 40 MG/4 ML VIAL IV PUSH (13:33)
--- NOTE | 2025-02-21 15:24 | PCRCNOTE ---
SHANTA Albrecht contacted [facility] to let us know DR Loza entered request for home neb set up. Faxed order to [facility]. DIA [phone] They will reach out to Pt to set up for home use..
[2025-02-21] MEDS: MELATONIN 5 MG TABLET PO (20:48)
[2025-02-21] MEDS: methylPREDNISolone SOD SUCC 40 MG VIAL IV PUSH (20:48)
[2025-02-22] VITALS (15 sets, daily range): BP systolic 90–155; BP diastolic 48–65; PULSE 58–75; RESP 16–24; TEMP 36.4–36.6; O2SAT 96–99
--- NOTE | 2025-02-22 03:45 | PCRCNOTE ---
Patient did not receive 0200 updraft treatment due to being on an apnea link. Treatment to resume at 0800.
[2025-02-22] MEDS: methylPREDNISolone SOD SUCC 40 MG VIAL IV PUSH ×2 (05:49→14:00)
[2025-02-22] MEDS: IPRATROPIUM 0.5 MG/ALBUTEROL SULFATE 2.5 MG AMPUL.NEB 3 ML INHALATION ×3 (07:56→19:35)
--- NOTE | 2025-02-22 08:37 | PC.NURSE ---
pt states he is wanting to wait to eat breakfast or take PO meds until after MBS today
--- NOTE | 2025-02-22 09:44 | P.PNIM_ITS ---
Progress Note: A&P Assessment and Plan (1) Wheezing: Code(s): R06.2 - Wheezing Status: Acute Assessment and Plan: Patient wheezing has decreased. Continue with steroid and nebulizer treatment. (2) Shortness of breath: Code(s): R06.02 - Shortness of breath Status: Acute Assessment and Plan: Will be getting better. Will continue current treatment. Pulmonary consult Plan This is a 74-year-old male with a history of CAD status post stents, hypertension, obesity with a BMI 30 who presents with ongoing shortness of breath for 1 month. 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 Possible asthma exacerbation and acute hypoxemic respiratory failure ER evaluation demonstrated SpO2 88% on room air. eosinophils 2.2%, platelets 2-7, BNP negative, troponin negative x2, quad viral screen negative. Neck and chest CT with contrast with medullary teeth moist in frontal sinus disease, no pulmonary nodules or masses, infiltrates or effusions. Dependent atelectatic changes. Reports he had a CT PE study done at a outside hospital which was negative. Continue methylprednisolone, DuoNeb scheduled albuterol nebulizer p.r.n. Continue O2 therapy p.r.n. to keep pulse ox above 90 echocardiogram pending consult pulmonology per cardiology coordinator CAD status post stent current no chest pain Continue aspirin 81 mg daily p.o., Plavix 75 mg daily p.o., Imdur 30 mg daily p.o., Crestor 40 mg daily p.o. 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 Due to this ongoing shortness of breath he was directed to the ER by his PCP. Subjective Date/time seen: 02/22/25 09:44 Interval history: Patient was seen during the morning rounds today. No new overnight complaints Patient has mild shortness of breath. No chest pain. No abdominal pain, no nausea, no vomiting. Review of Systems Review of Systems: All systems reviewed & are unremarkable except as noted in HPI and below (HPI) Exam Narrative: GENERAL: Pleasant, in no acute distress. Well-nourished. - EYES: EOMI. Anicteric. - HENT: Moist mucous membranes. - LUNGS: Air entry is better, few exp wh eeze - CARDIOVASCULAR: Regular rate and rhyth m. No murmur. No JVD. - ABDOMEN: Soft, non-tender and non-dist ended. No palpable masses. - EXTREMITIES: No edema. Peripheral puls es 2+. Non-tender. - NEUROLOGIC: No focal neurological defi cits. CN II-XII grossly intact. - PSYCHIATRIC: Awake, Alert and oriented x 3. Appropriate mood and affect. - SKIN: No rashes or lesions. Warm. - LYMPH: No cervical lymphadenopathy. Const: General: comfortable and no acute distress Other: A&O x3 HENMT: Mouth: Yes moist mucous membranes Eyes: Pupils: Equal, round and reactive pupils present Neck: Neck: supple Resp: Effort & Inspection: normal respiratory effort Other: Fine crackles diffusely, greater at the dependent portions of the lungs Cardio: Rate: regular rate Rhythm: regular rhythm : General: Yes bladder normal to palpation Neuro: Cranial nerves: Yes Equal, round and reactive pupils present Motor exam (neuro): 5/5 motor strength present throughout Sensory Exam: normal sensation Extrem: General: no edema Objective Data Vital Signs Vital Signs: Vital Signs - 24 hr 02/21/25 12:00 02/21/25 12:00 02/21/25 13:45 Temperature Pulse Rate 76 69 71 Respiratory Rate 14 16 Blood Pressure 130/58 L Pulse Oximetry 97 Oxygen Delivery 02/21/25 13:54 02/21/25 16:00 02/21/25 16:00 Temperature Pulse Rate 70 74 87 Respiratory Rate 16 16 Blood Pressure 138/71 Pulse Oximetry 97 Oxygen Delivery 02/21/25 20:00 02/21/25 20:00 02/21/25 20:00 Temperature 36.4 C Pulse Rate 72 75 Respiratory Rate 20 Blood Pressure 133/59 L Pulse Oximetry 97 Oxygen Delivery Room Air 02/21/25 20:17 02/21/25 20:34 02/21/25 20:34 Temperature Pulse Rate 77 72 Respiratory Rate 16 16 Blood Pressure Pulse Oximetry 97 Oxygen Delivery Room Air 02/21/25 21:08 02/21/25 22:22 02/22/25 00:00 Temperature 36.4 C Pulse Rate 72 62 Respiratory Rate 20 Blood Pressure 133/59 L Pulse Oximetry 97 97 Oxygen Delivery Room Air 02/22/25 04:00 02/22/25 04:00 02/22/25 05:01 Temperature 36.6 C 36.6 C Pulse Rate 59 L 58 L 58 L Respiratory Rate 20 20 Blood Pressure 122/48 L 122/48 L Pulse Oximetry 97 97 Oxygen Delivery 02/22/25 07:56 02/22/25 07:56 02/22/25 08:09 Temperature Pulse Rate 59 L 62 Respiratory Rate 20 20 Blood Pressure Pulse Oximetry 97 Oxygen Delivery Room Air Intake/Output Intake/Output: Intake & Output 02/19/25 02/20/25 02/21/25 02/22/25 23:59 23:59 23:59 23:59 Intake Total 50 1490 1510 390 Output Total 825 Balance 50 1490 685 390 Meds/Results Medications: Active Medications Generic Name Dose Route Start Last Admin Trade Name Freq PRN Reason Stop Dose Admin Albuterol/Ipratropium 3 ml 02/20/25 02:00 02/22/25 07:56 Ipratropium 0.5 Mg/Albuterol Sulfate 2.5 Mg Ampul.Neb 3 Ml INHALATION 3 ml Q6HRT KRISH Administration Aspirin 81 mg 02/20/25 09:00 02/21/25 09:40 Aspirin 81 Mg Enteric Tablet PO 81 mg DAILY KRISH Administration Clopidogrel Bisulfate 75 mg 02/20/25 09:00 02/21/25 09:40 Clopidogrel Bisulfate 75 Mg Tablet PO 75 mg DAILY KRISH Administration Ezetimibe 10 mg 02/20/25 09:00 02/21/25 09:40 Ezetimibe 10 Mg Tablet PO 10 mg DAILY KRISH Administration Fluticasone Propionate 2 spray 02/20/25 09:00 02/21/25 09:40 Fluticasone Propionate 0.05% Na Spr 16 Gm Btl (*Bkc) NASAL 2 spray DAILY KRISH Administration Isosorbide Mononitrate 30 mg 02/20/25 09:00 02/21/25 09:41 Isosorbide Mononitrate 30 Mg Tab.Er.24h PO 30 mg DAILY KRISH Administration Levofloxacin 250 mg 02/22/25 09:00 Levofloxacin 250 Mg Tablet PO DAILY KRISH Loratadine 10 mg 02/20/25 09:00 02/21/25 09:41 Loratadine 10 Mg Tablet PO 10 mg QAM KRISH Administration Magnesium Oxide 400 mg 02/20/25 09:00 02/21/25 09:41 Magnesium Oxide 400 Mg Tablet PO 400 mg DAILY KRISH Administration Melatonin 5 mg 02/19/25 23:30 02/21/25 20:48 Melatonin 5 Mg Tablet PO 5 mg HS KRISH Administration Methylprednisolone Sodium Succinate 40 mg 02/21/25 22:00 02/22/25 05:49 Methylprednisolone Sod Succ 40 Mg Vial IV PUSH 40 mg Q8HR KRISH Administration Montelukast Sodium 10 mg 02/20/25 09:00 02/21/25 09:41 Montelukast Sodium 10 Mg Tablet PO 10 mg DAILY KRISH Administration Multivitamins/Calcium 1 tablet 02/20/25 09:00 02/21/25 09:41 Therapeutic Multivitamins/Minerals Tab (*Bkc) PO 1 tablet DAILY KRISH Administration Perflutren Lipid Microsphere 0 ml 02/19/25 21:59 Perflutren Lipid Microspheres 1.5 Ml Vial Diluted To 10 Ml Total Volume IV PUSH 02/22/25 21:59 ONCE PRN adequate visualization Protocol Ranolazine 1,000 mg 02/20/25 09:00 02/21/25 20:50 Ranolazine 500 Mg Tab.Er.12h PO 1,000 mg Q12HR KRISH Administration Rosuvastatin Calcium 40 mg 02/20/25 09:00 02/21/25 09:41 Rosuvastatin 20 Mg Tablet PO 40 mg DAILY KRISH Administration Vitamin E 400 unit 02/20/25 09:00 02/21/25 09:41 Vitamin E 400 Unit Capsule PO 400 unit DAILY KRISH Administration Radiology Results: ITS Impressions Chest X-Ray 02/19/25 13:25 IMPRESSION: 1. No acute cardiopulmonary disease. Neck/Chest CT 02/19/25 17:03 IMPRESSION: Medullary ethmoid and frontal sinus disease. Otherwise, normal. CT soft tissue neck chest w Ordering provider: Cait Gutierrez PA-C History: 74 years Male with . sob, wheezing . Comparison: None. Technique: CT chest with IV contrast. Radiation reduction technique utilized. The dose-length product was 936.84 mGy-cm. 100 mL Omnipaque 350 was given IV. Findings: VISUALIZED THORACIC INLET: Normal. MEDIASTINUM: Aorta/coronary arteries: Mild atheromatous disease. Heart/other: The heart is slightly enlarged. Lymph nodes: No mediastinal or hilar adenopathy. Small lymph nodes are noted. LUNGS: No pulmonary nodules or masses. No infiltrates or effusions. No pneumothorax. Dependent atelectatic changes. VISUALIZED UPPER ABDOMEN: the visualized upper abdomen is normal. MUSCULOSKELETAL: Soft tissues: The superficial soft tissues are normal. Bones: Age appropriate degenerative changes of the spine. IMPRESSION: No acute cardiopulmonary pathology.
--- NOTE | 2025-02-22 11:49 | PCSTNOTE ---
Please refer to the Modified Barium Swallow Evaluation in the EMR.
[2025-02-22] MEDS: POTASSIUM CHLORIDE 10 MEQ ER TABLET PO (12:38)
[2025-02-22] MEDS: levoFLOXacin 250 MG TABLET PO (12:39)
[2025-02-22] MEDS: ASPIRIN 81 MG ENTERIC TABLET PO (12:39)
[2025-02-22] MEDS: ISOSORBIDE MONONITRATE 30 MG TAB.ER.24H PO (12:39)
[2025-02-22] MEDS: EZETIMIBE 10 MG TABLET PO (12:39)
[2025-02-22] MEDS: FUROSEMIDE 20 MG TABLET PO (12:39)
[2025-02-22] MEDS: LORATADINE 10 MG TABLET PO (12:39)
[2025-02-22] MEDS: MAGNESIUM OXIDE 400 MG TABLET PO (12:39)
[2025-02-22] MEDS: MONTELUKAST SODIUM 10 MG TABLET PO (12:40)
[2025-02-22] MEDS: THERAPEUTIC MULTIVITAMINS/MINERALS TAB (*BKC) 1 TABLET PO (12:40)
[2025-02-22] MEDS: ROSUVASTATIN 20 MG TABLET 40 MG PO (12:40)
[2025-02-22] MEDS: CLOPIDOGREL BISULFATE 75 MG TABLET PO (12:40)
[2025-02-22] MEDS: FLUTICASONE PROPIONATE 0.05% NA SPR 16 GM BTL (*BKC) 2 SPRAY NASAL (12:41)
[2025-02-22] MEDS: RANOLAZINE 500 MG TAB.ER.12H 1000 MG PO ×2 (12:41→20:06)
[2025-02-22] MEDS: MELATONIN 5 MG TABLET PO (20:06)
[2025-02-23] VITALS: BP 135/61; PULSE 54; PULSE 59; RESP 20; TEMP 36.2; O2SAT 97
[2025-02-23] MEDS: methylPREDNISolone SOD SUCC 40 MG VIAL IV PUSH ×2 (00:21→06:05)
[2025-02-23 04:00] VITALS: BP 151/65; PULSE 55; PULSE 61; RESP 20; TEMP 36.4; O2SAT 96
[2025-02-23 08:00] VITALS: PULSE 68
[2025-02-23] MEDS: ASPIRIN 81 MG ENTERIC TABLET PO (08:51)
[2025-02-23] MEDS: POTASSIUM CHLORIDE 10 MEQ ER TABLET PO (08:51)
[2025-02-23] MEDS: EZETIMIBE 10 MG TABLET PO (08:51)
[2025-02-23] MEDS: THERAPEUTIC MULTIVITAMINS/MINERALS TAB (*BKC) 1 TABLET PO (08:51)
[2025-02-23] MEDS: VITAMIN E 400 UNIT CAPSULE PO (08:51)
[2025-02-23] MEDS: levoFLOXacin 250 MG TABLET PO (08:52)
[2025-02-23] MEDS: ISOSORBIDE MONONITRATE 30 MG TAB.ER.24H PO (08:52)
[2025-02-23] MEDS: CLOPIDOGREL BISULFATE 75 MG TABLET PO (08:52)
[2025-02-23] MEDS: RANOLAZINE 500 MG TAB.ER.12H 1000 MG PO (08:52)
[2025-02-23] MEDS: MONTELUKAST SODIUM 10 MG TABLET PO (08:52)
[2025-02-23] MEDS: ROSUVASTATIN 20 MG TABLET 40 MG PO (08:52)
[2025-02-23] MEDS: FUROSEMIDE 20 MG TABLET PO (08:52)
[2025-02-23] MEDS: LORATADINE 10 MG TABLET PO (08:52)
[2025-02-23] MEDS: MAGNESIUM OXIDE 400 MG TABLET PO (08:52)
--- NOTE | 2025-02-23 09:04 | P.DS_ITS ---
DS: Admitting Diagnosis Discharge Date 02/23/2025 Admitting Diagnosis SOB DS: Discharge Diagnosis Discharge Diagnosis (1) Wheezing: Code(s): R06.2 - Wheezing Status: Acute Assessment and Plan: Patient wheezing has decreased. Continue with steroid and nebulizer treatment. (2) Shortness of breath: Code(s): R06.02 - Shortness of breath Status: Acute Assessment and Plan: Will be getting better. Will continue current treatment. Pulmonary consult Plan This is a 74-year-old male with a history of CAD status post stents, hypertension, obesity with a BMI 30 who presents with ongoing shortness of breath for 1 month. 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 Possible asthma exacerbation and acute hypoxemic respiratory failure ER evaluation demonstrated SpO2 88% on room air. eosinophils 2.2%, platelets 2-7, BNP negative, troponin negative x2, quad viral screen negative. Neck and chest CT with contrast with medullary teeth moist in frontal sinus disease, no pulmonary nodules or masses, infiltrates or effusions. Dependent atelectatic changes. Reports he had a CT PE study done at a outside hospital which was negative. Continue methylprednisolone, DuoNeb scheduled albuterol nebulizer p.r.n. Continue O2 therapy p.r.n. 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 Due to this ongoing shortness of breath he was directed to the ER by his PCP. DS: Summary Hospital Course Reason for hospitalization: SOB Hospital Course: 74 years old male was admitted for shortness of breath. The patient was found to have bronchitis x-ray patient COPD. Patient was given antibiotics nebulizer treatment and steroid. During the stay in the hospital patient did not have any complication. Today patient is feeling better and was discharged home in stable condition. Follow-up appointment made with primary care, pulmonary, cardiology. Status at Discharge Cognitive/behavioral status at discharge: Stable Time Spent with Patient Time attestation: Total time spent providing and/or coordinating discharge services: 30 minutes Exam Narrative: GENERAL: Pleasant, in no acute distress. Well-nourished. - EYES: EOMI. Anicteric. - HENT: Moist mucous membranes. - LUNGS: Air entry is better, few exp wh eeze - CARDIOVASCULAR: Regular rate and rhyth m. No murmur. No JVD. - ABDOMEN: Soft, non-tender and non-dist ended. No palpable masses. - EXTREMITIES: No edema. Peripheral puls es 2+. Non-tender. - NEUROLOGIC: No focal neurological defi cits. CN II-XII grossly intact. - PSYCHIATRIC: Awake, Alert and oriented x 3. Appropriate mood and affect. - SKIN: No rashes or lesions. Warm. - LYMPH: No cervical lymphadenopathy. Const: General: comfortable and no acute distress Other: A&O x3 HENMT: Mouth: Yes moist mucous membranes Eyes: Pupils: Equal, round and reactive pupils present Neck: Neck: supple Resp: Effort & Inspection: normal respiratory effort Other: Fine crackles diffusely, greater at the dependent portions of the lungs Cardio: Rate: regular rate Rhythm: regular rhythm : General: Yes bladder normal to palpation Neuro: Cranial nerves: Yes Equal, round and reactive pupils present Motor exam (neuro): 5/5 motor strength present throughout Sensory Exam: normal sensation Extrem: General: no edema Discharge Plan Discharge Attending physician on discharge: Martín Mesa Consulting providers: Nubia Loza Discharging Clinician: Martín Mesa Patient Disposition: Home Activity: as tolerated Diet: as tolerated and low sodium Patient Instructions: Antibiotic Form, Safe Use of Anticoagulants (GEN) Patient Language: Nigerien Stand Alone Forms: General Discharge Information Follow-up/Referrals: Cardiology [facility] [place] [Provider Group] Frank,MD Siddhartha [Primary Care Provider] - Nubia Loza MD [Physician] - Discharge Medications: New methylprednisolone [Medrol (Kee)] 4 mg tablets,dose pack 4 mg PO DAILY Qty: 21 0RF potassium chloride [Klor-Con 10] 10 mEq tablet extended release 10 meq PO DAILY Qty: 30 0RF levofloxacin 250 mg Tablet 250 mg PO DAILY Qty: 7 0RF furosemide 20 mg Tablet 20 mg PO DAILY Qty: 30 0RF Continued Adult Probiotic 1 cap PO BOLUS cetirizine [Zyrtec] 10 mg Tablet 10 mg PO DAILY metoprolol succinate 50 mg tablet extended release 24 hr 50 mg PO DAILY isosorbide mononitrate 30 mg tablet extended release 24 hr 30 mg PO DAILY clopidogrel 75 mg tablet 75 mg PO DAILY aspirin 81 mg Tablet,Delayed Release (Dr/Ec) 81 mg PO DAILY fluticasone propionate 50 mcg/actuation spray,suspension 2 spray INTRANASAL DAILY ezetimibe 10 mg tablet 10 mg PO DAILY rosuvastatin 40 mg tablet 40 mg PO DAILY multivit with min-folic acid [Adult One Daily Multivitamin] 0.4 mg Tablet 1 tablet PO DAILY ranolazine 1,000 mg tablet extended release 12 hr 1,000 mg PO BID melatonin 5 mg Tablet 5 mg PO HS vitamin E (dl, acetate) 180 mg (400 unit) Capsule 180 mg PO DAILY coQ10 (ubiquinol) 200 mg Capsule 400 mg PO DAILY magnesium oxide 400 mg magnesium Capsule 400 mg PO DAILY Calcium Plus D3 1,200 mg PO DAILY No Action montelukast 10 mg tablet 10 mg PO DAILY Date of admission: 02/20/25 07:44 Primary Care Provider: JoseSiddhartha Admitting Provider: Therese Crystal Attending physician on admission: Therese Crystal Condition: Stable
[2025-02-23 09:13] VITALS: PULSE 60; RESP 20; O2SAT 98
[2025-02-23] MEDS: IPRATROPIUM 0.5 MG/ALBUTEROL SULFATE 2.5 MG AMPUL.NEB 3 ML INHALATION (09:13)
[2025-02-23 09:26] VITALS: PULSE 62; RESP 20
== END 2025-02-23 10:37 | disposition home or self-care (01) | DRG 189 ==
LOC: ANHED 19:50 → ANH2MED 20:52
PROVIDERS: Emergency Medicine; Internal Medicine Critical Care Medicine; Admitting Provider General Practice; Emergency Provider Physician Assistant; PCP Internal Medicine; Visit Provider Internal Medicine
DX: J96.01 Acute respiratory failure with hypoxia (principal); J45.901 Unspecified asthma with (acute) exacerbation; J42 Unspecified chronic bronchitis; I25.10 Atherosclerotic heart disease of native coronary artery without angina pectoris; I10 Essential (primary) hypertension; J32.9 Chronic sinusitis, unspecified; R13.10 Dysphagia, unspecified; E66.9 Obesity, unspecified; Z68.30 Body mass index [BMI] 30.0-30.9, adult; Z95.5 Presence of coronary angioplasty implant and graft
CPT/HCPCS: 36415; 70491; 71046; 71260; 80053; 83880; 84484; 85025; 87633; 87637; 92526; 92611; 93005; 93306; 94640; 94667; 94762; 96365; 96375; 99285; A9270; G0378; J1938; J2919; J3475; J7512; Q9967

== ENCOUNTER 2025-10-21 19:15 | Emergency (ER) | payer MEDICARE, SELFPAY ==
--- OUTSIDE RECORDS SUMMARY | 2025-10-21 19:16 | XMS_ITS | Patient Health Record ---
Author Organization 1 OF Yannick barragan DPM [facility] Address [address] [address] Reason For Referral No Information Plan Of Treatment No Information
--- OUTSIDE RECORDS SUMMARY | 2025-10-21 19:16 | XMS_ITS | Data Portability ---
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 If tightness gets worse hospital refill Tessalon Perles as he does have a little bit of coffee we will continue with the albuterol we will get the cardiac issues settled with a heart catheterization and he will see me in his regularly scheduled appointment time [email or web address] Not available 02/16/2025 11:28:30 02/19/2025 02/19/2025 He is not doing well I am sending him back to the emergency room he probably needs to be in at least overnight for some steroids breathing treatments I really do not think he is having an anginal equivalent it does not appear to be in any failure and I do not know why any cardiac etiology would cause him to wheezing less he had cardiac asthma which I do not think he has. I have called the attending physician in the emergency room at [facility] which is the patient's hospital of choice today discuss the case with him. Dr. rodarte he was scheduled for cardiac catheterization next week that was discussed as well as his stress test results [email or web address] Not available 02/19/2025 21:10:00 03/04/2025 03/04/2025 Continue current therapy there has not been a big adjustment in medications he will see me back in about 4 mos [email or web address] Not available 03/09/2025 11:32:00 07/01/2025 07/01/2025 Can use some hydrocortisone for his ear dermatitis blood work has been ordered for biochemical management of disease processes and medications healthy lifestyle care instructions follow up 4 months continue current therapy [email or web address] Not available 07/01/2025 13:14:04 Plan of Treatment Reminders Order Date Submit Date Provider Last Modified By Organization Details Last Modified Time Details Appointments ANY 15 2025 10:15A Ximena Marie MD Not available Not available Not available Lab CBC w/ auto diff 2024 025 [facility], [address], [place], [address], 07/02/2025 06:17:06 lipid panel, serum 2024 025 [facility], [address], [place], [address], 07/02/2025 06:17:02 CMP, serum or plasma 2024 025 [facility], [address], [place], [address], 07/02/2025 06:17:03 TSH, ultra-se nsitive, serum 2024 025 [facility], [address], [place], [address], 07/02/2025 06:17:05 T4, free, serum 2024 025 [facility], [address], [place], [address], 07/02/2025 06:17:08 T3, free, serum or plasma 2024 025 [facility], [address], [place], [address], 07/02/2025 06:17:07 lipid panel, serum 2024 025 [facility], [address], [place], [address], 01/29/2025 06:21:56 Referral None recorded . Procedures None recorded . Surgeries None recorded . Imaging None recorded . Medication Orders None recorded . Patient TargetsNo targets recorded. Patient Instructions Encounter Date Encounter Id Patient Instructions Last Modified By Organization Details Last Modified Time 01/28/2025 [id number] A healthy lifestyle: care instructions Not available 01/28/2025 12:53:14 02/13/2025 [id number] A healthy lifestyle: care instructions Not available 02/13/2025 14:16:27 02/19/2025 [id number] A healthy lifestyle: care instructions [email or web address] Not available 02/19/2025 14:27:34 03/04/2025 [id number] A healthy lifestyle: care instructions [email or web address] Not available 03/04/2025 13:07:52 07/01/2025 [id number] A healthy lifestyle: care instructions [email or web address] Not available 07/01/2025 17:27:56 Reason for Referral None Reported. Results Created Date Observation Date Name Description Value Unit Range Abnormal Flag Note LastModifiedBy Organization Detail LastModifiedTime 01/20/2001/19/2025 Tropo robson I.car diac [Mass /volu me] [...] Not Available 01/20/2025 14:43:44 01/20/20 25 01/19/2025 [facility] [employer] [email or web address] olic 1999 panel - Serum or Plasm a carbon dioxide, total [moles/volum e] in serum or plasma 25 mmol/ L low: 22mmol /Lhigh : 30mmol /L normal Not Available Not Available 01/20/2025 14:43:44 01/20/20 25 01/19/2025 [facility] [employer] vivian XD Nutrition olic 1999 panel - Serum or Plasm a anion gap in serum or plasma 9.2 mmol/ L low: 14mmol /Lhigh : 22mmol /L low Not Available Not Available 01/20/2025 14:43:44 01/20/20 25 01/19/2025 [facility] [employer] Jieyin olic 1999 panel - Serum or Plasm a glucose [mass/volume ] in serum or plasma 119 mg/dL low: 70mg/d Lhigh: 99mg/d L high Not Available Not Available 01/20/2025 14:43:44 01/20/20 25 01/19/2025 [facility] [employer] Jieyin olic 1999 panel - Serum or Plasm a urea nitrogen [mass or moles/volume ] in serum or plasma 13 mg/dL low: 8mg/dL high: 19mg/d L normal Not Available Not Available 01/20/2025 14:43:44 01/20/20 25 01/19/2025 [facility] [employer] Jieyin olic 1999 panel - Serum or Plasm a creatinine [mass/volume ] in serum or plasma 1.1 mg/dL low: 0.66mg /dLhig h: 1.25mg /dL normal Not Available Not Available 01/20/2025 14:43:44 01/20/20 25 01/19/2025 [facility] [employer] vivian XD Nutrition olic 1999 panel - Serum or Plasm a glomerular filtration rate/1.73 sq M.predicted [volume rate/area] in serum, plasma or blood >60 normal Not Available Not Available 12/29 14:43:44 01/20/20 25 01/19/2025 [facility] [employer] XD Nutrition olic 1999 panel - Serum or Plasm a alkaline phosphatase [enzymatic activity/vol ume] in serum or plasma 47 U/L low: 38U/Lh igh: 126U/L normal Not Available Not Available 01/20/2025 14:43:44 01/20/20 25 01/19/2025 [facility] [employer] Jieyin [facility] 1999 panel - Serum or Plasm a alanine aminotransfe rase [enzymatic activity/vol ume] in serum or plasma 26 U/L low: 0U/Lhi gh: 50U/L normal Not Available Not Available 01/20/2025 14:43:44 01/20/20 25 01/19/2025 [facility] [employer] J[employer]yin [facility] 1999 panel - Serum or Plasm a aspartate aminotransfe rase [enzymatic activity/vol ume] in serum or plasma 37 U/L low: 15U/Lh igh: 46U/L normal Not Available Not Available 01/20/2025 14:43:44 01/20/20 25 01/19/2025 [facility] [employer] J[employer]yin [facility] 1999 panel - Serum or Plasm a bilirubin.to kip [mass/volume ] in serum or plasma 0.7 mg/dL low: 0.2mg/ dLhigh : 1.3mg/ dL normal Not Available Not Available 01/20/2025 14:43:44 01/20/20 25 01/19/2025 [facility] [employer] J[employer]yin [facility] 1999 panel - Serum or Plasm a calcium [mass/volume ] in serum or plasma 9.1 mg/dL low: 8.4mg/ dLhigh : 10.2mg /dL normal Not Available Not Available 01/20/2025 14:43:44 01/20/20 25 01/19/2025 [facility] [employer] J[employer]yin [facility] 1999 panel - Serum or Plasm a protein [mass/volume ] in serum or plasma 6.4 g/dL low: 6.3g/d Lhigh: 8.2g/d L normal Not Available Not Available 01/20/2025 14:43:44 01/20/20 25 01/19/2025 [facility] [employer] J[employer]yin [facility] 1999 panel - Serum or Plasm [...] 01/21/20 25 01/20/2025 CBC W Auto Diffe nato al panel - Blood hemoglobin [mass/volume ] [...] 14:43:46 01/21/20 25 01/20/2025 Basic metab olic 2000 panel - Serum or Plasm a sodium [...] Not Available 01/20/2025 14:43:45 01/21/20 25 01/20/2025 [facility] 1999 panel - Serum or Plasm a anion gap in serum or plasma 10.3 mmol/ L low: 14mmol /Lhigh : 22mmol /L low Not Available Not Available 01/20/2025 14:43:45 01/21/20 25 01/20/2025 Basic metab [facility] 1999 panel - Serum or Plasm [...] Not Available 01/20/2025 14:43:45 01/21/20 25 01/20/2025 [facility] 1999 panel - Serum or Plasm a creatinine [mass/volume ] in serum or plasma 0.93 mg/dL low: 0.66mg /dLhig h: 1.25mg /dL normal Not Available Not Available 01/20/2025 14:43:45 01/21/20 25 01/20/[facility]25 [facility] panel - Serum or Plasm a glomerular filtration rate/1.73 sq M.predicted [volume rate/area] in serum, plasma or blood >60 normal Not Available Not Available 12/29 14:43:45 01/21/20 25 01/20/2025 [facility] 1999 panel - Serum or Plasm a calcium [mass/volume ] in serum or plasma 9.3 mg/dL low: 8.4mg/ dLhigh : 10.2mg /dL normal Not Available Not Available 01/20/2025 14:43:45 01/29/20 25 01/29/2025 LIPID PANEL cholesterol, total 129 mg/dL 100-19 9 Not Available [facility] ([facility]) [address] [facility], [place], [address], 01/29/2025 06:21:56 01/29/20 25 01/29/2025 LIPID PANEL triglyceride s 142 mg/dL 0-149 Not Available [facility] ([facility]) [address] [place], [address], 01/29/2025 06:21:56 01/29/20 25 01/29/2025 LIPID PANEL HDL cholesterol 44 mg/dL >39 Not Available [facility] [address] [place], [address], 01/29/2025 06:21:56 01/29/20 25 01/29/2025 LIPID PANEL VLDL cholesterol nando 25 mg/dL 5-40 Not Available [facility] ([facility]) [address] [place], [address], 01/29/2025 06:21:56 01/29/20 25 01/29/2025 LIPID PANEL LDL chol calc ([facility]) 60 mg/dL 0-99 Not Available [facility] [address] [place], [address], 01/29/2025 06:21:56 07/01/20 25 07/02/2025 LIPID PANEL cholesterol, total 236 mg/dL 100-19 9 above high normal Not Available [facility] ([facility]) [address] [place], [address], 07/02/2025 06:17:02 07/01/20 25 07/02/2025 LIPID PANEL triglyceride s 305 mg/dL 0-149 above high normal Not Available [facility] ([facility]) [address] [place], [address], 07/02/2025 06:17:02 07/01/20 25 07/02/2025 LIPID PANEL HDL cholesterol 39 mg/dL >39 below low normal Not Available [facility] ([facility]) [address] [place], [address], 07/02/2025 06:17:02 07/01/20 25 07/02/2025 LIPID PANEL VLDL cholesterol nando 56 mg/dL 5-40 above high normal Not Available [facility] ([facility]) [address] [place], [address], 07/02/2025 06:17:02 07/01/20 25 07/02/2025 LIPID PANEL LDL chol calc ([facility]) 141 mg/dL 0-99 above high normal Not Available [facility] ([facility]) [address] [place], [address], 07/02/2025 06:17:02 07/01/20 25 07/01/2025 COMP. METAB OLIC PANEL (14) interpretati on: COMMEN T GFR estim ate at the follo wing level for >or=3 month s is class ified as follo ws: GFR WITH KIDNE Y DAMAG E WITHO UT KIDNE Y DAMAG E >or=9 0 Stage 1 Shanel l 60-89 Stage 2 Decr eased GFR 30-59 Stage 3 Stage 3 15-29 Stage 4 Stage 4 <15 (or dialy sis) Stage 5 Stage 5 Estim ated GFR will over estim ate true GFR if serum creat inine is risin g as in acute renal failu re and will under estim ate true GFR if serum creat inine is decli sawyer as in resol ving acute renal failu re. Addit ional infor chato barragan may be found at www.k [email or web address]. org. Not Available [facility] ([facility]) [address] [place], [address], 07/02/2025 06:17:03 07/01/2007/02/2025 COMP. METAB OLIC PANEL (14) glucose 112 mg/dL 70-99 above high normal Not Available [facility] ([facility]) [address] [place], [address], 07/02/2025 06:17:03 07/01/2007/02/2025 COMP. METAB OLIC PANEL (14) BUN 14 mg/dL 8-27 Not Available [facility] ([facility]) [address] [place], [address], 07/02/2025 06:17:03 07/01/20 25 07/02/2025 COMP. METAB OLIC PANEL (14) creatinine 1.16 mg/dL 0.76-1 .27 Not Available [facility] ([facility]) [address] [facility], [place], [address], 07/02/2025 06:17:03 07/01/20 25 07/02/2025 COMP. METAB OLIC PANEL (14) eGFR 66 mL/mi n/1.7 3 >59 Not Available [facility] ([facility]) [address] [facility], [place], [address], 07/02/2025 06:17:03 07/01/20 25 07/02/2025 COMP. METAB OLIC PANEL (14) BUN/creatini ne ratio 12 10-24 Not Available [facility] ([facility]) [address] [facility], [place], [address], 07/02/2025 06:17:03 07/01/20 25 07/02/2025 COMP. METAB OLIC PANEL (14) sodium 140 mmol/ L 134-14 4 Not Available [facility] ([facility]) [address] [facility], [place], [address], 07/02/2025 06:17:03 07/01/20 25 07/02/2025 COMP. METAB OLIC PANEL (14) potassium 4.9 mmol/ L 3.5-5. 2 Not Available [facility] ([facility]) [address] [facility], [place], [address], 07/02/2025 06:17:03 07/01/20 25 07/02/2025 COMP. METAB OLIC PANEL (14) chloride 103 mmol/ L 96-106 Not Available [facility] ([facility]) [address] [facility], [place], [address], 07/02/2025 06:17:03 07/01/20 25 07/02/2025 COMP. METAB OLIC PANEL (14) carbon dioxide, total 22 mmol/ L 20-29 Not Available [facility] ([facility]) [address] [facility], [place], [address], 07/02/2025 06:17:03 07/01/20 25 07/02/2025 COMP. METAB OLIC PANEL (14) calcium 9.9 mg/dL 8.6-10 .2 Not Available [facility] ([facility]) [address] [facility], [place], [address], 07/02/2025 06:17:03 07/01/20 25 07/02/2025 COMP. METAB OLIC PANEL (14) protein, total 6.5 g/dL 6.0-8. 5 Not Available [facility] ([facility]) [address] [facility], [place], [address], 07/02/2025 06:17:03 07/01/20 25 07/02/2025 COMP. METAB OLIC PANEL (14) albumin 4.5 g/dL 3.8-4. 8 Not Available [facility] ([facility]) [address] [place], [address], 07/02/2025 06:17:03 07/01/20 25 07/02/2025 COMP. METAB OLIC PANEL (14) globulin, total 2.0 g/dL 1.5-4. 5 Not Available [facility] ([facility]) [address] [place], [address], 07/02/2025 06:17:03 07/01/20 25 07/02/2025 COMP. METAB OLIC PANEL (14) bilirubin, total 0.4 mg/dL 0.0-1. 2 Not Available [facility] ([facility]) [address] [place], [address], 07/02/2025 06:17:03 07/01/20 25 07/02/2025 COMP. METAB OLIC PANEL (14) alkaline phosphatase 61 IU/L 44-121 Eff ectiv e Septe mber 2024 Alkal ine Phosp hatas e refer ence inter saadia will be king ing to: Age Male Femal e 0 - 5 days 47 - 127 47 - 127 6 - 10 days 29 - 242 29 - 242 11 - 20 days 109 - 357 109 - 357 21 - 30 days 94 - 494 94 - 494 1 - 2 month s 149 - 539 149 - 539 3 - 6 month s 131 - 452 131 - 452 7 - 11 month s 117 - 401 117 - 401 12 month s - 6 years 158 - 369 158 - 369 7 - 12 years 150 - 409 150 - 409 13 years 156 - 435 78 - 227 14 years 114 - 375 64 - 161 15 years 88 - 279 56 - 134 16 years 74 - 207 51 - 121 17 years 63 - 161 47 - 113 18 - 20 years 51 - 125 42 - 106 21 - 50 years 47 - 123 41 - 116 51 - 80 years 49 - 135 51 - 125 >80 years 48 - 129 48 - 129 Not Available [facility] ([facility]) [address] [place], [address], 07/02/2025 06:17:03 07/01/20 25 07/02/2025 COMP. METAB OLIC PANEL (14) AST (SGOT) 27 IU/L 0-40 Not Available [facility] ([facility]) [address] [place], [address], 07/02/2025 06:17:03 07/01/20 25 07/02/2025 COMP. METAB OLIC PANEL (14) ALT (SGPT) 22 IU/L 0-44 Not Available [facility] ([facility]) [address] [place], [address], 07/02/2025 06:17:03 07/01/2007/02/2025 TSH TSH 3.730 uIU/m L 0.450- 4.500 Not Available [facility] ([facility]) [address] [place], [address], 07/02/2025 06:17:05 07/01/2007/01/2025 CBC WITH DIFFE RENTI AL/PL ATELE T WBC 6.3 x10e3 /uL 3.4-10 .8 Not Available [facility] ([facility]) [address] [facility], [place], [address], 07/02/2025 06:17:06 07/01/2007/01/2025 CBC WITH DIFFE RENTI AL/PL ATELE T RBC 4.20 x10e6 /uL 4.14-5 .80 Not Available [facility] ([facility]) [address] [facility], [place], [address], 07/02/2025 06:17:06 07/01/2007/01/2025 CBC WITH DIFFE RENTI AL/PL ATELE T hemoglobin 13.5 g/dL 13.0-1 7.7 Not Available [facility] ([facility]) [address] [facility], [place], [address], 07/02/2025 06:17:06 07/01/2007/01/2025 CBC WITH DIFFE RENTI AL/PL ATELE T hematocrit 40.8 % 37.5-5 1.0 Not Available [facility] ([facility]) [address] [facility], [place], [address], 07/02/2025 06:17:06 07/01/2007/01/2025 CBC WITH DIFFE RENTI AL/PL ATELE T MCV 97 fL 79-97 Not Available [facility] ([facility]) [address] [place], [address], 07/02/2025 06:17:06 07/01/2007/01/2025 CBC WITH DIFFE RENTI AL/PL ATELE T MCH 32.1 pg 26.6-3 3.0 Not Available [facility] ([facility]) [address] [place], [address], 07/02/2025 06:17:06 07/01/2007/01/2025 CBC WITH DIFFE RENTI AL/PL ATELE T MCHC 33.1 g/dL 31.5-3 5.7 Not Available [facility] ([facility]) [address] [facility], [place], [address], 07/02/2025 06:17:06 07/01/2007/01/2025 CBC WITH DIFFE RENTI AL/PL ATELE T RDW 12.4 % 11.6-1 5.4 Not Available [facility] ([facility]) [address] [facility], [place], [address], 07/02/2025 06:17:06 07/01/2007/01/2025 CBC WITH DIFFE RENTI AL/PL ATELE T platelets 224 x10e3 /uL 150-45 0 Not Available [facility] ([facility]) [address] [facility], [place], [address], 07/02/2025 06:17:06 07/01/2007/01/2025 CBC WITH DIFFE RENTI AL/PL ATELE T neutrophils 59 % notest ab. Not Available [facility] ([facility]) [address] [facility], [place], [address], 07/02/2025 06:17:06 07/01/2007/01/2025 CBC WITH DIFFE RENTI AL/PL ATELE T lymphs 22 % notest ab. Not Available [facility] ([facility]) [address] [place], [address], 07/02/2025 06:17:06 07/01/2007/01/2025 CBC WITH DIFFE RENTI AL/PL ATELE T monocytes 13 % notest ab. Not Available [facility] ([facility]) [address] [place], [address], 07/02/2025 06:17:06 07/01/2007/01/2025 CBC WITH DIFFE RENTI AL/PL ATELE T eos 3 % notest ab. Not Available [facility] ([facility]) [address] [place], [address], 07/02/2025 06:17:06 07/01/2007/01/2025 CBC WITH DIFFE RENTI AL/PL ATELE T basos 1 % notest ab. Not Available [facility] ([facility]) [address] [place], [address], 07/02/2025 06:17:06 07/01/2007/01/2025 CBC WITH DIFFE RENTI AL/PL ATELE T neutrophils (absolute) 3.7 x10e3 /uL 1.4-7. 0 Not Available [facility] ([facility]) [address] [place], [address], 07/02/2025 06:17:06 07/01/2007/01/2025 CBC WITH DIFFE RENTI AL/PL ATELE T lymphs (absolute) 1.4 x10e3 /uL 0.7-3. 1 Not Available [facility] ([facility]) [address] [place], [address], 07/02/2025 06:17:06 07/01/2007/01/2025 CBC WITH DIFFE RENTI AL/PL ATELE T monocytes(ab solute) 0.8 x10e3 /uL 0.1-0. 9 Not Available [facility] ([facility]) [address] [place], [address], 07/02/2025 06:17:06 07/01/2007/01/2025 CBC WITH DIFFE RENTI AL/PL ATELE T eos (absolute) 0.2 x10e3 /uL 0.0-0. 4 Not Available [facility] ([facility]) [address] [place], [address], 07/02/2025 06:17:06 07/01/2007/01/2025 CBC WITH DIFFE RENTI AL/PL ATELE T baso (absolute) 0.1 x10e3 /uL 0.0-0. 2 Not Available [facility] ([facility]) [address] [place], [address], 07/02/2025 06:17:06 07/01/2007/01/2025 CBC WITH DIFFE RENTI AL/PL ATELE T immature granulocytes 2 % notest ab. Not Available [facility] ([facility]) [address] [place], [address], 07/02/2025 06:17:06 07/01/2007/01/2025 CBC WITH DIFFE RENTI AL/PL ATELE T immature grans (abs) 0.1 x10e3 /uL 0.0-0. 1 Not Available [facility] ([facility]) [address] [place], [address], 07/02/2025 06:17:06 07/01/2007/02/2025 TRIIO DOTHY SHANAE E (T3), FREE triiodothyro nine (T3), free 2.5 pg/mL 2.0-4. 4 Not Available [facility] ([facility]) [address] [place], [address], 07/02/2025 06:17:07 07/01/2007/02/2025 T4,FR EE(DI RECT) T4,free(dire ct) 1.05 NG/dL 0.82-1 .77 Not Available [facility] ([facility]) [address] [place], [address], 07/02/2025 06:17:08 01/20/2001/19/2025 XR, chest No observ ation record ed. [facility] [address] [facility], [place], [address], 01/21/2025 12:53:24 01/20/20 25 01/19/2025 CT, angio gram, chest , w/o contr ast No observ ation record ed. [facility] [address], [place], [address], 01/21/2025 12:53:04 01/23/20 25 01/22/2025 XR, chest No observ ation record ed. [place] [id number] [facility] [address], [place], [address], 01/23/2025 09:06:40 02/04/2002/03/2025 NM, myoca rdial perfu becca scan No observ ation record ed. [email or web address] [facility] [address], [place], [address], 02/04/2025 09:44:07 02/20/2002/19/2025 XR, chest , 2 view No observ ation record ed. [address], [place], [address], 02/21/2025 11:37:57 02/20/20 25 02/19/2025 CT, neck, soft tissu e, w/ contr ast No observ ation record ed. [address], [place], [address], 02/21/2025 11:36:51 02/21/2002/20/2025 stres s echoc ardio gram with doppl er color flow (PROC ) No observ ation record ed. [address], [place], [address], 02/21/2025 11:37:37 02/23/20 25 02/22/2025 lois lynch ow study No observ ation record ed. [place] [id number] [facility] [address], [place], [address], 02/26/2025 23:40:50 Result Notes None recorded. Problems Name Problem SNOMED Code Status Onset Date Resolution Date Notes Provider Name and Address Organization Details Recorded Time Pain in right foot 0998932625436 07 Active 2023 Bowen Au MA null, [place] - [facility] 4 11:33:09 Hyperlipide payal 91003615 Active 2023 Bowen Au [place], [place] 4 16:18:48 Hypothyroid ism 68740789 Active 2023 Bowen Au [place] null, [place] - [place] 4 16:18:50 Essential hypertensio n 65532365 Active 2023 Bowen Au [place] null, [place] - [place] 4 16:19:05 Coronary atheroscler osis 886069336 Active 2023 Brandt Marie MD Attn: Omid g,[address] [place], [address], [facility] 4 23:39:02 Dyspnea on exertion 31712261 Active 2024 Brandt Marie MD Attn: Accountge g,[address] [place], [address], [facility] - [facility] 5 21:09:38 Problem Notes None recorded. Procedures Surgical History Date Name Laterality Status Provider Name and Address Organization Details Recorded Time Angioplasty With Stent completed Aldo Nelson MA [facility] 01/10/2024 10:23:53 Imaging Results None recorded. Procedure Notes None recorded. Medical Equipment None Reported. Allergies No known drug allergies Medications Name Sig Start Date Stop Date Status Note LastModified by Organization Details LastModified Time doxycycline hyclate 100 mg capsule TAKE 1 CAPSULE BY MOUTH DAILY 02/19 completed Not Available Not Available Not Available albuterol sulfate 2.5 mg/3 mL (0.083 %) solution for nebulizatio n INHALE 2.5 MG VIA NEBULIZER 3 TIMES A DAY NEEDED FOR SHORTNESS OF BREATH OR WHEEZING active Not Available Not Available No t Available azithromyci n 250 mg tablet TAKE 2 TABLETS BY MOUTH TODAY, THEN TAKE 1 TABLET DAILY FOR 4 DAYS DIRECTED active Not Available Not Available No t Available benzonatate 200 mg capsule TAKE 1 CAPSULE BY MOUTH THREE TIMES A DAY NEEDED active Not Available Not Available No t Available cephalexin 250 mg capsule 07/30 completed Not Available Not Available Not Available prednisone 20 mg tablet TAKE 2 TABLETS BY MOUTH DAILY 01/28 completed Not Available Not Available Not Available isosorbide mononitrate ER 30 mg tablet,exte nded release 24 hr TAKE 1 TABLET BY MOUTH EVERY DAY 2024 active Not Available Not Available Not Avai lable potassium chloride ER 10 mEq tablet,exte nded release TAKE 1 TABLET BY MOUTH EVERY DAY active Not Available Not Available No t Available clopidogrel 75 mg tablet TAKE 1 TABLET BY MOUTH EVERY DAY active Not Available Not Available No t Available levofloxaci n 250 mg tablet TAKE 1 TABLET BY MOUTH EVERY DAY active Not Available Not Available No t Available levothyroxi ne 75 mcg tablet TAKE 1 TABLET BY MOUTH EVERY DAY active Not Available Not Available No t Available famotidine 20 mg tablet TAKE 1 TABLET BY MOUTH EVERY DAY AT BEDTIME active Not Available Not Available No t Available cephalexin 500 mg capsule 11/05 completed Not Available Not Available Not Available losartan 25 mg tablet TAKE 1 TABLET BY MOUTH EVERY DAY DIRECTED 2024 active Not Available Not Available Not Avai lable cephalexin 500 mg tablet Take 1 tablet 3 times a day by oral route for 7 days. 11/05 completed Not Available Not Available Not Available montelukast 10 mg tablet TAKE 1 TABLET BY MOUTH EVERY DAY active Not Available Not Available No t Available aspirin 81 mg tablet Take 1 tablet every day by oral route. active Not Available Not Available No t Available furosemide 20 mg tablet TAKE 1 TABLET BY MOUTH EVERY DAY active Not Available Not Available No t Available methylpredn isolone 4 mg tablets in a dose pack TAKE 6 TABLETS ON DAY 1 DIRECTED ON PACKAGE AND DECREASE BY 1 TAB EACH DAY FOR A TOTAL OF 6 DAYS active Not Available Not Available No t Available albuterol sulfate HFA 90 mcg/actuati on aerosol inhaler INHALE 2 PUFFS BY MOUTH EVERY 4 HOURS NEEDED FOR SHORTNESS OF BREATH OR WHEEZING active Not Available Not Available No t Available ketoconazol e 2 % topical cream APPLY TOPICALLY TO THE AFFECTED AREA DAILY. active Not Available Not Available No t Available fluticasone propionate 50 mcg/actuati on nasal spray,suspe nsion SPRAY 1 SPRAY BY INTRANASA L ROUTE EVERY DAY 2024 active Not Available Not Available Not Avai lable ezetimibe 10 mg tablet TAKE 1 TABLET BY MOUTH EVERY DAY active Not Available Not Available No t Available rosuvastati n 40 mg tablet TAKE 1 TABLET BY MOUTH EVERY DAY 2024 active Not Available Not Available Not Avai lable ranolazine ER 1,000 mg tablet,exte nded release,12 hr TAKE 1 TABLET BY MOUTH TWICE [...] (BMI) Body weight Heart rate Oxygen saturation Systolic And Diastolic Provider Name and Address Organization Details Last Updated DateTime 5 167.64 cm 31.4 kg/m2 01472.7 2 g 56 /min 98 % 120/66 mm[Hg] Cristel Fatima [facility] 5 10:52:26 Date Recorded Body height Body mass index (BMI) Body weight Heart rate Oxygen saturation Systolic And Diastolic Provider Name and Address Organization Details Last Updated DateTime 5 167.64 cm 31.6 kg/m2 95961.6 7 g 53 /min 98 % 118/64 mm[Hg] Cristel Fatima [facility] 5 11:45:39 Date Recorded Body height Body mass index (BMI) Body weight Heart rate Oxygen saturation Systolic And Diastolic Provider Name and Address Organization Details Last Updated DateTime 5 167.64 cm 31.5 kg/m2 55411.5 1 g 71 /min 100 % 104/60 mm[Hg] Melvina Poe MA [facility] 5 11:53:47 Date Recorded Body height Body mass index (BMI) Body weight Heart rate Oxygen saturation Systolic And Diastolic Provider Name and Address Organization Details Last Updated DateTime 5 167.64 cm 30.8 kg/m2 92632.7 1 g 62 /min 99 % 104/64 mm[Hg] Melvina Poe [facility] 5 11:31:32 Date Recorded Body height Body mass index (BMI) Body weight Heart rate Oxygen saturation Systolic And Diastolic Provider Name and Address Organization Details Last Updated DateTime 5 167.64 cm 31.3 kg/m2 63180.2 g 60 /min 97 % 110/64 mm[Hg] Cristel Fatima [facility] 5 10:49:52 Social History Question Answer Notes LastModified by Organizat ion Details LastModified Time Tobacco Smoking Status Never Smoker Aldo Nelson MA null, [place] - [facility] 01/10/2024 10:23:17 Do You Have An Advance Directive? No Information not available 01/10/2024 Are You Blind [...] No Information not available 09/25/2024 Are You Deaf Or Do You Have [...] 7 Days, How Much Pain Have You [place]? Some Information not available 07/30/2024 In General, [...] Past 7 Days, How Often Have You [place] Sleepy In The Daytime? Sometimes Information not available 07/30/2024 # Alcohol Drinks Per Week 0 Information not available 07/30/2024 What Was The Date Of Your Most Recent Tobacco Screening? 07/01/2025 Information not available 07/01/2025 What Is Your Relationship Status? Information not available 01/10/2024 Do You Use Your Seat Belt Or Car Seat Routinely? Yes Information not available 01/10/2024 Do You Have Smoke And Carbon Monoxide Detectors In Your Home? Yes Information not available 01/10/2024 Do You Use Sunscreen Routinely? Yes Information not available 07/30/2024 Has Tobacco Cessation Counseling Been Provided? No Information not available 01/28/2025 On What Date Was Tobacco Cessation Counseling Provided? 07/01/2025 Information not available 07/01/2025 Sex: Male Functional Status Question Answer Note LastModified by Organizat ion Details LastModified Time Do you use any illicit or recreational drugs? No Information not available 01/10/2024 Do you or have you ever used any other forms of tobacco or nicotine? No Information not available 01/10/2024 What is your level of alcohol consumption? Occasional Information not available 01/10/2024 Are you currently employed? No Information not available 07/30/2024 Are you able to care for yourself independently? Yes Information not available 01/10/2024 What is your exercise level? Occasional Information not available 07/30/2024 Mental Status Question Answer Note LastModified by Organization D etails LastModified Time Do you feel stressed (tense, restless, nervous, or anxious, or unable to sleep at night)? [id number] Information not available 01/10/2024 Family History Relationship Description Onset Age of [...] Skin Problems Y Anemia N Heart Attack (HI) Y Anxiety Disorder N Diabetes N Muscle, [...] Influenza, high-dose, quadrivalent, PF 2 completed Laney Gal[place] null, [place] - [facility] 07/29/2024 14:22:49 Influenza, high-dose, quadrivalent, PF 2 completed Laney [place] [facility] 07/29/2024 14:22:50 Influenza, adjuvanted, quadrivalent, PF 3 completed Laney [place] [facility] 07/29/2024 14:22:50 Influenza, adjuvanted, quadrivalent, PF 1 completed Laney [place] - [...] or 50 mcg/0.25mL dose 2 completed Laney [place]cd[place] - [...] bony-sucrose, 30 mcg/0.3 mL 3 completed Laney jones, [place] - [facility] 07/29/2024 14:22:50 pneumococcal polysaccharide PPV23 2 completed Laney [place] [facility] 07/29/2024 14:22:50 Tdap 9 completed Laney [place] [facility] 07/29/2024 14:22:50 Pneumococcal conjugate PCV 13 0 completed Laney [place] [facility] 07/29/2024 14:22:50 Influenza, high-dose, trivalent, PF 7 completed Laney [place] [facility] 07/29/2024 14:22:50 Influenza, high-dose, trivalent, PF 5 completed Lane[place] [facility] 07/29/2024 14:22:50 Hep A, adult 4 completed Laney [place] [facility] 07/29/2024 14:22:50 COVID-19, mRNA, LNP-S, PF, bony-sucrose, 30 mcg/0.3 mL 4 completed Not Available [facility] 07/01/2025 10:32:31 Influenza, high-dose, trivalent, PF 4 completed Not Available [facility] 07/01/2025 10:32:31 COVID-19, mRNA, LNP-S, PF, bony-sucrose, 30 mcg/0.3 mL 5 completed Not Available [facility] 07/01/2025 10:32:31 zoster recombinant 5 completed Not Available [facility] 07/01/2025 10:32:31 Past Encounters Encounter ID Performer Location Encounter Start Date Encounter Closed Date Diagnosis/Indication Diagnosis SNOMED-CT Code Diagnosis ICD10 Code Diagnosis IMO Codes Diagnosis Note [id number] Brandt Marie MD [facility] (Adult Med) [address] [place] [address] [phone] 0 01/10/2024 09:46:47 01/10/2024 10:59:10 Hypothyroidism 75747520 E03.9 Essential hypertension 87738067 I10 Hyperlipidemia 64363448 E78.5 Coronary atherosclerosis 234997969 I25.10 Diverticul osis of colon 389563530 K57.30 Chronic rhinitis 6723591 6 J31.0 [id number] MD [facility] (Adult Med) [address] [place] [address] [phone] 03/12/2024 10:20:20 03/12/2024 11:31:25 Pain in right foot 5186278136 63760 M79.671 Renewal of prescription 178595929 Z76.0 [id number] MD [facility] (Adult Med) [address] [place] [address] [phone] 06/18/2024 14:43:58 06/18/2024 16:20:43 Hyperlipidemia 34216461 E78.5 Hypothyroidism 63247468 E03.9 Essential hypertension 46965830 I10 Coronary atherosclerosis 742405415 I25.10 Acute dermatitis 3025296 6 L30.9 [id number] Brandt Mraie MD [facility] (Adult Med) [address] [place] [address] [phone] 07/30/2024 09:35:14 07/30/2024 10:34:45 Adult health examination 963700457 Z00.00 Health Risk Assessment collected and reviewed Obesity 112934856 E66.9 [id number] Brandt Marie MD [facility] (Adult Med) [address] [place] [address] [phone] 09/25/2024 10:02:27 09/25/2024 11:18:15 Obesity 930647783 E66.9 Superficia l thrombophlebitis 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.9 [id number] Brandt Marie MD [facility] (Adult Med) [address] [place] [address] [phone] 0 11/05/2024 11:02:33 11/05/2024 12:02:14 Body mass index 30+ - obesity 098644858 Z68.32 Obesity 476006849 E66.9 Coronary atherosclerosis 645022798 I25.10 Essential hypertension 33037020 I10 Hyperlipidemia 35574368 E78.5 Hypothyroidism 32198917 E03.9 Screening for malignant neoplasm of prostate 382380323 Z12.5 [id number] Brandt Marie MD [facility] (Adult Med) [address] [place] [address] [phone] 01/28/2025 10:42:38 01/28/2025 11:18:33 Body mass index 30+ - obesity 680915856 Z68.31 Obesity 534814826 E66.9 Hyperlipidemia 84754240 E78.5 Bronchitis 13179535 J40 [id number] Brandt Marie MD [facility] [address] [place] [address] 02/13/2025 11:31:38 02/13/2025 12:45:37 Obesity caused by energy imbalance 145397595 E66.811 E66.09 Z68.31 98323425 Obesity 652595161 E66.9 Dyspnea on exertion 6084 5006 R06.09 [id number] MD [facility] La [facility] (Adult Med) [address] [place] [address] 0 02/19/2025 11:29:11 02/19/2025 13:04:52 Body mass index 30+ - obesity 521471759 Z68.31 896071 Overweight 526234576 E66 .3 Dyspnea on exertion 6084 5006 R06.09 [id number] Brandt Marie MD [facility] (Adult Med) [address] [place] [address] 0 03/04/2025 10:49:45 03/04/2025 12:31:02 Body mass index 30+ - obesity 289242717 Z68.30 143504 Overweight 716676008 E66 .3 Essential hypertension 99786907 I10 Dyspnea on exertion 6084 5006 R06.09 065182 Coronary atherosclerosis 370494790 I25.10 [id number] Brandt Marie MD [facility] (Adult Med) [address] [place] [address] 0 07/01/2025 10:31:25 07/01/2025 11:47:56 Obese class I 0586818661 88463 E66.811 E66.3 1478701465 BMI 31.3 Essential hypertension 84381046 I10 Hypothyroidism 65370845 E03.9 Coronary atherosclerosis 733807713 I25.10 Hyperlipidemia 89426438 E78.5 Health Concerns Section Related Observation LastModified by Organization Detai ls LastModified Time None Recorded Concern Status LastModified by Organization Details LastModified Time None Recorded Advance Directives Directive N: Payers Insurance Date Sequence Insurance Name Policy Number Policy Recinos Covered Member ID Recinos Member ID Guarantor Name 03/09/2025 1 [facility] (MEDICARE REPLACEMENT/ ADVANTAGE - HMO) [id number] Pablo Cruz [id number] Pablo Cruz 06/30/2025 1 [employer] (MEDICARE REPLACEMENT/ ADVANTAGE - PPO) [id number] Pablo Cruz [id number] Pablo Dalalowell 03/10/[address] [place] [address] Pablo Cruz [id number] Pablo Dalalowell Notes Date Note Type Note Provider Name and Address Organization Details Recorded Time 5 text/html cough wheezing congestion ER visit workup negative steroids antibiotics slowly getting better also needs repeat of his lipid panel Brandt Marie MD Attn: Accounting,[address] [facility], [place], [address], [facility] - [facility] 01/28/2025 21:24:32 5 text/html Residual cough tightness in chest small reversibility on his stress testing and he was getting out catheterization done with Cardiology Brandt Marie MD Attn: Accounting[address] [place], [address], 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
--- OUTSIDE RECORDS SUMMARY | 2025-10-21 19:49 | XMS_ITS | Continuity of Care Document ---
Author Organization [place] - [facility], [facility] [place] Address [address] [facility] [address] [place] [address] Care Team Providers Care Sales And Marketing Engineer Name Role Phone BRANDT KIRAN Primary Care Provider BRANDT KIRAN Referring Provider Assessment Encounter Date Assessment Date Assessment LastModified by Organization Details LastModified Time 08/26/2025 08/26/2025 This note is dictated and transcribed by [employer]. [employer] Clerk variances may occur. Despite proofreading, typographical errors may occur. Occasional wrong-word or '[id number]-[id number]' substitutions may have occurred due to the inherent limitations of voice recording. Read the chart carefully and recognize, using context, where substitutions have occurred. codie Not available 08/26/2025 11:44:42 Plan of Treatment Reminders Order Date Submit Date Provider Last Modified By Organization Details Last Modified Time Details Appointments Establish ed Patient 10 2025 09:30A Ximena Anna DPM Not available Not available Not available Lab None recorded. Referral None recorded. Procedures None recorded. Surgeries None recorded. Imaging None recorded. Medication Orders ketoconaz ole 2 % topical cream [address] [id number], [address], [place], [address], 08/26/2025 11:44:45 Patient TargetsNo targets recorded. Patient InstructionsNo instructions recorded. Reason for Referral None Reported. Problems Name Problem SNOMED Code Status Onset Date Resolution Date Notes Provider Name and Address Organization Details Recorded Time Herpes zoster without complicati on 389614517 Active Not Available [facility] 4 08:13:56 Hearing loss 22861946 Active Not Available [facility] 4 08:13:56 Sinusitis 58852453 Active Not Available [facility] 4 08:13:56 Hypertensi ve disorder 56205848 Active Not Available [facility] 4 08:13:56 Diverticul ar disease 360599241 Active Not Available [facility] 4 08:13:56 Dysphagia 55191659 Active Not Available [facility] 4 08:13:56 Hypothyroi dism 93247112 Active Not Available [facility] 4 08:13:56 Diarrhea 84365633 Active Not Available [facility] 4 08:13:56 Coronary arterioscl erosis 90254661 Active 2016 Not Available [facility] 4 08:13:56 Essential hypertensi on 56954627 Active 2016 Not Available [facility] 4 08:13:56 Hyperlipid emia 45899950 Active 2018 Not Available [facility] 4 08:13:56 Screening for malignant neoplasm of prostate Active 2021 Not Available [facility] 4 08:13:56 Cough 60449586 Active 2021 Not Available [facility] 4 08:13:56 Upper respirator y infection 42659337 Active 2021 Not Available [facility] 4 08:13:56 Acute upper respirator y infection 19214414 Active 2021 Not Available [facility] 4 08:13:56 Ankle pain 096910300 Active 2021 Not Available [facility] 4 08:13:56 Onychomyco sis of toenails 696276713 Active 2022 Not Available [facility] 4 08:13:56 Bunion 378380252 Active 2022 Not Available [facility] 4 08:13:56 Ganglion cyst of right foot 5954308377158 108 Active 2023 Leonel Anna DPM [address], [place], [address] , [employer] 10:43:13 Calcaneal spur 01221737 Active 2023 Leonel Anna DPM [address], [place], [address] , [employer] 10:43:32 Dystrophia unguium 67320544 Active 2024 Leonel Anna DPM [address], [place], [address] , [employer] 14:42:09 Problem Notes None recorded. Procedures Surgical History Date Name Laterality Status Provider Name and Address Organization Details Recorded Time 08/26/20 25 Nail Debridement completed Leonel Anna DPM [address], [place], [address], [employer] 08/26/2025 14:19:34 05/29/20 25 Nail Debridement completed Leonel Anna DPM [address], [place], [address], [employer] 05/29/2025 10:37:39 02/18/20 25 Nail Debridement completed Leonel Anna DPM [address], [place], [address], [employer] 02/19/2025 14:42:40 03/21/20 24 Cortisone Injection completed Leonel Anna DPM [address], [place], [address], [employer] 03/21/2024 10:51:11 09/23/20 13 Cardiac Stent Placement completed Not Available [facility] 12/28/2022 04:42:13 Cardiac Stent Placement completed Not Available [facility] 12/28/2022 04:42:13 Imaging Results None recorded. Procedure Notes None [...] by oral route.3 x2 days 2x 2days [id number] active Not Available Not Available No t [...] 2.5 mg/3 mL (0.083 %) solution for nebulizat ion INHALE 2.5 MG VIA NEBULIZE R 3 TIMES A DAY NEEDED FOR SHORTNES S OF BREATH OR WHEEZING active Not Available Not Available No t Available enalapril maleate 5 mg tablet active [...] Not Available Not Available No t Available potassium chloride ER 10 mEq tablet,ex tended release TAKE 1 TABLET BY MOUTH EVERY [...] t Available clopidogr el 75 mg tablet TAKE 1 TABLET BY MOUTH EVERY DAY active Not Available Not Available No t Available levofloxa yesy 250 mg tablet TAKE 1 TABLET BY MOUTH EVERY DAY 05/26 completed Not Available Not Available Not Available ciproflox acin 500 mg tablet TAKE [...] active Not Available Not Available Not Available famotidin e 20 mg tablet TAKE 1 TABLET BY MOUTH EVERY DAY AT BEDTIME active Not Available Not Available No t Available prednisol one acetate 1 % eye drops,mahamed pension 01/15 completed Not Available Not Available Not Available Kenalog 10 mg/mL suspensio n for injection In office injectio n administ ered by the provider 11/18 completed [facility]: [id number] 4-20 Not Available Not Available Not [...] 1 TABLET BY MOUTH EVERY DAY DIRECTED active Not Available Not Available No t Available nitroglyc kelli 0.4 mg sublingua l tablet 09/19 completed Not Available Not Available Not Available monteluka st 10 mg tablet TAKE 1 TABLET BY MOUTH EVERY DAY active Not Available Not Available No t Available furosemid e 20 mg tablet TAKE 1 TABLET BY [...] TOPICALL Y TO THE AFFECTED AREA DAILY 2024 active Not Available Not Available Not Avai lable cefdinir 300 mg capsule TK 1 C PO BID FOR 7 DAYS active Not Available Not Available No t Available fluticaso ne propionat e 50 mcg/actua tion nasal spray,mahamed pension SPRAY 1 SPRAY BY INTRANAS AL ROUTE EVERY DAY active Not Available Not Available No t Available ipratropi um bromide 21 mcg (0.03 %) nasal spray 08/30 completed Not Available Not Available Not Available ezetimibe 10 mg tablet TAKE 1 TABLET BY MOUTH EVERY DAY active Not Available Not Available No t Available cyclobenz aprine 5 mg tablet Take [...] administ ered by the provider 11/18 completed [facility]: [phone] 6 Not Available Not Available Not Available ranolazin e ER 1,000 mg tablet,ex tended release,1 2 hr TAKE 1 TABLET BY MOUTH TWICE A DAY active Not Available Not Available No t Available Emverm 100 mg chewable tablet AIR TANK ASSEMBLER ONE T PO FOR ONCE DOSE active Not Available Not Available No t Available Fluzone High-Dose 2018- (PF) 180 mcg/0.5 mL intramusc ular syringe TO BE ADMINIST ERED BY [employer] FOR IMMUNIZA TION active Not Available Not Available No t Available ID NOW COVID-19 Test Kit DIRECTED active Not Available Not Available No t Available COVID-19 test specimen collectio n TEST DIRECTED active Not Available Not Available No t Available Fluzone High-Dose Quad (PF) 240 mcg/0.7 mL IM syringe TO BE ADMINIST ERED BY [employer] FOR IMMUNIZA TION active Not Available Not [...] weight Heart rate Respiratory rate Oxygen saturation Systolic And Diastolic Provider Name and Address Organization Details Last Updated DateTime 5 165.1 cm 31.6 kg/m2 91442.5 5 g 58 /min 14 /min 98 % 112/59 mm[Hg] Christy Charles [employer] 5 11:25:36 Social History Question Answer Notes LastModified by Organization Details LastModified Time Tobacco Smoking Status Former Smoker quit 1974 ZAC [place], [employer] 09/27/2023 10:34:08 Do You Have An Advance Directive? No [id number] Information not available 12/28/2022 Do You Wear A Helmet When Biking? No Doesn't Bike [email or web address] Information not available 09/27/2023 Are You Blind Or Do You Have Difficulty Seeing? No [email or web address] Information not available 09/27/2023 What Is Your Level Of Caffeine Consumption? Moderate [id number] Information not available 12/28/2022 How Much Tobacco Do You Chew? None [id number].[id number] [id number] Information not available 12/28/2022 In The 14 Days Before Symptom Onset, Have You Had Close Contact With A Laboratory-confi rmed COVID-19 While That Case Was Ill? No [email or web address] Information not available 09/27/2023 In The 14 Days Before Symptom Onset, Have You Had Close Contact With A Person Who Is Under Investigation For COVID-19 While That Person Was Ill? No [email or web address] Information not available 09/27/2023 Are You Deaf Or Do You Have Serious Difficulty Hearing? No [email or web address] Information not available 09/27/2023 What Type Of Diet Are You Following? CARBOHYDRATE [id number] [id number] Information not available 12/28/2022 Which Illicit Or Recreational Drugs Have You Used? None [email or web address] Information not available 09/27/2023 What Is The Highest Grade Or Level Of School You Have Completed Or The Highest Degree You Have Received? [id number] [email or web address] Information not available 09/27/2023 Have There Been Any Changes To Your Family Or Social Situation? No [email or web address] Information not available 09/27/2023 When Did You Quit Smoking? 16+yearssincelastci sherif [email or web address] Information not available 09/27/2023 Are There Any Guns Present In Your Home? No [email or web address] Information not available 09/27/2023 Do You Use Insect Repellent Routinely? No [email or web address] Information not available 09/27/2023 Where Do You Live? SingleLevelHouse [email or web address] Information not available 09/27/2023 Do You Have A Medical Power Of Senior Benefits Manager? No [email or web address] Information not available 09/27/2023 What Was The Date Of Your Most Recent Tobacco Screening? 03/21/2024 Information not available 03/21/2024 Do You Have Any Pets? No [email or web address] Information not available 09/27/2023 What Is Your Relationship Status? [id number] Information not available 12/28/2022 Do You Use Your Seat Belt Or Car Seat Routinely? Yes [email or web address] Information not available 09/27/2023 Do You Have Smoke And Carbon Monoxide Detectors In Your Home? Yes [email or web address] Information not available 09/27/2023 Are You Passively Exposed To Smoke? No [email or web address] Information not available 09/27/2023 Are There Any Smokers In Your House? No Information not available 09/27/2023 Do You Use Sunscreen Routinely? No [email or web address] Information not available 09/27/2023 Has Tobacco Cessation Counseling Been Provided? No Information not available 03/21/2024 Have You Recently Traveled Abroad? No [email or web address] Information not available 09/27/2023 Do You Have Difficulty Walking Or Climbing Stairs? No [email or web address] Information not available 09/27/2023 Do You Have Any Dietary Restrictions? No [email or web address] Information not available 09/27/2023 Sex: Male Functional Status Question Answer Note LastModified by Organizat ion Details LastModified Time Do you or have you ever used smokeless tobacco? Never used smokeless tobacco [id number] Information not available 12/28/2022 Are you currently employed? No [email or web address] Information not available 09/27/2023 Do you have transportation difficulties? No [email or web address] Information not available 09/27/2023 Are you able to care for yourself independently? Yes [email or web address] Information not available 09/27/2023 Do you have difficulty dressing, bathing, grooming, or toileting? No [email or web address] Information not available 09/27/2023 Do you or have you ever used e-cigarettes or vape? Never used electronic cigarettes [email or web address] Information not available 09/27/2023 What is your exercise level? Occasional [id number] Information not available 12/28/2022 Do you use any illicit or recreational drugs? No Information not available 03/21/2024 Do you or have you ever used any other forms of tobacco or nicotine? No [email or web address] Information not available 09/27/2023 What is your level of alcohol consumption? None [id number] Information not available 12/28/2022 Are you able to walk independently without assistance or assistive devices? [email or web address] Information not available 09/27/2023 Do you have difficulty doing errands alone? No [email or web address] Information not available 09/27/2023 What is your occupation? retired [email or web address] Information not available 09/27/2023 Mental Status Question Answer Note LastModified by Organizat ion Details LastModified Time Do you feel stressed (tense, restless, nervous, or anxious, or unable to sleep at night)? [id number] [email or web address] Information not available 09/27/2023 Do you have difficulty concentrating, remembering or making decisions? No [email or web address] Information no t available 09/27/2023 Family History Relationship Description Onset Age of this Age Resolved Age Notes LastModified by Organization Details LastModified Time Brother Heart disease [id number] Not available 12/28/2022 04:42:18 Father Heart disease 92 [id number] Not available 12/28/2022 04:42:19 Mother Vascular disorder 91 [email or web address] Not available 2024 10:47:56 Medical History Condition Response NERVE DISEASE N BLINDNESS N RHEUMATIC FEVER N KIDNEY STONES N BLADDER PROBLEMS N MRSA N OTHER # 1 N POLIO N LUNG DISEASE/DISORDER N HISTORY OF DRUG ABUSE N RADIATION / CHEMOTHERAPY N COPD N Other # 2 N BLOOD DISEASES N EAR OR HEARING PROBLEMS Y MUMPS N SHINGLES Y BOWEL PROBLEMS N DEPRESSION (INCLUDING POST ) N STROKE/TIA N ULCERS N BENIGN PROSTATIC [...] INSOMNIA N HIGH CHOLESTEROL / HYPERLIPIDEMIA Y EYE PROBLEMS N HYPERTHYROIDISM N EDEMA N CHRONIC PAIN SYNDROME N HYPOTHYROIDISM Y CONSTIPATION N CAROTID BLOCKAGE N BACK / NECK PROBLEMS N HAVE YOU BEEN HOSPITALIZED OR SEEN IN [facility] IN THE PAST YEAR ? N ATHEROSCLEROSIS N BREAST PROBLEMS N DIALYSIS N ECZEMA N OSTEOPOROSIS N ARTHRITIS N APPENDICITIS N DIABETES, TYPE N BAD TEETH N ENT N HEARTBURN / REFLUX N AUTISM SPECTRUM DISORDER (ASD) N HEPATITIS / LIVER DISEASE N GOUT N SLEEP DISORDER N ALZHEIMER'S DISEASE N Brain Problems N DEMENTIA N HERPES N SEIZURES/EPILEPSY N HEADACHES/MIGRAINES N VASCULAR DISEASE N PACEMAKER N Blood Disorder N DIZZINESS N HEART DISEASE/HEART PROBLEMS Y KIDNEY DISEASE N MULTIPLE SCLEROSIS N CANCER: SPECIFY N CARDIAC ARRHYTHMIA N ATRIAL FIBRILLATION N Gall Stones N PULMONARY EMBOLISM N AUTOIMMUNE DISEASE N Immunizations Vaccine Type Date Status Note Provider Nam e and Address Organization Details Recorded Time Influenza, high-dose, quadrivalent, PF 2 completed Not Available [facility] 12/14/2023 12:57:09 Influenza, high-dose, trivalent, PF 7 completed Not Available [facility] 12/14/2023 12:57:09 Influenza, high-dose, trivalent, PF 5 completed Not Available [facility] 12/14/2023 12:57:09 pneumococcal polysaccharide PPV23 2 completed Not Available [facility] 12/14/2023 12:57:09 Pneumococcal conjugate PCV 13 0 completed Not Available [facility] 12/14/2023 12:57:09 Hep A, adult 4 completed Not Available [facility] 12/14/2023 12:57:09 Past Encounters Encounter ID Performer Location Encounter Start Date Encounter Closed Date Diagnosis/Indication Diagnosis SNOMED-CT Code Diagnosis ICD10 Code Diagnosis IMO Codes Diagnosis Note [id number] Leonel Anna DPM [facility] [place] [address] [facility] [place] [address] 08/26/2025 10:45:46 08/27/2025 16:09:16 Onychomycosis of toenails 801319486 B35.1 Patient was educated on treatment options of onychomyco sis. Patient's nails 1 through 10 were debrided without incident. Patient defers pharmacolo gical management due to possible side effects and will continue with conservati ve options. Return to clinic as needed every 3 months for this problem. Health Concerns Section Related Observation LastModified by Organization Detai ls LastModified Time None Recorded Concern Status LastModified by Organization Details LastModified Time None Recorded Payers Encounter Date Sequence Insurance Name Policy Number Policy Recinos Covered Member ID Recinos Member ID Guarantor Name 08/26/2025 1 [employer] (MEDICARE REPLACEMENT/ ADVANTAGE - PPO) [id number] Pablo Cruz [id number] Pablo Cruz Notes Date Note Type Note Provider Name and Address Organization Details Recorded Time 08/26/2025 text/html . Patient is a 74-year-old male he returns for onychomycosis of the toenails. Patient states he has difficulty cutting them due to the thickened nature. Patient would like to have them cut. Patient denies any other complaints. Leonel Anna DPM [address], [place], [address], [place] [facility] 08/26/2025 14:20:06
== END 2025-10-21 20:44 | disposition left against medical advice (07) ==
PROVIDERS: PCP Internal Medicine
DX: Z53.21 Procedure and treatment not carried out due to patient leaving prior to being seen by health care provider (principal)
CPT/HCPCS: 99199